=== PATIENT | male | born 1965 | race Caucasian/White ===

== ENCOUNTER 2017-07-09 15:16 | Inpatient (IN) | payer MEDICARE ==
[2017-07-09 16:14] LABS: Hematocrit 47 % (42-52); Hemoglobin 15.1 g/dl (14.0-18.0); Mean Corpuscular HGB Conc 33 g/dl (31-36); Mean Corpuscular Hemoglobin 26 pg (27-31); Mean Corpuscular Volume 81 fL (80-94); Mean Platelet Volume 8 um3 (7.4-10.4); Red Blood Count 5.77 10^6/ul (4.0-5.4); Red Cell Distribution Width 20 % (10.5-15); White Blood Count 10.9 10^3/ul (3.5-10.8)
[2017-07-09 16:23] LABS: ALT 59 U/L (7-52); AST 37 U/L (13-39); Albumin 4.3 g/dL (3.2-5.2); Alkaline Phosphatase 61 U/L (34-104); Anion Gap 12 mmol/L (2-11); BUN/Creatinine Ratio 14.4 (8-20); Blood Urea Nitrogen 20 mg/dL (6-24); CO2 Carbon Dioxide 23 mmol/L (22-32); Calcium 9.8 mg/dL (8.6-10.3); Chloride 101 mmol/L (101-111); EGFR African American 69.6 (>60); EGFR Non-African American 54.1 (>60); Globulin 2.8 g/dL (2-4); Glucose 94 mg/dL (70-100); Potassium 4.1 mmol/L (3.5-5.0); Sodium 136 mmol/L (133-145); Total Protein 7.1 g/dL (6.4-8.9)
[2017-07-09 16:53] LABS: TSH (Thyroid Stimulating Horm) 0.52 mcIU/mL (0.34-5.60)
[2017-07-09 17:15] LABS: Acetaminophen < 15 mcg/mL; Alcohol < 10 mg/dL (<10); Lithium < 0.10 mmol/L (0.6-1.2); Salicylate < 2.50 mg/dL (<30)
--- NOTE | 2017-07-09 17:37 | ED ---
Psychiatric Complaint - HPI Summary HPI Summary: Patient presents to the ED after missing an appt with his therapist. He states he has been having suicidal ideations with 3 prior attempts. One attempt was 25 years ago with cutting his throat, one attempt was 10 years ago by an OD and last episode one week ago. He attempted to OD on trazadone (17 tabs of 150mg) and remeron (approx 5 tabs) last week. Therapist was made aware and gave only a 7 day supply of the trazadone to which he took all 7 last evening and 5 tabs remeron. He is currently having SI but denies HI. He has a therapist and a psychiatrist. His PMHx includes some medical problems in addition to bipolar with overlying depression. Patient is a smoker, ETOH use, but denies any drugs. He was on lithium for 25 years, but recently was taken off d/t kidney function. He points this out as a reason for his increased depression. - History Of Current Complaint Chief Complaint: EDMentalHealth Time Seen by Provider: 07/09/17 15:24 Hx Obtained From: Patient Onset/Duration: Gradual Onset Timing: Constant Severity Initially: Moderate Severity Currently: Moderate Character: Depressed Aggravating Factor(s): Medication Non-compliance, Therapy Non-compliance Alleviating Factor(s): Nothing Related History: Positive For: Prior Psychiatric Issues Has Suicidal: Reports: Thoughts, With A Plan Ingestion History: Type/Name Of Drug - trazadone and remeron, Amount Ingested - 17 tabs of 150mg trazadone/ 5 tabs remeron - Risk Factor(s) Completed Suicide Risk Factors: Male, White Australian - Allergies/Home Medications Allergies/Adverse Reactions: Allergies Allergy/AdvReac Type Severity Reaction Status Date / Time No Known Allergies Allergy Verified 03/13/14 07:05 Home Medications: Home Medications Levothyroxine TAB* [Synthroid TAB*] 50 mcg PO DAILY 07/09/17 [History Confirmed 07/09/17] Lurasidone (NF) [Latuda (NF)] 80 mg PO DAILY WITH MEAL 07/09/17 [History Confirmed 07/09/17] amLODIPine TAB* [Norvasc 5 mg TAB*] 10 mg PO DAILY 07/09/17 [History Confirmed 07/09/17] PMH/Surg Hx/FS Hx/Imm Hx Previously Healthy: Yes Endocrine/Hematology History: Reports: Hx Thyroid Disease - HYPOTHYROIDISM Cardiovascular History: Reports: Hx Hypertension - ON MEDICATION FOR Respiratory History: Reports: Hx Sleep Apnea - PROPS SLEEPS ON SIDE AND HEAD OF BED ELEVATED GI History: Reports: Hx Gastroesophageal Reflux Disease - ON MEDICATION FOR, Hx Ulcer - HX OF Musculoskeletal History: Reports: Hx Arthritis - SHOULDER-RIGHT Sensory History: Denies: Hx Contacts or Glasses, Hx Hearing Aid Opthamlomology History: Denies: Hx Contacts or Glasses Neurological History: Reports: Other Neuro Impairments/Disorders - BIPOLAR DISEASE/ TREMOR Psychiatric History: Reports: Hx Anxiety - UNDER CONTROL WITH MEDICATION PER PATIENT, Hx Depression - UNDER CONTROL WITH MEDICATION PER PATIENT - Surgical History Surgery Procedure, Year, and Place: REPAIR OF A THROAT LACERATION- WHILE IN HIS [id number] 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 ANKLE RECONSTRUCTION- [place]. LYMPH NODE BIOPSY- [facility] [place]- 2012 Hx Anesthesia Reactions: No - Immunization History Hx Pertussis Vaccination: No Immunizations Up to Date: Unable to Obtain/Confirm Infectious Disease History: Yes Infectious Disease History: Denies: Traveled Outside the [place] in Last 30 Days - Social History Occupation: Unemployed Lives: Alone Alcohol Use: None Hx Substance Use: No Substance Use Type: Reports: None Hx Tobacco Use: Yes Smoking Status (MU): Former Smoker Amount Used/How Often: 1/2 PPD X 20 YEARS Review of Systems Constitutional: Negative Eyes: Negative Cardiovascular: Negative Respiratory: Negative Positive: no symptoms reported, see HPI Musculoskeletal: Negative Skin: Negative Positive: Anxious, Depressed All Other Systems Reviewed And Are Negative: Yes Physical Exam Triage Information Reviewed: Yes Vital Signs On Initial Exam: Initial Vitals BP 120/86 / 15:20 Vital Signs Reviewed: Yes Appearance: Positive: Well-Appearing, Well-Nourished Skin: Positive: Warm, Skin Color Reflects Adequate Perfusion Head/Face: Positive: Normal Head/Face Inspection Eyes: Positive: EOMI, ANTOINE, Conjunctiva Clear Neck: Positive: Supple, No Lymphadenopathy Respiratory/Lung Sounds: Positive: Clear to Auscultation, Breath Sounds Present Cardiovascular: Positive: Normal, RRR, Pulses are Symmetrical in both Upper and Lower Extremities Musculoskeletal: Positive: Normal, Strength/ROM Intact Neurological: Positive: Sensory/Motor Intact, Alert, Oriented to Person Place, Time, Speech Normal Psychiatric: Positive: Affect/Mood Appropriate, Depressed AVPU Assessment: Alert - Donna Coma Scale Coma Scale Total: 15 Diagnostics - Vital Signs Vital Signs Temp Pulse Resp BP Pulse Ox 07/09/17 16:00 95 17 91 07/09/17 15:22 99.0 F 97 16 120/86 97 07/09/17 15:21 103 91 07/09/17 15:20 120/86 - Laboratory Lab Results: Lab Results 07/09/17 07/09/17 Range/Units 15:53 15:53 WBC 10.9 H (3.5-10.8) 10^3/ul RBC 5.77 H (4.0-5.4) 10^6/ul Hgb 15.1 (14.0-18.0) g/dl Hct 47 (42-52) % MCV 81 (80-94) fL MCH 26 L (27-31) pg MCHC 33 (31-36) g/dl RDW 20 H (10.5-15) % Plt Count 213 (150-450) 10^3/ul MPV 8 (7.4-10.4) um3 Neut % (Auto) 88.3 H (38-83) % Lymph % (Auto) 6.2 L (25-47) % [place] % (Auto) 4.8 (1-9) % Eos % (Auto) 0.4 (0-6) % Baso % (Auto) 0.3 (0-2) % Absolute Neuts (auto) 9.6 H (1.5-7.7) 10^3/ul Absolute Lymphs (auto) 0.7 L (1.0-4.8) 10^3/ul Absolute Monos (auto) 0.5 (0-0.8) 10^3/ul Absolute Eos (auto) 0 (0-0.6) 10^3/ul Absolute Basos (auto) 0 (0-0.2) 10^3/ul Absolute Nucleated RBC 0 10^3/ul Nucleated RBC % 0 Sodium 136 (133-145) mmol/L Potassium 4.1 (3.5-5.0) mmol/L Chloride 101 (101-111) mmol/L Carbon Dioxide 23 (22-32) mmol/L Anion Gap 12 H (2-11) mmol/L BUN 20 (6-24) mg/dL Creatinine 1.39 H (0.67-1.17) mg/dL Est GFR ( Amer) 69.6 (>60) Est GFR (Non-Af Amer) 54.1 (>60) BUN/Creatinine Ratio 14.4 (8-20) Glucose 94 (70-100) mg/dL Calcium 9.8 (8.6-10.3) mg/dL Total Bilirubin 0.90 (0.2-1.0) mg/dL AST 37 (13-39) U/L ALT 59 H (7-52) U/L Alkaline Phosphatase 61 (34-104) U/L Total Protein 7.1 (6.4-8.9) g/dL Albumin 4.3 (3.2-5.2) g/dL Globulin 2.8 (2-4) g/dL Albumin/Globulin Ratio 1.5 (1-3) TSH 0.52 (0.34-5.60) mcIU/mL Salicylates < 2.50 (<30) mg/dL Acetaminophen < 15 mcg/mL [place] < 0.10 L (0.6-1.2) mmol/L Serum Alcohol < 10 (<10) mg/dL Result Diagrams: 07/09/17 15:53 07/09/17 15:53 Lab Statement: Any lab studies that have been ordered have been reviewed, and results considered in the medical decision making process. Course/Dx - Course Course Of Treatment: Patient is evaluated for depression. He has 2 recent episodes of attempted overdose. Both on trazadone and remeron. He notes he just wants to sleep, but upon questioning, he states he cannot fully answer if he has SI. Previous attempts of suicide =3. Patient has close outpatient follow up. He takes medications for HCL, HTN and hypothyroidism. He is feeling "fatigued" at this time, but denies other symptoms. D/t recent (12 hours since ingestion) episode, poison control called and requested patient be on 6 hour tele-monitoring. He is feeling otherwise well. He is given no medications during his ED course of treatment. - Differential Dx/Clinical Impression Differential Diagnosis/HQI/PQRI: Positive: Bipolar Disorder, Drug Overdose/ Intentional, Suicide Attempt Provider Diagnosis: Drug overdose, intentional, Bipolar disorder Discharge - Discharge Plan Condition: Stable Disposition: OTHER Discharge Disposition Comment: Cleared for MHU
[2017-07-09 18:35] LABS: Urine Bilirubin Negative (Negative); Urine Glucose Negative (Negative); Urine Nitrite Negative (Negative)
[2017-07-09 19:27] LABS: Benzodiazepine Urine Screen Presumptive Positive (None Detect)
[2017-07-09] MEDS ORDERED: Omeprazole CAP* 20 MG ONE (23:56)
[2017-07-09] MEDS ORDERED: Mirtazapine TAB* 15 MG ONE (23:56)
[2017-07-09] MEDS ORDERED: traZODone TAB* 50 MG TAB ONE (23:56)
[2017-07-10] MEDS ORDERED: Al Hydrox/Mg Hydrox/Simet LIQ* 30 ML UDC PO PRN (00:28)
[2017-07-10] MEDS ORDERED: Acetaminophen TAB* 325 MG PO PRN (00:28)
[2017-07-10] MEDS ORDERED: LURASIDONE 80 MG PO SCH (08:30)
[2017-07-10] MEDS: amLODIPine TAB* 5 MG PO SCH (09:19)
[2017-07-10] MEDS: Omeprazole CAP* 20 MG PO SCH ×2 (09:19→21:39)
[2017-07-10] MEDS: Levothyroxine TAB* 50 MCG TAB PO SCH (09:19)
--- NOTE | 2017-07-10 11:49 | PN ---
MHU: Group Therapy Note - Service Type Service Type: 11295 Group Psychotherapy - Cognitive Behavioral Group Therapy ( CBT):Patient was attentive and participatory in CBT programming this morning, and remained in good behavioral control. Patient expressed positive insights regarding relevant treatment interventions and goals.
--- NOTE | 2017-07-10 13:03 | HP ---
H&P (Free Text) History and Physical: HPI: ---- Patient is a 51yo male with PPHx significant for Bipolar 1 d/o with PFs who presents to the [facility] ED for psychiatric eval on issued by his [facility] therapist. Patient reports he has experienced sudden significant drop in his mood and attempted suicide 1 week ago when he OD on 15 150mg Trazodone tabs and 4 25mg Vistaril tabs. Patient reports only adverse effect was that he slept for 2days. Patient reports multiple recent biopsychosocial stressors. 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 Patient reports he worked out daily. He reports purchasing high dollar proteins and supplements, and spent extra for healthy food as this was his identity. Patient reports the knee injury in fact was infectious in etiology. He reports recently completing a long course of ABX. He has missed his f/u Ortho appts. Patient also in 11/2016 he was informed by his psychiatrist, Dr. Guadarrama, that his renal function as been worsening. Patient reports he has been on Campanilla since his first suicide attempt at 28yo. In mid-April 2017 patient was informed he had to come off Campanilla for mx of Bipolar d/o as his renal function had become critical. He reports being on a dose of 600mg po BID. He reports Dr. Guadarrama tapered him 500mg every 2 weeks until he was off, while cross-titrating Latuda which she started at 20mg po daily. Patient reports he has been off Campanilla for 1 month and is currently on Latuda 80mg po daily. Patient reports over the last month his anxiety and depression has significantly worsened. 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 Patient reports he wakes in the morning and is overwhelmed with anxiety. Patient stated, I will pace aimlessly for 12 hours. Patient stated, Its hard to sit still. He reports significant depression and feelings that his life is worthless. Patient reports this prompted him to attempt suicide 1 week ago. Patient stated, the only relief I got was when I took those Trazodone and slept. He stated, I wanted to sleep foreverI didnt want to deal anymore. Patient states in addition he has experienced significant apathy, low energy, low motivation, no ambition, poor sleep, and decreased appetite. Patient reports ~ 3wks of experiencing symptoms of agoraphobia, as he would become panicked when outside his home. He reports he has gone days without eating because he was too anxious to leave his home even for food. 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 He reports when not on his meds he hears the voice of 2 females who normally whisper his name or make odd comments. He reports being arrested for entering a strangers home at 1am while intoxicated on cannabis because the female voices told him there was a woman waiting for him inside that house. He reports going inside, being confronted by the father of the family there and reports police were pulling up before he could get off the lawn. Patient reports no current hallucinations. He denies use of alcohol, cannabis or any illicit substance in over 12 years. He reports 2 prior suicide attempts in [place]. Patient moved to [place] in 2003. Patient reports med compliance with Latuda and reports compliance with his psychiatry appts with Dr. Guadarrama and therapy appts. with his therapist Gisele Palafox. Patient has insight that he has lost his identity. He requests med modification as he feels Latuda does not work, and he requests SW aid with financial issues as he reports he has social security benefits, but is afraid because his rent is late he may lose his apartment. Patient reports he feels safe on the unit. He denies current SI/HI or AH/VH. He continues to display moderate symptoms of akathisia. Past Psych Hx: Inpt - 1st at a psychiatric hospital in [place] at age 28yo after a suicide attempt by cutting his neck requiring ICU and tracheotomy. - His last hospitalization was at the [facility] in 10/2006. Outpt - Patient seen at [facility] by Dr. Guadarrama(psychiatry) and Gisele Palafox( therapist) Psychotropic med hx - Campanilla, Depakote, Wellbutrin, Ambien, Restoril, Klonopin , Latuda, Trazodone Suicide attempt Hx / SIB Hx: -Patient reports a total of 3 suicide attempt. -He reports his 1st when he was 28yo in [place]. He reports stressor being recently released from snf, with no job, and financial pressures. Patient cut across his neck with a knife. He required ICU hospitalization and a tracheotomy. -He reports his second, by OD on pills after the breakup of a 12yr relationship and moving back to [place] from [place]. -His 3rd occurred last week by OD due to akathisia, agoraphobia, neurovegetative symptoms of depression. Trauma Hx: Patient adopted at 2yo. Substance Hx: Patient denies use of alcohol, cannabis or any illicit substance in over 12 years. 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 Legal Hx: Patient reports hx of 3 incarcerations. He reports no current legal issues. Home Medications: Home Medications Medication Instructions Recorded Confirmed Type Mirtazapine TAB* [Remeron TAB*] 30 mg PO BEDTIME 03/08/14 07/09/17 History Omeprazole CAP* [Prilosec CAP*] 20 mg PO BID 03/08/14 07/09/17 History Temazepam CAP* [Restoril CAP*] 30 mg PO BEDTIME 03/08/14 07/09/17 History Trazodone HCl 150 mg PO BEDTIME 03/08/14 07/09/17 History Levothyroxine TAB* [Synthroid TAB*] 50 mcg PO DAILY 07/09/17 07/09/17 History Lurasidone (NF) [Latuda (NF)] 80 mg PO DAILY WITH MEAL 07/09/17 07/09/17 History amLODIPine TAB* [Norvasc 5 mg TAB*] 10 mg PO DAILY 07/09/17 07/09/17 History VITALS: --------- Vital Signs (72 hours) 07/09/17 07/09/17 07/09/17 15:20 15:21 15:22 Temperature 99.0 F Pulse Rate 103 97 Respiratory 16 Rate Blood Pressure 120/86 120/86 (mmHg) O2 Sat by Pulse 91 97 Oximetry 07/09/17 07/09/17 07/09/17 16:00 17:00 18:00 Temperature Pulse Rate 95 99 80 Respiratory 17 14 15 Rate Blood Pressure (mmHg) O2 Sat by Pulse 91 92 92 Oximetry 07/09/17 07/09/17 07/09/17 18:37 19:00 19:30 Temperature Pulse Rate 84 82 83 Respiratory 14 15 16 Rate Blood Pressure 127/83 123/85 118/86 (mmHg) O2 Sat by Pulse 91 91 91 Oximetry 07/09/17 07/09/17 07/09/17 20:00 20:30 21:00 Temperature Pulse Rate 76 77 95 Respiratory 15 15 17 Rate Blood Pressure 120/84 134/89 140/95 (mmHg) O2 Sat by Pulse 91 91 92 Oximetry 07/09/17 07/09/17 07/09/17 21:30 22:00 22:30 Temperature Pulse Rate 90 89 81 Respiratory 15 15 16 Rate Blood Pressure 145/87 136/84 132/80 (mmHg) O2 Sat by Pulse 92 92 91 Oximetry 07/09/17 07/09/17 07/09/17 23:00 23:39 23:40 Temperature 98.0 F 98 F Pulse Rate 81 117 117 Respiratory 16 16 16 Rate Blood Pressure 127/81 126/80 126/80 (mmHg) O2 Sat by Pulse 90 93 93 Oximetry 07/10/17 07/10/17 07/10/17 00:02 00:03 08:03 Temperature 98.5 F Pulse Rate 100 73 Respiratory 16 16 Rate Blood Pressure 141/85 (mmHg) O2 Sat by Pulse 93 Oximetry 07/10/17 07/10/17 07/10/17 11:55 13:05 13:35 Temperature 98.6 F Pulse Rate 102 Respiratory 16 16 16 Rate Blood Pressure 148/96 (mmHg) O2 Sat by Pulse 95 Oximetry 07/10/17 07/10/17 15:35 20:00 Temperature Pulse Rate 89 Respiratory 16 Rate Blood Pressure 138/87 (mmHg) O2 Sat by Pulse 97 Oximetry LABS: ------ Laboratory Tests 07/09/17 07/09/17 07/09/17 15:53 15:53 17:45 WBC 10.9 H RBC 5.77 H Hgb 15.1 Hct 47 MCV 81 MCH 26 L MCHC 33 RDW 20 H Plt Count 213 MPV 8 Neut % (Auto) 88.3 H Lymph % (Auto) 6.2 L [place] % (Auto) 4.8 Eos % (Auto) 0.4 Baso % (Auto) 0.3 Absolute Neuts (auto) 9.6 H Absolute Lymphs (auto) 0.7 L Absolute Monos (auto) 0.5 Absolute Eos (auto) 0 Absolute Basos (auto) 0 Absolute Nucleated RBC 0 Nucleated RBC % 0 Sodium 136 Potassium 4.1 Chloride 101 Carbon Dioxide 23 Anion Gap 12 H BUN 20 Creatinine 1.39 H Est GFR ( Amer) 69.6 Est GFR (Non-Af Amer) 54.1 BUN/Creatinine Ratio 14.4 Glucose 94 Calcium 9.8 Total Bilirubin 0.90 AST 37 ALT 59 H Alkaline Phosphatase 61 Total Protein 7.1 Albumin 4.3 Globulin 2.8 Albumin/Globulin Ratio 1.5 TSH 0.52 Urine Color Yellow Urine Appearance Clear Urine pH 6.0 Ur Specific [place] 1.009 L Urine Protein Negative Urine Ketones Negative Urine Blood Negative Urine Nitrate Negative Urine Bilirubin Negative Urine Urobilinogen Negative Ur Leukocyte Esterase Negative Urine Glucose Negative Salicylates < 2.50 Urine Opiates Screen Acetaminophen < 15 Ur Barbiturates Screen Ur Phencyclidine Scrn Ur Amphetamines Screen U Benzodiazepines Scrn Campanilla < 0.10 L Urine Cocaine Screen U Cannabinoids Screen Serum Alcohol < 10 07/09/17 17:45 WBC RBC Hgb Hct MCV MCH MCHC RDW Plt Count MPV Neut % (Auto) Lymph % (Auto) [place] % (Auto) Eos % (Auto) Baso % (Auto) Absolute Neuts (auto) Absolute Lymphs (auto) Absolute Monos (auto) Absolute Eos (auto) Absolute Basos (auto) Absolute Nucleated RBC Nucleated RBC % Sodium Potassium Chloride Carbon Dioxide Anion Gap BUN Creatinine Est GFR ( Amer) Est GFR (Non-Af Amer) BUN/Creatinine Ratio Glucose Calcium Total Bilirubin AST ALT Alkaline Phosphatase Total Protein Albumin Globulin Albumin/Globulin Ratio TSH Urine Color Urine Appearance Urine pH Ur Specific [place] Urine Protein Urine Ketones Urine Blood Urine Nitrate Urine Bilirubin Urine Urobilinogen Ur Leukocyte Esterase Urine Glucose Salicylates Urine Opiates Screen None detected Acetaminophen Ur Barbiturates Screen None detected Ur Phencyclidine Scrn None detected Ur Amphetamines Screen None detected U Benzodiazepines Scrn Presumptive positive H Campanilla Urine Cocaine Screen None detected U Cannabinoids Screen None detected Serum Alcohol PHYSICAL EXAM: GEN - in NAD, looks stated age HEENT - NC/AT, EOEMI, no lesions or discharge noted, conjunctivae clear NECK - supple, no JVD, no LAD, CARDIAC - S1/S2, no discernable murmurs ABD - (+) BS x 4 quad, non-tender EXT - no edema, no lesions MUSCULOSKEL - 5/5 muscle strength in all extremities SKIN - intact, no lesions NEURO - CN 2-12, steady gait MSE: ----- Appearance - robust build male, fair hygeine, in NAD Behavior - (+)mild PMA, cooperative Speech - RVR, prosody wnl Eye Contact - fair Mood - "depressed" Affect - depressed TP - linear and GD TC - consumed with SI and feelings of worthlessness, wants med modifications Perception - no signs of psychosis noted or reported Orientation - A&Ox3 Cognition - intact Insight - poor Judgement - poor SI / HI - s/p suicide attempt 1 week prior to admission, ongoing SI, no HI ASSESSMENT: 1. Bipolar 1 d/o, MRE depressed w/o PFs 2. Akathisia PLAN: ------ 1. Continue admission to [facility] for safety and symptom mx. 2. Continue home medical med regimen 3. Discontinue Latuda as patient has been uptitrated and now on 80mg x 2 weeks w /o benefit to mood. 4. Patient gives informed consent to start Olanzapine 10mg po qhs for mood stabilization. 5. Continue Mirtazepine 30mg po qhs for mx of akathisia and insomnia. 6. Continue Temazepam 30mg po qhs as patient has been on this benzo for years. Patient encouraged to start slow taper off this med due to risks of diminished cognition and risk of falls as he approaches his late 50's. 7. Continue Trazodone 150mg po qhs for insomnia as patient reports Temazepam alone does not get him to sleep. 8. Patient gives informed consent to start Wellbutrin 75mg po for neurovegetative symptoms of depression. 9. Continue gathering collateral information from family and [facility] providers. 10. Patient to participate in milieu activities and groups.
[2017-07-10] MEDS ORDERED: LORazepam TAB(*) 1 MG PO ONE (13:22)
[2017-07-10] MEDS ORDERED: buPROPion TAB* 75 MG PO ONE (19:21)
[2017-07-10] MEDS ORDERED: OLANzapine TAB* 10 MG PO SCH (21:00)
[2017-07-10] MEDS ORDERED: traZODone TAB* 50 MG TAB PO SCH (21:00)
[2017-07-10] MEDS: Mirtazapine TAB* 15 MG PO SCH (21:35)
[2017-07-10] MEDS: traZODone TAB* 50 MG TAB PO PRN (21:38)
[2017-07-10] MEDS: Temazepam CAP* 15 MG PO SCH (21:39)
[2017-07-11] MEDS: buPROPion TAB* 75 MG PO SCH ×2 (08:13→13:31)
[2017-07-11] MEDS: amLODIPine TAB* 5 MG PO SCH (08:13)
[2017-07-11] MEDS: Omeprazole CAP* 20 MG PO SCH ×2 (08:14→20:16)
[2017-07-11] MEDS: Levothyroxine TAB* 50 MCG TAB PO SCH (08:14)
--- NOTE | 2017-07-11 16:25 | PN ---
Subjective - Subjective Service Type: 17982 Hosp care 15 min low complexity Subjective: Chay is seen for follow up. He is appears anxious, pacing and in some distress. "My mood feels like it's not even there, like I can't feel anything. " He reports that he is tolerating his medications well and got some decent sleep last night. He is still having SI but states that he wouldn't try to harm himself in the hospital. Objective - Appearance Appearance: Well Developed/Nourished Dysmorphic Features: No Hygiene: Normal Grooming: Fairly Well Kept - Behavior Psychomotor Activities: Abnormal-Increased Exhibits Abnormal Movement: No - Attitude and Relatedness Attitude and Relatedness: Needy Eye Contact: Fair - Speech Quality: Unpressured Latencies: Normal Quantity: Terse - Mood Patient's Decription of Mood: "Terrible" - Affect Observed Affect: Constricted Affect Consistent with: Dysphoria - Thought Process Patient's Thought Process: Coherent Thought Content: Yes Passive Wish, No Suicidal Planning, No Homicidal Ideation, No Paranoid Ideation - Sensorium Experiencing Hallucinations: Yes Type of Hallucinations: Visual: No, Auditory: Yes, Command: No - Level of Consciousness Level of Consciousness: Alert Orientation: Yes Intact, Yes Orientated to Time, Yes Orientated to Place, Yes Orientated to Person - Impulse Control Impulse Control: Tenuous - Insight and Judgement Insight and Judgement: Fair - Group Participation Particating in Group Activities: Yes - Medication Management Medication Management Adherence: Yes Assessment - Assessment Merits Inpatient Hospitalization: For Immediate Safety, For Stabilization Inpatient DSM-IV Dx: Bipolar Depression Clinical Impression: 51 y.o. single, white male with a hx of type I bipolar do admitted on voluntary status d/t suicidal ideations with recent intentional overdose. Plan - Plan Treatment Plan: Name: MONICA TARIQ Birthdate: 1965 [id number] The patient is on mirtazapine, temazepam, bupropion and olanzapine therapies. Will increase olanzapine from 10 to 15mg nightly. Continue inpatient level treatment. Continued Medication Management: Different Medication Medications: Current Medications Acetaminophen (Tylenol Tab*) 650 mg PO Q4H PRN PRN Reason: PAIN or TEMP > 101 F Al Hydrox/Mg Hydrox/Simethicone (Maalox Plus*) 30 ml PO Q4H PRN PRN Reason: INDIGESTION Amlodipine Besylate (Norvasc Tab*) 10 mg PO DAILY [facility] Last Admin: 07/11/17 08:13 Dose: 10 mg Bupropion HCl (Wellbutrin Tab*) 75 mg PO BID@0800,1400 CANDICE Last Admin: 07/11/17 13:31 Dose: 75 mg Levothyroxine Sodium (Synthroid Tab*) 50 mcg PO 0600 CANDICE Last Admin: 07/11/17 08:14 Dose: 50 mcg Lorazepam (Ativan Tab(*)) 2 mg PO BID PRN PRN Reason: ANXIETY Mirtazapine (Remeron Tab*) 30 mg PO BEDTIME [facility] Last Admin: 07/10/17 21:35 Dose: 30 mg Omeprazole (Prilosec Cap*) 20 mg PO BID CANDICE Last Admin: 07/11/17 08:14 Dose: 20 mg Temazepam (Restoril Cap*) 30 mg PO BEDTIME CANDICE Last Admin: 07/10/17 21:39 Dose: 30 mg Trazodone HCl (Desyrel Tab*) 150 mg PO BEDTIME PRN PRN Reason: INSOMNIA Last Admin: 07/10/17 21:38 Dose: 150 mg - Discharge Plan Discharge Plan: Inpatient Hospitalization
[2017-07-11] MEDS: Temazepam CAP* 15 MG PO SCH (20:15)
[2017-07-11] MEDS: OLANzapine TAB* 5 MG PO SCH (20:15)
[2017-07-11] MEDS: Mirtazapine TAB* 15 MG PO SCH (20:15)
[2017-07-11] MEDS: OLANzapine TAB* 10 MG PO SCH (20:16)
[2017-07-11] MEDS: traZODone TAB* 50 MG TAB PO PRN (20:17)
[2017-07-12] MEDS: Levothyroxine TAB* 50 MCG TAB PO SCH (08:06)
[2017-07-12] MEDS: buPROPion TAB* 75 MG PO SCH ×2 (08:07→13:44)
[2017-07-12] MEDS: amLODIPine TAB* 5 MG PO SCH (08:07)
[2017-07-12] MEDS: Omeprazole CAP* 20 MG PO SCH ×2 (08:07→20:19)
[2017-07-12 08:17] LABS: HDL Cholesterol 26.9 mg/dL
[2017-07-12] MEDS: Temazepam CAP* 15 MG PO SCH (20:19)
[2017-07-12] MEDS: OLANzapine TAB* 10 MG PO SCH (20:19)
[2017-07-12] MEDS: Mirtazapine TAB* 15 MG PO SCH (20:19)
[2017-07-12] MEDS: OLANzapine TAB* 5 MG PO SCH (20:19)
[2017-07-13] MEDS: Levothyroxine TAB* 50 MCG TAB PO SCH (08:28)
[2017-07-13] MEDS: Omeprazole CAP* 20 MG PO SCH ×2 (08:29→20:25)
[2017-07-13] MEDS: amLODIPine TAB* 5 MG PO SCH (08:29)
[2017-07-13] MEDS: buPROPion TAB* 75 MG PO SCH ×2 (08:31→14:00)
--- NOTE | 2017-07-13 11:20 | PN ---
Subjective - Subjective Service Type: 77315 Hosp care 15 min low complexity Subjective: Patient visible in the milieu, pacing most of the day. Patient reports ongoing intense anxiety and depression. Patient reports med compliance and denies med s/e's. Patient's BP continues to be elevated, as well as his HR. Patient reports constipation with no BMs since admission. Patient reports improved sleep, but ongoing issues with sleep maintenance. Patient denies SI/HI and AH/VH. He is amenable to start of Propranolol, Colace, and to an increase in Wellbutrin. Objective - Appearance Appearance: Well Developed/Nourished Dysmorphic Features: No Hygiene: Normal Grooming: Fairly Well Kept - Behavior Psychomotor Activities: Normal Exhibits Abnormal Movement: No - Attitude and Relatedness Attitude and Relatedness: Cooperative Eye Contact: Fair - Speech Quality: Unpressured Latencies: Normal Quantity: Appropriate - Mood Patient's Decription of Mood: "Anxious" - Affect Observed Affect: Tense Affect Consistent with: Dysphoria - Thought Process Patient's Thought Process: Coherent Thought Content: No Passive Wish, No Suicidal Planning, No Homicidal Ideation, No Paranoid Ideation - Sensorium Experiencing Hallucinations: No, Sensorium is Clear Type of Hallucinations: Visual: No, Auditory: No, Command: No - Level of Consciousness Level of Consciousness: Alert Orientation: Yes Intact, Yes Orientated to Time, Yes Orientated to Place, Yes Orientated to Person - Impulse Control Impulse Control: Intact - Insight and Judgement Insight and Judgement: Fair - Group Participation Particating in Group Activities: Yes - Medication Management Medication Management Adherence: Yes Assessment - Assessment Merits Inpatient Hospitalization: For Immediate Safety, For Stabilization Inpatient DSM-IV Dx: Bipolar 2 disorder, MRE depressed w/o PFs Plan - Plan Treatment Plan: Name: MONICA TARIQ Birthdate: 1965 [id number] 1. [place] [facility] [place] and symptom mx. 2. Continue home medical med regimen. 3. Will start Propranolol 10mg po BID for anxiety/elevated HR and BP. 4. Latuda D/C'd as patient has been uptitrated and now on 80mg x 2 weeks w/o benefit to mood. 5. Continue Olanzapine at 15mg po qhs for mood stabilization. 6. Continue Mirtazepine 30mg po qhs for mx of akathisia and insomnia. 7. Continue Temazepam 30mg po qhs as patient has been on this benzo for years. Patient encouraged to start slow taper off this med due to risks of diminished cognition and risk of falls as he approaches his late 50's. 8. Increase Trazodone from 150mg to 200mg po qhs for insomnia as patient reports Temazepam alone does not get him to sleep. 9. Increase Wellbutrin from 75mg BID to 150mg po BID po for neurovegetative symptoms of depression. 10. Will start Colace 200mg po daily for constipation. 11. Continue gathering collateral information from family and [facility] providers. 12. Patient to participate in milieu activities and groups. Medications: Current Medications Acetaminophen (Tylenol Tab*) 650 mg PO Q4H PRN PRN Reason: PAIN or TEMP > 101 F Al Hydrox/Mg Hydrox/Simethicone (Maalox Plus*) 30 ml PO Q4H PRN PRN Reason: INDIGESTION Amlodipine Besylate (Norvasc Tab*) 10 mg PO DAILY [facility] Last Admin: 07/13/17 08:29 Dose: 10 mg Bupropion HCl (Wellbutrin Tab*) 75 mg PO BID@0800,1400 [facility] Last Admin: 07/13/17 08:31 Dose: 75 mg Levothyroxine Sodium (Synthroid Tab*) 50 mcg PO 0600 [facility] Last Admin: 07/13/17 08:28 Dose: 50 mcg Lorazepam (Ativan Tab(*)) 2 mg PO BID PRN PRN Reason: ANXIETY Mirtazapine (Remeron Tab*) 30 mg PO BEDTIME [facility] Last Admin: 07/12/17 20:19 Dose: 30 mg Olanzapine (Zyprexa Tab*) 10 mg PO BEDTIME [facility] Last Admin: 07/12/17 20:19 Dose: 10 mg Olanzapine (Zyprexa Tab*) 5 mg PO BEDTIME [facility] Last Admin: 07/12/17 20:19 Dose: 5 mg Omeprazole (Prilosec Cap*) 20 mg PO BID [facility] Last Admin: 07/13/17 08:29 Dose: 20 mg Temazepam (Restoril Cap*) 30 mg PO BEDTIME [facility] Last Admin: 07/12/17 20:19 Dose: 30 mg Trazodone HCl (Desyrel Tab*) 150 mg PO BEDTIME PRN PRN Reason: INSOMNIA Last Admin: 07/11/17 20:17 Dose: 150 mg - Discharge Plan Discharge Plan: Outpatient Follow Up Outpatient Program: [facility]
--- NOTE | 2017-07-13 11:54 | PN ---
MHU: Group Therapy Note - Service Type Service Type: [id number] Group Psychotherapy - Cognitive Behavioral Group Therapy ( CBT):Patient was attentive and participatory in CBT programming this morning, and remained in good behavioral control. Patient expressed positive insights regarding relevant treatment interventions and goals.
[2017-07-13] MEDS: Mirtazapine TAB* 15 MG PO SCH (20:24)
[2017-07-13] MEDS: OLANzapine TAB* 5 MG PO SCH (20:25)
[2017-07-13] MEDS: Temazepam CAP* 15 MG PO SCH (20:25)
[2017-07-13] MEDS: Propranolol TAB* 10 MG PO SCH (20:25)
[2017-07-13] MEDS: OLANzapine TAB* 10 MG PO SCH (20:25)
[2017-07-13] MEDS ORDERED: traZODone TAB* 50 MG TAB PO SCH (21:00)
[2017-07-14] MEDS: Propranolol TAB* 10 MG PO SCH ×2 (08:07→21:45)
[2017-07-14] MEDS: Omeprazole CAP* 20 MG PO SCH ×2 (08:07→21:43)
[2017-07-14] MEDS: Levothyroxine TAB* 50 MCG TAB PO SCH (08:07)
[2017-07-14] MEDS: amLODIPine TAB* 5 MG PO SCH (08:07)
[2017-07-14] MEDS: Docusate CAP* 100 MG PO SCH (08:07)
[2017-07-14] MEDS: buPROPion TAB* 75 MG PO SCH ×2 (08:53→13:49)
--- NOTE | 2017-07-14 13:07 | PN ---
MHU: Group Therapy Note - Service Type Service Type: [id number] Group Psychotherapy - Cognitive Behavioral Group Therapy ( CBT):Patient was attentive and participatory in CBT programming this morning, and remained in good behavioral control. Patient expressed positive insights regarding relevant treatment interventions and goals.
[2017-07-14] MEDS: LORazepam TAB(*) 1 MG PO PRN (15:15)
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
[2017-07-14] MEDS: Temazepam CAP* 15 MG PO SCH (21:43)
[2017-07-14] MEDS: OLANzapine TAB* 5 MG PO SCH (21:43)
[2017-07-14] MEDS: Mirtazapine TAB* 15 MG PO SCH (21:44)
[2017-07-14] MEDS: traZODone TAB* 100 MG PO SCH (21:45)
[2017-07-14] MEDS: OLANzapine TAB* 10 MG PO SCH (21:45)
[2017-07-15] MEDS: Levothyroxine TAB* 50 MCG TAB PO SCH (08:30)
[2017-07-15] MEDS: amLODIPine TAB* 5 MG PO SCH (08:31)
[2017-07-15] MEDS: Omeprazole CAP* 20 MG PO SCH ×2 (08:31→20:21)
[2017-07-15] MEDS: Propranolol TAB* 10 MG PO SCH ×2 (08:32→20:16)
[2017-07-15] MEDS: buPROPion TAB* 75 MG PO SCH ×2 (08:32→13:28)
[2017-07-15] MEDS: Docusate CAP* 100 MG PO SCH (10:01)
--- NOTE | 2017-07-15 10:24 | PN ---
Subjective - Subjective Service Type: 01031 Hosp care 15 min low complexity Subjective: Patient noted to be visible and social in the milieu. Patient attending more groups and reported to be more engaged and participating more in groups. Patient reports improving depression and anxiety. He has not ruled out ECT. Patient asked about TMS(transcranial Magnetic Stimulation). Patient informed this provider would have to research local providers and see if one would take his insurance. Patient reported desire to pursue TMS over ECT. Patient reports med compliance and denies med s/e's. He was happy to report getting 8 hours of sleep last night. He denies SI/HI and AH/VH. Patient denies MORGAN, CP, Abd pain. He denies problems urinating and reports bowel movements are wnl. Appetite also reported to be wnl. Objective - Appearance Appearance: Well Developed/Nourished Dysmorphic Features: No Hygiene: Normal Grooming: Fairly Well Kept - Behavior Psychomotor Activities: Normal Exhibits Abnormal Movement: No - Attitude and Relatedness Attitude and Relatedness: Cooperative Eye Contact: Fair - Speech Quality: Unpressured Latencies: Normal Quantity: Appropriate - Mood Patient's Decription of Mood: "depressed" - Affect Observed Affect: Tense Affect Consistent with: Dysphoria - Thought Process Patient's Thought Process: Coherent Thought Content: No Passive Wish, No Suicidal Planning, No Homicidal Ideation, No Paranoid Ideation - Sensorium Experiencing Hallucinations: No, Sensorium is Clear Type of Hallucinations: Visual: No, Auditory: No, Command: No - Level of Consciousness Level of Consciousness: Alert Orientation: Yes Intact, Yes Orientated to Time, Yes Orientated to Place, Yes Orientated to Person - Impulse Control Impulse Control: Intact - Insight and Judgement Insight and Judgement: Fair - Group Participation Particating in Group Activities: Yes - Medication Management Medication Management Adherence: Yes Assessment - Assessment Merits Inpatient Hospitalization: For Immediate Safety, For Stabilization Inpatient DSM-IV Dx: Bipolar 2 disorder, MRE depressed w/o PFs Plan - Plan Treatment Plan: Name: MONICA TARIQ Birthdate: 1965 [id number] 1. Continue admission to [facility] for safety and symptom mx. 2. Continue home medical med regimen. 3. Continue Propranolol 20mg po BID for anxiety/elevated HR and BP. Patient noted immediate reduction in anxiety and sense of feeling tensed. 4. Latuda D/C'd as patient has been uptitrated and now on 80mg x 2 weeks w/o benefit to mood. 5. Continue Olanzapine at 15mg po qhs for mood stabilization. 6. Continue Mirtazepine 30mg po qhs for mx of akathisia and insomnia. 7. Continue Temazepam 30mg po qhs as patient has been on this benzo for years. Patient encouraged to start slow taper off this med due to risks of diminished cognition and risk of falls as he approaches his late 50's. 8. Continue Trazodone 250mg po qhs for insomnia as patient reports Temazepam alone does not get him to sleep. 9. Continue [id number] po BID po for neurovegetative symptoms of depression. 10. Continue Colace 200mg po daily for constipation. 11. Continue gathering collateral information from family and [facility] providers. 12. Patient to participate in milieu activities and groups. Medications: Current Medications Acetaminophen (Tylenol Tab*) 650 mg PO Q4H PRN PRN Reason: PAIN or TEMP > 101 F Al Hydrox/Mg Hydrox/Simethicone (Maalox Plus*) 30 ml PO Q4H PRN PRN Reason: INDIGESTION Amlodipine Besylate (Norvasc Tab*) 10 mg PO DAILY [facility] Last Admin: 07/15/17 08:31 Dose: 10 mg Bupropion HCl (Wellbutrin Tab*) 150 mg PO BID@0800,1400 [facility] Last Admin: 07/15/17 08:32 Dose: 150 mg Docusate Sodium (Colace Cap*) 200 mg PO DAILY [facility] Last Admin: 07/15/17 10:01 Dose: Not Given Levothyroxine Sodium (Synthroid Tab*) 50 mcg PO 0600 [facility] Last Admin: 07/15/17 08:30 Dose: 50 mcg Lorazepam (Ativan Tab(*)) 2 mg PO BID PRN PRN Reason: ANXIETY Last Admin: 07/14/17 15:15 Dose: 2 mg Mirtazapine (Remeron Tab*) 30 mg PO BEDTIME [facility] Last Admin: 07/14/17 21:44 Dose: 30 mg Olanzapine (Zyprexa Tab*) 10 mg PO BEDTIME [facility] Last Admin: 07/14/17 21:45 Dose: 10 mg Olanzapine (Zyprexa Tab*) 5 mg PO BEDTIME [facility] Last Admin: 07/14/17 21:43 Dose: 5 mg Omeprazole (Prilosec Cap*) 20 mg PO BID [facility] Last Admin: 07/15/17 08:31 Dose: 20 mg Propranolol HCl (Inderal Tab*) 20 mg PO BID [facility] Last Admin: 07/15/17 08:32 Dose: 20 mg Temazepam (Restoril Cap*) 30 mg PO BEDTIME [facility] Last Admin: 07/14/17 21:43 Dose: 30 mg Trazodone HCl (Desyrel Tab*) 250 mg PO BEDTIME [facility] Last Admin: 07/14/17 21:45 Dose: 250 mg - Discharge Plan Discharge Plan: Outpatient Follow Up
[2017-07-15] MEDS: LORazepam TAB(*) 1 MG PO PRN (17:02)
[2017-07-15] MEDS: traZODone TAB* 100 MG PO SCH (20:19)
[2017-07-15] MEDS: Temazepam CAP* 15 MG PO SCH (20:19)
[2017-07-15] MEDS: OLANzapine TAB* 5 MG PO SCH (20:20)
[2017-07-15] MEDS: Mirtazapine TAB* 15 MG PO SCH (20:20)
[2017-07-15] MEDS: OLANzapine TAB* 10 MG PO SCH (20:20)
[2017-07-16] MEDS: Levothyroxine TAB* 50 MCG TAB PO SCH (07:25)
[2017-07-16] MEDS: Docusate CAP* 100 MG PO SCH (08:59)
[2017-07-16] MEDS: amLODIPine TAB* 5 MG PO SCH (09:00)
[2017-07-16] MEDS: Omeprazole CAP* 20 MG PO SCH ×2 (09:01→20:19)
[2017-07-16] MEDS: Propranolol TAB* 10 MG PO SCH ×2 (09:01→20:20)
[2017-07-16] MEDS: buPROPion TAB* 75 MG PO SCH ×2 (09:03→13:42)
--- NOTE | 2017-07-16 10:00 | PN ---
Subjective - Subjective Service Type: [id number] Hosp care 15 min low complexity Subjective: Patient noted to be more social in the milieu. Patient noted to pace less, spending more time sitting. Patient reports his mood as improving. He stated, "I'm feeling better". Patient reports med compliance and denies med s/e's. Patient reports another night of good sleep. In conversation, patient noticeably more engaged and full in affect. Patient reports improved memory, concentration and interest in socializing. Objective - Appearance Appearance: Well Developed/Nourished Dysmorphic Features: No Hygiene: Normal Grooming: Well Kept - Behavior Psychomotor Activities: Normal Exhibits Abnormal Movement: No - Attitude and Relatedness Attitude and Relatedness: Cooperative Eye Contact: Fair - Speech Quality: Unpressured Latencies: Normal Quantity: Appropriate - Mood Patient's Decription of Mood: "feeling better" - Affect Observed Affect: Fair Affect Consistent with: Dysphoria - Thought Process Patient's Thought Process: Coherent Thought Content: No Passive Wish, No Suicidal Planning, No Homicidal Ideation, No Paranoid Ideation - Sensorium Experiencing Hallucinations: No, Sensorium is Clear Type of Hallucinations: Visual: No, Auditory: No, Command: No - Level of Consciousness Level of Consciousness: Alert Orientation: Yes Intact, Yes Orientated to Time, Yes Orientated to Place, Yes Orientated to Person - Impulse Control Impulse Control: Intact - Insight and Judgement Insight and Judgement: Fair - Group Participation Particating in Group Activities: Yes - Medication Management Medication Management Adherence: Yes Assessment - Assessment Merits Inpatient Hospitalization: For Immediate Safety, For Stabilization Inpatient DSM-IV Dx: Bipolar 2 disorder, MRE depressed w/o PFs Plan - Plan Treatment Plan: Name: MONICA TARIQ Birthdate: 1965 [id number] 1. Continue admission to [facility] for safety and symptom mx. 2. Continue home medical med regimen. 3. Continue Propranolol 20mg po BID for anxiety/elevated HR and BP. Patient noted immediate reduction in anxiety and sense of feeling tensed. 4. Latuda D/C'd as patient has been uptitrated and now on 80mg x 2 weeks w/o benefit to mood. 5. Continue Olanzapine at 15mg po qhs for mood stabilization. 6. Continue Mirtazepine 30mg po qhs for mx of akathisia and insomnia. 7. Continue Temazepam 30mg po qhs as patient has been on this benzo for years. Patient encouraged to start slow taper off this med due to risks of diminished cognition and risk of falls as he approaches his late 50's. 8. Continue Trazodone 250mg po qhs for insomnia as patient reports Temazepam alone does not get him to sleep. 9. Continue Wellbutrin 150mg po BID po for neurovegetative symptoms of depression. 10. Continue Colace 200mg po daily for constipation. 11. Continue gathering collateral information from family and [facility] providers. 12. Patient to participate in milieu activities and groups. Medications: Current Medications Acetaminophen (Tylenol Tab*) 650 mg PO Q4H PRN PRN Reason: PAIN or TEMP > 101 F Al Hydrox/Mg Hydrox/Simethicone (Maalox Plus*) 30 ml PO Q4H PRN PRN Reason: INDIGESTION Amlodipine Besylate (Norvasc Tab*) 10 mg PO DAILY [facility] Last Admin: 07/16/17 09:00 Dose: 10 mg Bupropion HCl (Wellbutrin Tab*) 150 mg PO BID@0800,1400 [facility] Last Admin: 07/16/17 09:03 Dose: 150 mg Docusate Sodium (Colace Cap*) 200 mg PO DAILY [facility] Last Admin: 07/16/17 08:59 Dose: 200 mg Levothyroxine Sodium (Synthroid Tab*) 50 mcg PO 0600 [facility] Last Admin: 07/16/17 07:25 Dose: 50 mcg Lorazepam (Ativan Tab(*)) 2 mg PO BID PRN PRN Reason: ANXIETY Last Admin: 07/15/17 17:02 Dose: 2 mg Mirtazapine (Remeron Tab*) 30 mg PO BEDTIME [facility] Last Admin: 07/15/17 20:20 Dose: 30 mg Olanzapine (Zyprexa Tab*) 10 mg PO BEDTIME [facility] Last Admin: 07/15/17 20:20 Dose: 10 mg Olanzapine (Zyprexa Tab*) 5 mg PO BEDTIME [facility] Last Admin: 07/15/17 20:20 Dose: 5 mg Omeprazole (Prilosec Cap*) 20 mg PO BID [facility] Last Admin: 07/16/17 09:01 Dose: 20 mg Propranolol HCl (Inderal Tab*) 20 mg PO BID [facility] Last Admin: 07/16/17 09:01 Dose: 20 mg Temazepam (Restoril Cap*) 30 mg PO BEDTIME [facility] Last Admin: 07/15/17 20:19 Dose: 30 mg Trazodone HCl (Desyrel Tab*) 250 mg PO BEDTIME [facility] Last Admin: 07/15/17 20:19 Dose: 250 mg - Discharge Plan Discharge Plan: Outpatient Follow Up
[2017-07-16] MEDS: traZODone TAB* 100 MG PO SCH (20:18)
[2017-07-16] MEDS: Temazepam CAP* 15 MG PO SCH (20:18)
[2017-07-16] MEDS: OLANzapine TAB* 5 MG PO SCH (20:20)
[2017-07-16] MEDS: OLANzapine TAB* 10 MG PO SCH (20:20)
[2017-07-16] MEDS: Mirtazapine TAB* 15 MG PO SCH (20:21)
[2017-07-17] MEDS: Levothyroxine TAB* 50 MCG TAB PO SCH (08:24)
[2017-07-17] MEDS: Propranolol TAB* 10 MG PO SCH ×2 (08:24→20:30)
[2017-07-17] MEDS: amLODIPine TAB* 5 MG PO SCH (08:25)
[2017-07-17] MEDS: Docusate CAP* 100 MG PO SCH (08:25)
[2017-07-17] MEDS: Omeprazole CAP* 20 MG PO SCH ×2 (08:25→20:30)
[2017-07-17] MEDS: buPROPion TAB* 75 MG PO SCH ×2 (08:27→13:29)
--- NOTE | 2017-07-17 10:06 | PN ---
Subjective - Subjective Service Type: 22558 Hosp care 15 min low complexity Subjective: Patient continues to report improving anxiety and is noted to be more engaged in groups and more social in the milieu. Patient reports concern with ongoing low mood, poor memory and slowed thinking. Patient educated on pseudo-dementia and reassured his cognitionwould improve as his depressive symptoms improve. Patient amenable to continuing current psychotropic med regimen and monitoring symptoms over the weekend on current doses. Patient reports poor sleep last night of 4 hours. He reports today issues with constipation while on Colace. Patient amenable to MagCitrate x1. Patient denies SI/HI and AH/VH. Objective - Appearance Appearance: Well Developed/Nourished Dysmorphic Features: No Hygiene: Normal Grooming: Fairly Well Kept - Behavior Psychomotor Activities: Normal Exhibits Abnormal Movement: No - Attitude and Relatedness Attitude and Relatedness: Cooperative Eye Contact: Fair - Speech Quality: Unpressured Latencies: Normal Quantity: Appropriate - Mood Patient's Decription of Mood: "Anxious" - Affect Observed Affect: Fair Affect Consistent with: Dysphoria - Thought Process Patient's Thought Process: Coherent Thought Content: No Passive Wish, No Suicidal Planning, No Homicidal Ideation, No Paranoid Ideation - Sensorium Experiencing Hallucinations: No, Sensorium is Clear Type of Hallucinations: Visual: No, Auditory: No, Command: No - Level of Consciousness Level of Consciousness: Alert Orientation: Yes Intact, Yes Orientated to Time, Yes Orientated to Place, Yes Orientated to Person - Impulse Control Impulse Control: Intact - Insight and Judgement Insight and Judgement: Fair - Group Participation Particating in Group Activities: Yes - Medication Management Medication Management Adherence: Yes Assessment - Assessment Merits Inpatient Hospitalization: For Immediate Safety, For Stabilization Inpatient DSM-IV Dx: Bipolar 2 disorder, MRE depressed w/o PFs Plan - Plan Treatment Plan: Name: MONICA TARIQ Birthdate: 1965 [id number] 1. Continue [place] [facility] for safety and symptom mx. 2. Continue home medical med regimen. 3. Continue Propranolol 20mg po BID for anxiety/elevated HR and BP. Patient noted immediate reduction in anxiety and sense of feeling tensed. 4. Latuda D/C'd as patient has been uptitrated and now on 80mg x 2 weeks w/o benefit to mood. 5. Continue Olanzapine at 15mg po qhs for mood stabilization. 6. Continue Mirtazepine 30mg po qhs for mx of akathisia and insomnia. 7. Continue Temazepam 30mg po qhs as patient has been on this benzo for years. Patient encouraged to start slow taper off this med due to risks of diminished cognition and risk of falls as he approaches his late 50's. 8. Continue Trazodone 250mg po qhs for insomnia as patient reports Temazepam alone does not get him to sleep. 9. Continue Wellbutrin 150mg po BID po for neurovegetative symptoms of depression. 10. Continue Colace 200mg po daily for constipation. 11. Patient reports recent constipation and gives informed consent to MagCitrate 300mg x1. 12. Collateral information obtaine from brother and [facility] providers. 13. Patient to participate in milieu activities and groups. Medications: Current Medications Acetaminophen (Tylenol Tab*) 650 mg PO Q4H PRN PRN Reason: PAIN or TEMP > 101 F Al Hydrox/Mg Hydrox/Simethicone (Maalox Plus*) 30 ml PO Q4H PRN PRN Reason: INDIGESTION Amlodipine Besylate (Norvasc Tab*) 10 mg PO DAILY [facility] Last Admin: 07/17/17 08:25 Dose: 10 mg Bupropion HCl (Wellbutrin Tab*) 150 mg PO BID@0800,1400 [facility] Last Admin: 07/17/17 08:27 Dose: 150 mg Docusate Sodium (Colace Cap*) 200 mg PO DAILY [facility] Last Admin: 07/17/17 08:25 Dose: 200 mg Levothyroxine Sodium (Synthroid Tab*) 50 mcg PO 0600 [facility] Last Admin: 07/17/17 08:24 Dose: 50 mcg Lorazepam (Ativan Tab(*)) 2 mg PO BID PRN PRN Reason: ANXIETY Last Admin: 07/15/17 17:02 Dose: 2 mg Mirtazapine (Remeron Tab*) 30 mg PO BEDTIME [facility] Last Admin: 07/16/17 20:21 Dose: 30 mg Olanzapine (Zyprexa Tab*) 10 mg PO BEDTIME [facility] Last Admin: 07/16/17 20:20 Dose: 10 mg Olanzapine (Zyprexa Tab*) 5 mg PO BEDTIME [facility] Last Admin: 07/16/17 20:20 Dose: 5 mg Omeprazole (Prilosec Cap*) 20 mg PO BID [facility] Last Admin: 07/17/17 08:25 Dose: 20 mg Propranolol HCl (Inderal Tab*) 20 mg PO BID [facility] Last Admin: 07/17/17 08:24 Dose: 20 mg Temazepam (Restoril Cap*) 30 mg PO BEDTIME [facility] Last Admin: 07/16/17 20:18 Dose: 30 mg Trazodone HCl (Desyrel Tab*) 250 mg PO BEDTIME [facility] Last Admin: 07/16/17 20:18 Dose: 250 mg - Discharge Plan Outpatient Program: [facility]
--- NOTE | 2017-07-17 11:39 | PN ---
[facility]HU: Group Therapy Note - Service Type Service Type: 52399 Group Psychotherapy - Cognitive Behavioral Group Therapy ( CBT):Patient was attentive and participatory in CBT programming this morning, and remained in good behavioral control. Patient expressed positive insights regarding relevant treatment interventions and goals.
[2017-07-17 13:10] LABS: Codeine, Ur Not Detected ng/mL (Cutoff: 25); Creatinine, Urine 129.4 mg/dL; Fentanyl, Ur Not Detected ng/mL (Cutoff: 2); Hydrocodone, Ur Not Detected ng/mL (Cutoff: 25); Hydromorphone, Ur Not Detected ng/mL (Cutoff: 25); Hydromorphone3betaglucuronide Not Detected; Morphine, Ur Not Detected ng/mL (Cutoff: 25); Norfentanyl, Ur Not Detected ng/mL (Cutoff: 2); Norhydrocodone, Ur Not Detected ng/mL (Cutoff: 25); Noroxycodone, Ur Not Detected ng/mL (Cutoff: 25); Oxycodone, Ur Not Detected ng/mL (Cutoff: 25); Oxymorphone, Ur Not Detected ng/mL (Cutoff: 25); Tramadol, Ur Not Detected ng/mL (Cutoff: 25); Urine Tetrahydrocannabinol Negative ng/mL (Cutoff: 50); pH 5.7
[2017-07-17] MEDS ORDERED: Magnesium CITRATE* 300 ML BTL PO ONE (16:30)
[2017-07-17] MEDS: Mirtazapine TAB* 15 MG PO SCH (20:30)
[2017-07-17] MEDS: OLANzapine TAB* 5 MG PO SCH (20:30)
[2017-07-17] MEDS: Temazepam CAP* 15 MG PO SCH (20:31)
[2017-07-17] MEDS: OLANzapine TAB* 10 MG PO SCH (20:31)
[2017-07-17] MEDS: traZODone TAB* 100 MG PO SCH (20:32)
[2017-07-18] MEDS: Omeprazole CAP* 20 MG PO SCH ×2 (08:18→20:46)
[2017-07-18] MEDS: Docusate CAP* 100 MG PO SCH (08:18)
[2017-07-18] MEDS: Propranolol TAB* 10 MG PO SCH ×2 (08:18→20:45)
[2017-07-18] MEDS: amLODIPine TAB* 5 MG PO SCH (08:18)
[2017-07-18] MEDS: Levothyroxine TAB* 50 MCG TAB PO SCH (08:23)
[2017-07-18] MEDS: buPROPion TAB* 75 MG PO SCH ×2 (08:23→14:08)
[2017-07-18] MEDS: Temazepam CAP* 15 MG PO SCH (20:43)
[2017-07-18] MEDS: traZODone TAB* 100 MG PO SCH (20:44)
[2017-07-18] MEDS: Mirtazapine TAB* 15 MG PO SCH (20:44)
[2017-07-18] MEDS: OLANzapine TAB* 5 MG PO SCH (20:46)
[2017-07-18] MEDS: OLANzapine TAB* 10 MG PO SCH (20:46)
[2017-07-19] MEDS: Levothyroxine TAB* 50 MCG TAB PO SCH (06:25)
[2017-07-19] MEDS: Propranolol TAB* 10 MG PO SCH ×2 (08:26→20:40)
[2017-07-19] MEDS: Omeprazole CAP* 20 MG PO SCH ×2 (08:27→20:43)
[2017-07-19] MEDS: amLODIPine TAB* 5 MG PO SCH (08:27)
[2017-07-19] MEDS: buPROPion TAB* 75 MG PO SCH ×2 (08:27→13:39)
[2017-07-19] MEDS: Docusate CAP* 100 MG PO SCH (08:27)
[2017-07-19 16:39] LABS: UR 7 NH Clonazepam GC/MS Negative; UR 7 NH Flunitrazepam GC/MS Negative ng/mL (Cutoff: 50); UR Alpha OH Alprazolam GC/MS Negative; UR Alpha OH Triazolam GC/MS Negative; UR Benzodiazepine Interp Positive.; UR OH Ethyl Flurazepam GC/MS Negative; Urine Lorazepam GC/MS 295 ng/mL; Urine Nordiazepam GC/MS Negative; Urine Oxazepam GC/MS 3293 ng/mL; Urine Temazepam GC/MS >25000 ng/mL
[2017-07-19] MEDS: OLANzapine TAB* 10 MG PO SCH (20:41)
[2017-07-19] MEDS: traZODone TAB* 100 MG PO SCH (20:41)
[2017-07-19] MEDS: Temazepam CAP* 15 MG PO SCH (20:42)
[2017-07-19] MEDS: OLANzapine TAB* 5 MG PO SCH (20:43)
[2017-07-19] MEDS: Mirtazapine TAB* 15 MG PO SCH (20:43)
[2017-07-20] MEDS: Levothyroxine TAB* 50 MCG TAB PO SCH (06:30)
[2017-07-20] MEDS: LORazepam TAB(*) 1 MG PO PRN (06:55)
[2017-07-20] MEDS: amLODIPine TAB* 5 MG PO SCH (07:32)
[2017-07-20] MEDS: buPROPion TAB* 75 MG PO SCH (07:32)
[2017-07-20] MEDS: Omeprazole CAP* 20 MG PO SCH (07:32)
--- NOTE | 2017-07-20 08:48 | RAD ---
INDICATION: Chest pain, dyspnea. Cardiovascular disease. COMPARISON: No relevant prior exams available [place] [facility] [place]. TECHNIQUE: Dual energy PA and routine lateral views of the chest were obtained. REPORT: Elevated lung volumes and both diffuse mild prominence of the interstitial markings and patchy rarefaction of the mid to upper lung zone interstitial markings. No focal pulmonary lesion, compelling alveolar consolidation, pleural effusion, pneumothorax. Mild eventration of the RIGHT hemidiaphragm. Negative for cardiomegaly. Unremarkable central pulmonary vasculature. Small hiatal hernia. IMPRESSION: 1. Suggestion of potential chronic obstructive pulmonary disease. 2. Small hiatal hernia. 3. No acute cardiopulmonary process evident.
[2017-07-20 08:59] LABS: BUN/Creatinine Ratio 15.3 (8-20); Calcium 9.4 mg/dL (8.6-10.3); EGFR Non-African American 65.3 (>60)
[2017-07-20] MEDS: Docusate CAP* 100 MG PO SCH (10:50)
[2017-07-20] MEDS: Propranolol TAB* 10 MG PO SCH (10:50)
[2017-07-20 13:08] VITALS: BP 125/70
--- NOTE | 2017-07-20 22:09 | DS ---
PSYCHIATRIC DISCHARGE SUMMARY: DATE OF ADMISSION: 07/09/17 DATE OF DISCHARGE: 07/20/17 DISCHARGE DIAGNOSES: Are as follows: Comfort I: Bipolar disorder, most recent episode depressed, severe with psychotic features. Comfort II: Deferred. Comfort III: Hypertension, hypothyroidism, chronic constipation, history of recent knee infection, status post antibiotics. Comfort IV: Moderate primary support stressors. Comfort V: At the time of admission was 30 and at the time of discharge is 50. CONDITION AT THE TIME OF DISCHARGE: Guarded. The patient continues to be symptomatic with severe bipolar depression; however, he is also having severe chest pain and anxiety, which is new in onset. For this reason, he is being transferred to the medical service, to be transferred upstairs to the telemetry unit, so that he can receive further medical evaluation. The patient is no longer suicidal and will not require one-to-one observation while on the medical unit. MENTAL STATUS EXAM: The patient is a middle-aged white male with bleached blonde hair that is receding. He is somewhat short of stature, stocky of build. He is anxious, but cooperative. Speech has a normal rate, tone, and volume. Mood is anxious with a constricted affect. Thought process is linear and goal directed. Thought content is significant for his somatic chest pains. He denies suicidal or homicidal ideations. He denies auditory or visual hallucinations. Insight and judgment appears to be fair given his willingness to be transferred to the medical unit for further workup. Cognitively, he is awake and alert with what would appear to be an average intellect. DISCHARGE INSTRUCTIONS: To the patient are as follows: A. Medications: The patient is takin. Acetaminophen 650 mg every 4 hours for pain. 2. Maalox as needed for indigestion. 3. Docusate 200 mg p.o. daily. 4. Lorazepam 2 mg p.o. b.i.d. as a p.r.n. for anxiety. 5. Synthroid 50 mcg p.o. daily. 6. Remeron 30 mg p.o. q.h.s. 7. Zyprexa 15 mg p.o. at bedtime. 8. Omeprazole 20 mg p.o. b.i.d. 9. Propranolol 20 mg p.o. b.i.d. 10. Temazepam 30 mg p.o. q.h.s. 11. Amlodipine 10 mg p.o. daily. 12. Wellbutrin XL 150 mg p.o. b.i.d. 13. Trazodone 250 mg p.o. q.h.s. B. Diet is regular. C. Activity: As per medical unit protocol. The patient is a nonsmoker. There are no laboratory or diagnostic studies pending at the time of discharge. D. Followup care: The patient will be directly admitted to the 4th floor medical service where he will receive medical stabilization for chest pain. We are recommending that the hospitalist team consult Psychiatry, so that we can stay abreast of the patient's progress and make appropriate recommendations for further psychiatric care. There is no need for a one-to-one at this time as the patient is neither suicidal nor homicidal. 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 Apparently, he has had a significant drop in his mood and did attempt suicide one week prior to admission with an overdose on 15 tablets of 150 mg trazodone, 4 tablets of 25 mg Vistaril. He reports his only adverse effect of this was that he slept for 2 days straight. 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 Prior to this, he had been working out daily. He did report purchasing high dollar protein and vitamin supplements and spent extra for healthy food as this was his identity. The knee injury apparently was infectious in etiology and he had to undergo antibiotic treatment for this. Because his renal functioning has been worsening , he was taken off of lithium in mid April of 2017 and placed on a trial of Latuda. Since this, he has not been functioning well, complaining of anxiety, feelings of depression, worthlessness, suicidal ideations. He has also been experiencing auditory hallucinations of the voices of 2 different females whispering his name or making odd comments. He denies any recent abuse of substances. 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 B: Psychiatric treatment rendered: The patient was admitted to the adult behavioral health unit where he was placed on q.30-minute checks for his own safety. He continued to experience auditory hallucinations and suicidal ideations and therefore was taken off lurasidone and placed on a trial of olanzapine, ultimately titrated to the effective dose of 15 mg p.o. q.h.s. He had terrible experiences trying to sleep and felt that the outpatient Restoril and trazodone were ineffective. These were continued, but Remeron 30 mg once daily was added. The patient continued to show signs of depression, and therefore, Wellbutrin 150 mg p.o. b.i.d. was added to his regimen with good effect. The patient's mood started improving and he started denying suicidal ideations; however, on the date of discharge, he began experiencing acute chest pain and elevations in his blood pressure as well as tremulousness and anxiety. To be on the safe side, we called a hospitalist consult and they determined that he would need a coronary workup, which necessitates transfer up to the 4th floor. At this time, he is not psychiatrically cleared, so he will need psychiatric consultation while he is on the medical unit. It is uncertain at this time whether he will benefit from further inpatient psychiatric treatment. [id number]/CPS #: [id number] MTDD
== END 2017-07-20 12:51 | disposition short-term general hospital (02) | DRG 885 ==
LOC: ED 15:16 → BSU 23:39
PROVIDERS: ADMIT Psychiatry & Neurology Psychiatry; ATTEND Psychiatry & Neurology Psychiatry
DX: F31.5 Bipolar disorder, current episode depressed, severe, with psychotic features (principal); G25.71 Drug induced akathisia; R45.851 Suicidal ideations; I10 Essential (primary) hypertension; E03.9 Hypothyroidism, unspecified; K59.09 Other constipation; R07.9 Chest pain, unspecified; F41.9 Anxiety disorder, unspecified; Z79.899 Other long term (current) drug therapy
CPT/HCPCS: 36415; 71020; 80048; 80053; 80061; 80178; 80307; 80320; 80329; 80346; 80364; 81003; 83036; 84443; 84484; 85025; 90853; 93005; 99222; 99231; 99232; A9270-GY; G0480

== ENCOUNTER 2017-07-20 11:48 | Observation (INO) | payer MEDICARE ==
[2017-07-20] MEDS ORDERED: Aspirin TAB* 325 MG PO ONE (11:53)
[2017-07-20] MEDS ORDERED: Acetaminophen TAB* 325 MG PO PRN (12:03)
[2017-07-20] MEDS ORDERED: LORazepam TAB(*) 1 MG PO PRN (12:03)
[2017-07-20] MEDS ORDERED: Al Hydrox/Mg Hydrox/Simet LIQ* 30 ML UDC PO PRN (12:03)
[2017-07-20] MEDS ORDERED: Docusate CAP* 100 MG PO PRN (12:03)
[2017-07-20] MEDS: buPROPion TAB* 75 MG PO SCH (14:25)
[2017-07-20] MEDS: Lisinopril TAB* 5 MG PO SCH (14:25)
[2017-07-20] MEDS ORDERED: Polyethylene Glycol 3350* 17 GM PACKET PO PRN (15:18)
--- NOTE | 2017-07-20 15:54 | HP ---
AMMENDED REPORT NOW INCLUDES COSIGNER DESIGNATION - ESIGNED BEFORE ADJUSTMENTS ATTENDING PHYSICIAN ADDENDUM NOW INCLUDED ON THIS REPORT ADMISSION HISTORY AND PHYSICAL: DATE OF ADMISSION: 07/20/17 MY ATTENDING WHILE IN THE HOSPITAL: Chet Sylvester MD * (DICTATED BY MARISELA OSORIO) CHIEF COMPLAINT: Chest pain, shortness of breath for a couple of hours. HISTORY OF PRESENT ILLNESS: Mr. Archuleta is a 51-year-old male with a past medical history significant for hypertension, chronic kidney disease stage 2, and bipolar disorder type 1 who is currently [place] [facility] [place] experienced chest pain this morning. The patient described the chest pain as squeezing and states that it occurred on the left side of his chest without radiation about every 5 minutes. Patient is chest pain free at the time of the exam. The patient says it was worse with activity and was accompanied by some shortness of breath. The patient states that he has anxiety attacks that are not usually accompanied by chest pain and usually result in hyperventilation, but no shortness of breath and that this does not feel like any of the anxiety attacks he has had before. The patient denies dizziness or tingling in his fingers or toes. The patient denies a history of cardiac disease and denies any increasing fatigue with activity, swelling in his legs, or palpitations. The patient has been hypertensive and is currently on medication, he cannot remember for how long. The patient does not check his blood pressures at home. The patient denies any illicit drug use since his 20s. 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 The patient denies any other illicit drug use. The patient denies any recent illnesses or cough. The patient denies any abdominal pain. The patient states that he had taken a month off exercising and exercised for the first time in a month for the last couple of days and states he exercised very vigorously, but this does not feel like twinge of sore muscle pain and is not reproducible with palpation. PAST MEDICAL HISTORY: Significant for recent septic arthritis of the knee and constipation. PAST SURGICAL HISTORY: The patient had an umbilical hernia repair. MEDICATIONS: The patient's home medications include: 1. Omeprazole 20 mg daily. 2. Trazodone 150 mg nightly. 3. Remeron 30 mg nightly. 4. Tylenol 650 mg q.6 hours as needed for pain. 5. Maalox 30 mg as needed for indigestion. 6. Synthroid 50 mg daily. 7. Latuda 80 mg daily. 8. Norvasc 10 mg daily. 9. Wellbutrin 75 mg b.i.d. ALLERGIES: The patient has no known drug allergies. FAMILY HISTORY: The patient was adopted when he was 2-year-old, so he knows none of his family history. SOCIAL HISTORY: The patient smoked packed a day for 20 years, but quit 8 or 9 years ago. The patient drank alcohol off and on in his 20s, but denies any recent use. The patient smoked marijuana occasionally up to 12 years ago, but has not recently. The patient used injectable analog steroids once, but denies any recent use. The patient denies any other illicit drug use. 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 PHYSICAL EXAMINATION GENERAL: The patient is a 51-year-old male who looks his stated age, lying comfortably on the bed in his room, in no acute distress. The patient appears markedly anxious. VITAL SIGNS: At 10:56 on 07/20/17, the patient's pulse rate was 87, respiratory rate 18, oxygen saturation 97% on room air, blood pressure 157/105. The patient's temperature at 6:50 on 07/20/17 was 98.1. HEENT: Pupils are equal, round, and reactive to light. Sclerae anicteric. Head: Normocephalic, atraumatic. Pharynx nonerythematous. Mucous membranes moist. NECK: Supple. No lymphadenopathy. RESPIRATORY: Lungs are clear to auscultation bilaterally. Good air exchange. No wheezes, rales, or rhonchi. CARDIAC: Regular rate and rhythm. No clicks, murmurs, gallops, or rubs. Radial pulses 2+ bilaterally, posterior tibialis, and dorsalis pedis pulses 2+ bilaterally. No edema noted. ABDOMEN: Soft, nontender, nondistended. Bowel sounds present and hyperactive in all 4 quadrants. Nontender to palpation. No hepatosplenomegaly. No abdominal bruits auscultated. : No suprapubic tenderness. No CVA tenderness. NEUROLOGIC: Alert and oriented x3. Cranial nerves II through XII intact. SKIN: [place], dry, warm, and intact. LABORATORY DATA/DIAGNOSTIC STUDIES: The patient's labs on the morning of 07/20: Sodium 137, potassium 4.0, chloride 102, carbon dioxide 30, anion gap 5, BUN 18, creatinine 1.18, glucose 107. Troponin 0.00. Chest x-ray on 07/20/17 at 08:13: Suggestion of COPD, small hiatal hernia, and no cardiopulmonary process evident. Electrocardiogram shows early repolarization in lead V2, which is consistent with a previous exam. No other ST changes. The patient's EKG showed signs of left ventricular hypertrophy and left atrial enlargement. IMPRESSION: The patient is a 51-year-old male with significant psychiatric history and history of hypertension and kidney disease who has several hours of chest pain consistent with cardiac origin. We will admit to telemetry and rule out myocardial infarction. Chest pain, rule out myocardial infarction: The patient has significant risk factors for cardiac cause of chest pain. This may be just a side effect of the patient's significant anxiety and psychiatric comorbidity. We will trend troponins and order an exercise stress test tomorrow morning. We will keep on telemetry monitoring overnight and repeat an EKG in the morning. Aspirin 325 mg given. We will order a creatine kinase to rule out muscular damage from excessive exercise. We will repeat BMP and CBC in the morning. Hypertension. The patient remains hypertensive on current medication of amlodipine plus Inderal given this morning. I will discontinue Inderal due to a stress test tomorrow morning. We will start on lisinopril 5 mg daily for blood pressure and kidney disease prophylaxis. We will continue to monitor and adjust upwards as needed. BMP already ordered for the morning to assess affect on kidney function. Chronic kidney disease. We will monitor the BMP and assess effects of change in medication on GFR. Bipolar disorder. The patient was started on Zyprexa and had an increase in his Wellbutrin while he was on behavioral sciences unit. We will continue these medications at the current doses. Per psychiatrist, the patient is not currently suicidal and does not need one-to-one monitoring while on the floor. Insomnia. The patient takes Remeron, trazodone, and Restoril as needed for insomnia. We will continue these medications on the floor. Anxiety. Ativan 2 mg p.o. b.i.d. ordered as needed for anxiety. This helped significantly with chest pain on the behavioral floor. FEN: Heart-healthy diet. No caffeine ordered. No fluids ordered at this time. The patient n.p.o. after midnight for test. DVT prophylaxis: The patient is low risk. Able to ambulate, ad-armani. No pharmacologic prophylaxis needed at this time. Code status: Full code. TIME SPENT: Approximately 60 minutes was spent on this admission, 20 minutes of which was spent [id number] with the patient obtaining history and physical. This case has been discussed with my attending doctor, Dr. Chet Sylvester, and she is in agreement with this plan. MARISELA OSORIO ADDENDUM: Mr. Archuleta is a 51-year-old male with a past medical history of hypertension treated with amlodipine that was admitted to the mental health unit on 07/09/17 with exacerbation of his bipolar disorder. Apparently, the patient was doing well until today when he was found to have an elevated blood pressure and complained of retrosternal chest pain and shortness of breath. He was evaluated and considering his history, he was transferred to telemetry floor for further evaluation. His chest x-ray showed no acute pulmonary disease. His EKG does have ST elevation suggestive of early repolarization and signs of LVH. First troponin was negative. Plan at this point is for better blood pressure control, probably adding an MAX inhibitor to his amlodipine, rule out acute coronary syndrome and probably pursue a stress test if acute coronary syndrome is ruled out. I am in agreement with current management. CHET Sylvester MD [id number]/CPS #: [id number]/CPS #: [id number] AMY
[2017-07-20] MEDS: Omeprazole CAP* 20 MG PO SCH (17:09)
--- NOTE | 2017-07-20 18:07 | HP ---
CC: Gage Robertson MD HISTORY AND PHYSICAL: ADDENDUM: Mr. Archuleta is a 51-year-old male with a past medical history of hypertension treated with amlodipine that was admitted to the mental health unit on 07/09/17 with exacerbation of his bipolar disorder. Apparently, the patient was doing well until today when he was found to have an elevated blood pressure and complained of retrosternal chest pain and shortness of breath. He was evaluated and considering his history, he was transferred to telemetry floor for further evaluation. His chest x-ray showed no acute pulmonary disease. His EKG does have ST elevation suggestive of early repolarization and signs of LVH. First troponin was negative. Plan at this point is for better blood pressure control, probably adding an MAX inhibitor to his amlodipine, rule out acute coronary syndrome and probably pursue a stress test if acute coronary syndrome is ruled out. I am in agreement with current management. [id number]/CPS #: [id number] MTDD
[2017-07-20] MEDS ORDERED: Mirtazapine TAB* 15 MG PO SCH (21:00)
[2017-07-20] MEDS ORDERED: OLANzapine TAB* 5 MG PO SCH (21:00)
[2017-07-20] MEDS ORDERED: traZODone TAB* 100 MG PO SCH (21:00)
[2017-07-20] MEDS ORDERED: traZODone TAB* 50 MG TAB PO SCH ×2 (21:00)
[2017-07-20] MEDS ORDERED: OLANzapine TAB* 10 MG PO SCH (21:00)
[2017-07-20] MEDS ORDERED: Temazepam CAP* 15 MG PO SCH (21:00)
[2017-07-21 05:05] LABS: Hematocrit 41 % (42-52); Hemoglobin 13.5 g/dl (14.0-18.0); Mean Corpuscular HGB Conc 33 g/dl (31-36); Mean Corpuscular Hemoglobin 26 pg (27-31); Mean Corpuscular Volume 81 fL (80-94); Mean Platelet Volume 8 um3 (7.4-10.4); Red Cell Distribution Width 20 % (10.5-15); White Blood Count 4.2 10^3/ul (3.5-10.8)
[2017-07-21 05:51] LABS: BUN/Creatinine Ratio 15.6 (8-20); Calcium 9.2 mg/dL (8.6-10.3); EGFR African American 80.9 (>60); EGFR Non-African American 62.9 (>60); Potassium 3.9 mmol/L (3.5-5.0)
[2017-07-21] MEDS ORDERED: Levothyroxine TAB* 50 MCG TAB PO SCH (06:00)
[2017-07-21] MEDS ORDERED: amLODIPine TAB* 5 MG PO SCH (09:00)
[2017-07-21] MEDS: Lisinopril TAB* 5 MG PO SCH (09:38)
[2017-07-21] MEDS: Omeprazole CAP* 20 MG PO SCH (09:39)
[2017-07-21] MEDS: buPROPion TAB* 75 MG PO SCH ×2 (09:43→15:08)
[2017-07-21 12:11] VITALS: BP 132/83
--- NOTE | 2017-07-21 13:42 | CONSULT ---
Identification - Patient Identification Reason for Psychiatric Consultation: Suicidal Ideation, Incapacitating Symptoms -: Patient is a 51 year old, M admitted on 07/20/17. - MHU Identification Employment Status: Disabled Hx Psychiatric Hospitalization: Yes Prior Psychiatric Diagnosis: 1. Bipolar 1 d/o, MRE depressed w/ PFs Arrived to Hospital Via: Law Enforcement History - Objective HPI: HPI: ---- Patient is a 51yo male with PPHx significant for Bipolar 1 d/o with PFs who presents to the [facility] ED for psychiatric eval on issued by his [facility] therapist. Patient reports he has experienced sudden significant drop in his mood and attempted suicide 1 week ago when he OD on 15 150mg Trazodone tabs and 4 25mg Vistaril tabs. Patient reports only adverse effect was that he slept for 2days. Patient reports multiple recent biopsychosocial stressors. 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 Patient reports he worked out daily. He reports purchasing high dollar proteins and supplements, and spent extra for healthy food as this was his identity. Patient reports the knee injury in fact was infectious in etiology. He reports recently completing a long course of ABX. He has missed his f/u Ortho appts. Patient also in 11/2016 he was informed by his psychiatrist, Dr. Guadarrama, that his renal function as been worsening. Patient reports he has been on Gilchrist since his first suicide attempt at 28yo. In mid-April 2017 patient was informed he had to come off Gilchrist for mx of Bipolar d/o as his renal function had become critical. He reports being on a dose of 600mg po BID. He reports Dr. Guadarrama tapered him 500mg every 2 weeks until he was off, while cross-titrating Latuda which she started at 20mg po daily. Patient reports he has been off Gilchrist for 1 month and is currently on Latuda 80mg po daily. Patient reports over the last month his anxiety and depression has significantly worsened. 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 Patient reports he wakes in the morning and is overwhelmed with anxiety. Patient stated, I will pace aimlessly for 12 hours. Patient stated, Its hard to sit still. He reports significant depression and feelings that his life is worthless. Patient reports this prompted him to attempt suicide 1 week ago. Patient stated, the only relief I got was when I took those Trazodone and slept. He stated, I wanted to sleep foreverI didnt want to deal anymore. Patient states in addition he has experienced significant apathy, low energy, low motivation, no ambition, poor sleep, and decreased appetite. Patient reports ~ 3wks of experiencing symptoms of agoraphobia, as he would become panicked when outside his home. He reports he has gone days without eating because he was too anxious to leave his home even for food. 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 He reports when not on his meds he hears the voice of 2 females who normally whisper his name or make odd comments. He reports being arrested for entering a strangers home at 1am while intoxicated on cannabis because the female voices told him there was a woman waiting for him inside that house. He reports going inside, being confronted by the father of the family there and reports police were pulling up before he could get off the lawn. Patient reports no current hallucinations. He denies use of alcohol, cannabis or any illicit substance in over 12 years. He reports 2 prior suicide attempts in [place]. Patient moved to [place] in 2003. Patient reports med compliance with Latuda and reports compliance with his psychiatry appts with Dr. Guadarrama and therapy appts. with his therapist Gisele Palafox. In the [facility], admitted 07/09/17, addie started on Wellbutrin for mx of depressive symptoms. Patient found benefit to mood and motivation on initial dose. Dose was uptitrated from 75mg po BID to 100mg po BID with further benefit as well as to mood. Patient continued on outpt BP med Amlodipine at 10mg po daily. Propranolol was started at 10mg po BID for anxiety and BP, then uptitrated to 20mg po BID with reported benefit to anxiety. BP noted to be stable. Patient's Wellbutrin was uptritrated from 100mg po BID to 150mg po BID. BP noted to be elevated but stable. HR was improved and stable. Patient reported ongoing poor sleep on Restoril 30mg qhs and Trazodone 250mg po qhs. Patient admitted to the medical unit from the [facility] on 07/20/17. Patient that day report sudden left CP associated with spike in BP. Patient underwent full workup for CP and stress test showed NEG results. Lisinopril was added to patient's regimen for HTN mx. Today, patient seen on consult on the medical floor. He continues to express significant depression, apathy, diminished cognition, and sleep. Patient reports no improvement in mood on current psychotropic med regimen. Patient amenable to return to [facility] for ongoing psychiatric care as with his hx of 3 very lethal suicide attempts, he understands he should be improving symptomatically prior to discharging home. MSE: ----- Appearance - robust build male, fair hygeine, in NAD Behavior - (+)mild PMR, cooperative Speech - RVR, prosody wnl Eye Contact - fair Mood - "depressed" Affect - depressed TP - linear and GD TC - desires discharge but knows he should not discharge until his symptoms improve further Perception - no signs of psychosis noted or reported Orientation - A&Ox3 Cognition - intact Insight - poor Judgement - poor SI / HI - denies both ASSESSMENT: 1. Bipolar 1 d/o, MRE depressed w/o PFs RECOMMENDATION: 1. Recommend patient be re-admitted to the BSU for ongoing psychiatric care. 2. Patient to be admitted on an involuntary status. Past Psych Hx: Inpt - 1st at a psychiatric hospital in [place] at age 28yo after a suicide attempt by cutting his neck requiring ICU and tracheotomy. - His last hospitalization was at the [facility] in 10/2006. Outpt - Patient seen at [facility] by Dr. Guadarrama(psychiatry) and Gisele Palafox( therapist) Psychotropic med hx - Gilchrist, Depakote, Wellbutrin, Ambien, Restoril, Klonopin , Latuda, Trazodone Suicide attempt Hx / SIB Hx: -Patient reports a total of 3 suicide attempt. -He reports his 1st when he was 28yo in [place]. He reports stressor being recently released from skilled nursing, with no job, and financial pressures. Patient cut across his neck with a knife. He required ICU hospitalization and a tracheotomy. -He reports his second in 2003, by OD on pills after the breakup of a 12yr relationship and moving back to [place] from [place]. -His 3rd occurred last week by OD due to akathisia, agoraphobia, neurovegetative symptoms of depression. Trauma Hx: Patient adopted at 2yo. Substance Hx: Patient denies use of alcohol, cannabis or any illicit substance in over 12 years. 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 Legal Hx: Patient reports hx of 3 incarcerations. He reports no current legal issues. Home Medications: Home Medications Medication Instructions Recorded Confirmed Type Mirtazapine TAB* [Remeron TAB*] 30 mg PO BEDTIME 03/08/14 07/09/17 History Omeprazole CAP* [Prilosec CAP*] 20 mg PO BID 03/08/14 07/09/17 History Temazepam CAP* [Restoril CAP*] 30 mg PO BEDTIME 03/08/14 07/09/17 History Trazodone HCl 150 mg PO BEDTIME 03/08/14 07/09/17 History Levothyroxine TAB* [Synthroid TAB*] 50 mcg PO DAILY 07/09/17 07/09/17 History Lurasidone (NF) [Latuda (NF)] 80 mg PO DAILY WITH MEAL 07/09/17 07/09/17 History amLODIPine TAB* [Norvasc 5 mg TAB*] 10 mg PO DAILY 07/09/17 07/09/17 History VITALS: --------- Vital Signs (72 hours) 07/20/17 07/20/17 07/20/17 13:40 15:35 19:27 Temperature 98.4 F 97.9 F 97.4 F Pulse Rate 87 87 83 Respiratory 14 16 20 Rate Blood Pressure 125/80 124/79 102/69 (mmHg) O2 Sat by Pulse 98 95 95 Oximetry 07/20/17 07/20/17 07/21/17 20:00 23:50 04:09 Temperature 97.9 F 98.1 F Pulse Rate 63 75 Respiratory 20 12 16 Rate Blood Pressure 131/84 129/86 (mmHg) O2 Sat by Pulse 95 93 Oximetry 07/21/17 07/21/17 07:40 12:06 Temperature 97.5 F 99.1 F Pulse Rate 75 101 Respiratory 16 16 Rate Blood Pressure 123/86 132/83 (mmHg) O2 Sat by Pulse 95 93 Oximetry LABS: ------ Laboratory Tests 07/20/17 07/20/17 07/21/17 13:50 13:50 04:38 WBC 4.2 RBC 5.10 Hgb 13.5 L Hct 41 L MCV 81 MCH 26 L MCHC 33 RDW 20 H Plt Count 203 MPV 8 Neut % (Auto) 62.0 Lymph % (Auto) 25.7 [place] % (Auto) 9.7 H Eos % (Auto) 2.4 Baso % (Auto) 0.2 Absolute Neuts (auto) 2.6 Absolute Lymphs (auto) 1.1 Absolute Monos (auto) 0.4 Absolute Eos (auto) 0.1 Absolute Basos (auto) 0 Absolute Nucleated RBC 0 Nucleated RBC % 0 Sodium Potassium Chloride Carbon Dioxide Anion Gap BUN Creatinine Est GFR ( Amer) Est GFR (Non-Af Amer) BUN/Creatinine Ratio Glucose Calcium Total Creatine Kinase 106 Troponin I 0.00 0.00 07/21/17 04:38 WBC RBC Hgb Hct MCV MCH MCHC RDW Plt Count MPV Neut % (Auto) Lymph % (Auto) [place] % (Auto) Eos % (Auto) Baso % (Auto) Absolute Neuts (auto) Absolute Lymphs (auto) Absolute Monos (auto) Absolute Eos (auto) Absolute Basos (auto) Absolute Nucleated RBC Nucleated RBC % Sodium 140 Potassium 3.9 Chloride 104 Carbon Dioxide 31 Anion Gap 5 BUN 19 Creatinine 1.22 H Est GFR ( Amer) 80.9 Est GFR (Non-Af Amer) 62.9 BUN/Creatinine Ratio 15.6 Glucose 98 Calcium 9.2 Total Creatine Kinase Troponin I Laboratory Tests 07/09/17 07/09/17 07/09/17 15:53 15:53 17:45 WBC 10.9 H RBC 5.77 H Hgb 15.1 Hct 47 MCV 81 MCH 26 L MCHC 33 RDW 20 H Plt Count 213 MPV 8 Neut % (Auto) 88.3 H Lymph % (Auto) 6.2 L [place] % (Auto) 4.8 Eos % (Auto) 0.4 Baso % (Auto) 0.3 Absolute Neuts (auto) 9.6 H Absolute Lymphs (auto) 0.7 L Absolute Monos (auto) 0.5 Absolute Eos (auto) 0 Absolute Basos (auto) 0 Absolute Nucleated RBC 0 Nucleated RBC % 0 Sodium 136 Potassium 4.1 Chloride 101 Carbon Dioxide 23 Anion Gap 12 H BUN 20 Creatinine 1.39 H Est GFR ( Amer) 69.6 Est GFR (Non-Af Amer) 54.1 BUN/Creatinine Ratio 14.4 Glucose 94 Calcium 9.8 Total Bilirubin 0.90 AST 37 ALT 59 H Alkaline Phosphatase 61 Total Protein 7.1 Albumin 4.3 Globulin 2.8 Albumin/Globulin Ratio 1.5 TSH 0.52 Urine Color Yellow Urine Appearance Clear Urine pH 6.0 Ur Specific [place] 1.009 L Urine Protein Negative Urine Ketones Negative Urine Blood Negative Urine Nitrate Negative Urine Bilirubin Negative Urine Urobilinogen Negative Ur Leukocyte Esterase Negative Urine Glucose Negative Salicylates < 2.50 Urine Opiates Screen Acetaminophen < 15 Ur Barbiturates Screen Ur Phencyclidine Scrn Ur Amphetamines Screen U Benzodiazepines Scrn Gilchrist < 0.10 L Urine Cocaine Screen U Cannabinoids Screen Serum Alcohol < 10 07/09/17 17:45 WBC RBC Hgb Hct MCV MCH MCHC RDW Plt Count MPV Neut % (Auto) Lymph % (Auto) [place] % (Auto) Eos % (Auto) Baso % (Auto) Absolute Neuts (auto) Absolute Lymphs (auto) Absolute Monos (auto) Absolute Eos (auto) Absolute Basos (auto) Absolute Nucleated RBC Nucleated RBC % Sodium Potassium Chloride Carbon Dioxide Anion Gap BUN Creatinine Est GFR ( Amer) Est GFR (Non-Af Amer) BUN/Creatinine Ratio Glucose Calcium Total Bilirubin AST ALT Alkaline Phosphatase Total Protein Albumin Globulin Albumin/Globulin Ratio TSH Urine Color Urine Appearance Urine pH Ur Specific [place] Urine Protein Urine Ketones Urine Blood Urine Nitrate Urine Bilirubin Urine Urobilinogen Ur Leukocyte Esterase Urine Glucose Salicylates Urine Opiates Screen None detected Acetaminophen Ur Barbiturates Screen None detected Ur Phencyclidine Scrn None detected Ur Amphetamines Screen None detected U Benzodiazepines Scrn Presumptive positive H Gilchrist Urine Cocaine Screen None detected U Cannabinoids Screen None detected Serum Alcohol Lab Results: Laboratory Tests 07/20/17 07/20/17 07/21/17 13:50 13:50 04:38 WBC 4.2 RBC 5.10 Hgb 13.5 L Hct 41 L MCV 81 MCH 26 L MCHC 33 RDW 20 H Plt Count 203 MPV 8 Neut % (Auto) 62.0 Lymph % (Auto) 25.7 [place] % (Auto) 9.7 H Eos % (Auto) 2.4 Baso % (Auto) 0.2 Absolute Neuts (auto) 2.6 Absolute Lymphs (auto) 1.1 Absolute Monos (auto) 0.4 Absolute Eos (auto) 0.1 Absolute Basos (auto) 0 Absolute Nucleated RBC 0 Nucleated RBC % 0 Sodium Potassium Chloride Carbon Dioxide Anion Gap BUN Creatinine Est GFR ( Amer) Est GFR (Non-Af Amer) BUN/Creatinine Ratio Glucose Calcium Total Creatine Kinase 106 Troponin I 0.00 0.00 07/21/17 04:38 WBC RBC Hgb Hct MCV MCH MCHC RDW Plt Count MPV Neut % (Auto) Lymph % (Auto) [place] % (Auto) Eos % (Auto) Baso % (Auto) Absolute Neuts (auto) Absolute Lymphs (auto) Absolute Monos (auto) Absolute Eos (auto) Absolute Basos (auto) Absolute Nucleated RBC Nucleated RBC % Sodium 140 Potassium 3.9 Chloride 104 Carbon Dioxide 31 Anion Gap 5 BUN 19 Creatinine 1.22 H Est GFR ( Amer) 80.9 Est GFR (Non-Af Amer) 62.9 BUN/Creatinine Ratio 15.6 Glucose 98 Calcium 9.2 Total Creatine Kinase Troponin I Exam Appearance: Well Developed/Nourished Hygiene: Normal Grooming: Well Kept Psychomotor Activities: Normal Exhibits Abnormal Movement: Yes Attitude and Relatedness: Cooperative Eye Contact: Fair - Speech Quality: Unpressured Latencies: Normal Quantity: Appropriate Patient's Decription of Mood: "still depressed" Observed Affect: Depressed Affect Consistent with: Dysphoria Patient's Thought Process: Coherent Thought Content: No Passive Wish, No Suicidal Planning, No Homicidal Ideation, No Paranoid Ideation Experiencing Hallucinations: No, Sensorium is Clear Type of Hallucinations: Visual: No, Auditory: No, Command: No Level of Consciousness: Alert Orientation: Yes Intact, Yes Orientated to Time, Yes Orientated to Place, Yes Orientated to Person Impulse Control: Intact Insight and Judgement: Fair Impression - Impression Inpatient DSM-IV Dx: ASSESSMENT: . 1. Bipolar 1 d/o, MRE depressed w/o PFs Merits Inpatient Hospitalization: Yes Problem List - MHU Problems Type of Problem: Medication Management Status of Problem: Active Problem: bipolar depression Plan - Treatment Plan Treatment Plan: RECOMMENDATION: 1. Recommend patient be re-admitted to the [facility] for ongoing psychiatric care. 2. Patient to be admitted on an involuntary status. Continued Medication Management: Different Medication Medications: Current Medications Acetaminophen (Tylenol Tab*) 650 mg PO Q6H PRN PRN Reason: PAIN Al Hydrox/Mg Hydrox/Simethicone (Maalox Plus*) 30 ml PO Q4H PRN PRN Reason: INDIGESTION Amlodipine Besylate (Norvasc Tab*) 10 mg PO DAILY CANDICE Last Admin: 07/21/17 09:38 Dose: 10 mg Bupropion HCl (Wellbutrin Tab*) 150 mg PO 0900,1400 CANDICE Last Admin: 07/21/17 09:43 Dose: 150 mg Docusate Sodium (Colace Cap*) 200 mg PO DAILY PRN PRN Reason: CONSTIPATION Last Admin: 07/21/17 09:43 Dose: 200 mg Levothyroxine Sodium (Synthroid Tab*) 50 mcg PO 0600 CANDICE Last Admin: 07/21/17 05:42 Dose: 50 mcg Lisinopril (Prinivil Tab*) 5 mg PO DAILY CANDICE Last Admin: 07/21/17 09:38 Dose: 5 mg Lorazepam (Ativan Tab(*)) 2 mg PO BID PRN PRN Reason: ANXIETY Mirtazapine (Remeron Tab*) 30 mg PO BEDTIME CANDICE Last Admin: 07/20/17 21:33 Dose: 30 mg Olanzapine (Zyprexa Tab*) 10 mg PO BEDTIME CANDICE Last Admin: 07/20/17 21:33 Dose: 10 mg Olanzapine (Zyprexa Tab*) 5 mg PO BEDTIME CANDICE Last Admin: 07/20/17 21:32 Dose: 5 mg Omeprazole (Prilosec Cap*) 20 mg PO 0730,1630 CANDICE Last Admin: 07/21/17 09:39 Dose: 20 mg Polyethylene Glycol/Electrolytes (Miralax*) 17 gm PO DAILY PRN PRN Reason: CONSTIPATION Temazepam (Restoril Cap*) 30 mg PO BEDTIME CANDICE Last Admin: 07/20/17 21:33 Dose: 30 mg Trazodone HCl (Desyrel Tab*) 50 mg PO BEDTIME CANDICE Last Admin: 07/20/17 21:32 Dose: 50 mg Trazodone HCl (Desyrel Tab*) 200 mg PO BEDTIME CANDICE Last Admin: 07/20/17 21:31 Dose: 200 mg
--- NOTE | 2017-07-21 16:45 | DS ---
DATE OF ADMISSION: 07/20/2017. DATE OF DISCHARGE: 07/21/2017. PRIMARY CARE PROVIDER: None. PRINCIPAL DIAGNOSES: 1. Noncardiac chest pain. 2. Bipolar disorder with depression. MEDICATIONS: 1. Trazodone 250 mg p.o. at bedtime. 2. Wellbutrin 150 mg p.o. b.i.d. 3. Amlodipine 10 mg p.o. daily. 4. Temazepam 30 mg p.o. at bedtime. 5. Omeprazole 20 mg p.o. b.i.d. 6. Zyprexa 15 mg p.o. at bedtime. 7. Remeron 30 mg p.o. at bedtime. 8. Latuda 80 mg p.o. daily. 9. Levothyroxine 50 mcg p.o. daily. 10. Ativan 2 mg p.o. b.i.d. prn anxiety. 11. Colace 200 mg p.o. daily. 12. Maalox 30 ml p.o. q.4 hours prn indigestion. 13. Tylenol 650 mg p.o. q.4 hours prn pain. 14. Lisinopril 5 mg p.o. daily (new). HOSPITAL COURSE: Mr. Archuleta is a 51-year-old male who had been admitted to the Behavioral Services Unit on 07/09/2017 for bipolar disorder and depression. On 07/20/2017, the Hospitalist Service was consulted for complaints of chest pain. The patient was discharged from the BSU and admitted to the telemetry floor to be ruled out for an acute coronary syndrome. The patient's troponins were negative. He underwent a stress echocardiogram on the day of discharge which was felt to be a negative maximal stress echocardiogram. It is suspected that the patient's chest pain may be related to anxiety as the patient states that he was having a severe anxiety attack at the time of the chest pain. At this point, the patient is stable for discharge back to the Behavioral Services Unit. On the day of discharge, the patient is awake, alert and oriented, sitting in a chair in no acute distress. Blood pressure is under fair control with a value being 132/83. His heart rate was very mildly elevated at 101. His respiratory rate is 16. His O2 saturation was 93 percent on room air. Cardiac exam revealed a normal S1 and S2 with a regular rate and rhythm. Lungs were clear to auscultation bilaterally. Abdomen was soft and bowel sounds were present. The abdomen was nontender. Again, the patient is stable and ready for discharge back to the BSU. FOLLOW-UP CONCERNS: The patient is going back to BSU today, 07/21/2017. ACTIVITY LEVEL: As tolerated. DIET: Regular. CONDITION ON DISCHARGE: Stable. Twenty minutes were spent discharging this patient. [id number] #: [id number]
== END 2017-07-21 16:18 ==
LOC: PREINTOOBSV 12:05 → MEDTELE 13:24
PROVIDERS: ADMIT Internal Medicine; ATTEND Hospitalist
DX: R07.89 Other chest pain (principal); R06.02 Shortness of breath; F33.2 Major depressive disorder, recurrent severe without psychotic features; Z79.899 Other long term (current) drug therapy; Z87.891 Personal history of nicotine dependence; N18.9 Chronic kidney disease, unspecified
CPT/HCPCS: 36415; 80048; 82550; 84484; 85025; 93005; 93350; A9270-GY; G0378

== ENCOUNTER 2017-07-21 16:30 | Inpatient (IN) | payer MEDICARE ==
[2017-07-21] MEDS ORDERED: Nicotine Inhaler* 10 MG AMP INH PRN (16:54)
[2017-07-21] MEDS ORDERED: Acetaminophen TAB* 325 MG PO PRN (16:54)
--- NOTE | 2017-07-21 16:57 | HP ---
H&P (Free Text) History and Physical: HPI: ---- Patient is a 51yo male with PPHx significant for Bipolar 1 d/o with PFs who presents to the [facility] for psychiatric eval on issued by his [facility] therapist. Patient reports he has experienced sudden significant drop in his mood and attempted suicide 1 week ago when he OD on 15 150mg Trazodone tabs and 4 25mg Vistaril tabs. Patient reports only adverse effect was that he slept for 2days. Patient reports multiple recent biopsychosocial stressors. 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 Patient reports he worked out daily. He reports purchasing high dollar proteins and supplements, and spent extra for healthy food as this was his identity. Patient reports the knee injury in fact was infectious in etiology. He reports recently completing a long course of ABX. He has missed his f/u Ortho appts. Patient also in 11/2016 he was informed by his psychiatrist, Dr. Guadarrama, that his renal function as been worsening. Patient reports he has been on [place] since his first suicide attempt at 28yo. In mid-April 2017 patient was informed he had to come off [place]k for mx of Bipolar d/o as his renal function had become critical. He reports being on a dose of 600mg po BID. He reports Dr. Guadarrama tapered him 500mg every 2 weeks until he was off, while cross-titrating Latuda which she started at 20mg po daily. Patient reports he has been off [place] for 1 month and is currently on Latuda 80mg po daily. Patient reports over the last month his anxiety and depression has significantly worsened. 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 Patient reports he wakes in the morning and is overwhelmed with anxiety. Patient stated, I will pace aimlessly for 12 hours. Patient stated, Its hard to sit still. He reports significant depression and feelings that his life is worthless. Patient reports this prompted him to attempt suicide 1 week ago. Patient stated, the only relief I got was when I took those Trazodone and slept. He stated, I wanted to sleep foreverI didnt want to deal anymore. Patient states in addition he has experienced significant apathy, low energy, low motivation, no ambition, poor sleep, and decreased appetite. Patient reports ~ 3wks of experiencing symptoms of agoraphobia, as he would become panicked when outside his home. He reports he has gone days without eating because he was too anxious to leave his home even for food. 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 He reports when not on his meds he hears the voice of 2 females who normally whisper his name or make odd comments. He reports being arrested for entering a strangers home at 1am while intoxicated on cannabis because the female voices told him there was a woman waiting for him inside that house. He reports going inside, being confronted by the father of the family there and reports police were pulling up before he could get off the lawn. Patient reports no current hallucinations. He denies use of alcohol, cannabis or any illicit substance in over 12 years. He reports 2 prior suicide attempts in [place]. Patient moved to [place] in 2003. Patient reports med compliance with Latuda and reports compliance with his psychiatry appts with Dr. Guadarrama and therapy appts. with his therapist Gisele Palafox. In the [facility], admitted 07/09/17, addie started on Wellbutrin for mx of depressive symptoms. Patient found benefit to mood and motivation on initial dose. Dose was uptitrated from 75mg po BID to 100mg po BID with further benefit as well as to mood. Patient continued on outpt BP med Amlodipine at 10mg po daily. Propranolol was started at 10mg po BID for anxiety and BP, then uptitrated to 20mg po BID with reported benefit to anxiety. BP noted to be stable. Patient's Wellbutrin was uptritrated from 100mg po BID to 150mg po BID. BP noted to be elevated but stable. HR was improved and stable. Patient reported ongoing poor sleep on Restoril 30mg qhs and Trazodone 250mg po qhs. Patient admitted to the medical unit from the [facility] on 07/20/17. Patient that day report sudden left CP associated with spike in BP. Patient underwent full workup for CP and stress test showed NEG results. Lisinopril was added to patient's regimen for HTN mx. Today, patient seen on consult on the medical floor. He continues to express significant depression, apathy, diminished cognition, and sleep. Patient reports no improvement in mood on current psychotropic med regimen. Patient amenable to return to [facility] for ongoing psychiatric care as with his hx of 3 very lethal suicide attempts, he understands he should be improving symptomatically prior to discharging home. Now back in the [facility], patient expresses interested in ECT and TMS information. He denies SI/HI and AH/VH. Past Psych Hx: Inpt - 1st at a psychiatric hospital in [place] at age 28yo after a suicide attempt by cutting his neck requiring ICU and tracheotomy. - His last hospitalization was at the [facility] in 10/2006. Outpt - Patient seen at [facility] by Dr. Guadarrama(psychiatry) and Gisele Palafox( therapist) Psychotropic med hx - Armonk, Depakote, Wellbutrin, Ambien, Restoril, Klonopin , Latuda, Trazodone Suicide attempt Hx / SIB Hx: -Patient reports a total of 3 suicide attempt. -He reports his 1st when he was 28yo in [place]. He reports stressor being recently released from longterm, with no job, and financial pressures. Patient cut across his neck with a knife. He required ICU hospitalization and a tracheotomy. -He reports his second in 2003, by OD on pills after the breakup of a 12yr relationship and moving back to [place] from [place]. -His 3rd occurred last week by OD due to akathisia, agoraphobia, neurovegetative symptoms of depression. Trauma Hx: Patient adopted at 2yo. Substance Hx: Patient denies use of alcohol, cannabis or any illicit substance in over 12 years. 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 Legal Hx: Patient reports hx of 3 incarcerations. He reports no current legal issues. Home Medications: Home Medications Medication Instructions Recorded Confirmed Type Mirtazapine TAB* [Remeron TAB*] 30 mg PO BEDTIME 03/08/14 07/09/17 History Omeprazole CAP* [Prilosec CAP*] 20 mg PO BID 03/08/14 07/09/17 History Temazepam CAP* [Restoril CAP*] 30 mg PO BEDTIME 03/08/14 07/09/17 History Trazodone HCl 150 mg PO BEDTIME 03/08/14 07/09/17 History Levothyroxine TAB* [Synthroid TAB*] 50 mcg PO DAILY 07/09/17 07/09/17 History Lurasidone (NF) [Latuda (NF)] 80 mg PO DAILY WITH MEAL 07/09/17 07/09/17 History amLODIPine TAB* [Norvasc 5 mg TAB*] 10 mg PO DAILY 07/09/17 07/09/17 History VITALS: --------- Vital Signs (72 hours) 07/20/17 07/20/17 07/20/17 13:40 15:35 19:27 Temperature 98.4 F 97.9 F 97.4 F Pulse Rate 87 87 83 Respiratory 14 16 20 Rate Blood Pressure 125/80 124/79 102/69 (mmHg) O2 Sat by Pulse 98 95 95 Oximetry 07/20/17 07/20/17 07/21/17 20:00 23:50 04:09 Temperature 97.9 F 98.1 F Pulse Rate 63 75 Respiratory 20 12 16 Rate Blood Pressure 131/84 129/86 (mmHg) O2 Sat by Pulse 95 93 Oximetry 07/21/17 07/21/17 07:40 12:06 Temperature 97.5 F 99.1 F Pulse Rate 75 101 Respiratory 16 16 Rate Blood Pressure 123/86 132/83 (mmHg) O2 Sat by Pulse 95 93 Oximetry LABS: ------ Laboratory Tests 07/20/17 07/20/17 07/21/17 13:50 13:50 04:38 WBC 4.2 RBC 5.10 Hgb 13.5 L Hct 41 L MCV 81 MCH 26 L MCHC 33 RDW 20 H Plt Count 203 MPV 8 Neut % (Auto) 62.0 Lymph % (Auto) 25.7 Mckenzie % (Auto) 9.7 H Eos % (Auto) 2.4 Baso % (Auto) 0.2 Absolute Neuts (auto) 2.6 Absolute Lymphs (auto) 1.1 Absolute Monos (auto) 0.4 Absolute Eos (auto) 0.1 Absolute Basos (auto) 0 Absolute Nucleated RBC 0 Nucleated RBC % 0 Sodium Potassium Chloride Carbon Dioxide Anion Gap BUN Creatinine Est GFR ( Amer) Est GFR (Non-Af Amer) BUN/Creatinine Ratio Glucose Calcium Total Creatine Kinase 106 Troponin I 0.00 0.00 07/21/17 04:38 WBC RBC Hgb Hct MCV MCH MCHC RDW Plt Count MPV Neut % (Auto) Lymph % (Auto) Mckenzie % (Auto) Eos % (Auto) Baso % (Auto) Absolute Neuts (auto) Absolute Lymphs (auto) Absolute Monos (auto) Absolute Eos (auto) Absolute Basos (auto) Absolute Nucleated RBC Nucleated RBC % Sodium 140 Potassium 3.9 Chloride 104 Carbon Dioxide 31 Anion Gap 5 BUN 19 Creatinine 1.22 H Est GFR ( Amer) 80.9 Est GFR (Non-Af Amer) 62.9 BUN/Creatinine Ratio 15.6 Glucose 98 Calcium 9.2 Total Creatine Kinase Troponin I Laboratory Tests 07/09/17 07/09/17 07/09/17 15:53 15:53 17:45 WBC 10.9 H RBC 5.77 H Hgb 15.1 Hct 47 MCV 81 MCH 26 L MCHC 33 RDW 20 H Plt Count 213 MPV 8 Neut % (Auto) 88.3 H Lymph % (Auto) 6.2 L Mckenzie % (Auto) 4.8 Eos % (Auto) 0.4 Baso % (Auto) 0.3 Absolute Neuts (auto) 9.6 H Absolute Lymphs (auto) 0.7 L Absolute Monos (auto) 0.5 Absolute Eos (auto) 0 Absolute Basos (auto) 0 Absolute Nucleated RBC 0 Nucleated RBC % 0 Sodium 136 Potassium 4.1 Chloride 101 Carbon Dioxide 23 Anion Gap 12 H BUN 20 Creatinine 1.39 H Est GFR ( Amer) 69.6 Est GFR (Non-Af Amer) 54.1 BUN/Creatinine Ratio 14.4 Glucose 94 Calcium 9.8 Total Bilirubin 0.90 AST 37 ALT 59 H Alkaline Phosphatase 61 Total Protein 7.1 Albumin 4.3 Globulin 2.8 Albumin/Globulin Ratio 1.5 TSH 0.52 Urine Color Yellow Urine Appearance Clear Urine pH 6.0 Ur Specific [place] 1.009 L Urine Protein Negative Urine Ketones Negative Urine Blood Negative Urine Nitrate Negative Urine Bilirubin Negative Urine Urobilinogen Negative Ur Leukocyte Esterase Negative Urine Glucose Negative Salicylates < 2.50 Urine Opiates Screen Acetaminophen < 15 Ur Barbiturates Screen Ur Phencyclidine Scrn Ur Amphetamines Screen U Benzodiazepines Scrn Arm[place] < 0.10 L Urine Cocaine Screen U Cannabinoids Screen Serum Alcohol < 10 07/09/17 17:45 WBC RBC Hgb Hct MCV MCH MCHC RDW Plt Count MPV Neut % (Auto) Lymph % (Auto) Mckenzie % (Auto) Eos % (Auto) Baso % (Auto) Absolute Neuts (auto) Absolute Lymphs (auto) Absolute Monos (auto) Absolute Eos (auto) Absolute Basos (auto) Absolute Nucleated RBC Nucleated RBC % Sodium Potassium Chloride Carbon Dioxide Anion Gap BUN Creatinine Est GFR ( Amer) Est GFR (Non-Af Amer) BUN/Creatinine Ratio Glucose Calcium Total Bilirubin AST ALT Alkaline Phosphatase Total Protein Albumin Globulin Albumin/Globulin Ratio TSH Urine Color Urine Appearance Urine pH Ur Specific [place] Urine Protein Urine Ketones Urine Blood Urine Nitrate Urine Bilirubin Urine Urobilinogen Ur Leukocyte Esterase Urine Glucose Salicylates Urine Opiates Screen None detected Acetaminophen Ur Barbiturates Screen None detected Ur Phencyclidine Scrn None detected Ur Amphetamines Screen None detected U Benzodiazepines Scrn Presumptive positive H [place] Urine Cocaine Screen None detected U Cannabinoids Screen None detected Serum Alcohol Lab Results: Laboratory Tests 07/20/17 07/20/17 07/21/17 13:50 13:50 04:38 WBC 4.2 RBC 5.10 Hgb 13.5 L Hct 41 L MCV 81 MCH 26 L MCHC 33 RDW 20 H Plt Count 203 MPV 8 Neut % (Auto) 62.0 Lymph % (Auto) 25.7 Mckenzie % (Auto) 9.7 H Eos % (Auto) 2.4 Baso % (Auto) 0.2 Absolute Neuts (auto) 2.6 Absolute Lymphs (auto) 1.1 Absolute Monos (auto) 0.4 Absolute Eos (auto) 0.1 Absolute Basos (auto) 0 Absolute Nucleated RBC 0 Nucleated RBC % 0 Sodium Potassium Chloride Carbon Dioxide Anion Gap BUN Creatinine Est GFR ( Amer) Est GFR (Non-Af Amer) BUN/Creatinine Ratio Glucose Calcium Total Creatine Kinase 106 Troponin I 0.00 0.00 07/21/17 04:38 WBC RBC Hgb Hct MCV MCH MCHC RDW Plt Count MPV Neut % (Auto) Lymph % (Auto) Mckenzie % (Auto) Eos % (Auto) Baso % (Auto) Absolute Neuts (auto) Absolute Lymphs (auto) Absolute Monos (auto) Absolute Eos (auto) Absolute Basos (auto) Absolute Nucleated RBC Nucleated RBC % Sodium 140 Potassium 3.9 Chloride 104 Carbon Dioxide 31 Anion Gap 5 BUN 19 Creatinine 1.22 H Est GFR ( Amer) 80.9 Est GFR (Non-Af Amer) 62.9 BUN/Creatinine Ratio 15.6 Glucose 98 Calcium 9.2 Total Creatine Kinase Troponin I PE: ---- GEN - robust built male, in NAD, looks stated age HEENT - NC/AT, EOEMI, no lesions or discharge noted, conjunctivae clear NECK - supple, no JVD, no LAD, CARDIAC - S1/S2, no discernable murmurs ABD - (+) BS x 4 quad, non-tender EXT - no edema, no lesions MUSCULOSKEL - 5/5 muscle strength in all extremities SKIN - intact, no lesions NEURO - CN 2-12, steady gait MSE: ----- Appearance - robust build male, fair hygeine, in NAD Behavior - (+)mild PMR, cooperative Speech - RVR, prosody wnl Eye Contact - fair Mood - "depressed" Affect - depressed TP - linear and GD TC - interested in ECT and TMS information Perception - no signs of psychosis noted or reported Orientation - A&Ox3 Cognition - intact Insight - poor to fair Judgement - poor to fair SI / HI - denies both ASSESSMENT: 1. Bipolar 1 d/o, MRE depressed w/o PFs PLAN: -------- 1. Continue admission to [facility] for safety and symptom mx. 2. Continue home medical med regimen with addition of Lisinopril 5mg daily initiated on medical floor prior to this readmission to the [facility]. 3. Continue Propranolol 20mg po BID for anxiety/elevated HR and BP. 4. Latuda D/C'd due to ineffectiveness. 5. Increase Olanzapine [id number] to 20mg po qhs for mood stabilization. 6. Continue Mirtazepine 30mg po qhs for mx of akathisia and insomnia. 7. Continue Temazepam 30mg po qhs as patient has been on this benzo for years. Patient encouraged to start slow taper off this med due to risks of diminished cognition and risk of falls as he approaches his late 50's. 8. Continue Trazodone 250mg po qhs for insomnia as patient reports Temazepam alone does not get him to sleep. 9. Decrease Wellbutrin from 150mg po BID to 100mg po BID for neurovegetative symptoms of depression. 10. Monitor BP and HR closely due to recent spike in BP and associated CP. 11. ECT vs TMS, discuss with team regarding insurance reimbursement. 12. Continue Colace 200mg po daily for constipation. 13. Collateral information obtained from brother and [facility] providers. 14. Patient to participate in milieu activities and groups.
[2017-07-21] MEDS: traZODone TAB* 100 MG PO SCH (20:04)
[2017-07-21] MEDS: LORazepam TAB(*) 1 MG PO PRN (20:04)
[2017-07-21] MEDS: Temazepam CAP* 15 MG PO SCH (20:05)
[2017-07-21] MEDS: OLANzapine TAB* 10 MG PO SCH (20:05)
[2017-07-21] MEDS: Mirtazapine TAB* 15 MG PO SCH (20:05)
[2017-07-21] MEDS: Nicotine Patch Removal NOTE PATCH OFF SCH (20:06)
[2017-07-22] MEDS: Levothyroxine TAB* 50 MCG TAB PO SCH (07:31)
[2017-07-22] MEDS: Docusate CAP* 100 MG PO SCH (08:26)
[2017-07-22] MEDS: Lisinopril TAB* 5 MG PO SCH (08:27)
[2017-07-22] MEDS: amLODIPine TAB* 5 MG PO SCH (08:27)
[2017-07-22] MEDS: buPROPion SR TAB.SR* 100 MG PO SCH ×2 (08:27→16:56)
[2017-07-22] MEDS: Vitamin THERAPEUTIC TAB PO SCH (08:27)
[2017-07-22] MEDS: Nicotine PATCH 21 MG/24 HR* PATCH TRANSDERM SCH (09:51)
--- NOTE | 2017-07-22 13:31 | PN ---
Subjective - Subjective Service Type: 20419 Hosp care 15 min low complexity Subjective: Patient back on the unit and noted to be visible in the milieu, social and is participating in groups. Patient reports ongoing depressive symptoms, primarily ongoing low mood, poor memory, diminished cognition, and diminished sleep. Patient is open to discussing ECT and TMS. Patient informed that due to his currently having Medicare, his application for Medicaid will be on paper and may take over 90days to complete. Patient asked if Medicare would cover either ECT or TMS. Patient informed SW will discuss treatment coverage with patient. Patient continues to deny SI/ HI and AH/VH. Objective - Appearance Appearance: Well Developed/Nourished Dysmorphic Features: No Hygiene: Normal Grooming: Well Kept - Behavior Psychomotor Activities: Normal Exhibits Abnormal Movement: No - Attitude and Relatedness Attitude and Relatedness: Cooperative Eye Contact: Fair - Speech Quality: Unpressured Latencies: Normal Quantity: Appropriate - Mood Patient's Decription of Mood: depressed - Affect Observed Affect: Depressed Affect Consistent with: Dysphoria - Thought Process Patient's Thought Process: Coherent Thought Content: No Passive Wish, No Suicidal Planning, No Homicidal Ideation, No Paranoid Ideation - Sensorium Experiencing Hallucinations: No, Sensorium is Clear Type of Hallucinations: Visual: No, Auditory: No, Command: No - Level of Consciousness Level of Consciousness: Alert Orientation: Yes Intact, Yes Orientated to Time, Yes Orientated to Place, Yes Orientated to Person - Impulse Control Impulse Control: Intact - Insight and Judgement Insight and Judgement: Fair - Group Participation Particating in Group Activities: Yes - Medication Management Medication Management Adherence: Yes Assessment - Assessment Merits Inpatient Hospitalization: For Immediate Safety, For Stabilization Inpatient DSM-IV Dx: ASSESSMENT: . 1. Bipolar 1 d/o, MRE depressed w/o PFs. Plan - Plan Treatment Plan: Name: MONICA TARIQ Birthdate: 1965 [id number] PLAN: -------- 1. Continue admission to [facility] for safety and symptom mx. 2. Continue home medical med regimen with addition of Lisinopril 5mg daily initiated on medical floor prior to this readmission to the [facility]. 3. Continue Propranolol 20mg po BID for anxiety/elevated HR and BP. 4. Latuda D/C'd due to ineffectiveness. 5. Continue Olanzapine 20mg po qhs for mood stabilization. 6. Continue Mirtazepine 30mg po qhs for mx of akathisia and insomnia. 7. Continue Temazepam 30mg po qhs as patient has been on this benzo for years. Patient encouraged to start slow taper off this med due to risks of diminished cognition and risk of falls as he approaches his late 50's. 8. Continue Trazodone 250mg po qhs for insomnia as patient reports Temazepam alone does not get him to sleep. 9. Continue Wellbutrin at 100mg po BID for neurovegetative symptoms of depression. 10. BP and HR wnl today. 11. ECT vs TMS handouts given to patient. Patient and SW to discuss insurance reimbursement. 12. Continue Colace 200mg po daily for constipation. 13. Collateral information obtained from brother and [facility] providers. 14. Patient to participate in milieu activities and groups. Medications: Current Medications Acetaminophen (Tylenol Tab*) 650 mg PO Q4H PRN PRN Reason: for pain; or Temp >101 F Al Hydrox/Mg Hydrox/Simethicone (Maalox Plus*) 30 ml PO Q4H PRN PRN Reason: INDIGESTION Amlodipine Besylate (Norvasc Tab*) 10 mg PO DAILY [facility] Last Admin: 07/22/17 08:27 Dose: 10 mg Bupropion HCl (Wellbutrin Sr Tab*) 100 mg PO 0800,1700 [facility] Last Admin: 07/22/17 08:27 Dose: 100 mg Docusate Sodium (Colace Cap*) 200 mg PO DAILY [facility] Last Admin: 07/22/17 08:26 Dose: 200 mg Levothyroxine Sodium (Synthroid Tab*) 50 mcg PO 0600 [facility] Last Admin: 07/22/17 07:31 Dose: 50 mcg Lisinopril (Prinivil Tab*) 5 mg PO DAILY [facility] Last Admin: 07/22/17 08:27 Dose: 5 mg Lorazepam (Ativan Tab(*)) 2 mg PO BID PRN PRN Reason: ANXIETY Last Admin: 07/21/17 20:04 Dose: 2 mg Mirtazapine (Remeron Tab*) 30 mg PO BEDTIME [facility] Last Admin: 07/21/17 20:05 Dose: 30 mg Multivitamins (Theragran Tab*) 1 tab PO DAILY [facility] Last Admin: 07/22/17 08:27 Dose: 1 tab Nicotine (Nicotine Inhaler*) 10 mg INH Q2H PRN PRN Reason: CRAVING Nicotine (Nicotine Patch 21 Mg/24 Hr*) 1 patch TRANSDERM DAILY@0800 [facility] Last Admin: 07/22/17 09:51 Dose: Not Given Olanzapine (Zyprexa Tab*) 20 mg PO BEDTIME [facility] Last Admin: 07/21/17 20:05 Dose: 20 mg Pharmacy Profile Note (Nicotine Patch Removal Note*) 1 note PATCH OFF 1999 [facility] Last Admin: 07/21/17 20:06 Dose: Not Given Temazepam (Restoril Cap*) 30 mg PO BEDTIME [facility] Last Admin: 07/21/17 20:05 Dose: 30 mg Trazodone HCl (Desyrel Tab*) 250 mg PO BEDTIME [facility] Last Admin: 07/21/17 20:04 Dose: 250 mg - Discharge Plan Discharge Plan: [facility]
--- NOTE | 2017-07-22 13:59 | PN ---
MHU: Group Therapy Note - Service Type Service Type: [id number] Group Psychotherapy - Cognitive Behavioral Group Therapy ( CBT):Patient was attentive and participatory in CBT programming this morning, and remained in good behavioral control. Patient expressed positive insights regarding relevant treatment interventions and goals.
[2017-07-22] MEDS: traZODone TAB* 100 MG PO SCH (20:14)
[2017-07-22] MEDS: Temazepam CAP* 15 MG PO SCH (20:14)
[2017-07-22] MEDS: Mirtazapine TAB* 15 MG PO SCH (20:15)
[2017-07-22] MEDS: OLANzapine TAB* 10 MG PO SCH (20:15)
[2017-07-22] MEDS: Nicotine Patch Removal NOTE PATCH OFF SCH (22:08)
[2017-07-23] MEDS: Levothyroxine TAB* 50 MCG TAB PO SCH (06:21)
[2017-07-23] MEDS: Vitamin THERAPEUTIC TAB PO SCH (08:23)
[2017-07-23] MEDS: Docusate CAP* 100 MG PO SCH (08:23)
[2017-07-23] MEDS: buPROPion SR TAB.SR* 100 MG PO SCH ×2 (08:23→17:05)
[2017-07-23] MEDS: Lisinopril TAB* 5 MG PO SCH (08:23)
[2017-07-23] MEDS: amLODIPine TAB* 5 MG PO SCH (08:24)
[2017-07-23] MEDS: Nicotine PATCH 21 MG/24 HR* PATCH TRANSDERM SCH (09:00)
--- NOTE | 2017-07-23 10:55 | PN ---
Subjective - Subjective Service Type: 08519 Hosp care 15 min low complexity Subjective: Patient continues to be visible in the milieu, social and pleasant with staff. Patient has continued to participate in groups since his admission. Patient reports sleep is fair at 6hrs. He reports it is broken but he is able to get back to sleep within minutes. He reports being a light sleeper and awakened by staff doing patient checks. Patient reports ongoing depression and poor sleep. He has made the decision to go forward with the process to transfer to [facility] for ECT. Patient has completed his medicaid application. He reports med compliance and denies med s/e's. Patient reports no SI/HI and no AH/VH. Objective - Appearance Appearance: Well Developed/Nourished, Healthy Appearing Dysmorphic Features: No Hygiene: Normal Grooming: Fairly Well Kept - Behavior Psychomotor Activities: Normal Exhibits Abnormal Movement: No - Attitude and Relatedness Attitude and Relatedness: Cooperative Eye Contact: Fair - Speech Quality: Unpressured Latencies: Normal Quantity: Appropriate - Mood Patient's Decription of Mood: "depressed" - Affect Observed Affect: Depressed Affect Consistent with: Dysphoria - Thought Process Patient's Thought Process: Coherent Thought Content: No Passive Wish, No Suicidal Planning, No Homicidal Ideation, No Paranoid Ideation - Sensorium Experiencing Hallucinations: No, Sensorium is Clear Type of Hallucinations: Visual: No, Auditory: No, Command: No - Level of Consciousness Level of Consciousness: Alert Orientation: Yes Intact, Yes Orientated to Time, Yes Orientated to Place, Yes Orientated to Person - Impulse Control Impulse Control: Intact - Insight and Judgement Insight and Judgement: Fair - Group Participation Particating in Group Activities: Yes - Medication Management Medication Management Adherence: Yes Assessment - Assessment Merits Inpatient Hospitalization: For Immediate Safety, For Stabilization Inpatient DSM-IV Dx: ASSESSMENT: . 1. Bipolar 1 d/o, MRE depressed w/o PFs. Plan - Plan Treatment Plan: Name: MONICA TARIQ Birthdate: 1965 [id number] PLAN: -------- 1. Continue admission to [facility] for safety and symptom mx. 2. Continue home medical med regimen with addition of Lisinopril 5mg daily initiated on medical floor prior to this readmission to the [facility]. 3. Continue Propranolol 20mg po BID for anxiety/elevated HR and BP. 4. Latuda D/C'd due to ineffectiveness. 5. Continue Olanzapine 20mg po qhs for mood stabilization. 6. Continue Mirtazepine 30mg po qhs for mx of akathisia and insomnia. 7. Continue Temazepam 30mg po qhs as patient has been on this benzo for years. Patient encouraged to start slow taper off this med due to risks of diminished cognition and risk of falls as he approaches his late 50 's. 8. Continue Trazodone 250mg po qhs for insomnia as patient reports Temazepam alone does not get him to sleep. 9. Continue Wellbutrin at 100mg po BID for neurovegetative symptoms of depression. 10. BP and HR wnl today. 11. Medicaid application complete. Patient and SW to discussed insurance reimbursement. 12. Continue Colace 200mg po daily for constipation. 13. Collateral information obtained from brother and [facility] providers. 14. Patient to participate in milieu activities and groups. Medications: Current Medications Acetaminophen (Tylenol Tab*) 650 mg PO Q4H PRN PRN Reason: for pain; or Temp >101 F Al Hydrox/Mg Hydrox/Simethicone (Maalox Plus*) 30 ml PO Q4H PRN PRN Reason: INDIGESTION Amlodipine Besylate (Norvasc Tab*) 10 mg PO DAILY [facility] Last Admin: 07/23/17 08:24 Dose: 10 mg Bupropion HCl (Wellbutrin Sr Tab*) 100 mg PO 0800,1700 [facility] Last Admin: 07/23/17 08:23 Dose: 100 mg Docusate Sodium (Colace Cap*) 200 mg PO DAILY [facility] Last Admin: 07/23/17 08:23 Dose: 200 mg Levothyroxine Sodium (Synthroid Tab*) 50 mcg PO 0600 [facility] Last Admin: 07/23/17 06:21 Dose: 50 mcg Lisinopril (Prinivil Tab*) 5 mg PO DAILY [facility] Last Admin: 07/23/17 08:23 Dose: 5 mg Lorazepam (Ativan Tab(*)) 2 mg PO BID PRN PRN Reason: ANXIETY Last Admin: 07/21/17 20:04 Dose: 2 mg Mirtazapine (Remeron Tab*) 30 mg PO BEDTIME [facility] Last Admin: 07/22/17 20:15 Dose: 30 mg Multivitamins (Theragran Tab*) 1 tab PO DAILY [facility] Last Admin: 07/23/17 08:23 Dose: 1 tab Nicotine (Nicotine Inhaler*) 10 mg INH Q2H PRN PRN Reason: CRAVING Nicotine (Nicotine Patch 21 Mg/24 Hr*) 1 patch TRANSDERM DAILY@0800 [facility] Last Admin: 07/23/17 09:00 Dose: Not Given Olanzapine (Zyprexa Tab*) 20 mg PO BEDTIME [facility] Last Admin: 07/22/17 20:15 Dose: 20 mg Pharmacy Profile Note (Nicotine Patch Removal Note*) 1 note PATCH OFF 1999 [facility] Last Admin: 07/22/17 22:08 Dose: Not Given Temazepam (Restoril Cap*) 30 mg PO BEDTIME [facility] Last Admin: 07/22/17 20:14 Dose: 30 mg Trazodone HCl (Desyrel Tab*) 250 mg PO BEDTIME [facility] Last Admin: 07/22/17 20:14 Dose: 250 mg - Discharge Plan Outpatient Program: [facility]
[2017-07-23] MEDS: LORazepam TAB(*) 1 MG PO PRN (15:32)
[2017-07-23] MEDS: Al Hydrox/Mg Hydrox/Simet LIQ* 30 ML UDC PO PRN (20:57)
[2017-07-23] MEDS: Temazepam CAP* 15 MG PO SCH (20:58)
[2017-07-23] MEDS: Nicotine Patch Removal NOTE PATCH OFF SCH (20:58)
[2017-07-23] MEDS: Mirtazapine TAB* 15 MG PO SCH (20:59)
[2017-07-23] MEDS: OLANzapine TAB* 10 MG PO SCH (20:59)
[2017-07-23] MEDS: traZODone TAB* 100 MG PO SCH (21:00)
[2017-07-24] MEDS: Al Hydrox/Mg Hydrox/Simet LIQ* 30 ML UDC PO PRN ×3 (01:35→19:53)
[2017-07-24] MEDS: Levothyroxine TAB* 50 MCG TAB PO SCH (05:38)
[2017-07-24] MEDS: Vitamin THERAPEUTIC TAB PO SCH (08:30)
[2017-07-24] MEDS: Docusate CAP* 100 MG PO SCH (08:30)
[2017-07-24] MEDS: amLODIPine TAB* 5 MG PO SCH (08:31)
[2017-07-24] MEDS: Lisinopril TAB* 5 MG PO SCH (08:31)
[2017-07-24] MEDS: buPROPion SR TAB.SR* 100 MG PO SCH ×2 (08:31→17:28)
[2017-07-24] MEDS: Nicotine PATCH 21 MG/24 HR* PATCH TRANSDERM SCH (10:23)
--- NOTE | 2017-07-24 11:36 | PN ---
MHU: Group Therapy Note - Service Type Service Type: [id number] Group Psychotherapy - Cognitive Behavioral Group Therapy ( CBT):Patient was attentive and participatory in CBT programming this morning, and remained in good behavioral control. Patient expressed positive insights regarding relevant treatment interventions and goals.
[2017-07-24] MEDS ORDERED: Omeprazole CAP* 20 MG ONE (12:22)
--- NOTE | 2017-07-24 12:36 | PN ---
Subjective - Subjective Service Type: [id number] Hosp care 15 min low complexity Subjective: Patient continues to be visible in the milieu, pleasant, social and participating in groups. Patient is linear and GD in TP. Affect more anxious today. Patient reports he has made the decision to go forward with ECT. He requests this provider call his brother to educate him on ECT and answer his questions. Brother Daniel has been engaged in patient's cars since admission. Patient brother Daniel called and above discussed. Brother had questions of possible programs to help in regard to transportation for patient back and forth from [place] to [place] for MWF ECT. He was informed team call him next week with options. Patient reports increased anxiety, ongoing depression, and poor motivation. He denies SI/HI and AH/VH. Objective - Appearance Appearance: Well Developed/Nourished Dysmorphic Features: No Hygiene: Normal Grooming: Fairly Well Kept - Behavior Psychomotor Activities: Normal Exhibits Abnormal Movement: No - Attitude and Relatedness Attitude and Relatedness: Cooperative Eye Contact: Fair - Speech Quality: Unpressured Latencies: Normal Quantity: Appropriate - Mood Patient's Decription of Mood: "Anxious" - Affect Observed Affect: Fair Affect Consistent with: Euthymia - Thought Process Patient's Thought Process: Coherent Thought Content: No Passive Wish, No Suicidal Planning, No Homicidal Ideation, No Paranoid Ideation - Sensorium Experiencing Hallucinations: No, Sensorium is Clear Type of Hallucinations: Visual: No, Auditory: No, Command: No - Level of Consciousness Level of Consciousness: Alert Orientation: Yes Intact, Yes Orientated to Time, Yes Orientated to Place, Yes Orientated to Person - Impulse Control Impulse Control: Intact - Insight and Judgement Insight and Judgement: Fair - Group Participation Particating in Group Activities: Yes - Medication Management Medication Management Adherence: Yes Assessment - Assessment Merits Inpatient Hospitalization: For Immediate Safety, For Stabilization Inpatient DSM-IV Dx: ASSESSMENT: . 1. Bipolar 1 d/o, MRE depressed w/o PFs. Plan - Plan Treatment Plan: Name: MONICA TARIQ Birthdate: 1965 [id number] PLAN: -------- 1. Continue admission to [facility] for safety and symptom mx. 2. Continue home medical med regimen with addition of Lisinopril 5mg daily initiated on medical floor prior to this readmission to the [facility]. 3. Continue Propranolol 20mg po BID for anxiety/elevated HR and BP. 4. Latuda D/C'd due to ineffectiveness. 5. Continue Olanzapine 20mg po qhs for mood stabilization. 6. Continue Mirtazepine 30mg po qhs for mx of akathisia and insomnia. 7. Continue Temazepam 30mg po qhs as patient has been on this benzo for years. Patient encouraged to start slow taper off this med due to risks of diminished cognition and risk of falls as he approaches his late 50 's. 8. Continue Trazodone 250mg po qhs for insomnia as patient reports Temazepam alone does not get him to sleep. 9. Continue Wellbutrin at 100mg po BID for neurovegetative symptoms of depression. 10. BP and HR wnl today. 11. Initiating process for transfer to [facility] for ECT per patient request. 12. Medicaid application complete. Patient and SW to discussed insurance reimbursement. 13. Continue Colace 200mg po daily for constipation. 14. Collateral information obtained from brother and [facility] providers. 15. Patient to participate in milieu activities and groups. Medications: Current Medications Acetaminophen (Tylenol Tab*) 650 mg PO Q4H PRN PRN Reason: for pain; or Temp >101 F Al Hydrox/Mg Hydrox/Simethicone (Maalox Plus*) 30 ml PO Q4H PRN PRN Reason: INDIGESTION Last Admin: 07/24/17 11:09 Dose: 30 ml Amlodipine Besylate (Norvasc Tab*) 10 mg PO DAILY [facility] Last Admin: 07/24/17 08:31 Dose: 10 mg Bupropion HCl (Wellbutrin Sr Tab*) 100 mg PO 0800,1700 [facility] Last Admin: 07/24/17 08:31 Dose: 100 mg Docusate Sodium (Colace Cap*) 200 mg PO DAILY [facility] Last Admin: 07/24/17 08:30 Dose: 200 mg Levothyroxine Sodium (Synthroid Tab*) 50 mcg PO 0600 [facility] Last Admin: 07/24/17 05:38 Dose: 50 mcg Lisinopril (Prinivil Tab*) 5 mg PO DAILY [facility] Last Admin: 07/24/17 08:31 Dose: 5 mg Lorazepam (Ativan Tab(*)) 2 mg PO BID PRN PRN Reason: ANXIETY Last Admin: 07/23/17 15:32 Dose: 2 mg Mirtazapine (Remeron Tab*) 30 mg PO BEDTIME [facility] Last Admin: 07/23/17 20:59 Dose: 30 mg Multivitamins (Theragran Tab*) 1 tab PO DAILY [facility] Last Admin: 07/24/17 08:30 Dose: 1 tab Nicotine (Nicotine Inhaler*) 10 mg INH Q2H PRN PRN Reason: CRAVING Nicotine (Nicotine Patch 21 Mg/24 Hr*) 1 patch TRANSDERM DAILY@0800 [facility] Last Admin: 07/24/17 10:23 Dose: Not Given Olanzapine (Zyprexa Tab*) 20 mg PO BEDTIME [facility] Last Admin: 07/23/17 20:59 Dose: 20 mg Pharmacy Profile Note (Nicotine Patch Removal Note*) 1 note PATCH OFF 1999 [facility] Last Admin: 07/23/17 20:58 Dose: Not Given Temazepam (Restoril Cap*) 30 mg PO BEDTIME [facility] Last Admin: 07/23/17 20:58 Dose: 30 mg Trazodone HCl (Desyrel Tab*) 250 mg PO BEDTIME [facility] Last Admin: 07/23/17 21:00 Dose: 250 mg - Discharge Plan Discharge Plan: Outpatient Follow Up
[2017-07-24] MEDS: traZODone TAB* 100 MG PO SCH (19:54)
[2017-07-24] MEDS: OLANzapine TAB* 10 MG PO SCH (19:55)
[2017-07-24] MEDS: Mirtazapine TAB* 15 MG PO SCH (19:55)
[2017-07-24] MEDS: Omeprazole CAP* 20 MG PO SCH (19:55)
[2017-07-24] MEDS: Temazepam CAP* 15 MG PO SCH (19:55)
[2017-07-24] MEDS: Nicotine Patch Removal NOTE PATCH OFF SCH (22:10)
[2017-07-25] MEDS: Levothyroxine TAB* 50 MCG TAB PO SCH (06:33)
[2017-07-25] MEDS: Lisinopril TAB* 5 MG PO SCH (08:10)
[2017-07-25] MEDS: buPROPion SR TAB.SR* 100 MG PO SCH ×2 (08:10→17:21)
[2017-07-25] MEDS: Vitamin THERAPEUTIC TAB PO SCH (08:10)
[2017-07-25] MEDS: Docusate CAP* 100 MG PO SCH (08:10)
[2017-07-25] MEDS: Nicotine PATCH 21 MG/24 HR* PATCH TRANSDERM SCH (08:10)
[2017-07-25] MEDS: Omeprazole CAP* 20 MG PO SCH ×2 (08:10→20:28)
[2017-07-25] MEDS: amLODIPine TAB* 5 MG PO SCH (08:10)
[2017-07-25] MEDS: OLANzapine TAB* 10 MG PO SCH (20:28)
[2017-07-25] MEDS: traZODone TAB* 100 MG PO SCH (20:28)
[2017-07-25] MEDS: Temazepam CAP* 15 MG PO SCH (20:29)
[2017-07-25] MEDS: Mirtazapine TAB* 15 MG PO SCH (20:30)
[2017-07-25] MEDS: Nicotine Patch Removal NOTE PATCH OFF SCH (20:30)
[2017-07-26] MEDS: Levothyroxine TAB* 50 MCG TAB PO SCH (06:41)
[2017-07-26] MEDS: Docusate CAP* 100 MG PO SCH (08:24)
[2017-07-26] MEDS: amLODIPine TAB* 5 MG PO SCH (08:24)
[2017-07-26] MEDS: Vitamin THERAPEUTIC TAB PO SCH (08:24)
[2017-07-26] MEDS: Omeprazole CAP* 20 MG PO SCH ×2 (08:24→20:25)
[2017-07-26] MEDS: Lisinopril TAB* 5 MG PO SCH (08:25)
[2017-07-26] MEDS: buPROPion SR TAB.SR* 100 MG PO SCH ×2 (08:25→17:19)
[2017-07-26] MEDS: Nicotine PATCH 21 MG/24 HR* PATCH TRANSDERM SCH (13:24)
--- NOTE | 2017-07-26 20:10 | PN ---
Subjective - Subjective Service Type: 17917 Hosp care 15 min low complexity Subjective: Monica reports that he still feels depressed but hasn't thought abot suicide recently. Seriously considering ECT. No hallucinations in years. Denies paranoia. Objective - Appearance Appearance: Well Developed/Nourished Dysmorphic Features: No Hygiene: Normal Grooming: Well Kept - Behavior Psychomotor Activities: Normal Exhibits Abnormal Movement: No - Attitude and Relatedness Attitude and Relatedness: Appropriate Eye Contact: Good - Speech Quality: Unpressured Latencies: Normal Quantity: Appropriate - Mood Patient's Decription of Mood: "Sad" - Affect Observed Affect: Constricted Affect Consistent with: Dysphoria - Thought Process Patient's Thought Process: Coherent, Goal Directed Thought Content: No Passive Wish, No Suicidal Planning, No Homicidal Ideation, No Paranoid Ideation - Sensorium Experiencing Hallucinations: No, Sensorium is Clear Type of Hallucinations: Visual: No, Auditory: No, Command: No - Level of Consciousness Level of Consciousness: Alert Orientation: Yes Intact, Yes Orientated to Time, Yes Orientated to Place, Yes Orientated to Person - Impulse Control Impulse Control: Intact - Insight and Judgement Insight and Judgement: Fair - Group Participation Particating in Group Activities: Yes - Medication Management Medication Management Adherence: Yes Assessment - Assessment Merits Inpatient Hospitalization: For Immediate Safety, Consolidate Improvements , Pending Safe DC Plan Inpatient DSM-IV Dx: ASSESSMENT: . 1. Bipolar 1 d/o, MRE depressed w/o PFs. Plan - Plan Treatment Plan: Name: MONICA TARIQ Birthdate: 1965 [id number] Continued Medication Management: Continue Outpt Medication - Consider ECT Medications: Current Medications Acetaminophen (Tylenol Tab*) 650 mg PO Q4H PRN PRN Reason: for pain; or Temp >101 F Al Hydrox/Mg Hydrox/Simethicone (Maalox Plus*) 30 ml PO Q4H PRN PRN Reason: INDIGESTION Last Admin: 07/24/17 19:53 Dose: 30 ml Amlodipine Besylate (Norvasc Tab*) 10 mg PO DAILY [facility] Last Admin: 07/26/17 08:24 Dose: 10 mg Bupropion HCl (Wellbutrin Sr Tab*) 100 mg PO 0800,1700 [facility] Last Admin: 07/26/17 17:19 Dose: 100 mg Docusate Sodium (Colace Cap*) 200 mg PO DAILY [facility] Last Admin: 07/26/17 08:24 Dose: 200 mg Levothyroxine Sodium (Synthroid Tab*) 50 mcg PO 0600 [facility] Last Admin: 07/26/17 06:41 Dose: 50 mcg Lisinopril (Prinivil Tab*) 5 mg PO DAILY [facility] Last Admin: 07/26/17 08:25 Dose: 5 mg Lorazepam (Ativan Tab(*)) 2 mg PO BID PRN PRN Reason: ANXIETY Last Admin: 07/23/17 15:32 Dose: 2 mg Mirtazapine (Remeron Tab*) 30 mg PO BEDTIME [facility] Last Admin: 07/25/17 20:30 Dose: 30 mg Multivitamins (Theragran Tab*) 1 tab PO DAILY [facility] Last Admin: 07/26/17 08:24 Dose: 1 tab Nicotine (Nicotine Inhaler*) 10 mg INH Q2H PRN PRN Reason: CRAVING Nicotine (Nicotine Patch 21 Mg/24 Hr*) 1 patch TRANSDERM DAILY@0800 [facility] Last Admin: 07/26/17 13:24 Dose: Not Given Olanzapine (Zyprexa Tab*) 20 mg PO BEDTIME [facility] Last Admin: 07/25/17 20:28 Dose: 20 mg Omeprazole (Prilosec Cap*) 20 mg PO BID [facility] Last Admin: 07/26/17 08:24 Dose: 20 mg Pharmacy Profile Note (Nicotine Patch Removal Note*) 1 note PATCH OFF 1999 [facility] Last Admin: 07/25/17 20:30 Dose: Not Given Temazepam (Restoril Cap*) 30 mg PO BEDTIME [facility] Last Admin: 07/25/17 20:29 Dose: 30 mg Trazodone HCl (Desyrel Tab*) 250 mg PO BEDTIME [facility] Last Admin: 07/25/17 20:28 Dose: 250 mg - Discharge Plan Discharge Plan: Outpatient Follow Up Outpatient Program: [facility]
[2017-07-26] MEDS: traZODone TAB* 100 MG PO SCH (20:24)
[2017-07-26] MEDS: OLANzapine TAB* 10 MG PO SCH (20:24)
[2017-07-26] MEDS: Mirtazapine TAB* 15 MG PO SCH (20:25)
[2017-07-26] MEDS: Temazepam CAP* 15 MG PO SCH (20:26)
[2017-07-26] MEDS: Nicotine Patch Removal NOTE PATCH OFF SCH (21:09)
[2017-07-27] MEDS: Levothyroxine TAB* 50 MCG TAB PO SCH (06:02)
[2017-07-27] MEDS: amLODIPine TAB* 5 MG PO SCH (08:02)
[2017-07-27] MEDS: Docusate CAP* 100 MG PO SCH (08:03)
[2017-07-27] MEDS: Vitamin THERAPEUTIC TAB PO SCH (08:03)
[2017-07-27] MEDS: Omeprazole CAP* 20 MG PO SCH ×2 (08:03→20:18)
[2017-07-27] MEDS: Lisinopril TAB* 5 MG PO SCH (08:03)
[2017-07-27] MEDS: buPROPion SR TAB.SR* 100 MG PO SCH ×2 (08:03→17:24)
[2017-07-27] MEDS: Nicotine PATCH 21 MG/24 HR* PATCH TRANSDERM SCH (08:04)
--- NOTE | 2017-07-27 10:40 | PN ---
Subjective - Subjective Service Type: 23015 Hosp care 15 min low complexity Subjective: Patient continues to be visible in the milieu. He has been noted to be pacing more over the weekend. Patient endorses increased anxiety regarding upcoming ECT. He was reassured on interview about the safety of ECT and asked again to be aware of the validity of his fears. He reports his fears are based on a stigma in the media that ECT is in someway painful or harmful. Side- effects of ECT were again discussed and patient asked to focus on the benefit to his mood and to his life. Patient continues to report desire for ECT. He reports ongoing depressed mood, concentration, motivation, and memory. He denies SI/HI and AH/VH. Objective - Appearance Appearance: Well Developed/Nourished Dysmorphic Features: No Hygiene: Normal Grooming: Well Kept - Behavior Psychomotor Activities: Normal Exhibits Abnormal Movement: No - Attitude and Relatedness Attitude and Relatedness: Cooperative Eye Contact: Fair - Speech Quality: Unpressured Latencies: Normal Quantity: Appropriate - Mood Patient's Decription of Mood: "Anxious" - Affect Observed Affect: Fair Affect Consistent with: Dysphoria - Thought Process Patient's Thought Process: Coherent Thought Content: No Passive Wish, No Suicidal Planning, No Homicidal Ideation, No Paranoid Ideation - Sensorium Experiencing Hallucinations: No, Sensorium is Clear Type of Hallucinations: Visual: No, Auditory: No, Command: No - Level of Consciousness Level of Consciousness: Alert Orientation: Yes Intact, Yes Orientated to Time, Yes Orientated to Place, Yes Orientated to Person - Impulse Control Impulse Control: Intact - Insight and Judgement Insight and Judgement: Fair - Group Participation Particating in Group Activities: Yes - Medication Management Medication Management Adherence: Yes Assessment - Assessment Merits Inpatient Hospitalization: For Immediate Safety, For Stabilization Inpatient DSM-IV Dx: ASSESSMENT: . 1. Bipolar 1 d/o, MRE depressed w/o PFs. Plan - Plan Treatment Plan: Name: MONICA TARIQ Birthdate: 1965 [id number] PLAN: -------- 1. Continue admission to [facility] for safety and symptom mx. 2. Continue home medical med regimen with addition of Lisinopril 5mg daily initiated on medical floor prior to this readmission to the [facility]. 3. Continue Propranolol 20mg po BID for anxiety/elevated HR and BP. 4. Latuda D/C'd due to ineffectiveness. 5. Continue Olanzapine 20mg po qhs for mood stabilization. 6. Continue Mirtazepine 30mg po qhs for mx of akathisia and insomnia. 7. Continue Temazepam 30mg po qhs as patient has been on this benzo for years. Patient encouraged to start slow taper off this med due to risks of diminished cognition and risk of falls as he approaches his late 50 's. 8. Continue Trazodone 250mg po qhs for insomnia as patient reports Temazepam alone does not get him to sleep. 9. Continue Wellbutrin at 100mg po BID for neurovegetative symptoms of depression. 10. BP and HR elevated but wnl today. 11. Patient accepted for transfer to [facility] for ECT. 12. Medicaid application complete. 13. Continue Colace 200mg po daily for constipation. 14. Collateral information obtained from brother and [facility] providers. 15. Patient to participate in milieu activities and groups. Medications: Current Medications Acetaminophen (Tylenol Tab*) 650 mg PO Q4H PRN PRN Reason: for pain; or Temp >101 F Al Hydrox/Mg Hydrox/Simethicone (Maalox Plus*) 30 ml PO Q4H PRN PRN Reason: INDIGESTION Last Admin: 07/24/17 19:53 Dose: 30 ml Amlodipine Besylate (Norvasc Tab*) 10 mg PO DAILY [facility] Last Admin: 07/27/17 08:02 Dose: 10 mg Bupropion HCl (Wellbutrin Sr Tab*) 100 mg PO 0800,1700 [facility] Last Admin: 07/27/17 08:03 Dose: 100 mg Docusate Sodium (Colace Cap*) 200 mg PO DAILY [facility] Last Admin: 07/27/17 08:03 Dose: 200 mg Levothyroxine Sodium (Synthroid Tab*) 50 mcg PO 0600 [facility] Last Admin: 07/27/17 06:02 Dose: 50 mcg Lisinopril (Prinivil Tab*) 5 mg PO DAILY [facility] Last Admin: 07/27/17 08:03 Dose: 5 mg Lorazepam (Ativan Tab(*)) 2 mg PO BID PRN PRN Reason: ANXIETY Last Admin: 07/23/17 15:32 Dose: 2 mg Mirtazapine (Remeron Tab*) 30 mg PO BEDTIME [facility] Last Admin: 07/26/17 20:25 Dose: 30 mg Multivitamins (Theragran Tab*) 1 tab PO DAILY [facility] Last Admin: 07/27/17 08:03 Dose: 1 tab Nicotine (Nicotine Inhaler*) 10 mg INH Q2H PRN PRN Reason: CRAVING Nicotine (Nicotine Patch 21 Mg/24 Hr*) 1 patch TRANSDERM DAILY@0800 [facility] Last Admin: 07/27/17 08:04 Dose: Not Given Olanzapine (Zyprexa Tab*) 20 mg PO BEDTIME [facility] Last Admin: 07/26/17 20:24 Dose: 20 mg Omeprazole (Prilosec Cap*) 20 mg PO BID [facility] Last Admin: 07/27/17 08:03 Dose: 20 mg Pharmacy Profile Note (Nicotine Patch Removal Note*) 1 note PATCH OFF 1999 [facility] Last Admin: 07/26/17 21:09 Dose: 1 note Temazepam (Restoril Cap*) 30 mg PO BEDTIME [facility] Last Admin: 07/26/17 20:26 Dose: 30 mg Trazodone HCl (Desyrel Tab*) 250 mg PO BEDTIME [facility] Last Admin: 07/26/17 20:24 Dose: 250 mg - Discharge Plan Discharge Plan: Outpatient Follow Up
--- NOTE | 2017-07-27 13:08 | PN ---
MHU: Group Therapy Note - Service Type Service Type: [id number] Group Psychotherapy - Cognitive Behavioral Group Therapy ( CBT):Patient attended CBT programming this morning and presented with flat affect that did not vary with discussion. Although responsive to direct prompts to respond to questions, patient did not engage in spontaneous conversation.
[2017-07-27] MEDS: Nicotine Patch Removal NOTE PATCH OFF SCH (19:11)
[2017-07-27] MEDS: traZODone TAB* 100 MG PO SCH (20:18)
[2017-07-27] MEDS: Temazepam CAP* 15 MG PO SCH (20:18)
[2017-07-27] MEDS: Mirtazapine TAB* 15 MG PO SCH (20:18)
[2017-07-27] MEDS: OLANzapine TAB* 10 MG PO SCH (20:18)
[2017-07-28 08:14] VITALS: BP 128/97
[2017-07-28] MEDS: Lisinopril TAB* 5 MG PO SCH (08:43)
[2017-07-28] MEDS: amLODIPine TAB* 5 MG PO SCH (08:43)
[2017-07-28] MEDS: Omeprazole CAP* 20 MG PO SCH ×2 (08:43→19:22)
[2017-07-28] MEDS: buPROPion SR TAB.SR* 100 MG PO SCH (08:43)
[2017-07-28] MEDS: Vitamin THERAPEUTIC TAB PO SCH (08:43)
[2017-07-28] MEDS: Docusate CAP* 100 MG PO SCH (08:43)
[2017-07-28] MEDS: LORazepam TAB(*) 1 MG PO PRN ×2 (08:47→19:50)
[2017-07-28] MEDS: Levothyroxine TAB* 50 MCG TAB PO SCH (09:00)
[2017-07-28] MEDS: Nicotine PATCH 21 MG/24 HR* PATCH TRANSDERM SCH (09:00)
--- NOTE | 2017-07-28 14:06 | DS ---
Subjective - Subjective Service Types: 52654 Hosp DC Day Mgmt simple under 30 min Subjective: Patient noted to be visible most of the day in the milieu, anxious, pacing, but social with peers and attending groups. Patient reports ongoing depressed mood and anxiety but resolve to go forward with ECT. Patient is med compliant and denies med s/e's. Patient is A&Ox4, linear and GD in TP, and future oriented in TC. Patient again denies SI/HI and AH/VH. Patient is psychiatrically stable. Patient aware his Bupropion dose will be lowered to 100mg po daily from 100mg po BID due to potential to cause post ECT seizures. Patient aware he will be transported by ambulance to [facility] for ECT. Patient again instructed to call crisis hotline, 911 , or self present to his local ED if SI recurs. Patient was amenable and acknowledged understanding of family and community supports. Patient will be discharged for transfer to [facility]. Objective - Appearance Appearance: Well Developed/Nourished Dysmorphic Features: No Hygiene: Normal Grooming: Fairly Well Kept - Behavior Psychomotor Activities: Normal Exhibits Abnormal Movement: No - Attitude and Relatedness Attitude and Relatedness: Cooperative Eye Contact: Fair - Speech Quality: Unpressured Latencies: Normal Quantity: Appropriate - Mood Patient's Decription of Mood: "Anxious" - Affect Observed Affect: Fair Affect Consistent with: Dysphoria - Thought Process Patient's Thought Process: Coherent Thought Content: No Passive Wish, No Suicidal Planning, No Homicidal Ideation, No Paranoid Ideation - Sensorium Experiencing Hallucinations: No, Sensorium is Clear Type of Hallucinations: Visual: No, Auditory: No, Command: No - Level of Consciousness Level of Consciousness: Alert Orientation: Yes Intact, Yes Orientated to Time, Yes Orientated to Place, Yes Orientated to Person - Impulse Control Impulse Control: Intact - Insight and Judgement Insight and Judgement: Fair - Group Participation Particating in Group Activities: Yes - Medication Management Medication Management Adherence: Yes Treatment Course & Assessment Clinical Course & Impression: HOSPITAL COURSE: Patient is a 51yo male with PPHx significant for Bipolar 1 d/o with PFs who presents to the [facility] ED for psychiatric eval on issued by his [facility] therapist. Patient reports he has experienced sudden significant drop in his mood and attempted suicide 1 week ago when he OD on 15 150mg Trazodone tabs and 4 25mg Vistaril tabs. Patient reports only adverse effect was that he slept for 2days. Patient reports multiple recent biopsychosocial stressors. 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 Patient reports he worked out daily. He reports purchasing high dollar proteins and supplements, and spent extra for healthy food as this was his identity. Patient reports the knee injury in fact was infectious in etiology. He reports recently completing a long course of ABX. He has missed his f/u Ortho appts. Patient also in 11/2016 he was informed by his psychiatrist, Dr. Guadarrama, that his renal function as been worsening. Patient reports he has been on [place] since his first suicide attempt at 28yo. In mid-April 2017 patient was informed he had to come off [place] for mx of Bipolar d/o as his renal function had become critical. He reports being on a dose of 600mg po BID. He reports Dr. Guadarrama tapered him 500mg every 2 weeks until he was off, while cross-titrating Latuda which she started at 20mg po daily. Patient reports he has been off [place] for 1 month and is currently on Latuda 80mg po daily. Patient reports over the last month his anxiety and depression has significantly worsened. 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 Patient reports he wakes in the morning and is overwhelmed with anxiety. Patient stated, I will pace aimlessly for 12 hours. Patient stated, Its hard to sit still. He reports significant depression and feelings that his life is worthless. Patient reports this prompted him to attempt suicide 1 week ago. Patient stated, the only relief I got was when I took those Trazodone and slept. He stated, I wanted to sleep foreverI didnt want to deal anymore. Patient states in addition he has experienced significant apathy, low energy, low motivation, no ambition, poor sleep, and decreased appetite. Patient reports ~ 3wks of experiencing symptoms of agoraphobia, as he would become panicked when outside his home. He reports he has gone days without eating because he was too anxious to leave his home even for food. 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 He reports when not on his meds he hears the voice of 2 females who normally whisper his name or make odd comments. He reports being arrested for entering a strangers home at 1am while intoxicated on cannabis because the female voices told him there was a woman waiting for him inside that house. He reports going inside, being confronted by the father of the family there and reports police were pulling up before he could get off the lawn. Patient reports no current hallucinations. He denies use of alcohol, cannabis or any illicit substance in over 12 years. He reports 2 prior suicide attempts in [place]. Patient moved to [place] in 2003. Patient reports med compliance with Latuda and reports compliance with his psychiatry appts with Dr. Guadarrama and therapy appts. with his therapist Gisele Palafox. Patient admitted to [facility] on 07/09/17, addie started on Wellbutrin for mx of depressive symptoms. Patient found benefit to mood and motivation on initial dose. Dose was uptitrated from 75mg po BID to 100mg po BID with further benefit as well as to mood. Patient continued on outpt BP med Amlodipine at 10mg po daily. Propranolol was started at 10mg po BID for anxiety and BP, then uptitrated to 20mg po BID with reported benefit to anxiety. BP noted to be stable. Patient's Wellbutrin was uptritrated from 100mg po BID to 150mg po BID. BP noted to be elevated but stable. HR was improved and stable. Patient reported ongoing poor sleep on Restoril 30mg qhs and Trazodone 250mg po qhs. On 07/20/17, patient reported sudden left CP associated with spike in BP. Patient was discharged from [facility] and admitted to the medical unit. Patient underwent full workup for CP and stress test showed NEG results. Lisinopril was added to patient's regimen for HTN mx. Patient seen on consult on the medical floor. He continued to express significant depression, apathy, diminished cognition, and sleep. Patient reported no improvement in mood on current psychotropic med regimen. Patient amenable to return to [facility] for ongoing psychiatric care as with his hx of 3 very lethal suicide attempts, he understood he should be improving symptomatically prior to discharging home. 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 Patient educated on ECT and ECT was discussed with patient by this provider and he had discussions regarding outcomes and logistics with his inpt SW and outpt therapist. Patient made the decision to proceed with ECT for his ongoing depressive symptoms. Patient was excepted for ECT by Dr. Reynolds at [facility]. Patient continued to report significant depressed and increased anxiety about ECT. On day of discharge, patient again is noted to be visible most of the day in the milieu, anxious, pacing, but social with peers and attending groups. Patient reports ongoing depressed mood and anxiety but resolve to go forward with ECT. Patient is med compliant and denies med s/e' s. Patient is A&Ox4, linear and GD in TP, and future oriented in TC. Patient again denies SI/HI and AH/VH. Patient is psychiatrically stable. Patient aware his Bupropion dose will be lowered to 100mg po daily from 100mg po BID due to potential to cause post ECT seizures. Patient aware he will be transported by ambulance to [facility] for ECT. Patient again instructed to call crisis hotline, 911 , or self present to his local ED if SI recurs. Patient was amenable and acknowledged understanding of family and community supports. Patient will be discharged for transfer to [facility]. PERTINENT LABS: HgbA1C (07/12/17) - 5.9 Lipid Panel (07/12/17) : Triglycerides - 141 Cholesterol - 132 LDL - 77 HDL - 26.9 Laboratory Tests 07/20/17 07/20/17 07/21/17 13:50 13:50 04:38 WBC 4.2 RBC 5.10 Hgb 13.5 L Hct 41 L MCV 81 MCH 26 L MCHC 33 RDW 20 H Plt Count 203 MPV 8 Neut % (Auto) 62.0 Lymph % (Auto) 25.7 Canyon % (Auto) 9.7 H Eos % (Auto) 2.4 Baso % (Auto) 0.2 Absolute Neuts (auto) 2.6 Absolute Lymphs (auto) 1.1 Absolute Monos (auto) 0.4 Absolute Eos (auto) 0.1 Absolute Basos (auto) 0 Absolute Nucleated RBC 0 Nucleated RBC % 0 Sodium Potassium Chloride Carbon Dioxide Anion Gap BUN Creatinine Est GFR ( Amer) Est GFR (Non-Af Amer) BUN/Creatinine Ratio Glucose Calcium Total Creatine Kinase 106 Troponin I 0.00 0.00 07/21/17 04:38 WBC RBC Hgb Hct MCV MCH MCHC RDW Plt Count MPV Neut % (Auto) Lymph % (Auto) [place] % (Auto) Eos % (Auto) Baso % (Auto) Absolute Neuts (auto) Absolute Lymphs (auto) Absolute Monos (auto) Absolute Eos (auto) Absolute Basos (auto) Absolute Nucleated RBC Nucleated RBC % Sodium 140 Potassium 3.9 Chloride 104 Carbon Dioxide 31 Anion Gap 5 BUN 19 Creatinine 1.22 H Est GFR ( Amer) 80.9 Est GFR (Non-Af Amer) 62.9 BUN/Creatinine Ratio 15.6 Glucose 98 Calcium 9.2 Total Creatine Kinase Troponin I 07/09/17 07/09/17 07/09/17 15:53 15:53 17:45 WBC 10.9 H RBC 5.77 H Hgb 15.1 Hct 47 MCV 81 MCH 26 L MCHC 33 RDW 20 H Plt Count 213 MPV 8 Neut % (Auto) 88.3 H Lymph % (Auto) 6.2 L [place] % (Auto) 4.8 Eos % (Auto) 0.4 Baso % (Auto) 0.3 Absolute Neuts (auto) 9.6 H Absolute Lymphs (auto) 0.7 L Absolute Monos (auto) 0.5 Absolute Eos (auto) 0 Absolute Basos (auto) 0 Absolute Nucleated RBC 0 Nucleated RBC % 0 Sodium 136 Potassium 4.1 Chloride 101 Carbon Dioxide 23 Anion Gap 12 H BUN 20 Creatinine 1.39 H Est GFR ( Amer) 69.6 Est GFR (Non-Af Amer) 54.1 BUN/Creatinine Ratio 14.4 Glucose 94 Calcium 9.8 Total Bilirubin 0.90 AST 37 ALT 59 H Alkaline Phosphatase 61 Total Protein 7.1 Albumin 4.3 Globulin 2.8 Albumin/Globulin Ratio 1.5 TSH 0.52 Urine Color Yellow Urine Appearance Clear Urine pH 6.0 Ur Specific [place] 1.009 L Urine Protein Negative Urine Ketones Negative Urine Blood Negative Urine Nitrate Negative Urine Bilirubin Negative Urine Urobilinogen Negative Ur Leukocyte Esterase Negative Urine Glucose Negative Salicylates < 2.50 Urine Opiates Screen Acetaminophen < 15 Ur Barbiturates Screen Ur Phencyclidine Scrn Ur Amphetamines Screen U Benzodiazepines Scrn [place] < 0.10 L Urine Cocaine Screen U Cannabinoids Screen Serum Alcohol < 10 07/09/17 17:45 WBC RBC Hgb Hct MCV MCH MCHC RDW Plt Count MPV Neut % (Auto) Lymph % (Auto) [place] % (Auto) Eos % (Auto) Baso % (Auto) Absolute Neuts (auto) Absolute Lymphs (auto) Absolute Monos (auto) Absolute Eos (auto) Absolute Basos (auto) Absolute Nucleated RBC Nucleated RBC % Sodium Potassium Chloride Carbon Dioxide Anion Gap BUN Creatinine Est GFR ( Amer) Est GFR (Non-Af Amer) BUN/Creatinine Ratio Glucose Calcium Total Bilirubin AST ALT Alkaline Phosphatase Total Protein Albumin Globulin Albumin/Globulin Ratio TSH Urine Color Urine Appearance Urine pH Ur Specific [place] Urine Protein Urine Ketones Urine Blood Urine Nitrate Urine Bilirubin Urine Urobilinogen Ur Leukocyte Esterase Urine Glucose Salicylates Urine Opiates Screen None detected Acetaminophen Ur Barbiturates Screen None detected Ur Phencyclidine Scrn None detected Ur Amphetamines Screen None detected U Benzodiazepines Scrn Presumptive positive H [place] Urine Cocaine Screen None detected U Cannabinoids Screen None detected Serum Alcohol 07/20/17 07/20/17 07/21/17 13:50 13:50 04:38 WBC 4.2 RBC 5.10 Hgb 13.5 L Hct 41 L MCV 81 MCH 26 L MCHC 33 RDW 20 H Plt Count 203 MPV 8 Neut % (Auto) 62.0 Lymph % (Auto) 25.7 [place] % (Auto) 9.7 H Eos % (Auto) 2.4 Baso % (Auto) 0.2 Absolute Neuts (auto) 2.6 Absolute Lymphs (auto) 1.1 Absolute Monos (auto) 0.4 Absolute Eos (auto) 0.1 Absolute Basos (auto) 0 Absolute Nucleated RBC 0 Nucleated RBC % 0 Sodium Potassium Chloride Carbon Dioxide Anion Gap BUN Creatinine Est GFR ( Amer) Est GFR (Non-Af Amer) BUN/Creatinine Ratio Glucose Calcium Total Creatine Kinase 106 Troponin I 0.00 0.00 07/21/17 04:38 WBC RBC Hgb Hct MCV MCH MCHC RDW Plt Count MPV Neut % (Auto) Lymph % (Auto) [place] % (Auto) Eos % (Auto) Baso % (Auto) Absolute Neuts (auto) Absolute Lymphs (auto) Absolute Monos (auto) Absolute Eos (auto) Absolute Basos (auto) Absolute Nucleated RBC Nucleated RBC % Sodium 140 Potassium 3.9 Chloride 104 Carbon Dioxide 31 Anion Gap 5 BUN 19 Creatinine 1.22 H Est GFR ( Amer) 80.9 Est GFR (Non-Af Amer) 62.9 BUN/Creatinine Ratio 15.6 Glucose 98 Calcium 9.2 Total Creatine Kinase Troponin I Consultants: None this admission Discharge Meds: Medication Instructions Recorded Confirmed Type Levothyroxine TAB* [Synthroid TAB*] 50 mcg PO 0600 tab 07/20/17 07/21/17 Rx Mirtazapine TAB* [Remeron TAB*] 30 mg PO BEDTIME tab 07/20/17 07/21/17 Rx Temazepam CAP* [Restoril CAP*] 30 mg PO BEDTIME cap MDD 30 07/20/17 07/21/17 Rx amLODIPine TAB* [Norvasc 5 mg TAB*] 10 mg PO DAILY tab 07/20/17 07/21/17 Rx traZODone TAB* [Desyrel TAB*] 250 mg PO BEDTIME tab 07/20/17 07/21/17 Rx Lisinopril TAB* [Prinivil TAB 5 5 mg PO DAILY tab 07/21/17 Rx MG*] Acetaminophen TAB* [Tylenol TAB*] 650 mg PO Q4H PRN #0 tab 07/28/17 Rx Al Hydrox/Mg Hydrox/Simet LIQ* 30 ml PO Q4H PRN #0 udc 07/28/17 Rx [Maalox Plus*] Docusate CAP* [Colace Cap*] 200 mg PO DAILY cap 07/28/17 Rx Nicotine PATCH 21 MG/24 HR* 1 patch TRANSDERM DAILY@0800 patch 07/28/17 Rx Nicotine Patch Removal NOTE* 1 note PATCH OFF 199907/28/17 Rx OLANzapine TAB* [Zyprexa 10 MG 20 mg PO BEDTIME tab 07/28/17 Rx TAB*] Omeprazole CAP* [Prilosec CAP* 20 20 mg PO BID cap 07/28/17 Rx MG] Vitamin THERAPEUTIC TAB* 1 tab PO DAILY tab 07/28/17 Rx [Theragran TAB*] buPROPion SR TAB* [Wellbutrin SR 100 mg PO 0800 tab.sr 07/28/17 Rx TAB*] Post Hospital Discharge Follow-Up: Follow-up with Dr. Guadarrama at [facility]. Appt to be made by [facility] category planner. Merits Inpatient Hospitalization: Yes Clear for Discharge: Other - Will transfer to [facility] for initiation of inpatient ECT. Inpatient DSM-IV Dx: ASSESSMENT: . 1. Bipolar 1 d/o, MRE depressed w/o PFs. Discharge Planning - Discharge Planning Discharge Plan: Inpatient Hospitalization - Patient to be transferred to [facility] for inpatient ECT. Medications: Current Medications Acetaminophen (Tylenol Tab*) 650 mg PO Q4H PRN PRN Reason: for pain; or Temp >101 F Al Hydrox/Mg Hydrox/Simethicone (Maalox Plus*) 30 ml PO Q4H PRN PRN Reason: INDIGESTION Last Admin: 07/24/17 19:53 Dose: 30 ml Amlodipine Besylate (Norvasc Tab*) 10 mg PO DAILY [facility] Last Admin: 07/28/17 08:43 Dose: 10 mg Bupropion HCl (Wellbutrin Sr Tab*) 100 mg PO 0800,1700 [facility] Last Admin: 07/28/17 08:43 Dose: 100 mg Docusate Sodium (Colace Cap*) 200 mg PO DAILY [facility] Last Admin: 07/28/17 08:43 Dose: 200 mg Levothyroxine Sodium (Synthroid Tab*) 50 mcg PO 0600 [facility] Last Admin: 07/28/17 09:00 Dose: Not Given Lisinopril (Prinivil Tab*) 5 mg PO DAILY [facility] Last Admin: 07/28/17 08:43 Dose: 5 mg Lorazepam (Ativan Tab(*)) 2 mg PO BID PRN PRN Reason: ANXIETY Last Admin: 07/28/17 08:47 Dose: 2 mg Mirtazapine (Remeron Tab*) 30 mg PO BEDTIME [facility] Last Admin: 07/27/17 20:18 Dose: 30 mg Multivitamins (Theragran Tab*) 1 tab PO DAILY [facility] Last Admin: 07/28/17 08:43 Dose: 1 tab Nicotine (Nicotine Inhaler*) 10 mg INH Q2H PRN PRN Reason: CRAVING Nicotine (Nicotine Patch 21 Mg/24 Hr*) 1 patch TRANSDERM DAILY@0800 [facility] Last Admin: 07/28/17 09:00 Dose: Not Given Olanzapine (Zyprexa Tab*) 20 mg PO BEDTIME [facility] Last Admin: 07/27/17 20:18 Dose: 20 mg Omeprazole (Prilosec Cap*) 20 mg PO BID [facility] Last Admin: 07/28/17 08:43 Dose: 20 mg Pharmacy Profile Note (Nicotine Patch Removal Note*) 1 note PATCH OFF 1999 [facility] Last Admin: 07/27/17 19:11 Dose: Not Given Temazepam (Restoril Cap*) 30 mg PO BEDTIME [facility] Last Admin: 07/27/17 20:18 Dose: 30 mg Trazodone HCl (Desyrel Tab*) 250 mg PO BEDTIME [facility] Last Admin: 07/27/17 20:18 Dose: 250 mg Discharge Planning: Prescriptions provided for discharge [x] Yes [] No Follow up care details as per social work arrangements. Patient response to discharge plan: [] eager for discharge [x] agreeable with discharge plan [] ambivalent about discharge [] disagrees with discharge today
[2017-07-28] MEDS: traZODone TAB* 100 MG PO SCH (19:21)
[2017-07-28] MEDS: OLANzapine TAB* 10 MG PO SCH (19:22)
[2017-07-28] MEDS: Temazepam CAP* 15 MG PO SCH (19:22)
[2017-07-28] MEDS: Mirtazapine TAB* 15 MG PO SCH (19:22)
[2017-07-29] MEDS ORDERED: buPROPion SR TAB.SR* 100 MG PO SCH (08:00)
== END 2017-07-28 19:55 | disposition short-term general hospital (02) | DRG 885 ==
LOC: BSU 16:30
PROVIDERS: ADMIT Psychiatry & Neurology Psychiatry; ATTEND Psychiatry & Neurology Psychiatry
DX: F31.9 Bipolar disorder, unspecified (principal); I10 Essential (primary) hypertension; E03.9 Hypothyroidism, unspecified; Z91.5 Personal history of self-harm
CPT/HCPCS: 36415; 80048; 82550; 84484; 85025; 93005; 93350; A9270-GY; G0378

== ENCOUNTER 2019-10-25 17:48 | Inpatient (IN) | payer MEDICARE ==
[2019-10-25 18:25] LABS: ABS Eosinophils 0.1 10^3/ul (0-0.6); ABS Monocytes 0.7 10^3/ul (0-0.8); ABS Neutrophils 6.3 10^3/ul (1.5-7.7); Eosinophil % 0.7 %; Hematocrit 44 % (42-52); Hemoglobin 14.9 g/dL (14.0-18.0); Lymphocyte % 21.6 %; Mean Corpuscular HGB Conc 34 g/dL (31-36); Mean Corpuscular Hemoglobin 31 pg (27-31); Mean Corpuscular Volume 91 fL (80-94); Mean Platelet Volume 7.7 fL (7.4-10.4); Nucleated Red Blood Cells % 0.1; Platelet Count 248 10^3/uL (150-450); Red Blood Count 4.81 10^6 /uL (4.18-5.48); Red Cell Distribution Width 15 % (10-15); White Blood Count 9.1 10^3/uL (3.5-10.8)
--- NOTE | 2019-10-25 18:40 | ED ---
Psychiatric Complaint - HPI Summary HPI Summary: Patient is a 53 y/o M w/ Hx of bipolar disorder who presents to [facility] under 945 status due to reported erratic behavior. Patient's family had called EMS today as the patient had been "all over the place" and using large amounts of marijuana. It is reported that the patient has been non-compliant with his lithium but the patient denies this. Patient states that he is unsure why he was brought to ED for evaluation. He reports Hx of suicide attempt x3, with most recent occurring 1.5 years ago. Patient also claims that he has been admitted to hospitals for psychiatric reasons 12-13 times in his life. Patient also makes note of a self-inflicted scar to his throat, patient self-inflicted this injury at age 29. He denies SI/HI, and hallucinations. Patient is on levothyroxine and BP medication. On triage, pain is denied, nothing is noted to aggravate/alleviate Sx. Home medications and allergies are reviewed. - History Of Current Complaint Chief Complaint: EDMentalHealth Time Seen by Provider: 10/25/19 18:00 Hx Obtained From: Patient, EMS Severity Currently: None - pain denied Aggravating Factor(s): Nothing Alleviating Factor(s): Nothing Associated Signs And Symptoms: Positive: Negative Has Suicidal: Reports: Has Prior Attempt(s). Denies: Thoughts Has Homicidal: Denies: Thoughts - Allergies/Home Medications Allergies/Adverse Reactions: Allergies Allergy/AdvReac Type Severity Reaction Status Date / Time No Known Allergies Allergy Verified 10/25/19 17:57 Home Medications: Home Medications Rhodes Carbonate TAB* 300 mg PO BID 10/25/19 [History Confirmed 10/25/19] Mirtazapine TAB* [Remeron TAB*] 15 mg PO BEDTIME 10/25/19 [History Confirmed 09/03] Tamsulosin CAP* [Flomax CAP*] 0.4 mg PO DAILY 10/25/19 [History Confirmed ] traZODone TAB* [Desyrel TAB*] 50 - 100 mg PO BEDTIME 10/25/19 [History Confirmed 10/25/19] PMH/Surg Hx/FS Hx/Imm Hx Previously Healthy: No Endocrine/Hematology History: Reports: Hx Thyroid Disease - HYPOTHYROIDISM Denies: Hx Diabetes Cardiovascular History: Reports: Hx Angina, Hx Hypertension Denies: Hx Coronary Artery Disease, Hx Hypercholesterolemia, Hx Myocardial Infarction Respiratory History: Reports: Hx Sleep Apnea - undiagnosed Denies: Hx Asthma GI History: Reports: Hx Gastroesophageal Reflux Disease, Hx Ulcer Musculoskeletal History: Reports: Hx Arthritis - Right shoulder Denies: Hx Back Problems Sensory History: Denies: Hx Contacts or Glasses, Hx Hearing Aid Opthamlomology History: Denies: Hx Contacts or Glasses Neurological History: Reports: Other Neuro Impairments/Disorders - BIPOLAR DISEASE/ TREMOR Psychiatric History: Reports: Hx Anxiety, Hx Depression - UNDER CONTROL WITH MEDICATION PER PATIENT, Hx Inpatient Treatment, Hx Community Mental Health Tx, Hx Bipolar Disorder, Hx Suicide Attempt - 3 previous attempts Denies: Hx Eating Disorder - Surgical History Surgery Procedure, Year, and Place: REPAIR OF A THROAT LACERATION- WHILE IN HIS 21H-PM[facility]FA-[facility]HR[facility] 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 [place]KLE [place]ONSTRUCTION- [place]. LYMPH NODE BIOPSY- [facility] [id number] Hx Anesthesia Reactions: No Infectious Disease History: No Infectious Disease History: Denies: Hx Clostridium Difficile, Hx Hepatitis, Hx Human Immunodeficiency Virus (HIV), Traveled Outside the US in Last 30 Days - Family History Known Family History: Negative: Seizure Disorder - Social History Alcohol Use: None Alcohol Amount: none Hx Substance Use: No Substance Use Type: Reports: Marijuana Substance Use Comment - Amount & Last Used: none Hx Tobacco Use: Yes Smoking Status (MU): Former Smoker Amount Used/How Often: 1/2 PPD X 20 YEARS Length of Time of Smoking/Using Tobacco: 20 years Have You Smoked in the Last Year: No Review of Systems Constitutional: Other - positive - report marijuana usage Negative: Fever Psychological: Other - positive - reported erratic behavior; negative - SI/HI, hallucinations All Other Systems Reviewed And Are Negative: Yes Physical Exam - Summary Physical Exam Summary: Constitutional: Well-developed, Well-nourished, Alert. (-) Distressed Skin: Warm, Dry HENT: Normocephalic; Atraumatic Eyes: Conjunctiva normal Neck: Musculoskeletal ROM normal neck. (-) JVD, (-) Stridor, (-) Tracheal deviation Cardio: Rhythm regular, rate normal, Heart sounds normal; Intact distal pulses; Radial pulses are 2+ and symmetric. (-) Murmur Pulmonary/Chest wall: Effort normal. (-) Respiratory distress, (-) Wheezes, (-) Rales Abd: Soft, (-) tenderness, (-) Distension, (-) Guarding, (-) Rebound Musculoskeletal: (-) Edema Lymph: (-) Cervical adenopathy Neuro: Alert, Oriented x3 Psych: Mood and affect Normal Triage Information Reviewed: Yes Vital Signs On Initial Exam: Initial Vitals Temp Pulse Resp BP Pulse Ox 99.2 F 88 18 161/117 98 10/25/19 17:51 10/25/19 17:51 10/25/19 17:51 10/25/19 17:51 10/25/19 17:51 Vital Signs Reviewed: Yes Procedures - Sedation Patient Received Moderate/Deep Sedation with Procedure: No Diagnostics - Vital Signs Vital Signs Temp Pulse Resp BP Pulse Ox 10/25/19 18:08 158/104 10/25/19 17:51 99.2 F 88 18 161/117 98 - Laboratory Lab Results: Lab Results 10/25/19 Range/Units 18:14 WBC 9.1 (3.5-10.8) 10^3/uL RBC 4.81 (4.18-5.48) 10^6 /uL Hgb 14.9 (14.0-18.0) g/dL Hct 44 (42-52) % MCV 91 (80-94) fL MCH 31 (27-31) pg MCHC 34 (31-36) g/dL RDW 15 (10-15) % Plt Count 248 (150-450) 10^3/uL MPV 7.7 (7.4-10.4) fL Neut % (Auto) 70.0 % Lymph % (Auto) 21.6 % [place] % (Auto) 7.4 % Eos % (Auto) 0.7 % Baso % (Auto) 0.3 % Absolute Neuts (auto) 6.3 (1.5-7.7) 10^3/ul Absolute Lymphs (auto) 2.0 (1.0-4.8) 10^3/ul Absolute Monos (auto) 0.7 (0-0.8) 10^3/ul Absolute Eos (auto) 0.1 (0-0.6) 10^3/ul Absolute Basos (auto) 0.0 (0-0.2) 10^3/ul Absolute Nucleated RBC 0.0 10^3/ul Nucleated RBC % 0.1 Result Diagrams: 10/25/19 18:14 10/25/19 18:14 Lab Statement: Any lab studies that have been ordered have been reviewed, and results considered in the medical decision making process. Re-Evaluation - Re-Evaluation First Eval Re-Evaluation Time: 18:07 Comment: Medically cleared for MHE. Course/Dx - Course Course Of Treatment: Patient is here with erratic behavior secondary to bipolar disorder and medication noncompliance. On arrival, patient was cooperative with no complaints. Patient cannot provide any details on the events that happened today that got into the emergency department. Patient had no physical complaints and was medically cleared by myself. Patient is not to Dr. Gold pending mental health evaluation - Differential Dx/Clinical Impression Provider Diagnosis: Bipolar disorder, Depression Discharge ED - Sign-Out/Discharge Documenting (check all that apply): Sign-Out Patient Signing out patient TO: Arthur Haddad - Discharge Plan Condition: Stable Disposition: PSYCHIATRIC FACILITY-[facility] [place] Referrals: Care [facility] [Outside] - Billing Disposition and Condition Condition: STABLE Disposition: Psychiatric Facility [facility] [place] - Attestation Statements Document Initiated by Scribe: Yes Documenting Scribe: EDGARD ARREOLA Provider For Whom Scribe is Documenting (Include Credential): ANDRE HAMM MD Scribe Attestation: IEDGARD, scribed for ANDRE HAMM MD on 10/26/19 at 1059. Scribe Documentation Reviewed: Yes Provider Attestation: The documentation as recorded by the EDGARD dominguez accurately reflects the service I personally performed and the decisions made by me, ANDRE HAMM MD Status of Scribe Document: Viewed
[2019-10-25 18:41] LABS: ALT 73 U/L (7-52); AST 77 U/L (13-39); Albumin 4.3 g/dL (3.2-5.2); Albumin/Globulin Ratio 1.9 (1-3); Alkaline Phosphatase 52 U/L (34-104); Anion Gap 7 mmol/L (2-11); BUN/Creatinine Ratio 23.6 (8-20); Blood Urea Nitrogen 25 mg/dL (6-24); CO2 Carbon Dioxide 26 mmol/L (22-32); Chloride 106 mmol/L (101-111); EGFR African American 88.8 (>60); EGFR Non-African American 73.4 (>60); Globulin 2.3 g/dL (2-4); Glucose 93 mg/dL (70-100); Potassium 3.8 mmol/L (3.5-5.0); Sodium 139 mmol/L (135-145); Total Protein 6.6 g/dL (6.4-8.9)
[2019-10-25 19:04] LABS: Acetaminophen < 15 mcg/mL; Alcohol < 10 mg/dL (<10); Lithium 0.15 mmol/L (0.6-1.2); Salicylate < 2.50 mg/dL (<30)
[2019-10-25 19:19] LABS: TSH (Thyroid Stimulating Horm) 1.12 mcIU/mL (0.34-5.60)
[2019-10-25 19:21] LABS: Free T4 1.31 ng/dL (0.61-1.12)
--- NOTE | 2019-10-25 19:32 | ED ---
Progress - Progress Note Progress Note: Patient is a sign-out at 19:00 on 10/25/[address] Juni Pereira MD to Dr. Arthur Haddad MD at shift change, pending MHE and disposition. Patient will be a sign-out at 07:00 on 10/26/[address] Arthur Haddad MD to Dr. Wilver Corbett MD at shift change, pending MH disposition. Re-Evaluation - Re-Evaluation First Eval Re-Evaluation Time: 18:07 Comment: Medically cleared for MHE. Course/Dx - Course Course Of Treatment: Patient is a sign-out at 19:00 on 10/25/[address] Juni Pereira MD to Dr. Arthur Haddad MD at shift change, pending MHE and disposition. Patient will be a sign-out at 07:00 on 10/26/[address] Arthur Haddad MD to Dr. Wilver Corbett MD at shift change, pending MH disposition. - Diagnoses Provider Diagnoses: Bipolar disorder, Depression Discharge ED - Sign-Out/Discharge Documenting (check all that apply): Sign-Out Patient, Receiving Sign-Out Signing out patient TO: Wilver Corbett - Patient will be a sign-out at 07:[address] Arthur Haddad MD to Dr. Wilver Corbett MD at shift change, pending MH disposition. Receiving patient FROM: Juni Pereira - Patient is a sign-out at 19:00 on 09/[address] Juni Pereira MD to Dr. Arthur Haddad MD at shift change, pending MHE and disposition. - Discharge Plan Condition: Stable Disposition: [place]ATRIC [place] [place] - Billing Disposition and Condition Condition: STABLE Disposition: Psychiatric Facility [facility] - Attestation Statements Document Initiated by Scribe: Yes Documenting Scribe: Gisele Dominguez Provider For Whom Johanibnae is Documenting (Include Credential): Arthur Haddad MD Scribe Attestation: Gisele Kohler scribed for Arthur Haddad MD on 10/28/19 at 1544. Scribe Documentation Reviewed: Yes Provider Attestation: The documentation as recorded by the Gisele dominguez accurately reflects the service I personally performed and the decisions made by me, Arthur Haddad MD Status of Scribe Document: Viewed
[2019-10-25 21:43] LABS: Urine Benzodiazepine Screen None Detected (None Detect); Urine Opiates Screen None Detected (None Detect)
[2019-10-26 10:24] LABS: Urine Appearance Clear; Urine Bilirubin Negative (Negative); Urine Blood Negative (Negative); Urine Color Yellow; Urine Glucose Negative (Negative); Urine Ketones Negative (Negative); Urine Nitrite Negative (Negative); Urine Protein Negative (Negative); Urine Urobilinogen Negative (Negative)
[2019-10-26 10:27] LABS: Urine Bacteria Absent (Absent); Urine Red Blood Cell Trace(0-2/hpf) (Absent); Urine Squamous Epithelial Cell Present (Absent); Urine White Blood Cell Trace(0-5/hpf) (Absent)
--- NOTE | 2019-10-26 10:45 | ED ---
Progress - Progress Note Progress Note: Patient is received as a sign-out from Dr. Haddad to Dr. Corbett at 0700 10/26/19 shift change pending disposition of this mental health patient. 1033 - Patient's case was reviewed by Dr. Robertson. Dr. Robertson states that the patient will be a psychiatric admit with Dx of bipolar disorder and depression. Re-Evaluation - Re-Evaluation First Eval Re-Evaluation Time: 18:07 Comment: Medically cleared for MHE. Course/Dx - Course Course Of Treatment: Patient is a sign-out at 19:00 on 10/25/[address] Juni Pereira MD to Dr. Arthur Haddad MD at shift change, pending MHE and disposition. Patient will be a sign-out at 07:00 on 10/26/[address] Arthur Haddad MD to Dr. Wilver Corbett MD at shift change, pending MH disposition. - Diagnoses Provider Diagnoses: Bipolar disorder, Depression - Provider Notifications Discussed Care Of Patient With: Gage Robertson Time Discussed With Above Provider: 10:33 Instructed by Provider To: Other - 1033 - Patient's case was reviewed by Dr. Robertson. Dr. Robertson states that the patient will be a psychiatric admit with Dx of bipolar disorder and depression. Discharge ED - Sign-Out/Discharge Documenting (check all that apply): Patient Departure - admit - Discharge Plan Condition: Stable Disposition: PSYCHIATRIC FACILITY[place] [place] - Billing Disposition and Condition Condition: STABLE Disposition: Psychiatric Facility [facility] [place] - Attestation Statements Document Initiated by Scribe: Yes Documenting Scribe: EDGARD ARREOLA Provider For Whom Russ is Documenting (Include Credential): WILVER CORBETT MD Scribe Attestation: EDGARD Kohler scribed for WILVER CORBETT MD on 10/29/19 at 1839. Scribe Documentation Reviewed: Yes Provider Attestation: The documentation as recorded by the EDGARD dominguez accurately reflects the service I personally performed and the decisions made by me, WILVER CORBETT MD Status of Scribe Document: Viewed
[2019-10-26] MEDS ORDERED: Acetaminophen TAB* 325 MG PO PRN (10:53)
[2019-10-26] MEDS ORDERED: Al Hydrox/Mg Hydrox/Simet LIQ* 30 ML UDC PO PRN (10:53)
[2019-10-26] MEDS ORDERED: LORazepam TAB(*) 1 MG PO PRN (10:55)
[2019-10-26] MEDS ORDERED: Lithium Carbonate TAB* 300 MG PO SCH (11:00)
[2019-10-26] MEDS: amLODIPine TAB* 5 MG PO SCH (11:55)
[2019-10-26] MEDS: Tamsulosin CAP* 0.4 MG PO SCH (13:47)
[2019-10-26] MEDS ORDERED: Mirtazapine TAB* 15 MG PO SCH (21:00)
[2019-10-26] MEDS ORDERED: traZODone TAB* 50 MG TAB PO SCH (21:00)
[2019-10-26] MEDS: Lithium Carbonate TAB* 300 MG PO SCH (21:03)
[2019-10-26] MEDS: Mirtazapine TAB* 15 MG PO SCH (21:06)
[2019-10-26] MEDS: traZODone TAB* 100 MG PO SCH (21:06)
[2019-10-27] MEDS ORDERED: Levothyroxine TAB* 50 MCG TAB PO SCH (06:00)
[2019-10-27] MEDS: Lithium Carbonate TAB* 300 MG PO SCH ×2 (08:59→21:43)
[2019-10-27] MEDS: Levothyroxine TAB* 50 MCG TAB PO SCH (08:59)
[2019-10-27] MEDS: Tamsulosin CAP* 0.4 MG PO SCH (09:00)
[2019-10-27] MEDS: amLODIPine TAB* 5 MG PO SCH (09:00)
[2019-10-27] MEDS ORDERED: OMEPRAZOLE 20 MG PO ONE (09:30)
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
--- NOTE | 2019-10-27 11:31 | PN ---
BSU: Group Therapy Note - Service Type Service Type: [id number] Group Psychotherapy - Cognitive Behavioral Group Therapy ( CBT):Patient was attentive and participatory in CBT programming this morning, and remained in good behavioral control. Patient expressed positive insights regarding relevant treatment interventions and goals.
[2019-10-27] MEDS: traZODone TAB* 100 MG PO SCH (21:44)
[2019-10-27] MEDS: Mirtazapine TAB* 15 MG PO SCH (21:44)
[2019-10-27] MEDS: Omeprazole CAP (NF) 20 MG CAP.DR PO SCH (23:13)
[2019-10-28] MEDS: Levothyroxine TAB* 50 MCG TAB PO SCH (09:16)
[2019-10-28] MEDS: Tamsulosin CAP* 0.4 MG PO SCH (09:16)
[2019-10-28] MEDS: amLODIPine TAB* 5 MG PO SCH (09:17)
[2019-10-28] MEDS: Omeprazole CAP (NF) 20 MG CAP.DR PO SCH ×2 (09:19→20:49)
[2019-10-28] MEDS: Lithium Carbonate TAB* 300 MG PO SCH ×2 (09:19→20:49)
--- NOTE | 2019-10-28 11:47 | PN ---
BSU: Group Therapy Note - Service Type Service Type: [id number] Group Psychotherapy - Cognitive Behavioral Group Therapy ( CBT):Patient was attentive and participatory in CBT programming this morning, and remained in good behavioral control. Patient expressed positive insights regarding relevant treatment interventions and goals.
--- NOTE | 2019-10-28 14:14 | PN ---
Subjective - Subjective Date of Service: 10/28/19 Service Type: [id number] Hosp care 35 min high complexity Subjective: CC " I have really enjoyed it here" Nursing Report: Patient was visible on unit, no behavioral incidents. Slept overnight. He is attending group activities. Patient was seen and evaluated in the common room. The patient reported he is doing better. He reported that trazodone usually helps him sleep. He reported having adequate appetite and sleep. The patient reports attending and participating in day groups. Per nursing no behavioral issues or overnight events reported. Patient reported that he is tolerating medications without side effects. Objective - General Observations Appearance: Neat Appears Stated Age: Yes Stature: WNL Posture: WNL Eye Contact: Average Behavior/Activity: WNL - Interaction Observations Attitude Towards Examiner: Cooperative Stated Mood: Elevated Affect: Restricted Speech Pattern/Tone: Appropriate Thought Process: Coherent Perception: WNL Thought Content: Self-Deprecatory Hallucination Type: None Delusion Type: None - Cognitive Function Orientation: A&O x 4 Cognition: WNL - Medication Compliance Cooperative with Inpatient Medication Regimen: Yes - Group Participation Participates in Group Activities: Yes Assessment - Assessment Merits Inpatient Hospitalization: For Immediate Safety Plan - Plan Treatment Plan: Name: MONICA TARIQ Birthdate: 1965 [id number] # Q30 minute observation with staff pass # The patient requires psychiatric inpatient admission at this time to assure safety, receive treatment and work toward stabilization. # Collaboration with Social Work # Resume [place] 300mg BID for mood stabilization and Trazodone 50mg qhs # D/C Remeron 15mg qhs. #Goals before discharge include: To eliminate/ reduce suicidal ideation Tentative Discharge: Pending psychiatric stabilization Continued Medication Management: Continue Outpt Medication Medications: Current Medications Acetaminophen (Tylenol Tab*) 650 mg PO Q4H PRN PRN Reason: for pain; or Temp >101 F Al Hydrox/Mg Hydrox/Simethicone (Maalox Plus*) 30 ml PO Q4H PRN PRN Reason: INDIGESTION Amlodipine Besylate (Norvasc Tab*) 10 mg PO DAILY [facility] Last Admin: 10/28/19 09:17 Dose: 10 mg Levothyroxine Sodium (Synthroid Tab*) 50 mcg PO 0600 [facility] Last Admin: 10/28/19 09:16 Dose: 50 mcg [place] Carbonate ([place] Carbonate Tab*) 300 mg PO BID [facility] Last Admin: 10/28/19 09:19 Dose: 300 mg Lorazepam (Ativan Tab(*)) 1 mg PO Q6H PRN PRN Reason: ANXIETY Omeprazole (Prilosec Cap* (Nf)) 20 mg PO BID [facility] Last Admin: 10/28/19 09:19 Dose: 20 mg Tamsulosin HCl (Flomax Cap*) 0.4 mg PO DAILY [facility] Last Admin: 10/28/19 09:16 Dose: Not Given Trazodone HCl (Desyrel Tab*) 50 mg PO BEDTIME [facility] - Discharge Plan Discharge Plan: Inpatient Hospitalization
[2019-10-28] MEDS: traZODone TAB* 50 MG TAB PO SCH (21:41)
[2019-10-29] MEDS: traZODone TAB* 50 MG TAB PO SCH ×2 (00:18→22:16)
[2019-10-29] MEDS: Levothyroxine TAB* 50 MCG TAB PO SCH (07:35)
[2019-10-29] MEDS: amLODIPine TAB* 5 MG PO SCH (09:52)
[2019-10-29] MEDS: Tamsulosin CAP* 0.4 MG PO SCH (09:52)
[2019-10-29] MEDS: Omeprazole CAP (NF) 20 MG CAP.DR PO SCH ×2 (09:54→22:16)
[2019-10-29] MEDS: Lithium Carbonate TAB* 300 MG PO SCH ×2 (09:55→22:16)
--- NOTE | 2019-10-29 15:09 | PN ---
Subjective - Subjective Date of Service: 10/29/19 Service Type: [id number] Hosp care 15 min low complexity Subjective: Monica is seen in weekend coverage for Dr. Gerber. The patient is found exercising in the activities room. He is in good spirits and states that he feels much better than when he arrived at the hospital. "Look, I know I need to be here." He denies SI or HI and is tolerating his medications well. Objective - General Observations Appearance: Well Groomed Appears Stated Age: Yes Stature: Short Posture: WNL Eye Contact: Average Behavior/Activity: WNL - Interaction Observations Attitude Towards Examiner: Cooperative Stated Mood: Elevated, Expansive Speech Pattern/Tone: Clear Thought Process: Tangential Perception: WNL Thought Content: WNL Hallucination Type: None Delusion Type: None - Cognitive Function Orientation: A&O x 4 Level of Consciousness: Awake Cognition: WNL Estimated Intelligence: Normal Insight: WNL Judgment Within Normal Limits: Yes - Medication Compliance Cooperative with Inpatient Medication Regimen: Yes - Group Participation Participates in Group Activities: Yes Assessment - Assessment Merits Inpatient Hospitalization: For Immediate Safety, For Stabilization Inpatient DSM-V Dx: F31.13 Clinical Impression: 53 y.o. white male with a history of bipolar disorder sent from the [facility] clinic via 9.45 due to manic behavior and suicidal threats. BSU: Problem List - Patient Problems (1) Bipolar affective, manic, severe Current Visit: Yes Status: Acute Priority: High Code(s): F31.13 - BIPOLAR DISORD, CRNT EPSD MANIC W/O PSYCH FEATURES, SEVERE SNOMED Code(s): 208632340 Plan - Plan Treatment Plan: Name: MONICA TARIQ Birthdate: 1965 [id number] # Q30 minute observation with staff pass # The patient requires psychiatric inpatient admission at this time to assure safety, receive treatment and work toward stabilization. # Collaboration with Social Work # Resume [place] 300mg BID for mood stabilization and Trazodone 50mg qhs # D/C Remeron 15mg qhs. #Goals before discharge include: To eliminate/ reduce suicidal ideation Tentative Discharge: Pending psychiatric stabilization Continued Medication Management: Continue Outpt Medication Medications: Current Medications Acetaminophen (Tylenol Tab*) 650 mg PO Q4H PRN PRN Reason: for pain; or Temp >101 F Al Hydrox/Mg Hydrox/Simethicone (Maalox Plus*) 30 ml PO Q4H PRN PRN Reason: INDIGESTION Amlodipine Besylate (Norvasc Tab*) 10 mg PO DAILY [facility] Last Admin: 10/29/19 09:52 Dose: 10 mg Levothyroxine Sodium (Synthroid Tab*) 50 mcg PO 0600 [facility] Last Admin: 10/29/19 07:35 Dose: 50 mcg [place] Carbonate (Trevose Carbonate Tab*) 300 mg PO BID [facility] Last Admin: 10/29/19 09:55 Dose: 300 mg Lorazepam (Ativan Tab(*)) 1 mg PO Q6H PRN PRN Reason: ANXIETY Omeprazole (Prilosec Cap* (Nf)) 20 mg PO BID [facility] Last Admin: 10/29/19 09:54 Dose: 20 mg Tamsulosin HCl (Flomax Cap*) 0.4 mg PO DAILY [facility] Last Admin: 10/29/19 09:52 Dose: Not Given Trazodone HCl (Desyrel Tab*) 50 mg PO BEDTIME [facility] Last Admin: 10/29/19 00:18 Dose: 50 mg - Discharge Plan Discharge Plan: Inpatient Hospitalization
[2019-10-30] MEDS: Levothyroxine TAB* 50 MCG TAB PO SCH (06:43)
[2019-10-30] MEDS: amLODIPine TAB* 5 MG PO SCH (09:22)
[2019-10-30] MEDS: Lithium Carbonate TAB* 300 MG PO SCH ×2 (09:23→20:15)
[2019-10-30] MEDS: Tamsulosin CAP* 0.4 MG PO SCH (09:23)
[2019-10-30] MEDS: Omeprazole CAP (NF) 20 MG CAP.DR PO SCH ×2 (09:23→20:15)
[2019-10-30] MEDS: traZODone TAB* 50 MG TAB PO SCH (20:15)
[2019-10-31] MEDS: Levothyroxine TAB* 50 MCG TAB PO SCH (06:00)
[2019-10-31] MEDS: amLODIPine TAB* 5 MG PO SCH (08:55)
[2019-10-31] MEDS: Lithium Carbonate TAB* 300 MG PO SCH ×2 (08:55→20:38)
[2019-10-31] MEDS: Omeprazole CAP (NF) 20 MG CAP.DR PO SCH ×2 (08:55→20:53)
[2019-10-31] MEDS: Tamsulosin CAP* 0.4 MG PO SCH (08:56)
--- NOTE | 2019-10-31 12:08 | PN ---
Subjective - Subjective Date of Service: 10/31/19 Service Type: [id number] Hosp care 35 min high complexity Subjective: Nursing Report: Patient was visible on unit, no behavioral incidents. Slept overnight. He is attending group activities. CC: "I am doing better" Patient was seen and evaluated in the common room. The patient reported he spoke to his brother and things are good between them. He reported having adequate appetite and sleep. The patient reports attending and participating in day groups. Per nursing no behavioral issues or overnight events reported. Patient reported that he is tolerating medications without side effects. Objective - General Observations Appearance: Neat Appears Stated Age: Yes Stature: WNL Posture: WNL Eye Contact: Average Behavior/Activity: WNL - Interaction Observations Attitude Towards Examiner: Cooperative Stated Mood: Dysphoric Affect: Restricted Speech Pattern/Tone: Clear Thought Process: Goal Directed Perception: Reexperiencing Thought Content: Preoccupation/Ruminations, Self-Deprecatory Hallucination Type: None Delusion Type: Thought Insertion - Cognitive Function Orientation: A&O x 4 Level of Consciousness: Awake - Medication Compliance Cooperative with Inpatient Medication Regimen: Yes - Group Participation Participates in Group Activities: Yes Assessment - Assessment Merits Inpatient Hospitalization: For Immediate Safety Inpatient DSM-V Dx: F31.13 Clinical Impression: 53 y.o. white male with a history of bipolar disorder sent from the [facility] clinic via 9.45 due to manic behavior and suicidal threats. Plan - Plan Treatment Plan: Name: MONICA TARIQ Birthdate: 1965 [id number] # Q30 minute observation with staff pass # The patient requires psychiatric inpatient admission at this time to assure safety, receive treatment and work toward stabilization. # Collaboration with Social Work # Obtain collateral from outpatient therapist. # Resume [place] 300mg BID for mood stabilization and Trazodone 50mg qhs # [place] level and CMP ordered # Brother # Daniel [phone] #Goals before discharge include: To eliminate/ reduce suicidal ideation Tentative Discharge: Pending psychiatric stabilization Continued Medication Management: Continue Outpt Medication Medications: Current Medications Acetaminophen (Tylenol Tab*) 650 mg PO Q4H PRN PRN Reason: for pain; or Temp >101 F Al Hydrox/Mg Hydrox/Simethicone (Maalox Plus*) 30 ml PO Q4H PRN PRN Reason: INDIGESTION Amlodipine Besylate (Norvasc Tab*) 10 mg PO DAILY [facility] Last Admin: 10/31/19 08:55 Dose: 10 mg Levothyroxine Sodium (Synthroid Tab*) 50 mcg PO 0600 [facility] Last Admin: 10/31/19 06:00 Dose: 50 mcg [place] Carbonate ([place] Carbonate Tab*) 300 mg PO BID [facility] Last Admin: 10/31/19 08:55 Dose: 300 mg Lorazepam (Ativan Tab(*)) 1 mg PO Q6H PRN PRN Reason: ANXIETY Omeprazole (Prilosec Cap* (Nf)) 20 mg PO BID [facility] Last Admin: 10/31/19 08:55 Dose: 20 mg Tamsulosin HCl (Flomax Cap*) 0.4 mg PO DAILY [facility] Last Admin: 10/31/19 08:56 Dose: Not Given Trazodone HCl (Desyrel Tab*) 50 mg PO BEDTIME [facility] Last Admin: 10/30/19 20:15 Dose: 50 mg - Discharge Plan Discharge Plan: Inpatient Hospitalization
[2019-10-31] MEDS: traZODone TAB* 50 MG TAB PO SCH (20:37)
[2019-11-01] MEDS: Levothyroxine TAB* 50 MCG TAB PO SCH (07:21)
[2019-11-01 08:13] LABS: Albumin 4.4 g/dL (3.2-5.2); Albumin/Globulin Ratio 2.1 (1-3); BUN/Creatinine Ratio 23.2 (8-20); Calcium 9.6 mg/dL (8.6-10.3); EGFR African American 96.1 (>60); EGFR Non-African American 79.4 (>60); Globulin 2.1 g/dL (2-4); Potassium 4.1 mmol/L (3.5-5.0); Total Bilirubin 0.3 mg/dL (0.2-1.0); Total Protein 6.5 g/dL (6.4-8.9)
[2019-11-01 08:37] LABS: Lithium 0.19 mmol/L (0.6-1.2)
--- NOTE | 2019-11-01 09:56 | PN ---
Subjective - Subjective Date of Service: 11/01/19 Service Type: [id number] Hosp care 35 min high complexity Subjective: Patient plans to visit with family over the holidays. He reported getting good sleep and improvement since admission. Objective - General Observations Appearance: Neat Appears Stated Age: Yes Stature: WNL Posture: WNL Eye Contact: Average Behavior/Activity: WNL - Interaction Observations Attitude Towards Examiner: Anxious Stated Mood: Irritable Affect: Restricted Speech Pattern/Tone: Appropriate Thought Process: Coherent Perception: WNL Thought Content: WNL Hallucination Type: None Delusion Type: None - Cognitive Function Orientation: A&O x 4 Level of Consciousness: Awake - Medication Compliance Cooperative with Inpatient Medication Regimen: Yes - Group Participation Participates in Group Activities: Yes Assessment - Assessment Merits Inpatient Hospitalization: For Immediate Safety Inpatient DSM-V Dx: F31.13 Clinical Impression: 53 y.o. white male with a history of bipolar disorder sent from the [facility] clinic via .45 due to manic behavior and suicidal threats. Plan - Plan Treatment Plan: Name: MONICA TARIQ Birthdate: 1965 [id number] # Q30 minute observation with staff pass # The patient requires psychiatric inpatient admission at this time to assure safety, receive treatment and work toward stabilization. # Collaboration with Social Work # Obtain collateral from outpatient therapist. # Resume [place] 300mg BID for mood stabilization showing good clinical response. # Continue Trazodone 50mg qhs # [place] level 0.19 and CMP results available # Brother # Daniel [phone] #Goals before discharge include: To eliminate/ reduce suicidal ideation Tentative Discharge: Pending psychiatric stabilization 11/01/19 07:43 Sodium 138 Potassium 4.1 Chloride 105 Carbon Dioxide 27 Anion Gap 6 BUN 23 Creatinine 0.99 Est GFR ( Amer) 96.1 Est GFR (Non-Af Amer) 79.4 BUN/Creatinine Ratio 23.2 H Glucose 106 H Calcium 9.6 Total Bilirubin 0.30 AST 32 ALT 52 Alkaline Phosphatase 60 Total Protein 6.5 Albumin 4.4 Globulin 2.1 Albumin/Globulin Ratio 2.1 [place] 0.19 L Continued Medication Management: Continue Outpt Medication Medications: Current Medications Acetaminophen (Tylenol Tab*) 650 mg PO Q4H PRN PRN Reason: for pain; or Temp >101 F Al Hydrox/Mg Hydrox/Simethicone (Maalox Plus*) 30 ml PO Q4H PRN PRN Reason: INDIGESTION Amlodipine Besylate (Norvasc Tab*) 10 mg PO DAILY [facility] Last Admin: 10/31/19 08:55 Dose: 10 mg Levothyroxine Sodium (Synthroid Tab*) 50 mcg PO 0600 [facility] Last Admin: 11/01/19 07:21 Dose: 50 mcg [place] Carbonate ([place] Carbonate Tab*) 300 mg PO BID [facility] Last Admin: 10/31/19 20:38 Dose: 300 mg Lorazepam (Ativan Tab(*)) 1 mg PO Q6H PRN PRN Reason: ANXIETY Omeprazole (Prilosec Cap* (Nf)) 20 mg PO BID [facility] Last Admin: 10/31/19 20:53 Dose: 20 mg Tamsulosin HCl (Flomax Cap*) 0.4 mg PO DAILY [facility] Last Admin: 10/31/19 08:56 Dose: Not Given Trazodone HCl (Desyrel Tab*) 50 mg PO BEDTIME [facility] Last Admin: 10/31/19 20:37 Dose: 50 mg - Discharge Plan Discharge Plan: Inpatient Hospitalization
[2019-11-01] MEDS: amLODIPine TAB* 5 MG PO SCH (12:45)
[2019-11-01] MEDS: Tamsulosin CAP* 0.4 MG PO SCH (12:46)
[2019-11-01] MEDS: Lithium Carbonate TAB* 300 MG PO SCH ×2 (12:46→21:26)
[2019-11-01] MEDS: Omeprazole CAP (NF) 20 MG CAP.DR PO SCH ×2 (12:47→23:15)
[2019-11-01] MEDS: traZODone TAB* 50 MG TAB PO SCH (21:26)
[2019-11-01] MEDS: Pantoprazole TAB * 40 MG TAB PO SCH (21:34)
[2019-11-02] MEDS: Levothyroxine TAB* 50 MCG TAB PO SCH (06:25)
[2019-11-02] MEDS: Pantoprazole TAB * 40 MG TAB PO SCH ×2 (09:41→21:22)
[2019-11-02] MEDS: Tamsulosin CAP* 0.4 MG PO SCH (09:41)
[2019-11-02] MEDS: amLODIPine TAB* 5 MG PO SCH (09:41)
[2019-11-02] MEDS: Lithium Carbonate TAB* 300 MG PO SCH ×2 (09:42→21:22)
[2019-11-02] MEDS: traZODone TAB* 50 MG TAB PO SCH (21:22)
[2019-11-03] MEDS: Levothyroxine TAB* 50 MCG TAB PO SCH (07:37)
[2019-11-03 08:21] VITALS: BP 162/74
[2019-11-03] MEDS: amLODIPine TAB* 5 MG PO SCH (09:01)
[2019-11-03] MEDS: Lithium Carbonate TAB* 300 MG PO SCH (09:02)
[2019-11-03] MEDS: Tamsulosin CAP* 0.4 MG PO SCH ×2 (09:02→09:05)
[2019-11-03] MEDS: Pantoprazole TAB * 40 MG TAB PO SCH (09:02)
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
== END 2019-11-03 15:35 | disposition home or self-care (01) | DRG 885 ==
LOC: ED 17:48 → BSU 10-26 10:53 → ED 10-26 11:58 → UNDOADMIN 10-26 13:14 → BSU 10-26 13:14
PROVIDERS: ADMIT Psychiatry & Neurology Psychiatry; ATTEND Psychiatry & Neurology Psychiatry
PROC: GZHZZZZ Group Psychotherapy (ICD-10-PCS; principal; 2019-10-28)
DX: F31.13 Bipolar disorder, current episode manic without psychotic features, severe (principal); R45.851 Suicidal ideations; Z62.810 Personal history of physical and sexual abuse in childhood; I10 Essential (primary) hypertension; E03.9 Hypothyroidism, unspecified; G47.30 Sleep apnea, unspecified; K21.9 Gastro-esophageal reflux disease without esophagitis; M19.011 Primary osteoarthritis, right shoulder; F12.90 Cannabis use, unspecified, uncomplicated; F41.9 Anxiety disorder, unspecified; R45.850 Homicidal ideations; Z91.14 Patient's other noncompliance with medication regimen; Z91.5 Personal history of self-harm; Z79.899 Other long term (current) drug therapy; Z79.890 Hormone replacement therapy; Z87.891 Personal history of nicotine dependence; Z28.21 Immunization not carried out because of patient refusal
CPT/HCPCS: 36415; 80053; 80178; 80307; 80320; 80329; 81003; 81015; 84439; 84443; 85025; 87086; 90853; 99222; 99231; 99233; 99238; 99284; A9270-GY; G0480

== ENCOUNTER 2019-11-15 17:00 | Inpatient (IN) | payer MEDICARE ==
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
[2019-11-15 17:51] LABS: ABS Lymphocytes 1.5 10^3/ul (1.0-4.8); ABS Monocytes 0.5 10^3/ul (0-0.8); ABS Neutrophils 5.3 10^3/ul (1.5-7.7); Eosinophil % 0.6 %; Hematocrit 44 % (42-52); Hemoglobin 14.7 g/dL (14.0-18.0); Lymphocyte % 20.3 %; Mean Corpuscular HGB Conc 34 g/dL (31-36); Mean Corpuscular Hemoglobin 31 pg (27-31); Mean Corpuscular Volume 91 fL (80-94); Mean Platelet Volume 7.7 fL (7.4-10.4); Platelet Count 264 10^3/uL (150-450); Red Blood Count 4.78 10^6 /uL (4.18-5.48); Red Cell Distribution Width 15 % (10-15); White Blood Count 7.3 10^3/uL (3.5-10.8)
[2019-11-15 18:07] LABS: ALT 49 U/L (7-52); AST 47 U/L (13-39); Albumin 4.2 g/dL (3.2-5.2); Albumin/Globulin Ratio 1.9 (1-3); Alkaline Phosphatase 64 U/L (34-104); Anion Gap 7 mmol/L (2-11); BUN/Creatinine Ratio 23.1 (8-20); Blood Urea Nitrogen 25 mg/dL (6-24); CO2 Carbon Dioxide 28 mmol/L (22-32); Calcium 9.3 mg/dL (8.6-10.3); Chloride 103 mmol/L (101-111); EGFR African American 86.9 (>60); EGFR Non-African American 71.8 (>60); Globulin 2.2 g/dL (2-4); Glucose 159 mg/dL (70-100); Potassium 3.9 mmol/L (3.5-5.0); Sodium 138 mmol/L (135-145); Total Protein 6.4 g/dL (6.4-8.9)
[2019-11-15 18:32] LABS: Acetaminophen < 15 mcg/mL; Alcohol < 10 mg/dL (<10); Salicylate < 2.50 mg/dL (<30)
[2019-11-15 18:48] LABS: TSH (Thyroid Stimulating Horm) 2.12 mcIU/mL (0.34-5.60)
[2019-11-15 19:37] LABS: Urine Appearance Clear; Urine Bilirubin Negative (Negative); Urine Blood Negative (Negative); Urine Color Yellow; Urine Glucose Negative (Negative); Urine Ketones Negative (Negative); Urine Nitrite Negative (Negative); Urine Protein Negative (Negative); Urine Specific Gravity 1.009 (1.010-1.030); Urine Urobilinogen Negative (Negative)
[2019-11-15 19:43] LABS: Urine Bacteria Absent (Absent); Urine Red Blood Cell Trace(0-2/hpf) (Absent); Urine Squamous Epithelial Cell Present (Absent); Urine White Blood Cell Trace(0-5/hpf) (Absent)
[2019-11-15 19:55] LABS: Urine Benzodiazepine Screen None Detected (None Detect); Urine Opiates Screen None Detected (None Detect)
[2019-11-15 20:44] LABS: Lithium < 0.10 mmol/L (0.6-1.2)
--- NOTE | 2019-11-15 22:10 | ED ---
Progress - Progress Note Progress Note: Pt is a signout from Dr. Haddad at 2200 on 11/15/19 pending mental health transfer. Re-Evaluation - Re-Evaluation 1st re-eval Re-Evaluation Time: 22:44 Change: Unchanged Comment: Ordered 50mg Hydroxyzine HCl to assist pt in sleeping. Course/Dx - Course Course Of Treatment: In the ED course, pt received 50mg Hydroxyzine HCl to help him sleep. - Diagnoses Provider Diagnoses: Bipolar disorder Discharge ED - Sign-Out/Discharge Documenting (check all that apply): Sign-Out Patient - mental health transfer, Receiving Sign-Out Signing out patient TO: Gary Brandt Receiving patient FROM: Arthur Haddad - Discharge Plan Condition: Stable Referrals: No Primary Care Phys,NOPCP [Medical Doctor] - - Attestation Statements Document Initiated by Scribe: Yes Documenting Scribe: Deloris Pearl Provider For Whom Scribe is Documenting (Include Credential): Mary Joy MD. Scribe Attestation: I, Deloris Pearl, scribed for Mary Joy MD. on 11/16/19 at 0551. Status of Scribe Document: Ready
[2019-11-15] MEDS ORDERED: hydrOXYzine HCL TAB* 50 MG PO ONE (22:44)
--- NOTE | 2019-11-16 07:13 | ED ---
Progress - Progress Note Progress Note: Pt is a signout from Dr. Joy at 0700 on 11/16/2019 pending mental health transfer. Per Dr. Roman, psychiatrist, the pt will be re-evaluated upon his arrival. Disposition will be decided after evaluation. Re-Evaluation - Re-Evaluation 1st re-eval Re-Evaluation Time: 22:44 Change: Unchanged Comment: Ordered 50mg Hydroxyzine HCl to assist pt in sleeping. Course/Dx - Course Course Of Treatment: Pt is a sign out to Dr. Locke from Dr. Joy at shift change 0700 11/16/[address] Roman, psychiatrist, the pt will be re-evaluated upon his arrival. Disposition will be decided after evaluation. Per Dr. Robertson, psychiatrist, the pt will be admitted voluntarily to [facility] for further care with a Dx of bipolar disorder and manic. - Diagnoses Provider Diagnoses: Bipolar disorder, Manic behavior - Provider Notifications Discussed Care Of Patient With: Gage Robertson Time Discussed With Above Provider: 14:59 Instructed by Provider To: Admit As Inpatient - voluntarily Admit/Transition Orders Completed By ED Provider: Yes Discharge ED - Sign-Out/Discharge Documenting (check all that apply): Patient Departure - admitted, Receiving Sign -Out Receiving patient FROM: Mary Joy All imaging exams completed and their final reports reviewed: Yes - Discharge Plan Condition: Stable Disposition: [facility]IATR[facility] - Attestation Statements Document Initiated by Scribe: Yes Documenting Scribe: Perez Venegas Provider For Whom Scribe is Documenting (Include Credential): Gary Brandt DO Scribe Attestation: Perez Kohler, scribed for Gary Brandt DO on 11/16/19 at 1458. Status of Scribe Document: Ready
[2019-11-16] MEDS ORDERED: Acetaminophen TAB* 325 MG PO PRN (15:09)
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
[2019-11-16] MEDS: hydrOXYzine HCL TAB* 50 MG PO SCH (21:34)
[2019-11-16] MEDS: Pantoprazole TAB * 40 MG TAB PO SCH (21:34)
[2019-11-16] MEDS: Lithium Carbonate TAB* 300 MG PO SCH (21:34)
[2019-11-17 06:16] LABS: HDL Cholesterol 50.8 mg/dL
[2019-11-17] MEDS: Levothyroxine TAB* 50 MCG TAB PO SCH (07:59)
[2019-11-17] MEDS ORDERED: Omeprazole CAP (NF) 20 MG CAP.DR PO SCH (09:00)
[2019-11-17] MEDS: Pantoprazole TAB * 40 MG TAB PO SCH ×2 (09:06→21:12)
[2019-11-17] MEDS: Lithium Carbonate TAB* 300 MG PO SCH ×2 (09:06→21:12)
[2019-11-17] MEDS: amLODIPine TAB* 5 MG PO SCH (09:07)
[2019-11-17] MEDS: Tamsulosin CAP* 0.4 MG PO SCH (09:09)
[2019-11-17] MEDS: Al Hydrox/Mg Hydrox/Simet LIQ* 30 ML UDC PO PRN (09:15)
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
[2019-11-17] MEDS ORDERED: Lithium Carbonate TAB* 300 MG PO ONE (10:57)
[2019-11-17] MEDS: hydrOXYzine HCL TAB* 50 MG PO SCH (21:12)
[2019-11-18] MEDS: Levothyroxine TAB* 50 MCG TAB PO SCH (06:40)
[2019-11-18] MEDS: Tamsulosin CAP* 0.4 MG PO SCH (09:18)
[2019-11-18] MEDS: Pantoprazole TAB * 40 MG TAB PO SCH ×2 (09:18→21:26)
[2019-11-18] MEDS: Lithium Carbonate TAB* 300 MG PO SCH ×2 (09:19→21:26)
[2019-11-18] MEDS: amLODIPine TAB* 5 MG PO SCH (09:20)
[2019-11-18] MEDS: Al Hydrox/Mg Hydrox/Simet LIQ* 30 ML UDC PO PRN ×2 (09:21→16:09)
[2019-11-18] MEDS ORDERED: LORazepam TAB(*) 1 MG PO ONE (10:10)
[2019-11-18] MEDS ORDERED: LORazepam TAB(*) 1 MG ONE (10:17)
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
[2019-11-18 12:14] LABS: ABS Lymphocytes 1.3 10^3/ul (1.0-4.8); ABS Monocytes 0.5 10^3/ul (0-0.8); ABS Neutrophils 6.9 10^3/ul (1.5-7.7); Eosinophil % 0.3 %; Hematocrit 48 % (42-52); Hemoglobin 16.2 g/dL (14.0-18.0); Lymphocyte % 14.3 %; Mean Corpuscular HGB Conc 34 g/dL (31-36); Mean Corpuscular Hemoglobin 31 pg (27-31); Mean Corpuscular Volume 91 fL (80-94); Mean Platelet Volume 7.8 fL (7.4-10.4); Platelet Count 267 10^3/uL (150-450); Red Blood Count 5.24 10^6 /uL (4.18-5.48); Red Cell Distribution Width 15 % (10-15); White Blood Count 8.7 10^3/uL (3.5-10.8)
[2019-11-18 12:30] LABS: Albumin 4.7 g/dL (3.2-5.2); Albumin/Globulin Ratio 2.1 (1-3); BUN/Creatinine Ratio 29.3 (8-20); Calcium 9.9 mg/dL (8.6-10.3); EGFR African American 104.5 (>60); EGFR Non-African American 86.4 (>60); Globulin 2.2 g/dL (2-4); Potassium 4.4 mmol/L (3.5-5.0); Total Bilirubin 0.3 mg/dL (0.2-1.0); Total Protein 6.9 g/dL (6.4-8.9)
[2019-11-18 12:32] LABS: Troponin I 0.01 ng/mL (<0.03)
[2019-11-18] MEDS ORDERED: Sucralfate TAB* 1 GM PO SCH (13:00)
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
[2019-11-18] MEDS ORDERED: LORazepam TAB(*) 1 MG PO PRN (14:17)
[2019-11-18] MEDS: hydrOXYzine HCL TAB* 50 MG PO SCH (21:26)
[2019-11-18] MEDS ORDERED: cloNIDine TAB* 0.1 MG PO ONE (21:50)
[2019-11-18] MEDS ORDERED: cloNIDine TAB* 0.1 MG ONE (21:51)
[2019-11-19] MEDS: Levothyroxine TAB* 50 MCG TAB PO SCH (06:34)
[2019-11-19] MEDS: Lithium Carbonate TAB* 300 MG PO SCH ×2 (09:11→22:10)
[2019-11-19] MEDS: Pantoprazole TAB * 40 MG TAB PO SCH ×2 (09:12→22:10)
[2019-11-19] MEDS: amLODIPine TAB* 5 MG PO SCH (09:12)
[2019-11-19] MEDS: Sucralfate TAB* 1 GM PO SCH ×3 (09:13→16:10)
[2019-11-19] MEDS: Tamsulosin CAP* 0.4 MG PO SCH (09:14)
--- NOTE | 2019-11-19 13:34 | PN ---
Subjective - Subjective Date of Service: 11/19/19 Service Type: [id number] Hosp care 15 min low complexity Subjective: Moinca is seen in weekend coverage for Dr. Gerber. He reports significant reduction in epigastric pain, down to 2/10 this morning after taking the carafate from the Hospitalist service. He denies SI or HI and is requesting staff pass. Objective - General Observations Appearance: Well Groomed Appears Stated Age: Yes Stature: WNL Posture: Tense Eye Contact: Average Behavior/Activity: Accelerated - Interaction Observations Attitude Towards Examiner: Cooperative Stated Mood: Irritable Affect: Labile Speech Pattern/Tone: Pressured Thought Process: Tangential Thought Content: Paranoid Thought Process: Lethality: Paranoid Ideation Hallucination Type: None Delusion Type: Persecution - Cognitive Function Orientation: A&O x 4 Level of Consciousness: Awake Cognition: WNL Estimated Intelligence: Normal Insight: WNL Judgment Within Normal Limits: Yes - Medication Compliance Cooperative with Inpatient Medication Regimen: Yes - Group Participation Participates in Group Activities: Yes Assessment - Assessment Merits Inpatient Hospitalization: For Immediate Safety, For Stabilization Clinical Impression: Assessment: 53 year old male with history of Bipolar disorder came to the hospital with after dispute with brother and was admitted to the [facility] at [facility]. Plan - Plan Treatment Plan: Name: MONICA TARIQ Birthdate: 1965 [id number] Plan #Q15 minute observation. # The patient requires psychiatric inpatient admission at this time to assure safety, receive treatment and work toward stabilization. # Obtain collateral information # Collaboration with Social Work # Continue [place] 450mg po daily and 300mg qhs for mood stabilization. # Tobacco use disorder: nicotine supplement offered and declined # Hospitalist consult placed and EKG and stat labs ordered trop 0.01 #Goals before discharge include: To eliminate/ reduce agitation # Assumption level sub- therapeutic on admission. <0.10 Tentative Discharge: Pending psychiatric stabilization 11/15/19 11/15/19 11/15/19 17:43 17:43 19:25 WBC 7.3 RBC 4.78 Hgb 14.7 Hct 44 MCV 91 MCH 31 MCHC 34 RDW 15 Plt Count 264 MPV 7.7 Neut % (Auto) 72.3 Lymph % (Auto) 20.3 [place] % (Auto) 6.4 Eos % (Auto) 0.6 Baso % (Auto) 0.4 Absolute Neuts (auto) 5.3 Absolute Lymphs (auto) 1.5 Absolute Monos (auto) 0.5 Absolute Eos (auto) 0.0 Absolute Basos (auto) 0.0 Absolute Nucleated RBC 0.0 Nucleated RBC % 0.0 Sodium 138 Potassium 3.9 Chloride 103 Carbon Dioxide 28 Anion Gap 7 BUN 25 H Creatinine 1.08 Est GFR ( Amer) 86.9 Est GFR (Non-Af Amer) 71.8 BUN/Creatinine Ratio 23.1 H Glucose 159 H Hemoglobin A1c Calcium 9.3 Total Bilirubin 0.30 AST 47 H ALT 49 Alkaline Phosphatase 64 Troponin I Total Protein 6.4 Albumin 4.2 Globulin 2.2 Albumin/Globulin Ratio 1.9 Triglycerides Cholesterol LDL Cholesterol HDL Cholesterol Lipase TSH 2.12 Urine Color Yellow Urine Appearance Clear Urine pH 6.0 [address] [place] 1.009 L Urine Protein Negative Urine Ketones Negative Urine Blood Negative Urine Nitrate Negative Urine Bilirubin Negative Urine Urobilinogen Negative Ur Leukocyte Esterase Trace A Urine WBC (Auto) Trace(0-5/hpf) Urine RBC (Auto) Trace(0-2/hpf) Ur Squamous Epith Cells Present A Urine Bacteria Absent Urine Glucose Negative Salicylates < 2.50 Urine Opiates Screen Acetaminophen < 15 Ur Barbiturates Screen Ur Phencyclidine Scrn Ur Amphetamines Screen U Benzodiazepines Scrn [place] < 0.10 L Urine Cocaine Screen U Cannabinoids Screen Serum Alcohol < 10 11/15/19 11/17/19 11/17/19 19:25 05:49 05:49 WBC RBC Hgb Hct MCV MCH MCHC RDW Plt Count MPV Neut % (Auto) Lymph % (Auto) [place] % (Auto) Eos % (Auto) Baso % (Auto) Absolute Neuts (auto) Absolute Lymphs (auto) Absolute Monos (auto) Absolute Eos (auto) Absolute Basos (auto) Absolute Nucleated RBC Nucleated RBC % Sodium Potassium Chloride Carbon Dioxide Anion Gap BUN Creatinine Est GFR ( Amer) Est GFR (Non-Af Amer) BUN/Creatinine Ratio Glucose Hemoglobin A1c 5.7 H Calcium Total Bilirubin AST ALT Alkaline Phosphatase Troponin I Total Protein Albumin Globulin Albumin/Globulin Ratio Triglycerides 86 Cholesterol 139 LDL Cholesterol 71 HDL Cholesterol 50.8 Lipase TSH Urine Color Urine Appearance Urine pH Ur Specific [place] Urine Protein Urine Ketones Urine Blood Urine Nitrate Urine Bilirubin Urine Urobilinogen Ur Leukocyte Esterase Urine WBC (Auto) Urine RBC (Auto) Ur Squamous Epith Cells Urine Bacteria Urine Glucose Salicylates Urine Opiates Screen None detected Acetaminophen Ur Barbiturates Screen None detected Ur Phencyclidine Scrn None detected Ur Amphetamines Screen None detected U Benzodiazepines Scrn None detected [place] Urine Cocaine Screen None detected U Cannabinoids Screen Presumptive positive A Serum Alcohol 11/18/19 11/18/19 11/18/19 12:06 12:07 12:07 WBC 8.7 RBC 5.24 Hgb 16.2 Hct 48 MCV 91 MCH 31 MCHC 34 RDW 15 Plt Count 267 MPV 7.8 Neut % (Auto) 79.2 Lymph % (Auto) 14.3 [place] % (Auto) 6.0 Eos % (Auto) 0.3 Baso % (Auto) 0.2 Absolute Neuts (auto) 6.9 Absolute Lymphs (auto) 1.3 Absolute Monos (auto) 0.5 Absolute Eos (auto) 0.0 Absolute Basos (auto) 0.0 Absolute Nucleated RBC 0.0 Nucleated RBC % 0.0 Sodium 138 Potassium 4.4 Chloride 103 Carbon Dioxide 28 Anion Gap 7 BUN 27 H Creatinine 0.92 Est GFR ( Amer) 104.5 Est GFR (Non-Af Amer) 86.4 BUN/Creatinine Ratio 29.3 H Glucose 119 H Hemoglobin A1c Calcium 9.9 Total Bilirubin 0.30 AST 32 ALT 46 Alkaline Phosphatase 62 Troponin I 0.01 Total Protein 6.9 Albumin 4.7 Globulin 2.2 Albumin/Globulin Ratio 2.1 Triglycerides Cholesterol LDL Cholesterol HDL Cholesterol Lipase 58 TSH Urine Color Urine Appearance Urine pH Ur Specific [place] Urine Protein Urine Ketones Urine Blood Urine Nitrate Urine Bilirubin Urine Urobilinogen Ur Leukocyte Esterase Urine WBC (Auto) Urine RBC (Auto) Ur Squamous Epith Cells Urine Bacteria Urine Glucose Salicylates Urine Opiates Screen Acetaminophen Ur Barbiturates Screen Ur Phencyclidine Scrn Ur Amphetamines Screen U Benzodiazepines Scrn [place] Urine Cocaine Screen U Cannabinoids Screen Serum Alcohol Continued Medication Management: Continue Outpt Medication Medications: Current Medications Acetaminophen (Tylenol Tab*) 650 mg PO Q4H PRN PRN Reason: for pain; or Temp >101 F Al Hydrox/Mg Hydrox/Simethicone (Maalox Plus*) 30 ml PO Q4H PRN PRN Reason: INDIGESTION Last Admin: 11/18/19 16:09 Dose: 30 ml Amlodipine Besylate (Norvasc Tab*) 10 mg PO DAILY [facility] Last Admin: 11/19/19 09:12 Dose: 10 mg Hydroxyzine HCl (Atarax Tab*) 50 mg PO BEDTIME [facility] Last Admin: 11/18/19 21:26 Dose: 50 mg Levothyroxine Sodium (Synthroid Tab*) 50 mcg PO 0600 [facility] Last Admin: 11/19/19 06:34 Dose: 50 mcg [place] Carbonate ([place] Carbonate Tab*) 300 mg PO BEDTIME [facility] Last Admin: 11/18/19 21:26 Dose: 300 mg [place] Carbonate ([place] Carbonate Tab*) 450 mg PO DAILY [facility] Last Admin: 11/19/19 09:11 Dose: 450 mg Lorazepam (Ativan Tab(*)) 1 mg PO Q6H PRN PRN Reason: ANXIETY Pantoprazole Sodium (Protonix Tab*) 40 mg PO BID [facility] Last Admin: 11/19/19 09:12 Dose: 40 mg Sucralfate (Carafate*) 1 gm PO 0700,1100,1600 [facility] Last Admin: 11/19/19 11:11 Dose: 1 gm Tamsulosin HCl (Flomax Cap*) 0.4 mg PO DAILY [facility] Last Admin: 11/19/19 09:14 Dose: Not Given - Discharge Plan Discharge Plan: Inpatient Hospitalization Lab Results - Lab Results Lab Results: 11/17/19 11/17/19 11/18/19 05:49 05:49 12:06 WBC RBC Hgb Hct MCV MCH MCHC RDW Plt Count MPV Neut % (Auto) Lymph % (Auto) [place] % (Auto) Eos % (Auto) Baso % (Auto) Absolute Neuts (auto) Absolute Lymphs (auto) Absolute Monos (auto) Absolute Eos (auto) Absolute Basos (auto) Absolute Nucleated RBC Nucleated RBC % Sodium 138 Potassium 4.4 Chloride 103 Carbon Dioxide 28 Anion Gap 7 BUN 27 H Creatinine 0.92 Est GFR ( Amer) 104.5 Est GFR (Non-Af Amer) 86.4 BUN/Creatinine Ratio 29.3 H Glucose 119 H Hemoglobin A1c 5.7 H Calcium 9.9 Total Bilirubin 0.30 AST 32 ALT 46 Alkaline Phosphatase 62 Troponin I 0.01 Total Protein 6.9 Albumin 4.7 Globulin 2.2 Albumin/Globulin Ratio 2.1 Triglycerides 86 Cholesterol 139 LDL Cholesterol 71 HDL Cholesterol 50.8 Lipase 11/18/19 11/18/19 12:07 12:07 WBC 8.7 RBC 5.24 Hgb 16.2 Hct 48 MCV 91 MCH 31 MCHC 34 RDW 15 Plt Count 267 MPV 7.8 Neut % (Auto) 79.2 Lymph % (Auto) 14.3 [place] % (Auto) 6.0 Eos % (Auto) 0.3 Baso % (Auto) 0.2 Absolute Neuts (auto) 6.9 Absolute Lymphs (auto) 1.3 Absolute Monos (auto) 0.5 Absolute Eos (auto) 0.0 Absolute Basos (auto) 0.0 Absolute Nucleated RBC 0.0 Nucleated RBC % 0.0 Sodium Potassium Chloride Carbon Dioxide Anion Gap BUN Creatinine Est GFR ( Amer) Est GFR (Non-Af Amer) BUN/Creatinine Ratio Glucose Hemoglobin A1c Calcium Total Bilirubin AST ALT Alkaline Phosphatase Troponin I Total Protein Albumin Globulin Albumin/Globulin Ratio Triglycerides Cholesterol LDL Cholesterol HDL Cholesterol Lipase 58
--- NOTE | 2019-11-19 15:44 | PN ---
Subjective Date of Service: 11/19/19 Interval History: Pt is briefly seen in his room. His abd pain is "much better" at 2/10. 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 Has R inguinal hernia that he is able to reduce multiple times a day-not painful and h/o umbilical repair hernia with a mesh Objective Active Medications: Acetaminophen (Tylenol Tab*) 650 mg PO Q4H PRN PRN Reason: for pain; or Temp >101 F Al Hydrox/Mg Hydrox/Simethicone (Maalox Plus*) 30 ml PO Q4H PRN PRN Reason: INDIGESTION Last Admin: 11/18/19 16:09 Dose: 30 ml Amlodipine Besylate (Norvasc Tab*) 10 mg PO DAILY [facility] Last Admin: 11/19/19 09:12 Dose: 10 mg Hydroxyzine HCl (Atarax Tab*) 50 mg PO BEDTIME [facility] Last Admin: 11/18/19 21:26 Dose: 50 mg Levothyroxine Sodium (Synthroid Tab*) 50 mcg PO 0600 [facility] Last Admin: 11/19/19 06:34 Dose: 50 mcg [place] Carbonate ([place] Carbonate Tab*) 300 mg PO BEDTIME [facility] Last Admin: 11/18/19 21:26 Dose: 300 mg [place] Carbonate ([place] Carbonate Tab*) 450 mg PO DAILY [facility] Last Admin: 11/19/19 09:11 Dose: 450 mg Lorazepam (Ativan Tab(*)) 1 mg PO Q6H PRN PRN Reason: ANXIETY Pantoprazole Sodium (Protonix Tab*) 40 mg PO BID [facility] Last Admin: 11/19/19 09:12 Dose: 40 mg Sucralfate (Carafate*) 1 gm PO 0700,1100,1600 [facility] Last Admin: 11/19/19 11:11 Dose: 1 gm Tamsulosin HCl (Flomax Cap*) 0.4 mg PO DAILY [facility] Last Admin: 11/19/19 09:14 Dose: Not Given Vital Signs - 8 hr 11/19/19 11/19/19 11/19/19 09:03 09:20 13:17 Pulse Rate 92 Respiratory 16 Rate Blood Pressure 138/82 (mmHg) Appearance: 53 yo M in NAD, AAOx3 Eyes: No Scleral Icterus, PERRLA Ears/Nose/Mouth/Throat: NL Teeth, Lips, Gums, Mucous Membranes Moist Neck: NL Appearance and Movements; NL JVP, Trachea Midline Abdominal: - - mild supraumbilical tenderness, no rebound, no guarding, BS+ Result Diagrams: 11/18/19 12:07 11/18/19 12:06 Microbiology and Other Data: Microbiology 11/15/19 19:25 Urine Culture - Final Urine Assess/Plan/Problems-Billing Assessment: 53 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 GI related or musculoskeletal for poss GI issues-related to GERD Carafate started with good results. Cont PPI BID (2) HTN (hypertension) Comment: uncontrolled last night due to behavioral issues, now better controlled cont Norvasc (3) Bipolar affective, manic, severe Comment: appears to be improving management as per psychiatry Status and Disposition: medicine consult, will sign off . Please call our service as needed
[2019-11-19] MEDS ORDERED: cloNIDine TAB* 0.1 MG PO ONE (22:00)
[2019-11-19] MEDS: hydrOXYzine HCL TAB* 50 MG PO SCH (22:09)
[2019-11-20] MEDS: Levothyroxine TAB* 50 MCG TAB PO SCH (06:05)
[2019-11-20] MEDS: Lithium Carbonate TAB* 300 MG PO SCH ×2 (09:20→21:45)
[2019-11-20] MEDS: amLODIPine TAB* 5 MG PO SCH (09:20)
[2019-11-20] MEDS: Pantoprazole TAB * 40 MG TAB PO SCH ×2 (09:20→21:45)
[2019-11-20] MEDS: Sucralfate TAB* 1 GM PO SCH ×3 (09:23→16:15)
[2019-11-20] MEDS: Tamsulosin CAP* 0.4 MG PO SCH (09:24)
[2019-11-20] MEDS: hydrOXYzine HCL TAB* 50 MG PO SCH (21:45)
[2019-11-21] MEDS: Levothyroxine TAB* 50 MCG TAB PO SCH (07:46)
[2019-11-21] MEDS: Sucralfate TAB* 1 GM PO SCH ×3 (10:07→16:06)
[2019-11-21] MEDS: Pantoprazole TAB * 40 MG TAB PO SCH ×2 (10:08→21:47)
[2019-11-21] MEDS: amLODIPine TAB* 5 MG PO SCH (10:08)
[2019-11-21] MEDS: Lithium Carbonate TAB* 300 MG PO SCH ×2 (10:09→21:48)
[2019-11-21] MEDS: Tamsulosin CAP* 0.4 MG PO SCH (10:37)
--- NOTE | 2019-11-21 10:54 | PN ---
Subjective - Subjective Date of Service: 11/21/19 Service Type: 69216 Hosp care 35 min high complexity Subjective: Nursing Report: Patient was visible on unit, Slept overnight. CC: "I have to pay my rent" Patient reported being anxious about paying his rent and plans to call his landlord today to figure it out. He stretched this morning. Per nursing patient was drawing on the wall about the [place] of [place] Patient reported that he is tolerating medications without side effects. Patient reported adequate appetite. Patient expressed that his brother stresses him out and he feels that he is trying to control him and restricts him from making choices on his own. Patient wants to return to live at home and plans to stop using supplements and cannabis. 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 Objective - General Observations Appearance: Well Groomed Appears Stated Age: Yes Stature: WNL Posture: Tense Eye Contact: Intense Behavior/Activity: Accelerated - Interaction Observations Attitude Towards Examiner: Mistrustful Stated Mood: Anxious Affect: Restricted Speech Pattern/Tone: Excessive Thought Process: Flight of Ideas Perception: WNL Thought Content: Preoccupation/Ruminations Hallucination Type: None Delusion Type: None - Cognitive Function Orientation: A&O x 4 Level of Consciousness: Awake - Medication Compliance Cooperative with Inpatient Medication Regimen: Yes - Group Participation Participates in Group Activities: Yes Assessment - Assessment Merits Inpatient Hospitalization: For Immediate Safety Clinical Impression: Assessment: 53 year old male with history of Bipolar disorder came to the hospital with after dispute with brother and was admitted to the BSU at [facility]. Plan - Plan Treatment Plan: Name: MONICA TARIQ Birthdate: 1965 [id number] Plan #Q30 minute observation with staff pass # The patient requires psychiatric inpatient admission at this time to assure safety, receive treatment and work toward stabilization. # Obtain collateral information # Collaboration with Social Work # Continue [place] 450mg po daily and 300mg qhs for mood stabilization. # Tobacco use disorder: nicotine supplement offered and declined # Hospitalist consult placed for abdominal pain and recommendations appreciated #Goals before discharge include: To eliminate/ reduce agitation # Start propranolol 10mg BID with holding parameters # [place] level ordered Tentative Discharge: Pending psychiatric stabilization 11/15/19 11/15/19 11/15/19 17:43 17:43 19:25 WBC 7.3 RBC 4.78 Hgb 14.7 Hct 44 MCV 91 MCH 31 MCHC 34 RDW 15 Plt Count 264 MPV 7.7 Neut % (Auto) 72.3 Lymph % (Auto) 20.3 [place] % (Auto) 6.4 Eos % (Auto) 0.6 Baso % (Auto) 0.4 Absolute Neuts (auto) 5.3 Absolute Lymphs (auto) 1.5 Absolute Monos (auto) 0.5 Absolute Eos (auto) 0.0 Absolute Basos (auto) 0.0 Absolute Nucleated RBC 0.0 Nucleated RBC % 0.0 Sodium 138 Potassium 3.9 Chloride 103 Carbon Dioxide 28 Anion Gap 7 BUN 25 H Creatinine 1.08 Est GFR ( Amer) 86.9 Est GFR (Non-Af Amer) 71.8 BUN/Creatinine Ratio 23.1 H Glucose 159 H Hemoglobin A1c Calcium 9.3 Total Bilirubin 0.30 AST 47 H ALT 49 Alkaline Phosphatase 64 Troponin I Total Protein 6.4 Albumin 4.2 Globulin 2.2 Albumin/Globulin Ratio 1.9 Triglycerides Cholesterol LDL Cholesterol HDL Cholesterol Lipase TSH 2.12 Urine Color Yellow Urine Appearance Clear Urine pH 6.0 Ur Specific [place] 1.009 L Urine Protein Negative Urine Ketones Negative Urine Blood Negative Urine Nitrate Negative Urine Bilirubin Negative Urine Urobilinogen Negative Ur Leukocyte Esterase Trace A Urine WBC (Auto) Trace(0-5/hpf) Urine RBC (Auto) Trace(0-2/hpf) Ur Squamous Epith Cells Present A Urine Bacteria Absent Urine Glucose Negative Salicylates < 2.50 Urine Opiates Screen Acetaminophen < 15 Ur Barbiturates Screen Ur Phencyclidine Scrn Ur Amphetamines Screen U Benzodiazepines Scrn [place] < 0.10 L Urine Cocaine Screen U Cannabinoids Screen Serum Alcohol < 10 11/15/19 11/17/19 11/17/19 19:25 05:49 05:49 WBC RBC Hgb Hct MCV MCH MCHC RDW Plt Count MPV Neut % (Auto) Lymph % (Auto) [place] % (Auto) Eos % (Auto) Baso % (Auto) Absolute Neuts (auto) Absolute Lymphs (auto) Absolute Monos (auto) Absolute Eos (auto) Absolute Basos (auto) Absolute Nucleated RBC Nucleated RBC % Sodium Potassium Chloride Carbon Dioxide Anion Gap BUN Creatinine Est GFR ( Amer) Est GFR (Non-Af Amer) BUN/Creatinine Ratio Glucose Hemoglobin A1c 5.7 H Calcium Total Bilirubin AST ALT Alkaline Phosphatase Troponin I Total Protein Albumin Globulin Albumin/Globulin Ratio Triglycerides 86 Cholesterol 139 LDL Cholesterol 71 HDL Cholesterol 50.8 Lipase TSH Urine Color Urine Appearance Urine pH Ur Specific [place] Urine Protein Urine Ketones Urine Blood Urine Nitrate Urine Bilirubin Urine Urobilinogen Ur Leukocyte Esterase Urine WBC (Auto) Urine RBC (Auto) Ur Squamous Epith Cells Urine Bacteria Urine Glucose Salicylates Urine Opiates Screen None detected Acetaminophen Ur Barbiturates Screen None detected Ur Phencyclidine Scrn None detected Ur Amphetamines Screen None detected U Benzodiazepines Scrn None detected [place] Urine Cocaine Screen None detected U Cannabinoids Screen Presumptive positive A Serum Alcohol 11/18/19 11/18/19 11/18/19 12:06 12:07 12:07 WBC 8.7 RBC 5.24 Hgb 16.2 Hct 48 MCV 91 MCH 31 MCHC 34 RDW 15 Plt Count 267 MPV 7.8 Neut % (Auto) 79.2 Lymph % (Auto) 14.3 [place] % (Auto) 6.0 Eos % (Auto) 0.3 Baso % (Auto) 0.2 Absolute Neuts (auto) 6.9 Absolute Lymphs (auto) 1.3 Absolute Monos (auto) 0.5 Absolute Eos (auto) 0.0 Absolute Basos (auto) 0.0 Absolute Nucleated RBC 0.0 Nucleated RBC % 0.0 Sodium 138 Potassium 4.4 Chloride 103 Carbon Dioxide 28 Anion Gap 7 BUN 27 H Creatinine 0.92 Est GFR ( Amer) 104.5 Est GFR (Non-Af Amer) 86.4 BUN/Creatinine Ratio 29.3 H Glucose 119 H Hemoglobin A1c Calcium 9.9 Total Bilirubin 0.30 AST 32 ALT 46 Alkaline Phosphatase 62 Troponin I 0.01 Total Protein 6.9 Albumin 4.7 Globulin 2.2 Albumin/Globulin Ratio 2.1 Triglycerides Cholesterol LDL Cholesterol HDL Cholesterol Lipase 58 TSH Urine Color Urine Appearance Urine pH Ur Specific [place] Urine Protein Urine Ketones Urine Blood Urine Nitrate Urine Bilirubin Urine Urobilinogen Ur Leukocyte Esterase Urine WBC (Auto) Urine RBC (Auto) Ur Squamous Epith Cells Urine Bacteria Urine Glucose Salicylates Urine Opiates Screen Acetaminophen Ur Barbiturates Screen Ur Phencyclidine Scrn Ur Amphetamines Screen U Benzodiazepines Scrn [place] Urine Cocaine Screen U Cannabinoids Screen Serum Alcohol Continued Medication Management: Continue Outpt Medication Medications: Current Medications Acetaminophen (Tylenol Tab*) 650 mg PO Q4H PRN PRN Reason: for pain; or Temp >101 F Al Hydrox/Mg Hydrox/Simethicone (Maalox Plus*) 30 ml PO Q4H PRN PRN Reason: INDIGESTION Last Admin: 11/18/19 16:09 Dose: 30 ml Amlodipine Besylate (Norvasc Tab*) 10 mg PO DAILY [facility] Last Admin: 11/21/19 10:08 Dose: 10 mg Hydroxyzine HCl (Atarax Tab*) 50 mg PO BEDTIME [facility] Last Admin: 11/20/19 21:45 Dose: 50 mg Levothyroxine Sodium (Synthroid Tab*) 50 mcg PO 0600 [facility] Last Admin: 11/21/19 07:46 Dose: 50 mcg [place] Carbonate (Chauvin Carbonate Tab*) 300 mg PO BEDTIME [facility] Last Admin: 11/20/19 21:45 Dose: 300 mg [place] Carbonate (Chauvin Carbonate Tab*) 450 mg PO DAILY [facility] Last Admin: 11/21/19 10:09 Dose: 450 mg Lorazepam (Ativan Tab(*)) 1 mg PO Q6H PRN PRN Reason: ANXIETY Last Admin: 11/20/19 13:21 Dose: 1 mg Pantoprazole Sodium (Protonix Tab*) 40 mg PO BID [facility] Last Admin: 11/21/19 10:08 Dose: 40 mg Sucralfate (Carafate*) 1 gm PO 0700,1100,1600 [facility] Last Admin: 11/21/19 10:07 Dose: 1 gm Tamsulosin HCl (Flomax Cap*) 0.4 mg PO DAILY [facility] Last Admin: 11/21/19 10:37 Dose: Not Given - Discharge Plan Discharge Plan: Inpatient Hospitalization
--- NOTE | 2019-11-21 11:42 | PN ---
BSU: Group Therapy Note - Service Type Service Type: 73244 Group Psychotherapy - Cognitive Behavioral Group Therapy ( CBT):Patient was attentive and participatory in CBT programming this morning, and remained in good behavioral control. Patient expressed positive insights regarding relevant treatment interventions and goals.
[2019-11-21] MEDS: hydrOXYzine HCL TAB* 50 MG PO SCH (21:47)
[2019-11-22] MEDS: Sucralfate TAB* 1 GM PO SCH ×3 (07:33→16:54)
[2019-11-22] MEDS: Levothyroxine TAB* 50 MCG TAB PO SCH (07:33)
[2019-11-22] MEDS: amLODIPine TAB* 5 MG PO SCH (10:00)
[2019-11-22] MEDS: Lithium Carbonate TAB* 300 MG PO SCH ×2 (10:01→21:59)
[2019-11-22] MEDS: Pantoprazole TAB * 40 MG TAB PO SCH ×2 (10:01→21:59)
[2019-11-22] MEDS: Tamsulosin CAP* 0.4 MG PO SCH (10:02)
--- NOTE | 2019-11-22 11:02 | PN ---
Subjective - Subjective Date of Service: 11/22/19 Service Type: 66418 Hosp care 35 min high complexity Subjective: Nursing Report: Patient was visible on unit, no behavioral incidents. He is attending group activities. CC: "I will stop using pot" Patient noted how cannabis makes him different. He reported that his landlord visited him and described how he was on edge and not like himself before coming to the hospital. Patient remarked that he thinks his mind was playing tricks on him because he really doesnt want to get a protection order against his brother. He wants to speak with Gisele his therapist and then decide if he wants to continue to work with her. He acknowledges how cannabis changes him and plans to stop using. Patient was seen and evaluated in the common room. He reported having adequate appetite. He reported having improvement of sleep. The patient reports attending and participating in day groups. Patient reported that he is tolerating medications without side effects. Patient denied abdominal pain. Objective - General Observations Appearance: Well Groomed Appears Stated Age: Yes Stature: WNL Posture: WNL Eye Contact: Average Behavior/Activity: Accelerated - Interaction Observations Attitude Towards Examiner: Cooperative Stated Mood: Anxious Affect: Restricted Speech Pattern/Tone: Rambling Perception: WNL Thought Content: Preoccupation/Ruminations Hallucination Type: None Delusion Type: None - Cognitive Function Orientation: A&O x 4 Level of Consciousness: Awake Cognition: WNL - Medication Compliance Cooperative with Inpatient Medication Regimen: Yes - Group Participation Participates in Group Activities: Yes Assessment - Assessment Merits Inpatient Hospitalization: For Immediate Safety Clinical Impression: Assessment: 53 year old male with history of Bipolar disorder came to the hospital with after dispute with brother and was admitted to the B[facility] at [facility]. Plan - Plan Treatment Plan: Name: MONICA TARIQ Birthdate: 1965 [id number] Plan #Q30 minute observation with staff pass # The patient requires psychiatric inpatient admission at this time to assure safety, receive treatment and work toward stabilization. # Obtain collateral information attempted to contact brother and therapist with out success. # Collaboration with Social Work # Continue [place] 450mg po daily and 300mg qhs for mood stabilization. # Tobacco use disorder: nicotine supplement offered and declined # Hospitalist consult placed for abdominal pain and recommendations appreciated no longer has abdominal pain #Goals before discharge include: To eliminate/ reduce agitation # Substance abuse for cannabis use offered and declined # Cannabis precipitates paranoia and isolation # Continue propranolol 10mg BID with holding parameters # [place] level ordered for AM Tentative Discharge: Thursday/ 11/15/19 11/15/19 11/15/19 17:43 17:43 19:25 WBC 7.3 RBC 4.78 Hgb 14.7 Hct 44 MCV 91 MCH 31 MCHC 34 RDW 15 Plt Count 264 MPV 7.7 Neut % (Auto) 72.3 Lymph % (Auto) 20.3 [place] % (Auto) 6.4 Eos % (Auto) 0.6 Baso % (Auto) 0.4 Absolute Neuts (auto) 5.3 Absolute Lymphs (auto) 1.5 Absolute Monos (auto) 0.5 Absolute Eos (auto) 0.0 Absolute Basos (auto) 0.0 Absolute Nucleated RBC 0.0 Nucleated RBC % 0.0 Sodium 138 Potassium 3.9 Chloride 103 Carbon Dioxide 28 Anion Gap 7 BUN 25 H Creatinine 1.08 Est GFR ( Amer) 86.9 Est GFR (Non-Af Amer) 71.8 BUN/Creatinine Ratio 23.1 H Glucose 159 H Hemoglobin A1c Calcium 9.3 Total Bilirubin 0.30 AST 47 H ALT 49 Alkaline Phosphatase 64 Troponin I Total Protein 6.4 Albumin 4.2 Globulin 2.2 Albumin/Globulin Ratio 1.9 Triglycerides Cholesterol LDL Cholesterol HDL Cholesterol Lipase TSH 2.12 Urine Color Yellow Urine Appearance Clear Urine pH 6.0 Ur Specific [place] 1.009 L Urine Protein Negative Urine Ketones Negative Urine Blood Negative Urine Nitrate Negative Urine Bilirubin Negative Urine Urobilinogen Negative Ur Leukocyte Esterase Trace A Urine WBC (Auto) Trace(0-5/hpf) Urine RBC (Auto) Trace(0-2/hpf) Ur Squamous Epith Cells Present A Urine Bacteria Absent Urine Glucose Negative Salicylates < 2.50 Urine Opiates Screen Acetaminophen < 15 Ur Barbiturates Screen Ur Phencyclidine Scrn Ur Amphetamines Screen U Benzodiazepines Scrn [place] < 0.10 L Urine Cocaine Screen U Cannabinoids Screen Serum Alcohol < 10 11/15/19 11/17/19 11/17/19 19:25 05:49 05:49 WBC RBC Hgb Hct MCV MCH MCHC RDW Plt Count MPV Neut % (Auto) Lymph % (Auto) [place] % (Auto) Eos % (Auto) Baso % (Auto) Absolute Neuts (auto) Absolute Lymphs (auto) Absolute Monos (auto) Absolute Eos (auto) Absolute Basos (auto) Absolute Nucleated RBC Nucleated RBC % Sodium Potassium Chloride Carbon Dioxide Anion Gap BUN Creatinine Est GFR ( Amer) Est GFR (Non-Af Amer) BUN/Creatinine Ratio Glucose Hemoglobin A1c 5.7 H Calcium Total Bilirubin AST ALT Alkaline Phosphatase Troponin I Total Protein Albumin Globulin Albumin/Globulin Ratio Triglycerides 86 Cholesterol 139 LDL Cholesterol 71 HDL Cholesterol 50.8 Lipase TSH Urine Color Urine Appearance Urine pH Ur Specific [place] Urine Protein Urine Ketones Urine Blood Urine Nitrate Urine Bilirubin Urine Urobilinogen Ur Leukocyte Esterase Urine WBC (Auto) Urine RBC (Auto) Ur Squamous Epith Cells Urine Bacteria Urine Glucose Salicylates Urine Opiates Screen None detected Acetaminophen Ur Barbiturates Screen None detected Ur Phencyclidine Scrn None detected Ur Amphetamines Screen None detected U Benzodiazepines Scrn None detected [place] Urine Cocaine Screen None detected U Cannabinoids Screen Presumptive positive A Serum Alcohol 11/18/19 11/18/19 11/18/19 12:06 12:07 12:07 WBC 8.7 RBC 5.24 Hgb 16.2 Hct 48 MCV 91 MCH 31 MCHC 34 RDW 15 Plt Count 267 MPV 7.8 Neut % (Auto) 79.2 Lymph % (Auto) 14.3 [place] % (Auto) 6.0 Eos % (Auto) 0.3 Baso % (Auto) 0.2 Absolute Neuts (auto) 6.9 Absolute Lymphs (auto) 1.3 Absolute Monos (auto) 0.5 Absolute Eos (auto) 0.0 Absolute Basos (auto) 0.0 Absolute Nucleated RBC 0.0 Nucleated RBC % 0.0 Sodium 138 Potassium 4.4 Chloride 103 Carbon Dioxide 28 Anion Gap 7 BUN 27 H Creatinine 0.92 Est GFR ( Amer) 104.5 Est GFR (Non-Af Amer) 86.4 BUN/Creatinine Ratio 29.3 H Glucose 119 H Hemoglobin A1c Calcium 9.9 Total Bilirubin 0.30 AST 32 ALT 46 Alkaline Phosphatase 62 Troponin I 0.01 Total Protein 6.9 Albumin 4.7 Globulin 2.2 Albumin/Globulin Ratio 2.1 Triglycerides Cholesterol LDL Cholesterol HDL Cholesterol Lipase 58 TSH Urine Color Urine Appearance Urine pH Ur Specific [place] Urine Protein Urine Ketones Urine Blood Urine Nitrate Urine Bilirubin Urine Urobilinogen Ur Leukocyte Esterase Urine WBC (Auto) Urine RBC (Auto) Ur Squamous Epith Cells Urine Bacteria Urine Glucose Salicylates Urine Opiates Screen Acetaminophen Ur Barbiturates Screen Ur Phencyclidine Scrn Ur Amphetamines Screen U Benzodiazepines Scrn [place] Urine Cocaine Screen U Cannabinoids Screen Serum Alcohol Continued Medication Management: Continue Outpt Medication Medications: Current Medications Acetaminophen (Tylenol Tab*) 650 mg PO Q4H PRN PRN Reason: for pain; or Temp >101 F Al Hydrox/Mg Hydrox/Simethicone (Maalox Plus*) 30 ml PO Q4H PRN PRN Reason: INDIGESTION Last Admin: 11/18/19 16:09 Dose: 30 ml Amlodipine Besylate (Norvasc Tab*) 10 mg PO DAILY [facility] Last Admin: 11/22/19 10:00 Dose: 10 mg Hydroxyzine HCl (Atarax Tab*) 50 mg PO BEDTIME [facility] Last Admin: 11/21/19 21:47 Dose: 50 mg Levothyroxine Sodium (Synthroid Tab*) 50 mcg PO 0600 [facility] Last Admin: 11/22/19 07:33 Dose: 50 mcg [place] Carbonate ([place] Carbonate Tab*) 300 mg PO BEDTIME [facility] Last Admin: 11/21/19 21:48 Dose: 300 mg [place] Carbonate ([place] Carbonate Tab*) 450 mg PO DAILY [facility] Last Admin: 11/22/19 10:01 Dose: 450 mg Pantoprazole Sodium (Protonix Tab*) 40 mg PO BID [facility] Last Admin: 11/22/19 10:01 Dose: 40 mg Propranolol HCl (Inderal 10 Mg Tab) 10 mg PO BID [facility] Last Admin: 11/22/19 10:00 Dose: 10 mg Sucralfate (Carafate*) 1 gm PO 0700,1100,1600 [facility] Last Admin: 11/22/19 07:33 Dose: 1 gm Tamsulosin HCl (Flomax Cap*) 0.4 mg PO DAILY [facility] Last Admin: 11/22/19 10:02 Dose: Not Given - Discharge Plan Discharge Plan: Inpatient Hospitalization Outpatient Program: [facility]
--- NOTE | 2019-11-22 11:20 | PN ---
BSU: Group Therapy Note - Service Type Service Type: 22829 Group Psychotherapy - Cognitive Behavioral Group Therapy ( CBT):Patient was attentive and participatory in CBT programming this morning, and remained in good behavioral control. Patient expressed positive insights regarding relevant treatment interventions and goals.
[2019-11-22] MEDS ORDERED: chlorproMAZINE TAB* 50 MG ONE (21:21)
[2019-11-22] MEDS ORDERED: chlorproMAZINE TAB* 50 MG PO ONE (22:00)
[2019-11-22] MEDS: hydrOXYzine HCL TAB* 50 MG PO SCH (22:00)
[2019-11-23] MEDS: Levothyroxine TAB* 50 MCG TAB PO SCH (07:18)
[2019-11-23] MEDS: Sucralfate TAB* 1 GM PO SCH ×3 (07:18→16:15)
[2019-11-23] MEDS: Lithium Carbonate TAB* 300 MG PO SCH ×2 (09:14→21:43)
[2019-11-23] MEDS: amLODIPine TAB* 5 MG PO SCH (09:14)
[2019-11-23] MEDS: Pantoprazole TAB * 40 MG TAB PO SCH ×2 (09:14→21:43)
[2019-11-23] MEDS: Tamsulosin CAP* 0.4 MG PO SCH (09:17)
--- NOTE | 2019-11-23 10:19 | PN ---
Assessment - Assessment Clinical Impression: Assessment: 53 year old male with history of Bipolar disorder came to the hospital with after dispute with brother and was admitted to the BSU at [facility]. Plan - Plan Treatment Plan: Name: MONICA TARIQ Birthdate: 1965 [id number] Plan #Q30 minute observation with staff pass # The patient requires psychiatric inpatient admission at this time to assure safety, receive treatment and work toward stabilization. # Obtain collateral information attempted to contact brother and therapist with out success. # Collaboration with Social Work # Continue [place] 450mg po daily and 300mg qhs for mood stabilization. # Tobacco use disorder: nicotine supplement offered and declined # Hospitalist consult placed for abdominal pain and recommendations appreciated no longer has abdominal pain #Goals before discharge include: To eliminate/ reduce agitation # Substance abuse for cannabis use offered and declined # Cannabis precipitates paranoia and isolation # Continue propranolol 10mg BID with holding parameters # [place] level ordered for AM Tentative Discharge: Thursday/ 11/15/19 11/15/19 11/15/19 17:43 17:43 19:25 WBC 7.3 RBC 4.78 Hgb 14.7 Hct 44 MCV 91 MCH 31 MCHC 34 RDW 15 Plt Count 264 MPV 7.7 Neut % (Auto) 72.3 Lymph % (Auto) 20.3 [place] % (Auto) 6.4 Eos % (Auto) 0.6 Baso % (Auto) 0.4 Absolute Neuts (auto) 5.3 Absolute Lymphs (auto) 1.5 Absolute Monos (auto) 0.5 Absolute Eos (auto) 0.0 Absolute Basos (auto) 0.0 Absolute Nucleated RBC 0.0 Nucleated RBC % 0.0 Sodium 138 Potassium 3.9 Chloride 103 Carbon Dioxide 28 Anion Gap 7 BUN 25 H Creatinine 1.08 Est GFR ( Amer) 86.9 Est GFR (Non-Af Amer) 71.8 BUN/Creatinine Ratio 23.1 H Glucose 159 H Hemoglobin A1c Calcium 9.3 Total Bilirubin 0.30 AST 47 H ALT 49 Alkaline Phosphatase 64 Troponin I Total Protein 6.4 Albumin 4.2 Globulin 2.2 Albumin/Globulin Ratio 1.9 Triglycerides Cholesterol LDL Cholesterol HDL Cholesterol Lipase TSH 2.12 Urine Color Yellow Urine Appearance Clear Urine pH 6.0 Ur Specific [place] 1.009 L Urine Protein Negative Urine Ketones Negative Urine Blood Negative Urine Nitrate Negative Urine Bilirubin Negative Urine Urobilinogen Negative Ur Leukocyte Esterase Trace A Urine WBC (Auto) Trace(0-5/hpf) Urine RBC (Auto) Trace(0-2/hpf) Ur Squamous Epith Cells Present A Urine Bacteria Absent Urine Glucose Negative Salicylates < 2.50 Urine Opiates Screen Acetaminophen < 15 Ur Barbiturates Screen Ur Phencyclidine Scrn Ur Amphetamines Screen U Benzodiazepines Scrn [place] < 0.10 L Urine Cocaine Screen U Cannabinoids Screen Serum Alcohol < 10 11/15/19 11/17/19 11/17/19 19:25 05:49 05:49 WBC RBC Hgb Hct MCV MCH MCHC RDW Plt Count MPV Neut % (Auto) Lymph % (Auto) [place] % (Auto) Eos % (Auto) Baso % (Auto) Absolute Neuts (auto) Absolute Lymphs (auto) Absolute Monos (auto) Absolute Eos (auto) Absolute Basos (auto) Absolute Nucleated RBC Nucleated RBC % Sodium Potassium Chloride Carbon Dioxide Anion Gap BUN Creatinine Est GFR ( Amer) Est GFR (Non-Af Amer) BUN/Creatinine Ratio Glucose Hemoglobin A1c 5.7 H Calcium Total Bilirubin AST ALT Alkaline Phosphatase Troponin I Total Protein Albumin Globulin Albumin/Globulin Ratio Triglycerides 86 Cholesterol 139 LDL Cholesterol 71 HDL Cholesterol 50.8 Lipase TSH Urine Color Urine Appearance Urine pH Ur Specific [place] Urine Protein Urine Ketones Urine Blood Urine Nitrate Urine Bilirubin Urine Urobilinogen Ur Leukocyte Esterase Urine WBC (Auto) Urine RBC (Auto) Ur Squamous Epith Cells Urine Bacteria Urine Glucose Salicylates Urine Opiates Screen None detected Acetaminophen Ur Barbiturates Screen None detected Ur Phencyclidine Scrn None detected Ur Amphetamines Screen None detected U Benzodiazepines Scrn None detected [place] Urine Cocaine Screen None detected U Cannabinoids Screen Presumptive positive A Serum Alcohol 11/18/19 11/18/19 11/18/19 12:06 12:07 12:07 WBC 8.7 RBC 5.24 Hgb 16.2 Hct 48 MCV 91 MCH 31 MCHC 34 RDW 15 Plt Count 267 MPV 7.8 Neut % (Auto) 79.2 Lymph % (Auto) 14.3 [place] % (Auto) 6.0 Eos % (Auto) 0.3 Baso % (Auto) 0.2 Absolute Neuts (auto) 6.9 Absolute Lymphs (auto) 1.3 Absolute Monos (auto) 0.5 Absolute Eos (auto) 0.0 Absolute Basos (auto) 0.0 Absolute Nucleated RBC 0.0 Nucleated RBC % 0.0 Sodium 138 Potassium 4.4 Chloride 103 Carbon Dioxide 28 Anion Gap 7 BUN 27 H Creatinine 0.92 Est GFR ( Amer) 104.5 Est GFR (Non-Af Amer) 86.4 BUN/Creatinine Ratio 29.3 H Glucose 119 H Hemoglobin A1c Calcium 9.9 Total Bilirubin 0.30 AST 32 ALT 46 Alkaline Phosphatase 62 Troponin I 0.01 Total Protein 6.9 Albumin 4.7 Globulin 2.2 Albumin/Globulin Ratio 2.1 Triglycerides Cholesterol LDL Cholesterol HDL Cholesterol Lipase 58 TSH Urine Color Urine Appearance Urine pH Ur Specific [place] Urine Protein Urine Ketones Urine Blood Urine Nitrate Urine Bilirubin Urine Urobilinogen Ur Leukocyte Esterase Urine WBC (Auto) Urine RBC (Auto) Ur Squamous Epith Cells Urine Bacteria Urine Glucose Salicylates Urine Opiates Screen Acetaminophen Ur Barbiturates Screen Ur Phencyclidine Scrn Ur Amphetamines Screen U Benzodiazepines Scrn [place] Urine Cocaine Screen U Cannabinoids Screen Serum Alcohol Medications: Current Medications Acetaminophen (Tylenol Tab*) 650 mg PO Q4H PRN PRN Reason: for pain; or Temp >101 F Al Hydrox/Mg Hydrox/Simethicone (Maalox Plus*) 30 ml PO Q4H PRN PRN Reason: INDIGESTION Last Admin: 11/18/19 16:09 Dose: 30 ml Amlodipine Besylate (Norvasc Tab*) 10 mg PO DAILY [facility] Last Admin: 11/23/19 09:14 Dose: 10 mg Hydroxyzine HCl (Atarax Tab*) 50 mg PO BEDTIME [facility] Last Admin: 11/22/19 22:00 Dose: 50 mg Levothyroxine Sodium (Synthroid Tab*) 50 mcg PO 0600 [facility] Last Admin: 11/23/19 07:18 Dose: 50 mcg [place] Carbonate ([place] Carbonate Tab*) 300 mg PO BEDTIME [facility] Last Admin: 11/22/19 21:59 Dose: 300 mg [place] Carbonate ([place] Carbonate Tab*) 450 mg PO DAILY [facility] Last Admin: 11/23/19 09:14 Dose: 450 mg Pantoprazole Sodium (Protonix Tab*) 40 mg PO BID [facility] Last Admin: 11/23/19 09:14 Dose: 40 mg Propranolol HCl (Inderal 10 Mg Tab) 10 mg PO BID [facility] Last Admin: 11/23/19 09:14 Dose: 10 mg Sucralfate (Carafate*) 1 gm PO 0700,1100,1600 [facility] Last Admin: 11/23/19 07:18 Dose: 1 gm Tamsulosin HCl (Flomax Cap*) 0.4 mg PO DAILY [facility] Last Admin: 11/23/19 09:17 Dose: Not Given
--- NOTE | 2019-11-23 12:02 | PN ---
BSU: Group Therapy Note - Service Type Service Type: 88654 Group Psychotherapy - Cognitive Behavioral Group Note: Damon was somewhat agitated by a peer sitting next to him in group, but was responsive to redirection and engagement in conversation. He presented with fair affect that did not vary with conversaiton.
--- NOTE | 2019-11-23 12:45 | PN ---
Subjective - Subjective Date of Service: 11/23/19 Service Type: 18602 Hosp care 35 min high complexity Subjective: Nursing Report: Patient was visible on unit, Slept overnight. Attending group CC: "Nothing " Patient was seen and evaluated in the common room. The patient reported reported getting 5 hours of sleep. He said I do not think it was a good idea to get a protection order against my brother I dont know why I ever thought that it was. He reported having adequate appetite and sleep. Patient reported that he is tolerating medications without side effects. Per staff report patient blocked entrance to groups and didn't let peers in and shortly was able to be redirected. Patient was pacing hallway with glossed over stare. Objective - General Observations Appearance: Well Groomed Appears Stated Age: Yes Stature: WNL Posture: WNL Eye Contact: Average Behavior/Activity: Accelerated - Interaction Observations Attitude Towards Examiner: Defensive Stated Mood: Irritable Affect: Restricted Speech Pattern/Tone: Clear Thought Process: Coherent Perception: WNL Thought Content: Preoccupation/Ruminations Hallucination Type: None Delusion Type: None - Cognitive Function Orientation: A&O x 4 Level of Consciousness: Awake - Medication Compliance Cooperative with Inpatient Medication Regimen: Yes - Group Participation Participates in Group Activities: Yes Assessment - Assessment Merits Inpatient Hospitalization: For Immediate Safety Clinical Impression: Assessment: 53 year old male with history of Bipolar disorder came to the hospital with after dispute with brother and was admitted to the [facility] at [facility]. Plan - Plan Treatment Plan: Name: MONICA TARIQ Birthdate: 1965 [id number] Plan #Q30 minute observation with staff pass # The patient requires psychiatric inpatient admission at this time to assure safety, receive treatment and work toward stabilization. # Obtain collateral information attempted to contact brother and therapist with out success. # Collaboration with Social Work # Continue [place] 450mg po daily and 300mg qhs for mood stabilization. # Tobacco use disorder: nicotine supplement offered and declined #Goals before discharge include: To eliminate/ reduce agitation # Substance abuse for cannabis use offered and declined # Cannabis precipitates paranoia and isolation # Continue propranolol 10mg BID with holding parameters # [place] level 0.39 Tentative Discharge: Thursday Sodium 138 mmol/L (135-145) 11/18/19 12:06 Potassium 4.4 mmol/L (3.5-5.0) 11/18/19 12:06 BUN 27 mg/dL (6-24) H 11/18/19 12:06 Creatinine 0.92 mg/dL (0.67-1.17) 11/18/19 12:06 Hemoglobin A1c 5.7 % (4.0-5.6) H 11/17/19 05:49 Calcium 9.9 mg/dL (8.6-10.3) 11/18/19 12:06 AST 32 U/L (13-39) 11/18/19 12:06 ALT 46 U/L (7-52) 11/18/19 12:06 Triglycerides 86 mg/dL 11/17/19 05:49 Cholesterol 139 mg/dL 11/17/19 05:49 LDL Cholesterol 71 mg/dL 11/17/19 05:49 Laboratory Results - last 24 hr 11/22/19 12:49 [place] 0.39 L Continued Medication Management: Continue Outpt Medication Medications: Current Medications Acetaminophen (Tylenol Tab*) 650 mg PO Q4H PRN PRN Reason: for pain; or Temp >101 F Al Hydrox/Mg Hydrox/Simethicone (Maalox Plus*) 30 ml PO Q4H PRN PRN Reason: INDIGESTION Last Admin: 11/18/19 16:09 Dose: 30 ml Amlodipine Besylate (Norvasc Tab*) 10 mg PO DAILY [facility] Last Admin: 11/23/19 09:14 Dose: 10 mg Hydroxyzine HCl (Atarax Tab*) 50 mg PO BEDTIME [facility] Last Admin: 11/22/19 22:00 Dose: 50 mg Levothyroxine Sodium (Synthroid Tab*) 50 mcg PO 0600 [facility] Last Admin: 11/23/19 07:18 Dose: [address] [place] Carbonate ([place] Carbonate Tab*) 300 mg PO BEDTIME [facility] Last Admin: 11/22/19 21:59 Dose: [address] [place] [place] Carbonate ([place] Carbonate Tab*) 450 mg PO DAILY [facility] Last Admin: 11/23/19 09:14 Dose: 450 mg Pantoprazole Sodium (Protonix Tab*) 40 mg PO BID [facility] Last Admin: 11/23/19 09:14 Dose: 40 mg Propranolol HCl (Inderal 10 Mg Tab) 10 mg PO BID [facility] Last Admin: 11/23/19 09:14 Dose: 10 mg Sucralfate (Carafate*) 1 gm PO 0700,1100,1600 [facility] Last Admin: 11/23/19 11:09 Dose: 1 gm Tamsulosin HCl (Flomax Cap*) 0.4 mg PO DAILY [facility] Last Admin: 11/23/19 09:17 Dose: Not Given - Discharge Plan Discharge Plan: Inpatient Hospitalization
[2019-11-23] MEDS: hydrOXYzine HCL TAB* 50 MG PO SCH (21:43)
[2019-11-24] MEDS: Levothyroxine TAB* 50 MCG TAB PO SCH (06:12)
[2019-11-24] MEDS: Sucralfate TAB* 1 GM PO SCH ×3 (07:10→16:10)
[2019-11-24] MEDS: Pantoprazole TAB * 40 MG TAB PO SCH ×2 (10:12→21:11)
[2019-11-24] MEDS: amLODIPine TAB* 5 MG PO SCH (10:13)
[2019-11-24] MEDS: Lithium Carbonate TAB* 300 MG PO SCH ×2 (10:15→21:11)
[2019-11-24] MEDS: Tamsulosin CAP* 0.4 MG PO SCH (10:19)
--- NOTE | 2019-11-24 10:32 | PN ---
Subjective - Subjective Date of Service: 11/24/19 Service Type: 05266 Hosp care 35 min high complexity Subjective: Nursing Report: Patient was visible on unit, no behavioral incidents. Slept overnight. He is attending group activities. CC: "I am ready to be discharged" Patient was seen and evaluated in the common room. Patient said "I am not going home this time and taking a bong rip but get annoyed when people try and control me." Patient is relived to know that his therapist plans to continue to work with him. Gisele his therapist called and plans to call him today. He reported being upset at his brother for intruding on decisions that he believes he should make on his own. He reported having adequate appetite and sleep. The patient reports attending and participating in day groups. Per nursing no behavioral issues or overnight events reported. Patient reported that he is tolerating medications without side effects. Objective - General Observations Appearance: Neat Appears Stated Age: Yes Stature: WNL Posture: WNL Eye Contact: Average - Interaction Observations Attitude Towards Examiner: Cooperative Stated Mood: Euthymic Affect: Restricted Speech Pattern/Tone: Clear Thought Process: Coherent Perception: WNL Thought Content: WNL Hallucination Type: None Delusion Type: None - Cognitive Function Orientation: A&O x 4 Level of Consciousness: Awake - Medication Compliance Cooperative with Inpatient Medication Regimen: Yes - Group Participation Participates in Group Activities: Yes Assessment - Assessment Merits Inpatient Hospitalization: For Immediate Safety Clinical Impression: Assessment: 53 year old male with history of Bipolar disorder came to the hospital with after dispute with brother and was admitted to the B[facility] at [facility]. Plan - Plan Treatment Plan: Name: MONICA TARIQ Birthdate: 1965 [id number] Plan #Q30 minute observation with staff pass # The patient requires psychiatric inpatient admission at this time to assure safety, receive treatment and work toward stabilization. # Obtain collateral information attempted to contact brother and therapist with out success. # Collaboration with Social Work #Collateral from brother obtained # Patient refusing to change housing situation and wishes to return home # Continue [place] 450mg po daily and 300mg qhs for mood stabilization. # Tobacco use disorder: nicotine supplement offered and declined #Goals before discharge include: To eliminate/ reduce agitation # Substance abuse for cannabis use offered and declined # Cannabis precipitates paranoia and isolation # Continue propranolol 10mg BID with holding parameters # [place] level 0.39 Tentative Discharge: Thursday Sodium 138 mmol/L (135-145) 11/18/19 12:06 Potassium 4.4 mmol/L (3.5-5.0) 11/18/19 12:06 BUN 27 mg/dL (6-24) H 11/18/19 12:06 Creatinine 0.92 mg/dL (0.67-1.17) 11/18/19 12:06 Hemoglobin A1c 5.7 % (4.0-5.6) H 11/17/19 05:49 Calcium 9.9 mg/dL (8.6-10.3) 11/18/19 12:06 AST 32 U/L (13-39) 11/18/19 12:06 ALT 46 U/L (7-52) 11/18/19 12:06 Triglycerides 86 mg/dL 11/17/19 05:49 Cholesterol 139 mg/dL 11/17/19 05:49 LDL Cholesterol 71 mg/dL 11/17/19 05:49 Laboratory Results - last 24 hr 11/22/19 12:49 [place] 0.39 L Continued Medication Management: Continue Outpt Medication Medications: Current Medications Acetaminophen (Tylenol Tab*) 650 mg PO Q4H PRN PRN Reason: for pain; or Temp >101 F Al Hydrox/Mg Hydrox/Simethicone (Maalox Plus*) 30 ml PO Q4H PRN PRN Reason: INDIGESTION Last Admin: 11/18/19 16:09 Dose: 30 ml Amlodipine Besylate (Norvasc Tab*) 10 mg PO DAILY [facility] Last Admin: 11/24/19 10:13 Dose: 10 mg Hydroxyzine HCl (Atarax Tab*) 50 mg PO BEDTIME [facility] Last Admin: 11/23/19 21:43 Dose: 50 mg Levothyroxine Sodium (Synthroid Tab*) 50 mcg PO 0600 [facility] Last Admin: 11/24/19 06:12 Dose: 50 mcg [place] Carbonate ([place] Carbonate Tab*) 300 mg PO BEDTIME [facility] Last Admin: 11/23/19 21:43 Dose: 300 mg [place] Carbonate ([place] Carbonate Tab*) 450 mg PO DAILY [facility] Last Admin: 11/24/19 10:15 Dose: 450 mg Pantoprazole Sodium (Protonix Tab*) 40 mg PO BID [facility] Last Admin: 11/24/19 10:12 Dose: 40 mg Propranolol HCl (Inderal 10 Mg Tab) 10 mg PO BID [facility] Last Admin: 11/24/19 10:15 Dose: 10 mg Sucralfate (Carafate*) 1 gm PO 0700,1100,1600 [facility] Last Admin: 11/24/19 07:10 Dose: 1 gm Tamsulosin HCl (Flomax Cap*) 0.4 mg PO DAILY [facility] Last Admin: 11/24/19 10:19 Dose: Not Given - Discharge Plan Discharge Plan: Inpatient Hospitalization
[2019-11-24] MEDS: hydrOXYzine HCL TAB* 50 MG PO SCH (21:11)
[2019-11-25] MEDS: Sucralfate TAB* 1 GM PO SCH (06:54)
[2019-11-25] MEDS: Levothyroxine TAB* 50 MCG TAB PO SCH (06:54)
[2019-11-25] MEDS: amLODIPine TAB* 5 MG PO SCH (08:48)
[2019-11-25] MEDS: Pantoprazole TAB * 40 MG TAB PO SCH (08:49)
[2019-11-25] MEDS: Lithium Carbonate TAB* 300 MG PO SCH (08:49)
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
[2019-11-25 11:14] VITALS: BP 187/121
[2019-11-25] MEDS: Tamsulosin CAP* 0.4 MG PO SCH (12:41)
[2019-11-25] MEDS ORDERED: Lithium Carbonate TAB* 300 MG PO SCH (21:00)
== END 2019-11-25 13:08 | disposition home or self-care (01) | DRG 885 ==
LOC: ED 17:00 → BSU 11-16 12:00
PROVIDERS: ADMIT Psychiatry & Neurology Psychiatry; ATTEND Psychiatry & Neurology Psychiatry
PROC: GZHZZZZ Group Psychotherapy (ICD-10-PCS; principal; 2019-11-21)
DX: F31.13 Bipolar disorder, current episode manic without psychotic features, severe (principal); I10 Essential (primary) hypertension; E03.9 Hypothyroidism, unspecified; F17.210 Nicotine dependence, cigarettes, uncomplicated; K21.9 Gastro-esophageal reflux disease without esophagitis; M19.011 Primary osteoarthritis, right shoulder; F41.9 Anxiety disorder, unspecified; K27.9 Peptic ulcer, site unspecified, unspecified as acute or chronic, without hemorrhage or perforation; K40.90 Unilateral inguinal hernia, without obstruction or gangrene, not specified as recurrent; F12.90 Cannabis use, unspecified, uncomplicated; F43.10 Post-traumatic stress disorder, unspecified; Z91.5 Personal history of self-harm; Z79.890 Hormone replacement therapy; Z79.899 Other long term (current) drug therapy
CPT/HCPCS: 36415; 80053; 80061; 80178; 80307; 80320; 80329; 81003; 81015; 83036; 83690; 84443; 84484; 85025; 87086; 90853; 93005; 99222; 99231; 99233; 99238; 99284; A9270-GY; G0480

== ENCOUNTER 2019-12-10 12:22 | Inpatient (IN) | payer MEDICARE ==
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
[2019-12-10] MEDS ORDERED: LORazepam TAB(*) 1 MG PO ONE (14:24)
[2019-12-10 14:48] LABS: ABS Eosinophils 0.1 10^3/ul (0-0.6); ABS Lymphocytes 1.1 10^3/ul (1.0-4.8); ABS Monocytes 0.5 10^3/ul (0-0.8); Eosinophil % 1.3 %; Hematocrit 44 % (42-52); Hemoglobin 14.9 g/dL (14.0-18.0); Lymphocyte % 15.9 %; Mean Corpuscular HGB Conc 34 g/dL (31-36); Mean Corpuscular Hemoglobin 31 pg (27-31); Mean Corpuscular Volume 92 fL (80-94); Mean Platelet Volume 7.5 fL (7.4-10.4); Nucleated Red Blood Cells % 0.1; Platelet Count 272 10^3/uL (150-450); Red Blood Count 4.78 10^6 /uL (4.18-5.48); Red Cell Distribution Width 14 % (10-15); White Blood Count 6.7 10^3/uL (3.5-10.8)
[2019-12-10 15:04] LABS: ALT 40 U/L (7-52); AST 39 U/L (13-39); Albumin 4.1 g/dL (3.2-5.2); Albumin/Globulin Ratio 2.1 (1-3); Alkaline Phosphatase 58 U/L (34-104); Anion Gap 6 mmol/L (2-11); BUN/Creatinine Ratio 19.1 (8-20); Blood Urea Nitrogen 25 mg/dL (6-24); CO2 Carbon Dioxide 28 mmol/L (22-32); Calcium 8.9 mg/dL (8.6-10.3); Chloride 106 mmol/L (101-111); EGFR African American 69.5 (>60); EGFR Non-African American 57.5 (>60); Glucose 133 mg/dL (70-100); Sodium 140 mmol/L (135-145); Total Protein 6.1 g/dL (6.4-8.9)
[2019-12-10 15:32] LABS: Acetaminophen < 15 mcg/mL; Alcohol < 10 mg/dL (<10); Salicylate < 2.50 mg/dL (<30)
--- NOTE | 2019-12-10 21:49 | ED ---
Progress - Progress Note Progress Note: This patient was signed out at shift change at 2200, pending disposition, awaiting mental health transfer. The patient will be signed out to Dr. Phan at shift change pending mental health transfer. Course/Dx - Course Course Of Treatment: This patient was signed out at shift change at 2200, pending disposition, awaiting mental health transfer. The patient will be signed out to Dr. Brandt at shift change pending mental health transfer. - Diagnoses Provider Diagnoses: Mood disorder Discharge ED - Sign-Out/Discharge Documenting (check all that apply): Sign-Out Patient Signing out patient TO: Gary Brandt - pending mental health transfer - Discharge Plan Condition: Stable Disposition: PSYCHIATRIC FACILITY-OTHER Referrals: Sofia Dailey NP [Primary Care Provider] - - Billing Disposition and Condition Condition: STABLE Disposition: Psychiatric Facility Other - Attestation Statements Document Initiated by Scribe: Yes Documenting Scribe: Sherie Aparicio Provider For Whom Scribe is Documenting (Include Credential): Dr. Mary Joy MD Scribe Attestation: Sherie Kohler scribed for Dr. Mary Joy MD on 12/11/19 at 0611. Scribe Documentation Reviewed: Yes Provider Attestation: The documentation as recorded by the Sherie dominguez accurately reflects the service I personally performed and the decisions made by , Dr. Mary Joy MD Status of Scribe Document: Ready
--- NOTE | 2019-12-11 07:13 | ED ---
Progress - Progress Note Progress Note: This patient is a sign-out from Dr. Mary Joy to Dr. Arthur Phan at 0700 on 12/11/2019 at shift change pending MH transfer. Course/Dx - Course Course Of Treatment: Mr. Molinaremained stable here in the emergency department awaiting transfer throughout the course of my shift. - Diagnoses Provider Diagnoses: Mood disorder Discharge ED - Sign-Out/Discharge Documenting (check all that apply): Sign-Out Patient Signing out patient TO: Mary Joy - Discharge Plan Condition: Stable Referrals: Sofia Dailey NP [Primary Care Provider] - - Billing Disposition and Condition Condition: STABLE - Attestation Statements Document Initiated by Scribe: Yes Documenting Scribe: Dane Elias Provider For Whom Russ is Documenting (Include Credential): Arthur Phan MD Scribe Attestation: Dane Kohler, scribed for Arthur Phan MD on 12/11/19 at 1829. Scribe Documentation Reviewed: Yes Provider Attestation: The documentation as recorded by the Dane dominguez accurately reflects the service I personally performed and the decisions made by me, Arthur Phan MD Status of Scribe Document: Viewed
[2019-12-11 11:19] LABS: Urine Appearance Clear; Urine Bilirubin Negative (Negative); Urine Blood Negative (Negative); Urine Color Yellow; Urine Glucose Negative (Negative); Urine Ketones Negative (Negative); Urine Nitrite Negative (Negative); Urine Protein Negative (Negative); Urine Specific Gravity 1.008 (1.010-1.030); Urine Urobilinogen Negative (Negative)
[2019-12-11 11:42] LABS: Urine Benzodiazepine Screen None Detected (None Detect); Urine Opiates Screen None Detected (None Detect)
--- NOTE | 2019-12-11 12:01 | PN ---
ED Psychiatric Progress Note Date of Service: 12/11/19 Subjective: This is a 54 year-old M who is pending admission to [facility] / transfer to another psychiatric facility / discharge to home / or being observed secondary to disorganized/threatening behavior in the community, repeated contact with law enforcement and the Mobile Crisis Team. Pt offers no complaints at this time. Objective: Alert, oriented x4, restless fidgety and talkative, grossly impaired insight and judgment, denies SI/HI or A/VH but does not contract for safety if discharged. Assessment: Bipolar disorder, manic with psychotic features. Patient is not safet for discharge at the current time. Plan: Pending psychiatric/ transfer / admit / discharge will follow up daily. Vital Signs Temp Pulse Resp BP Pulse Ox 98.2 F 74 16 146/106 100 12/11/19 02:05 12/11/19 02:05 12/11/19 02:05 12/11/19 02:05 12/11/19 02:05 Lab Results - Entire Visit 12/11/19 12/11/19 12/10/19 11:14 11:14 14:42 WBC RBC Hgb Hct MCV MCH MCHC RDW Plt Count MPV Neut % (Auto) Lymph % (Auto) [place] % (Auto) Eos % (Auto) Baso % (Auto) Absolute Neuts (auto) Absolute Lymphs (auto) Absolute Monos (auto) Absolute Eos (auto) Absolute Basos (auto) Absolute Nucleated RBC Nucleated RBC % Sodium 140 Potassium 4.0 Chloride 106 Carbon Dioxide 28 Anion Gap 6 BUN 25 H Creatinine 1.31 H Est GFR ( Amer) 69.5 Est GFR (Non-Af Amer) 57.5 BUN/Creatinine Ratio 19.1 Glucose 133 H Calcium 8.9 Total Bilirubin 0.30 AST 39 ALT 40 Alkaline Phosphatase 58 Total Protein 6.1 L Albumin 4.1 Globulin 2.0 Albumin/Globulin Ratio 2.1 Urine Color Yellow Urine Appearance Clear Urine pH 7.0 Ur Specific [place] 1.008 L Urine Protein Negative Urine Ketones Negative Urine Blood Negative Urine Nitrate Negative Urine Bilirubin Negative Urine Urobilinogen Negative Ur Leukocyte Esterase Negative Urine Glucose Negative Urine Ascorbic Acid * A Salicylates < 2.50 Urine Opiates Screen None detected Acetaminophen < 15 Ur Barbiturates Screen None detected Ur Phencyclidine Scrn None detected Ur Amphetamines Screen None detected U Benzodiazepines Scrn None detected Urine Cocaine Screen None detected U Cannabinoids Screen Presumptive positive A Serum Alcohol < 10 12/10/19 14:42 WBC 6.7 RBC 4.78 Hgb 14.9 Hct 44 MCV 92 MCH 31 MCHC 34 RDW 14 Plt Count 272 MPV 7.5 Neut % (Auto) 74.5 Lymph % (Auto) 15.9 [place] % (Auto) 7.6 Eos % (Auto) 1.3 Baso % (Auto) 0.7 Absolute Neuts (auto) 5.0 Absolute Lymphs (auto) 1.1 Absolute Monos (auto) 0.5 Absolute Eos (auto) 0.1 Absolute Basos (auto) 0.0 Absolute Nucleated RBC 0.0 Nucleated RBC % 0.1 Sodium Potassium Chloride Carbon Dioxide Anion Gap BUN Creatinine Est GFR ( Amer) Est GFR (Non-Af Amer) BUN/Creatinine Ratio Glucose Calcium Total Bilirubin AST ALT Alkaline Phosphatase Total Protein Albumin Globulin Albumin/Globulin Ratio Urine Color Urine Appearance Urine pH Ur Specific [place] Urine Protein Urine Ketones Urine Blood Urine Nitrate Urine Bilirubin Urine Urobilinogen Ur Leukocyte Esterase Urine Glucose Urine Ascorbic Acid Salicylates Urine Opiates Screen Acetaminophen Ur Barbiturates Screen Ur Phencyclidine Scrn Ur Amphetamines Screen U Benzodiazepines Scrn Urine Cocaine Screen U Cannabinoids Screen Serum Alcohol
--- NOTE | 2019-12-11 19:11 | ED ---
Progress - Progress Note Progress Note: The patient is a sign-out from Dr. Arthur Phan MD, to Dr. Mary Joy MD, at change of shift at 1900 on 12/11/19, pending transfer to facility for care of mental health treatment. Patient appears to be resting comfortably. Patient has been cooperative without any issues during the shift. The patient is a sign-out from Dr. Mary Joy MD, to Dr. Mily Pitts MD, at change of shift at 0700 on 12/12/19, pending transfer to facility for care of mental health treatment. Re-Evaluation - Re-Evaluation First Eval Re-Evaluation Time: 19:50 Comment: Patient appears to be resting. Course/Dx - Course Course Of Treatment: 54-year-old male signed out changes shift to sd awaiting acceptance and transfer to a BSU. Patient rested intermittently overnight. He had some wandering to find coughing but was no significant behavioral problem. Signed out changes shift. - Diagnoses Provider Diagnoses: Bipolar depression Discharge ED - Sign-Out/Discharge Documenting (check all that apply): Sign-Out Patient, Receiving Sign-Out Signing out patient TO: Mily Pitts - Patient is a sign-out to Dr. Mily Pitts MD, at change of shift at 0700 on 12/12/19, pending transfer. Receiving patient FROM: Arthur Phan - Patient is a sign-out from Dr. Arthur Phan MD, at change of shift at 1900 on 12/11/19, pending transfer. - Discharge Plan Condition: Stable Disposition[place]IATRIC [place] [place] Billing Disposition and Condition Condition: STABLE Disposition: Psychiatric Facility [facility] [place] - Attestation Statements Document Initiated by Johanibe: Yes Documenting Scribe: Grisel Mcintosh Provider For Whom Russ is Documenting (Include Credential): Dr. Mary Joy MD Scribe Attestation: Grisel Kohler scribed for Dr. Mary Joy MD on 12/15/19 at 2002. Scribe Documentation Reviewed: Yes Provider Attestation: The documentation as recorded by the Grisel dominguez accurately reflects the service I personally performed and the decisions made by sd, Dr. Mary Joy MD Status of Scribe Document: Viewed Procedures - Sedation Patient Received Moderate/Deep Sedation with Procedure: No
--- NOTE | 2019-12-12 07:12 | ED ---
Progress - Progress Note Progress Note: The patient is a sign-out from Dr. Joy to Dr. Pitts at change of shift at 0700 on 12/12/19, pending transfer to facility for care of mental health treatment. Patient has been cooperative and stable without any issues during the shift. A bed opened up in the psych unit here, so patient was admitted by Dr. Robertson involuntary status. - Results/Orders Results/Orders: An EKG at 1511 revealed NSR at 72 BPM, PACs, no change compared to previous EKG taken 12/10/2019. Dr. Pitts has reviewed and interpreted this EKG. Re-Evaluation - Re-Evaluation First Eval Re-Evaluation Time: 16:23 Comment: Patient admitted by Dr. Robertson as a bed opened up here. Course/Dx - Course Course Of Treatment: The patient is a sign-out from Dr. Joy to Dr. Pitts at change of shift at 0700 on 12/12/19, pending transfer to facility for care of mental health treatment. Patient has been cooperative and stable without any issues during the shift. Patient admitted [place] [facility] by Dr. Robertson as a bed opened up here. - Diagnoses Provider Diagnoses: Bipolar depression Discharge ED - Sign-Out/Discharge Documenting (check all that apply): Patient Departure - Admit - Discharge Plan Condition: Stable Disposition[place] [place] Billing Disposition and Condition Condition: STABLE Disposition: Psychiatric [place] [facility] [place] - Attestation Statements Document Initiated by Johanibe: Yes Documenting Scribe: Oleg Denton Provider For Whom Russ is Documenting (Include Credential): Mily Pitts MD Scribe Attestation: IOleg, scribed for Mily Pitts MD on 12/16/19 at 2109. Scribe Documentation Reviewed: Yes Provider Attestation: The documentation as recorded by the Oleg dominguez accurately reflects the service I personally performed and the decisions made by me, Mily Pitts MD Status of Scribe Document: Viewed
--- NOTE | 2019-12-12 10:40 | PN ---
ED Psychiatric Progress Note Date of Service: 12/12/19 Subjective: ED day #2 for this 54 y.o. single, white male with a history of bipolar disorder who was sent in on a 9.45 involuntary status initiated by the [facility] clinic due in part to disruptive, agitated behavior there. Patient self-discontinued all psych meds recently and has been going around inappropriately dressed for the weather. Heat turned off in home. Patient calm and cooperative but doesn't understand the nature of the clinic's concerns. Objective: middle aged white male, short of stature; found masturbating in his ED room; manic mood; pressured speech; poor insight with impaired judgment; somewhat irritable but answers questions; denies SI or HI Assessment: Bipolar Daniella Plan: Will resume lithium and olanzapine therapies; needs admission but bed not available on Adult [facility]. Will transfer to outside 9.39 receiving facility. Vital Signs Temp Pulse Resp BP Pulse Ox 97.2 F 68 18 182/102 97 12/12/19 04:53 12/12/19 04:53 12/12/19 04:53 12/12/19 04:53 12/12/19 04:53 Lab Results - Entire Visit 12/11/19 12/11/19 12/10/19 11:14 11:14 14:42 WBC RBC Hgb Hct MCV MCH MCHC RDW Plt Count MPV Neut % (Auto) Lymph % (Auto) [place] % (Auto) Eos % (Auto) Baso % (Auto) Absolute Neuts (auto) Absolute Lymphs (auto) Absolute Monos (auto) Absolute Eos (auto) Absolute Basos (auto) Absolute Nucleated RBC Nucleated RBC % Sodium 140 Potassium 4.0 Chloride 106 Carbon Dioxide 28 Anion Gap 6 BUN 25 H Creatinine 1.31 H Est GFR ( Amer) 69.5 Est GFR (Non-Af Amer) 57.5 BUN/Creatinine Ratio 19.1 Glucose 133 H Calcium 8.9 Total Bilirubin 0.30 AST 39 ALT 40 Alkaline Phosphatase 58 Total Protein 6.1 L Albumin 4.1 Globulin 2.0 Albumin/Globulin Ratio 2.1 Urine Color Yellow Urine Appearance Clear Urine pH 7.0 Ur Specific [place] 1.008 L Urine Protein Negative Urine Ketones Negative Urine Blood Negative Urine Nitrate Negative Urine Bilirubin Negative Urine Urobilinogen Negative Ur Leukocyte Esterase Negative Urine Glucose Negative Urine Ascorbic Acid * A Salicylates < 2.50 Urine Opiates Screen None detected Acetaminophen < 15 Ur Barbiturates Screen None detected Ur Phencyclidine Scrn None detected Ur Amphetamines Screen None detected U Benzodiazepines Scrn None detected Urine Cocaine Screen None detected U Cannabinoids Screen Presumptive positive A Serum Alcohol < 10 12/10/19 14:42 WBC 6.7 RBC 4.78 Hgb 14.9 Hct 44 MCV 92 MCH 31 MCHC 34 RDW 14 Plt Count 272 MPV 7.5 Neut % (Auto) 74.5 Lymph % (Auto) 15.9 [place] % (Auto) 7.6 Eos % (Auto) 1.3 Baso % (Auto) 0.7 Absolute Neuts (auto) 5.0 Absolute Lymphs (auto) 1.1 Absolute Monos (auto) 0.5 Absolute Eos (auto) 0.1 Absolute Basos (auto) 0.0 Absolute Nucleated RBC 0.0 Nucleated RBC % 0.1 Sodium Potassium Chloride Carbon Dioxide Anion Gap BUN Creatinine Est GFR ( Amer) Est GFR (Non-Af Amer) BUN/Creatinine Ratio Glucose Calcium Total Bilirubin AST ALT Alkaline Phosphatase Total Protein Albumin Globulin Albumin/Globulin Ratio Urine Color Urine Appearance Urine pH Ur Specific [place] Urine Protein Urine Ketones Urine Blood Urine Nitrate Urine Bilirubin Urine Urobilinogen Ur Leukocyte Esterase Urine Glucose Urine Ascorbic Acid Salicylates Urine Opiates Screen Acetaminophen Ur Barbiturates Screen Ur Phencyclidine Scrn Ur Amphetamines Screen U Benzodiazepines Scrn Urine Cocaine Screen U Cannabinoids Screen Serum Alcohol
[2019-12-12] MEDS: amLODIPine TAB* 5 MG PO SCH (12:08)
[2019-12-12] MEDS: Lithium Carbonate TAB* 300 MG PO SCH ×2 (12:09→21:47)
[2019-12-12] MEDS: Sucralfate TAB* 1 GM PO SCH ×2 (12:09→18:36)
[2019-12-12] MEDS: Pantoprazole TAB * 40 MG TAB PO SCH ×2 (12:09→21:45)
[2019-12-12] MEDS ORDERED: Al Hydrox/Mg Hydrox/Simet LIQ* 30 ML UDC PO PRN (15:52)
[2019-12-12] MEDS: OLANzapine TAB* 5 MG PO SCH (21:45)
[2019-12-13] MEDS: Levothyroxine TAB* 50 MCG TAB PO SCH (06:17)
[2019-12-13 07:54] LABS: HDL Cholesterol 44.8 mg/dL
[2019-12-13] MEDS: amLODIPine TAB* 5 MG PO SCH (08:27)
[2019-12-13] MEDS: Pantoprazole TAB * 40 MG TAB PO SCH ×2 (08:27→20:47)
[2019-12-13] MEDS: Lithium Carbonate TAB* 300 MG PO SCH ×2 (08:27→20:46)
[2019-12-13] MEDS: Sucralfate TAB* 1 GM PO SCH ×3 (08:28→16:35)
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
[2019-12-13] MEDS: Acetaminophen TAB* 325 MG PO PRN (19:09)
[2019-12-13] MEDS: OLANzapine TAB* 5 MG PO SCH (20:46)
[2019-12-13] MEDS ORDERED: Lorazepam PYXIS KEY PRN (21:36)
[2019-12-13] MEDS ORDERED: LORazepam INJ* 2 MG/ML 1 ML VIAL IV PUSH ONE (21:36)
[2019-12-13] MEDS ORDERED: Morphine INJ* 4 MG/ML 1 ML SYRINGE (NEW SYRINGE VERSION) IM ONE ×2 (21:37→21:45)
[2019-12-13] MEDS ORDERED: Morphine INJ* 4 MG/ML 1 ML SYRINGE (NEW SYRINGE VERSION) IV ONE (21:37)
[2019-12-13] MEDS ORDERED: LORazepam INJ* 2 MG/ML 1 ML VIAL ONE (21:43)
[2019-12-13] MEDS ORDERED: Ondansetron INJ* 2 MG/ML VIAL IV ONE (21:48)
--- NOTE | 2019-12-13 21:48 | CONSULT ---
Consult Consult: HOSPITALIST CONSUTLATION REQUESTING PROVIDER: Dr. Hernandez REASON FOR CONSULTATION: Abdominal pain HPI: Mr Chan is a 54 yo M who was admitted to the MHU for stabilization. He has a h/o bipolar disorder and has has failed being in the community. I was on the MHU to see another individual when I was told Damon was c/o severe abdominal pain. When I find him, he is squatting outside of his room. He states that position did not make his pain any better/worse. He states he has pain all over his abdomen but it is most severe in the RLQ/groin. He has a h/o an inguinal hernia on the R and typically is able to reduce it himself. He can not tell me how long it has been ongoing. He states the pain has been worse this evening but has maybe been going on all day. He does not know the last time he passed gas. He does state his last BM was earlier today. PMHx: bipolar disorder with past suicide attempts, HTN, hypothyroidism, tobacco abuse PSHx: umbilical hernia repair, marijuana abuse All: NKDA Meds: current inpatient medications reviewed FamHx: pt is adopted SocHx: pt resides in an apartment, he is single, he smokes marijuana and tobacco ROS: not obtained at this time other than what is in the HPI as pt is in severe pain PE: VS: BP 189/98 HR 74 RR 22 T 98.2 O2sat 97% on RA gen: middle aged male squatting outside his room, walks hunched over to his bed , appears to be in severe pain card: nl S1S2 mildly tachycardic, regular lungs: CTA B/L abd: BS+, pt guarding, large bulge going into R scrotal sack, no erythema, no increased warmth. There is severe pain with palpation and attempt to reduce a presumed R inguinal hernia ext: moves all 4 symmetrically labs: pending A/P: Mr Archuleta is a 54 yo M who has a h/o bipolar disorder, HTN and hypothyroidism who I was asked to see for concerns of severe abdominal pain and is found to have a probable R inguinal hernia, possibly incarcerated. 1. R inguinal hernia: Pt with likely R inguinal hernia that is possibly incarcerated. The patient was guarding and not relaxed making an attempt to reduce the hernia very difficult. I have spoke to Dr. Flores who will be coming in to see the patient. Will place IV, obtain CBC, BMP and INR. Give morphine 4mg IV and ativan 1mg IV now to try to relax the patient and control pain so Dr. Flores can try to reduce the hernia. If it is unable to be reduced, he will need to go to the OR. Pt last ate at 1700 today. 2. HTN: BP is elevated currently and is likely secondary to pain. Continue to follow. He is on amlodipine and propranolol at baseline. 3. Hypothyroidism: Continue synthroid at current dose. 4. Bipolar disorder: Continue lithium and zyprexa. 5. Hospitalist will continue to follow
[2019-12-13 22:11] LABS: ABS Eosinophils 0.1 10^3/ul (0-0.6); ABS Lymphocytes 1.3 10^3/ul (1.0-4.8); ABS Monocytes 0.6 10^3/ul (0-0.8); ABS Neutrophils 6.1 10^3/ul (1.5-7.7); Eosinophil % 1.8 %; Hematocrit 46 % (42-52); Hemoglobin 16.4 g/dL (14.0-18.0); Lymphocyte % 15.8 %; Mean Corpuscular HGB Conc 35 g/dL (31-36); Mean Corpuscular Hemoglobin 32 pg (27-31); Mean Corpuscular Volume 91 fL (80-94); Mean Platelet Volume 7.8 fL (7.4-10.4); Nucleated Red Blood Cells % 0.1; Platelet Count 254 10^3/uL (150-450); Red Cell Distribution Width 14 % (10-15); White Blood Count 8.1 10^3/uL (3.5-10.8)
[2019-12-13 22:16] LABS: INR 0.92 (0.82-1.09)
[2019-12-13 22:26] LABS: BUN/Creatinine Ratio 23.4 (8-20); Blood Urea Nitrogen 22 mg/dL (6-24); CO2 Carbon Dioxide 28 mmol/L (22-32); Calcium 9.4 mg/dL (8.6-10.3); Chloride 101 mmol/L (101-111); EGFR African American 101.6 (>60); EGFR Non-African American 83.9 (>60); Glucose 120 mg/dL (70-100); Sodium 135 mmol/L (135-145)
[2019-12-13 22:46] LABS: Anion Gap 6 mmol/L (2-11)
[2019-12-13] MEDS ORDERED: Zolpidem TAB* 5 MG PO ONE (22:53)
--- NOTE | 2019-12-13 22:56 | PN ---
Progress Note - Progress Note Date of Service: 12/13/19 Note: Pt seen by Dr. Flores and his hernia spontaneously reduced on its own. Dr. Flores has recommended keeping the patient relaxed tonight to try to prevent the hernia sack from coming back out and he would like to take him to the OR to repair the hernia defect. NPO after midnight. Prn oxycodone and trial of ambien to help pt sleep tonight.
[2019-12-14] MEDS: Levothyroxine TAB* 50 MCG TAB PO SCH (06:00)
[2019-12-14] MEDS: Pantoprazole TAB * 40 MG TAB PO SCH ×2 (08:57→21:53)
[2019-12-14] MEDS: Lithium Carbonate TAB* 300 MG PO SCH ×2 (08:58→21:53)
[2019-12-14] MEDS: amLODIPine TAB* 5 MG PO SCH (08:58)
[2019-12-14] MEDS: Sucralfate TAB* 1 GM PO SCH ×3 (08:59→16:00)
--- NOTE | 2019-12-14 10:05 | PN ---
Subjective - Subjective Date of Service: 12/14/19 Service Type: [id number] Hosp care 35 min high complexity Subjective: Nursing Report: Patient was visible on unit, medical attention was called for abdominal pain. CC: " I am getting surgery" Patient was seen and evaluated today. The patient reported he is ready to get hernia surgery. The patient stated that he is glad he was in the hospital when he had abdominal pain. Patient reported that he is tolerating medications without side effects. Objective - General Observations Appearance: Neat Appears Stated Age: Yes Stature: WNL Posture: Slumped Eye Contact: Average Behavior/Activity: Accelerated - Interaction Observations Attitude Towards Examiner: Cooperative Stated Mood: Elevated Affect: Restricted Speech Pattern/Tone: Rambling Thought Process: Tangential Perception: WNL Thought Content: Grandiose Hallucination Type: Denies Delusion Type: Grandeur - Cognitive Function Orientation: A&O x 4 Level of Consciousness: Awake Ability to Make Reasonable Decisions: Serverely Impaired - Medication Compliance Cooperative with Inpatient Medication Regimen: Yes - Group Participation Participates in Group Activities: Partial Assessment - Assessment Merits Inpatient Hospitalization: For Immediate Safety Clinical Impression: 53 year old male with history of Bipolar disorder and features of psychosis and inability to care for himself came to the hospital with agitation was admitted to the B[facility] at [facility]. Plan - Plan Treatment Plan: Name: MONICA TARIQ Birthdate: 1965 [id number] #Q15 minute observation. # The patient requires psychiatric inpatient admission at this time to assure safety, receive treatment and work toward stabilization. # Collaboration with Director Validation Sonia Ortiz # Patient has chronic and persistent mental illness and has been unable to function in the community with the resources provided and will require longer term stabilization at a [facility]. At this time the patient is not opposed to going to the [facility]. # Bonaparte 300mg PO BID for mood stabilization. #Goals include: psychiatric stabilization Tobacco use disorder: nicotine supplement offered and declined # Bon[place]arte level <0.10 #Hospitalist team evaluated patient for medical needs. # Patient NPO for hernia surgery Tentative Discharge: State hospital referral once eligibility period is met. Sodium 135 mmol/L (135-145) 12/13/19 22:00 Potassium TNP 12/13/19 22:00 BUN 22 mg/dL (6-24) 12/13/19 22:00 Creatinine 0.94 mg/dL (0.67-1.17) 12/13/19 22:00 Hemoglobin A1c 5.7 % (4.0-5.6) H 12/13/19 07:14 Calcium 9.4 mg/dL (8.6-10.3) 12/13/19 22:00 AST 39 U/L (13-39) 12/10/19 14:42 ALT 40 U/L (7-52) 12/10/19 14:42 Triglycerides 78 mg/dL 12/13/19 07:14 Cholesterol 128 mg/dL 12/13/19 07:14 LDL Cholesterol 68 mg/dL 12/13/19 07:14 Continued Medication Management: Continue Outpt Medication Medications: Current Medications Acetaminophen (Tylenol Tab*) 650 mg PO Q4H PRN PRN Reason: for pain; or Temp >101 F Last Admin: 12/13/19 19:09 Dose: 650 mg Al Hydrox/Mg Hydrox/Simethicone (Maalox Plus*) 30 ml PO Q4H PRN PRN Reason: INDIGESTION Amlodipine Besylate (Norvasc Tab*) 10 mg PO DAILY [facility] Last Admin: 12/14/19 08:58 Dose: 10 mg Chlorpromazine HCl (Thorazine Tab*) 100 mg PO Q6H PRN PRN Reason: AGITATION Levothyroxine Sodium (Synthroid Tab*) 50 mcg PO QAM@0600 [facility] Last Admin: 12/14/19 06:00 Dose: 50 mcg Bon[place]arte Carbonate (Bonaparte Carbonate Tab*) 300 mg PO BID [facility] Last Admin: 12/14/19 08:58 Dose: Not Given Miscellaneous (Ativan Pyxis Quiroz) 1 ea N/A .ATIVAN IV QUIROZ PRN PRN Reason: PYXIS QUIROZ Olanzapine (Zyprexa Tab*) 5 mg PO BEDTIME [facility] Last Admin: 12/13/19 20:46 Dose: 5 mg Oxycodone HCl (Roxycodone Tab*) 5 mg PO Q4H PRN PRN Reason: PAIN - MODERATE Pantoprazole Sodium (Protonix Tab*) 40 mg PO BID [facility] Last Admin: 12/14/19 08:57 Dose: 40 mg Propranolol HCl (Inderal 10 Mg Tab) 10 mg PO BID [facility] Last Admin: 12/14/19 08:58 Dose: 10 mg Sucralfate (Carafate*) 1 gm PO 0700,1100,1600 [facility] Last Admin: 12/14/19 08:59 Dose: Not Given - Discharge Plan Discharge Plan: Consider Longer Term Tx
--- NOTE | 2019-12-14 11:23 | PN ---
BSU: Group Therapy Note - Service Type Service Type: [id number] Group Psychotherapy - Cognitive Behavioral Group Therapy ( CBT):Patient was attentive and participatory in CBT programming this morning, and remained in good behavioral control. Patient expressed positive insights regarding relevant treatment interventions and goals.
--- NOTE | 2019-12-14 13:28 | CONSULT ---
Consult Consult: CC: Hernia HPI: 54 yo M currently in BSU. First noticed a right inguinal bulge 3 months ago , which was not accompanied by pain and was easily reducible. 1 month ago, he noticed it was progressively enlarging and becoming more difficult to reduce, as well as experiencing pain. In recent days, he states it has been difficult to reduce and more painful. Denies fever, chills, change in appetite, diarrhea, blood in stool. States some nausea yesterday, no vomiting. Occasional constipation. He lifts weights frequently, which he attributes to the development of his condition. Surgical history: Umbilical hernia repair with mesh, ankle surgery, lymph node biopsy. Denies issues with anesthesia, bleeding, or clotting.\ Social history: Past smoker of 1 PPD for 20 years, quit 10 years ago. No alcohol use. Occasional marijuana use. PMH: Hypothyroid, GERD, HTN Meds: Levothyroxine, prilosec, amlodipine Family history: Noncontributory Allergies: NKDA ROS: 12 point review of systems negative except as otherwise stated in HPI. Vital Signs - 8 hr 12/14/19 10:03 Temperature 98.6 F Pulse Rate 91 Respiratory 16 Rate Blood Pressure 157/78 (mmHg) O2 Sat by Pulse 99 Oximetry Laboratory Last Values WBC 8.1 10^3/uL (3.5-10.8) 12/13/19 22:00 RBC 5.10 10^6 /uL (4.18-5.48) 12/13/19 22:00 Hgb 16.4 g/dL (14.0-18.0) 12/13/19 22:00 Hct 46 % (42-52) 12/13/19 22:00 MCV 91 fL (80-94) 12/13/19 22:00 MCH 32 pg (27-31) H 12/13/19 22:00 MCHC 35 g/dL (31-36) 12/13/19 22:00 RDW 14 % (10-15) 12/13/19 22:00 Plt Count 254 10^3/uL (150-450) 12/13/19 22:00 MPV 7.8 fL (7.4-10.4) 12/13/19 22:00 Neut % (Auto) 74.9 % 12/13/19 22:00 Lymph % (Auto) 15.8 % 12/13/19 22:00 Butler % (Auto) 7.0 % 12/13/19 22:00 Eos % (Auto) 1.8 % 12/13/19 22:00 Baso % (Auto) 0.5 % 12/13/19 22:00 Absolute Neuts (auto) 6.1 10^3/ul (1.5-7.7) 12/13/19 22:00 Absolute Lymphs (auto) 1.3 10^3/ul (1.0-4.8) 12/13/19 22:00 Absolute Monos (auto) 0.6 10^3/ul (0-0.8) 12/13/19 22:00 Absolute Eos (auto) 0.1 10^3/ul (0-0.6) 12/13/19 22:00 Absolute Basos (auto) 0.0 10^3/ul (0-0.2) 12/13/19 22:00 Absolute Nucleated RBC 0.0 10^3/ul 12/13/19 22:00 Nucleated RBC % 0.1 12/13/19 22:00 INR (Anticoag Therapy) 0.92 (0.82-1.09) 12/13/19 22:00 Sodium 135 mmol/L (135-145) 12/13/19 22:00 Potassium TNP 12/13/19 22:00 Chloride 101 mmol/L (101-111) 12/13/19 22:00 Carbon Dioxide 28 mmol/L (22-32) 12/13/19 22:00 Anion Gap 6 mmol/L (2-11) 12/13/19 22:00 BUN 22 mg/dL (6-24) 12/13/19 22:00 Creatinine 0.94 mg/dL (0.67-1.17) 12/13/19 22:00 Est GFR ( Amer) 101.6 (>60) 12/13/19 22:00 Est GFR (Non-Af Amer) 83.9 (>60) 12/13/19 22:00 BUN/Creatinine Ratio 23.4 (8-20) H 12/13/19 22:00 Glucose 120 mg/dL (70-100) H 12/13/19 22:00 Hemoglobin A1c 5.7 % (4.0-5.6) H 12/13/19 07:14 Calcium 9.4 mg/dL (8.6-10.3) 12/13/19 22:00 Total Bilirubin 0.30 mg/dL (0.2-1.0) 12/10/19 14:42 AST 39 U/L (13-39) 12/10/19 14:42 ALT 40 U/L (7-52) 12/10/19 14:42 Alkaline Phosphatase 58 U/L (34-104) 12/10/19 14:42 Total Protein 6.1 g/dL (6.4-8.9) L 12/10/19 14:42 Albumin 4.1 g/dL (3.2-5.2) 12/10/19 14:42 Globulin 2.0 g/dL (2-4) 12/10/19 14:42 Albumin/Globulin Ratio 2.1 (1-3) 12/10/19 14:42 Triglycerides 78 mg/dL 12/13/19 07:14 Cholesterol 128 mg/dL 12/13/19 07:14 LDL Cholesterol 68 mg/dL 12/13/19 07:14 HDL Cholesterol 44.8 mg/dL 12/13/19 07:14 Urine Color Yellow 12/11/19 11:14 Urine Appearance Clear 12/11/19 11:14 Urine pH 7.0 (5-9) 12/11/19 11:14 Ur Specific [place] 1.008 (1.010-1.030) L 12/11/19 11:14 Urine Protein Negative (Negative) 12/11/19 11:14 Urine Ketones Negative (Negative) 12/11/19 11:14 Urine Blood Negative (Negative) 12/11/19 11:14 Urine Nitrate Negative (Negative) 12/11/19 11:14 Urine Bilirubin Negative (Negative) 12/11/19 11:14 Urine Urobilinogen Negative (Negative) 12/11/19 11:14 Ur Leukocyte Esterase Negative (Negative) 12/11/19 11:14 Urine Glucose Negative (Negative) 12/11/19 11:14 Urine Ascorbic Acid * (Negative) A 12/11/19 11:14 Salicylates < 2.50 mg/dL (<30) 12/10/19 14:42 Urine Opiates Screen None detected (None Detect) 12/11/19 11:14 Acetaminophen < 15 mcg/mL 12/10/19 14:42 Ur Barbiturates Screen None detected (None Detect) 12/11/19 11:14 Ur Phencyclidine Scrn None detected (None Detect) 12/11/19 11:14 Ur Amphetamines Screen None detected (None Detect) 12/11/19 11:14 U Benzodiazepines Scrn None detected (None Detect) 12/11/19 11:14 Agency < 0.10 mmol/L (0.6-1.2) L 12/13/19 11:39 Urine Cocaine Screen None detected (None Detect) 12/11/19 11:14 U Cannabinoids Screen Presumptive positive (None Detect) A 12/11/19 11:14 Serum Alcohol < 10 mg/dL (<10) 12/10/19 14:42 PEX: General: Alert, in NAD or discomfort Integumentary: No rashes, jaundice, lesions, or petechia HEENT: Oropharynx clear. Nares patent. Heart: RRR, no MRG Lungs: CTAB, no WRR ABD: Soft, nontender and nondistended. BS present. Right inguinal bulge, soft, nonreducing, moderately tender, approx 6 cm. Extremities: Calves nontender. No edema. Distal pulses intact bilaterally. Assessment and plan: 54 yo M with right inguinal hernia. Miralax qd for constipation. NPO at midnight; will likely go to OR for hernia repair tomorrow ( 12/14/2019). Advised not to strain or overdo movement. A&P discussed with Dr. Flores.
[2019-12-14] MEDS: oxyCODONE TAB* 5 MG TAB PO PRN ×2 (15:56→21:56)
--- NOTE | 2019-12-14 17:36 | PN ---
Subjective Date of Service: 12/14/19 Interval History: Pt is being seen while eating dinner. his R groin is "a little sore", but has no problems with eating Objective Active Medications: Acetaminophen (Tylenol Tab*) 650 mg PO Q4H PRN PRN Reason: for pain; or Temp >101 F Last Admin: 12/13/19 19:09 Dose: 650 mg Al Hydrox/Mg Hydrox/Simethicone (Maalox Plus*) 30 ml PO Q4H PRN PRN Reason: INDIGESTION Amlodipine Besylate (Norvasc Tab*) 10 mg PO DAILY [facility] Last Admin: 12/14/19 08:58 Dose: 10 mg Chlorpromazine HCl (Thorazine Tab*) 100 mg PO Q6H PRN PRN Reason: AGITATION Levothyroxine Sodium (Synthroid Tab*) 50 mcg PO QAM@0600 [facility] Last Admin: 12/14/19 06:00 Dose: 50 mcg Fidelis Carbonate (Fidelis Carbonate Tab*) 300 mg PO BID [facility] Last Admin: 12/14/19 08:58 Dose: Not Given Miscellaneous (Ativan Pyxis Quiroz) 1 ea N/A .ATIVAN IV QUIROZ PRN PRN Reason: PYXIS QUIROZ Olanzapine (Zyprexa Tab*) 5 mg PO BEDTIME [facility] Last Admin: 12/13/19 20:46 Dose: 5 mg Oxycodone HCl (Roxycodone Tab*) 5 mg PO Q4H PRN PRN Reason: PAIN - MODERATE Last Admin: 12/14/19 15:56 Dose: 5 mg Pantoprazole Sodium (Protonix Tab*) 40 mg PO BID [facility] Last Admin: 12/14/19 08:57 Dose: 40 mg Polyethylene Glycol/Electrolytes (Miralax*) 17 gm PO DAILY [facility] Propranolol HCl (Inderal 10 Mg Tab) 10 mg PO BID [facility] Last Admin: 12/14/19 08:58 Dose: 10 mg Sucralfate (Carafate*) 1 gm PO 0700,1100,1600 [facility] Last Admin: 12/14/19 16:00 Dose: Not Given Vital Signs - 8 hr 12/14/19 12/14/19 10:03 15:56 Temperature 98.6 F Pulse Rate 91 Respiratory 16 16 Rate Blood Pressure 157/78 (mmHg) O2 Sat by Pulse 99 Oximetry Appearance: 54 yo M in nAD, aAOx3, limited exam as below Eyes: PERRLA Ears/Nose/Mouth/Throat: Mucous Membranes Moist Neck: NL Appearance and Movements; NL JVP Respiratory: Symmetrical Chest Expansion and Respiratory Effort, Clear to Auscultation Cardiovascular: NL Sounds; No Murmurs; No JVD Abdominal: - - mild tenderness in R groin, no rebound, no guarding, BS+ Result Diagrams: 12/13/19 22:00 12/13/19 22:00 Assess/Plan/Problems-Billing Assessment: 54 yo M with bipolar disorder, GERD, abd hernia repairs in the past had an episode of transient hernia incarceration , then it reduced spontaneously. Planed for OR tomorrow. Pt currently feels mild discomfort in the R groin, but has no problems with tolerating diet. 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 His RCRI score is 0 and he is an acceptable candidate for the planned surgery tomorrow. Will follow post op.
[2019-12-14] MEDS: OLANzapine TAB* 5 MG PO SCH (21:53)
--- NOTE | 2019-12-15 08:46 | PN ---
Subjective - Subjective Date of Service: 12/15/19 Service Type: [id number] Hosp care 35 min high complexity Subjective: Nursing Report: Patient was visible on unit, NPO and is anticipating surgery this morning CC: " Fine" Patient was seen and evaluated today. The patient reported he is ready to get hernia surgery this morning . The patient stated that he only does well with structure and when he leaves the hospital he stops his medications and becomes paranoid. Patient reported that he is tolerating medications without side effects. Objective - General Observations Appearance: Well Groomed Appears Stated Age: Yes Stature: WNL Posture: Slumped Eye Contact: Average Behavior/Activity: Accelerated - Interaction Observations Attitude Towards Examiner: Cooperative Stated Mood: Elevated Affect: Restricted Speech Pattern/Tone: Rambling Thought Process: Circumstantial Perception: WNL Thought Content: Grandiose Hallucination Type: Denies Delusion Type: Grandeur - Cognitive Function Orientation: A&O x 4 Level of Consciousness: Awake Judgment Within Normal Limits: No Ability to Make Reasonable Decisions: Serverely Impaired - Medication Compliance Cooperative with Inpatient Medication Regimen: Yes - Group Participation Participates in Group Activities: Yes Assessment - Assessment Merits Inpatient Hospitalization: For Immediate Safety Clinical Impression: 53 year old male with history of Bipolar disorder and features of psychosis and inability to care for himself came to the hospital with agitation was admitted to the [facility] at [facility]. Plan - Plan Treatment Plan: Name: MONICA TARIQ Birthdate: 1965 [id number] # Q30 minute observation with staff pass. # The patient requires psychiatric inpatient admission at this time to assure safety, receive treatment and work toward stabilization. # Collaboration with Restaurant Lead Sonia Ortiz # Patient rapidly declines without out the structure of a institution # Patient has chronic and persistent mental illness and has been unable to function in the community with the resources provided and will require longer term stabilization at a [facility]. At this time the patient is not opposed to going to the [facility]. # [place] 300mg PO BID for mood stabilization. #Goals include: psychiatric stabilization Tobacco use disorder: nicotine supplement offered and declined # [place] level <0.10 on admission #Hospitalist team evaluated patient for medical needs. # Patient NPO for hernia surgery Tentative Discharge: State hospital referral once eligibility period is met. Sodium 135 mmol/L (135-145) 12/13/19 22:00 Potassium TNP 12/13/19 22:00 BUN 22 mg/dL (6-24) 12/13/19 22:00 Creatinine 0.94 mg/dL (0.67-1.17) 12/13/19 22:00 Hemoglobin A1c 5.7 % (4.0-5.6) H 12/13/19 07:14 Calcium 9.4 mg/dL (8.6-10.3) 12/13/19 22:00 AST 39 U/L (13-39) 12/10/19 14:42 ALT 40 U/L (7-52) 12/10/19 14:42 Triglycerides 78 mg/dL 12/13/19 07:14 Cholesterol 128 mg/dL 12/13/19 07:14 LDL Cholesterol 68 mg/dL 12/13/19 07:14 Continued Medication Management: Continue Outpt Medication Medications: Current Medications Acetaminophen (Tylenol Tab*) 650 mg PO Q4H PRN PRN Reason: for pain; or Temp >101 F Last Admin: 12/13/19 19:09 Dose: 650 mg Al Hydrox/Mg Hydrox/Simethicone (Maalox Plus*) 30 ml PO Q4H PRN PRN Reason: INDIGESTION Amlodipine Besylate (Norvasc Tab*) 10 mg PO DAILY [facility] Last Admin: 12/14/19 08:58 Dose: 10 mg Chlorpromazine HCl (Thorazine Tab*) 100 mg PO Q6H PRN PRN Reason: AGITATION Levothyroxine Sodium (Synthroid Tab*) 50 mcg PO QAM@0600 [facility] Last Admin: 12/14/19 06:00 Dose: 50 mcg [place] Carbonate ([place] Carbonate Tab*) 300 mg PO BID [facility] Last Admin: 12/14/19 21:53 Dose: Not Given Miscellaneous (Ativan Pyxis Quiroz) 1 ea N/A .ATIVAN IV QUIROZ PRN PRN Reason: PYXIS QUIROZ Olanzapine (Zyprexa Tab*) 5 mg PO BEDTIME [facility] Last Admin: 12/14/19 21:53 Dose: 5 mg Oxycodone HCl (Roxycodone Tab*) 5 mg PO Q4H PRN PRN Reason: PAIN - MODERATE Last Admin: 12/14/19 21:56 Dose: 5 mg Pantoprazole Sodium (Protonix Tab*) 40 mg PO BID [facility] Last Admin: 12/14/19 21:53 Dose: 40 mg Polyethylene Glycol/Electrolytes (Miralax*) 17 gm PO DAILY [facility] Propranolol HCl (Inderal 10 Mg Tab) 10 mg PO BID [facility] Last Admin: 12/14/19 21:54 Dose: 10 mg Sucralfate (Carafate*) 1 gm PO 0700,1100,1600 [facility] Last Admin: 12/14/19 16:00 Dose: Not Given - Discharge Plan Discharge Plan: Inpatient Hospitalization
[2019-12-15] MEDS: Levothyroxine TAB* 50 MCG TAB PO SCH (09:23)
[2019-12-15] MEDS: Lithium Carbonate TAB* 300 MG PO SCH ×2 (09:24→20:24)
[2019-12-15] MEDS: amLODIPine TAB* 5 MG PO SCH (09:24)
[2019-12-15] MEDS: Sucralfate TAB* 1 GM PO SCH ×3 (09:24→17:59)
[2019-12-15] MEDS: Pantoprazole TAB * 40 MG TAB PO SCH ×2 (09:25→20:24)
[2019-12-15] MEDS: Polyethylene Glycol 3350* 17 GM PACKET PO SCH (09:25)
[2019-12-15] MEDS ORDERED: Ondansetron ODT TAB* 4 MG ONE (11:35)
[2019-12-15] MEDS ORDERED: Famotidine IV* 10 MG/ML 2 ML (20 mg) ONE (11:36)
[2019-12-15] MEDS ORDERED: Dexamethasone TAB* 4 MG ONE (11:36)
[2019-12-15] MEDS ORDERED: DiMENhydriNATE IV* 50 MG/ML VIAL IV PUSH PRN (12:45)
[2019-12-15] MEDS ORDERED: HYDROmorphone INJ1* 1 MG/ML SYRINGE IV PRN (12:45)
[2019-12-15] MEDS ORDERED: Naloxone* 0.4 MG/ML 1 ML VIAL IV PRN (12:45)
[2019-12-15] MEDS ORDERED: ceFAZolin 2 GM PREMIX in ORs 2 GM/50 ML BAG ONE (12:53)
[2019-12-15] MEDS: fentaNYL* 50 MCG/ML 2 ML VIAL (100 MCG VIAL) IV PRN ×2 (15:16→15:19)
[2019-12-15] MEDS: oxyCODONE TAB* 5 MG TAB PO PRN ×2 (17:09→21:27)
--- NOTE | 2019-12-15 17:43 | PN ---
Subjective Date of Service: 12/15/19 Interval History: Pt is seen post op. Sitting down in MHU eating chicken. Pain is controlled with pain meds. No other complaints Objective Active Medications: Acetaminophen (Tylenol Tab*) 650 mg PO Q4H PRN PRN Reason: for pain; or Temp >101 F Last Admin: 12/13/19 19:09 Dose: 650 mg Al Hydrox/Mg Hydrox/Simethicone (Maalox Plus*) 30 ml PO Q4H PRN PRN Reason: INDIGESTION Amlodipine Besylate (Norvasc Tab*) 10 mg PO DAILY [facility] Last Admin: 12/15/19 09:24 Dose: 10 mg Chlorpromazine HCl (Thorazine Tab*) 100 mg PO Q6H PRN PRN Reason: AGITATION Levothyroxine Sodium (Synthroid Tab*) 50 mcg PO QAM@0600 [facility] Last Admin: 12/15/19 09:23 Dose: 50 mcg [place] Carbonate ([place] Carbonate Tab*) 300 mg PO BID [facility] Last Admin: 12/15/19 09:24 Dose: Not Given Miscellaneous (Ativan Pyxis Quiroz) 1 ea N/A .ATIVAN IV QUIROZ PRN PRN Reason: PYXIS QUIROZ Olanzapine (Zyprexa Tab*) 5 mg PO BEDTIME [facility] Last Admin: 12/14/19 21:53 Dose: 5 mg Oxycodone HCl (Roxycodone Tab*) 5 mg PO Q4H PRN PRN Reason: PAIN - MODERATE Last Admin: 12/15/19 17:09 Dose: 5 mg Pantoprazole Sodium (Protonix Tab*) 40 mg PO BID [facility] Last Admin: 12/15/19 09:25 Dose: 40 mg Polyethylene Glycol/Electrolytes (Miralax*) 17 gm PO DAILY [facility] Last Admin: 12/15/19 09:25 Dose: Not Given Propranolol HCl (Inderal 10 Mg Tab) 10 mg PO BID [facility] Last Admin: 12/15/19 09:25 Dose: 10 mg Sucralfate (Carafate*) 1 gm PO 0700,1100,1600 [facility] Last Admin: 12/15/19 09:24 Dose: Not Given Vital Signs - 8 hr 12/15/19 12/15/19 12/15/19 14:02 14:03 14:05 Temperature 99.1 F Pulse Rate 95 94 97 Respiratory 28 Rate Blood Pressure 145/94 155/96 (mmHg) O2 Sat by Pulse 94 97 95 Oximetry 12/15/19 12/15/19 12/15/19 14:10 14:15 14:20 Temperature Pulse Rate 86 83 84 Respiratory 23 16 9 Rate Blood Pressure 149/98 150/100 155/89 (mmHg) O2 Sat by Pulse 97 95 96 Oximetry 12/15/19 12/15/19 12/15/19 14:30 14:45 15:00 Temperature Pulse Rate 77 71 74 Respiratory 20 14 15 Rate Blood Pressure 145/90 142/85 131/89 (mmHg) O2 Sat by Pulse 92 95 95 Oximetry 12/15/19 12/15/19 12/15/19 15:16 15:19 17:09 Temperature Pulse Rate Respiratory 16 16 16 Rate Blood Pressure (mmHg) O2 Sat by Pulse Oximetry Oxygen Devices in Use Now: None Appearance: 54 yo m in NAD, aAOx3 Eyes: No Scleral Icterus, PERRLA Ears/Nose/Mouth/Throat: NL Teeth, Lips, Gums, Mucous Membranes Moist Neck: NL Appearance and Movements; NL JVP, Trachea Midline Respiratory: Symmetrical Chest Expansion and Respiratory Effort, Clear to Auscultation Cardiovascular: NL Sounds; No Murmurs; No JVD, RRR, - - tachy Abdominal: - - mild prei-incision tenderness,BS+, incision sites with no dehiscence or bleeding Lymphatic: No Cervical Adenopathy Extremities: No Clubbing, Cyanosis Skin: No Nodules or Sclerosis Neurological: Alert and Oriented x 3, NL Muscle Strength and Tone Result Diagrams: 12/13/19 22:00 12/13/19 22:00 Assess/Plan/Problems-Billing Assessment: 54 yo M with bipolar disorder, GERD, abd hernia repairs in the past had an episode of transient hernia incarceration , then it reduced spontaneously. s/p robotic assisted R inguinal hernia repair on 12/15/19 - Patient Problems (1) Bipolar affective, manic, severe Comment: appears to be improving management as per psychiatry (2) HTN (hypertension) Comment: controlled cont Norvasc, propranolol (3) Inguinal hernia, right Comment: s/p robotic assist repair in 12/15/19 Pt educated about no lifting for at least 2 weeks Status and Disposition: Medicine consult. Thank you very much for allowing our service to see your patient. Will sign off for now . Please call back if needed
[2019-12-15] MEDS: OLANzapine TAB* 5 MG PO SCH (20:24)
--- NOTE | 2019-12-16 00:04 | OP ---
DATE OF OPERATION: 12/15/19 - ROOM #203 DATE OF : 67 SURGEON: Forrest Flores MD BULLET LUBRICATING MACHINE OPERATOR: ARIELLE Parra PRE-OP DIAGNOSIS: Right inguinal hernia. POST-OP DIAGNOSIS: Right inguinal hernia. OPERATIVE PROCEDURE: Repair of right inguinal hernia with mesh, robotic. INDICATIONS FOR PROCEDURE: Recently incarcerated right inguinal hernia. Risks of surgery included, but not limited to bleeding, infection, injury to intraabdominal contents, recurrence of the hernia were explained to the patient , who seemed to understand and agreed to the procedure and all questions were answered. DESCRIPTION OF PROCEDURE: The patient was taken to the operating room and placed supine. Preoperative antibiotics were given. After the successful induction of general endotracheal anesthesia, the abdomen was prepped and draped in sterile fashion. A left upper quadrant trocar was placed under direct visualization of the camera using a bladeless Optiview trocar. Pneumoperitoneum was achieved to 15 mmHg. A camera was placed in the abdomen. The abdomen was scanned. There was no obvious injury from trocar placement. 8- mm trocars were placed in the upper midline and right upper quadrant and the Optiview trocar was exchanged for a robotic trocar. He was placed in the slight Trendelenburg position. The robot was brought in and docked after mesh and suture were placed in the abdomen. The abdomen had been scanned. No obvious injuries from trocar placement were noted. The peritoneum was taken down along with a large hernia sac and a right-sided ProGrip anatomic mesh was placed along the hemipelvis covering the direct, indirect, and femoral spaces. This was an indirect hernia. The peritoneum was closed with a running 3-0 V- Loc stitch. The abdomen was scanned. No obvious injuries were noted. Pneumoperitoneum was released from the abdomen. The trocars were removed. The skin was closed with Monocryl and glue. The patient tolerated the procedure well. He was extubated and taken to Recovery in stable condition. [id number]/[facility] #: [id number] AMY
[2019-12-16] MEDS: oxyCODONE TAB* 5 MG TAB PO PRN ×4 (02:13→19:10)
[2019-12-16] MEDS: Acetaminophen TAB* 325 MG PO PRN ×2 (06:50→21:56)
[2019-12-16] MEDS: Levothyroxine TAB* 50 MCG TAB PO SCH (07:09)
[2019-12-16] MEDS: Sucralfate TAB* 1 GM PO SCH ×3 (07:09→19:11)
[2019-12-16] MEDS: Pantoprazole TAB * 40 MG TAB PO SCH ×2 (11:11→21:58)
[2019-12-16] MEDS: amLODIPine TAB* 5 MG PO SCH (11:11)
[2019-12-16] MEDS: Lithium Carbonate TAB* 300 MG PO SCH ×2 (11:38→21:57)
[2019-12-16] MEDS: Polyethylene Glycol 3350* 17 GM PACKET PO SCH (11:38)
--- NOTE | 2019-12-16 11:42 | PN ---
Progress Note - Progress Note Date of Service: 12/16/19 Note: S: Reports he is feeling well but sore. No nausea, vomiting, fever, chills. Large BM today without issue. States incisions have been without discharge, redness, and remained closed. O: Vital Signs - 8 hr 12/16/19 12/16/19 12/16/19 05:11 06:14 08:00 Temperature 98.0 F Pulse Rate 91 Respiratory 20 20 16 Rate Blood Pressure 143/84 (mmHg) O2 Sat by Pulse 98 Oximetry 12/16/19 12/16/19 08:53 11:10 Temperature Pulse Rate Respiratory 16 18 Rate Blood Pressure (mmHg) O2 Sat by Pulse Oximetry Intake and Output Last 24 Hours 12/14/19 12/15/19 12/16/19 12/17/19 06:59 06:59 06:59 06:59 Intake Total 1400 Balance 1400 Intake: IV Fluids 1400 LR 1400 PEX: General: Alert, in NAD or discomfort Integumentary: No rashes, jaundice, petechia HEENT: PERRLA, oropharynx clear Heart: RRR, no MRG Lungs: CTAB, no WRR ABD: BS present. Soft, nondistended. Mild tenderness around incisions, which are C/D/I with no erythema or warmth. Right inguinal region nontender, no hernia appreciated. Extremities: Calves nontender. Distal pulses intact bilaterally. No edema. Assessment and plan: 54 yo M S/P robotic inguinal hernia repair. He is recovering appropriately and was given instruction regarding proper activity, meds and diet, and follow up.
--- NOTE | 2019-12-16 12:05 | PN ---
BSU: Group Therapy Note - Service Type Service Type: 22823 Group Psychotherapy - Cognitive Behavioral Group Therapy ( CBT):Patient was attentive and participatory in CBT programming this morning, and remained in good behavioral control. Patient expressed positive insights regarding relevant treatment interventions and goals.
--- NOTE | 2019-12-16 16:25 | PN ---
Subjective - Subjective Date of Service: 12/16/19 Service Type: [id number] Hosp care 35 min high complexity Subjective: Nursing Report: Patient was visible on unit, no behavioral incidents. Slept overnight. CC: "I am in some pain" Patient was seen and evaluated today. The patient reported that he was sent by the secrete service to monitor people in the hospital. The patient reported being in 6-7/10 pain after getting Hernia Surgery. He is bummed out not being able to work out. The patient reports attending day groups. Per nursing no behavioral issues or overnight events reported. Patient reported that he is tolerating medications without side effects. Objective - General Observations Appearance: Neat Appears Stated Age: Yes Stature: WNL Posture: Slumped Eye Contact: Average Behavior/Activity: Accelerated - Interaction Observations Attitude Towards Examiner: Anxious Stated Mood: Elevated, Euphoric Affect: Restricted Speech Pattern/Tone: Appropriate Thought Process: Flight of Ideas Perception: Depersonalization Thought Content: Grandiose Thought Process: Lethality: Paranoid Ideation Hallucination Type: Denies Delusion Type: Grandeur - Cognitive Function Orientation: A&O x 4 Level of Consciousness: Awake Ability to Make Reasonable Decisions: Serverely Impaired - Medication Compliance Cooperative with Inpatient Medication Regimen: Yes - Group Participation Participates in Group Activities: Partial Assessment - Assessment Merits Inpatient Hospitalization: For Immediate Safety Clinical Impression: 53 year old male with history of Bipolar disorder and features of psychosis and inability to care for himself came to the hospital with agitation was admitted to the BSU at [facility]. Plan - Plan Treatment Plan: Name: MONICA TARIQ Birthdate: 1965 [id number] # Q30 minute observation with staff pass. # The patient requires psychiatric inpatient admission at this time to assure safety, receive treatment and work toward stabilization. # Collaboration with Principal Engineer Sonia Ortiz # Patient rapidly declines without out the structure of a institution # Patient has chronic and persistent mental illness and has been unable to function in the community with the resources provided and will require longer term stabilization at a [facility] Psych[facility] facility. At this time the patient is not opposed to going to the [facility] hospital. # [place] 300mg PO BID for mood stabilization. #Goals include: psychiatric stabilization Tobacco use disorder: nicotine supplement offered and declined # [place] level <0.10 on admission # Patient status post hernia surgery Tentative Discharge: State hospital referral once eligibility period is met. Sodium 135 mmol/L (135-145) 12/13/19 22:00 Potassium TNP 12/13/19 22:00 BUN 22 mg/dL (6-24) 12/13/19 22:00 Creatinine 0.94 mg/dL (0.67-1.17) 12/13/19 22:00 Hemoglobin A1c 5.7 % (4.0-5.6) H 12/13/19 07:14 Calcium 9.4 mg/dL (8.6-10.3) 12/13/19 22:00 AST 39 U/L (13-39) 12/10/19 14:42 ALT 40 U/L (7-52) 12/10/19 14:42 Triglycerides 78 mg/dL 12/13/19 07:14 Cholesterol 128 mg/dL 12/13/19 07:14 LDL Cholesterol 68 mg/dL 12/13/19 07:14 Continued Medication Management: Continue Outpt Medication Medications: Current Medications Acetaminophen (Tylenol Tab*) 650 mg PO Q4H PRN PRN Reason: for pain; or Temp >101 F Last Admin: 12/16/19 06:50 Dose: 650 mg Al Hydrox/Mg Hydrox/Simethicone (Maalox Plus*) 30 ml PO Q4H PRN PRN Reason: INDIGESTION Amlodipine Besylate (Norvasc Tab*) 10 mg PO DAILY [facility] Last Admin: 12/16/19 11:11 Dose: 10 mg Chlorpromazine HCl (Thorazine Tab*) 100 mg PO Q6H PRN PRN Reason: AGITATION Levothyroxine Sodium (Synthroid Tab*) 50 mcg PO QAM@0600 [facility] Last Admin: 12/16/19 07:09 Dose: 50 mcg [place] Carbonate ([place] Carbonate Tab*) 300 mg PO BID [facility] Last Admin: 12/16/19 11:38 Dose: Not Given Miscellaneous (Ativan Pyxis Quiroz) 1 ea N/A .ATIVAN IV QUIROZ PRN PRN Reason: PYXIS QUIROZ Olanzapine (Zyprexa Tab*) 5 mg PO BEDTIME [facility] Last Admin: 12/15/19 20:24 Dose: 5 mg Oxycodone HCl (Roxycodone Tab*) 5 mg PO Q4H PRN PRN Reason: PAIN - MODERATE Last Admin: 12/16/19 11:10 Dose: 5 mg Pantoprazole Sodium (Protonix Tab*) 40 mg PO BID [facility] Last Admin: 12/16/19 11:11 Dose: 40 mg Polyethylene Glycol/Electrolytes (Miralax*) 17 gm PO DAILY [facility] Last Admin: 12/16/19 11:38 Dose: Not Given Propranolol HCl (Inderal 10 Mg Tab) 10 mg PO BID [facility] Last Admin: 12/16/19 11:38 Dose: Not Given Sucralfate (Carafate*) 1 gm PO 0700,1100,1600 [facility] Last Admin: 12/16/19 11:15 Dose: 1 gm - Discharge Plan Discharge Plan: Inpatient Hospitalization
[2019-12-16] MEDS: OLANzapine TAB* 5 MG PO SCH (21:57)
[2019-12-17] MEDS: Levothyroxine TAB* 50 MCG TAB PO SCH (06:56)
[2019-12-17] MEDS: Sucralfate TAB* 1 GM PO SCH ×3 (06:57→17:30)
[2019-12-17] MEDS: oxyCODONE TAB* 5 MG TAB PO PRN ×2 (06:58→21:44)
[2019-12-17] MEDS: Pantoprazole TAB * 40 MG TAB PO SCH ×2 (09:19→21:44)
[2019-12-17] MEDS: Lithium Carbonate TAB* 300 MG PO SCH ×2 (09:19→21:49)
[2019-12-17] MEDS: amLODIPine TAB* 5 MG PO SCH (09:24)
[2019-12-17] MEDS: Polyethylene Glycol 3350* 17 GM PACKET PO SCH (09:26)
[2019-12-17] MEDS: OLANzapine TAB* 5 MG PO SCH (21:44)
[2019-12-18] MEDS: oxyCODONE TAB* 5 MG TAB PO PRN ×2 (02:05→06:10)
[2019-12-18] MEDS: Levothyroxine TAB* 50 MCG TAB PO SCH (05:45)
[2019-12-18] MEDS: Sucralfate TAB* 1 GM PO SCH ×3 (07:46→17:21)
[2019-12-18] MEDS: Lithium Carbonate TAB* 300 MG PO SCH ×2 (09:28→20:45)
[2019-12-18] MEDS: Pantoprazole TAB * 40 MG TAB PO SCH ×2 (09:29→20:46)
[2019-12-18] MEDS: amLODIPine TAB* 5 MG PO SCH (09:29)
[2019-12-18] MEDS: Polyethylene Glycol 3350* 17 GM PACKET PO SCH (09:29)
--- NOTE | 2019-12-18 17:14 | PN ---
Subjective - Subjective Date of Service: 12/18/19 Service Type: 39958 Hosp care 25 min moderate complexity Subjective: Monica appears to be doing fine and didn't have any complaints including pain. 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 No evidence of delusions, SI or HI. Objective - General Observations Appearance: Neat Appears Stated Age: Yes Stature: Overweight, Short Posture: WNL Eye Contact: Average Behavior/Activity: WNL - Interaction Observations Attitude Towards Examiner: Cooperative Stated Mood: Euthymic Affect: Full Speech Pattern/Tone: Clear, Appropriate, Normal Volume Thought Process: Coherent, Goal Directed Perception: WNL Thought Content: WNL Hallucination Type: Denies Delusion Type: Denies - Cognitive Function Orientation: A&O x 4 Level of Consciousness: Awake, Alert, Appropriate Estimated Intelligence: Normal Insight: WNL Judgment Within Normal Limits: Yes - Medication Compliance Cooperative with Inpatient Medication Regimen: Yes - Group Participation Participates in Group Activities: Yes Assessment - Assessment Merits Inpatient Hospitalization: Consolidate Improvements Clinical Impression: 53 year old male with history of Bipolar disorder and features of psychosis and inability to care for himself came to the hospital with agitation was admitted to the BSU at [facility]. Plan - Plan Treatment Plan: Name: MONICA TARIQ Birthdate: 1965 [id number] # Q30 minute observation with staff pass. # The patient requires psychiatric inpatient admission at this time to assure safety, receive treatment and work toward stabilization. # Collaboration with Blood Bank Specialist Sonia Ortiz # Patient rapidly declines without out the structure of a institution # Patient has chronic and persistent mental illness and has been unable to function in the community with the resources provided and will require longer term stabilization at a State Psychiatric facility. At this time the patient is not opposed to going to the [facility] hospital. # [place] 300mg PO BID for mood stabilization. #Goals include: psychiatric stabilization Tobacco use disorder: nicotine supplement offered and declined # [place] level <0.10 on admission # Patient status post hernia surgery Tentative Discharge: State hospital referral once eligibility period is met. Sodium 135 mmol/L (135-145) 12/13/19 22:00 Potassium TNP 12/13/19 22:00 BUN 22 mg/dL (6-24) 12/13/19 22:00 Creatinine 0.94 mg/dL (0.67-1.17) 12/13/19 22:00 Hemoglobin A1c 5.7 % (4.0-5.6) H 12/13/19 07:14 Calcium 9.4 mg/dL (8.6-10.3) 12/13/19 22:00 AST 39 U/L (13-39) 12/10/19 14:42 ALT 40 U/L (7-52) 12/10/19 14:42 Triglycerides 78 mg/dL 12/13/19 07:14 Cholesterol 128 mg/dL 12/13/19 07:14 LDL Cholesterol 68 mg/dL 12/13/19 07:14 Continued Medication Management: Continue Outpt Medication Medications: Current Medications Acetaminophen (Tylenol Tab*) 650 mg PO Q4H PRN PRN Reason: for pain; or Temp >101 F Last Admin: 12/16/19 21:56 Dose: 650 mg Al Hydrox/Mg Hydrox/Simethicone (Maalox Plus*) 30 ml PO Q4H PRN PRN Reason: INDIGESTION Amlodipine Besylate (Norvasc Tab*) 10 mg PO DAILY [facility] Last Admin: 12/18/19 09:29 Dose: 10 mg Chlorpromazine HCl (Thorazine Tab*) 100 mg PO Q6H PRN PRN Reason: AGITATION Levothyroxine Sodium (Synthroid Tab*) 50 mcg PO QAM@0600 [facility] Last Admin: 12/18/19 05:45 Dose: 50 mcg [place] Carbonate ([place] Carbonate Tab*) 300 mg PO BID [facility] Last Admin: 12/18/19 09:28 Dose: Not Given Miscellaneous (Ativan Pyxis Quiroz) 1 ea N/A .ATIVAN IV QUIROZ PRN PRN Reason: PYXIS QUIROZ Olanzapine (Zyprexa Tab*) 5 mg PO BEDTIME [facility] Last Admin: 12/17/19 21:44 Dose: 5 mg Oxycodone HCl (Roxycodone Tab*) 5 mg PO Q4H PRN PRN Reason: PAIN - MODERATE Last Admin: 12/18/19 06:10 Dose: 5 mg Pantoprazole Sodium (Protonix Tab*) 40 mg PO BID [facility] Last Admin: 12/18/19 09:29 Dose: 40 mg Polyethylene Glycol/Electrolytes (Miralax*) 17 gm PO DAILY [facility] Last Admin: 12/18/19 09:29 Dose: 17 gm Propranolol HCl (Inderal 10 Mg Tab) 10 mg PO BID [facility] Last Admin: 12/18/19 09:29 Dose: 10 mg Sucralfate (Carafate*) 1 gm PO 0700,1100,1600 [facility] Last Admin: 12/18/19 11:19 Dose: 1 gm - Discharge Plan Discharge Plan: Outpatient Follow Up Outpatient Program: [facility]
[2019-12-18] MEDS: OLANzapine TAB* 5 MG PO SCH (20:45)
[2019-12-19] MEDS: amLODIPine TAB* 5 MG PO SCH (08:59)
[2019-12-19] MEDS: Sucralfate TAB* 1 GM PO SCH ×3 (08:59→18:22)
[2019-12-19] MEDS: Polyethylene Glycol 3350* 17 GM PACKET PO SCH (08:59)
[2019-12-19] MEDS: Pantoprazole TAB * 40 MG TAB PO SCH ×2 (09:00→20:40)
[2019-12-19] MEDS: Levothyroxine TAB* 50 MCG TAB PO SCH (09:00)
[2019-12-19] MEDS: Lithium Carbonate TAB* 300 MG PO SCH (09:00)
--- NOTE | 2019-12-19 11:39 | PN ---
BSU: Group Therapy Note - Service Type Service Type: [id number] Group Psychotherapy - Cognitive Behavioral Group Therapy ( CBT):Patient was attentive and participatory in CBT programming this morning, and remained in good behavioral control. Patient expressed positive insights regarding relevant treatment interventions and goals.
--- NOTE | 2019-12-19 13:38 | PN ---
Subjective - Subjective Date of Service: 12/19/19 Service Type: 49958 Hosp care 35 min high complexity Subjective: Nursing Report: Patient was visible on unit, no behavioral incidents. Slept overnight. He is attending group activities. CC: "I am taking my medications" Patient was seen and evaluated today. Patient reported taking his medications despite showing record that he was refusing lithium today. 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 He reported having adequate appetite and sleep. Objective - General Observations Appearance: Neat Appears Stated Age: Yes Stature: WNL Posture: Tense Eye Contact: Intense Behavior/Activity: Peculiar, Impulsive - Interaction Observations Attitude Towards Examiner: Evasive, Mistrustful Stated Mood: Expansive Affect: Restricted Speech Pattern/Tone: Rambling Thought Process: Flight of Ideas Perception: WNL Thought Content: Grandiose Thought Process: Lethality: Paranoid Ideation Delusion Type: Grandeur - Cognitive Function Orientation: A&O x 4 Level of Consciousness: Awake Ability to Make Reasonable Decisions: Serverely Impaired - Medication Compliance Cooperative with Inpatient Medication Regimen: No - Group Participation Participates in Group Activities: Partial Assessment - Assessment Merits Inpatient Hospitalization: For Immediate Safety Clinical Impression: 53 year old male with history of Bipolar disorder and features of psychosis and inability to care for himself came to the hospital with agitation was admitted to the BSU at [facility]. Plan - Plan Treatment Plan: Name: MONICA TARIQ Birthdate: 1965 [id number] # Q30 minute observation with staff pass. # The patient requires psychiatric inpatient admission at this time to assure safety, receive treatment and work toward stabilization. # Collaboration with Sand Molder Sonia Ortiz # Patient rapidly declines without out the structure of a institution # Patient has chronic and persistent mental illness and has been unable to function in the community with the resources provided and will require longer term stabilization at a [facility] Psychiatric facility. At this time the patient is not opposed to going to the [facility] hospital. # Increase [place] 450mg PO BID for mood stabilization. #Goals include: psychiatric stabilization Tobacco use disorder: nicotine supplement offered and declined # [place] level ordered # Patient status post hernia surgery # TOO Patient refusing [place] on 12/19/19 Tentative Discharge: State hospital referral once eligibility period is met. Sodium 135 mmol/L (135-145) 12/13/19 22:00 Potassium TNP 12/13/19 22:00 BUN 22 mg/dL (6-24) 12/13/19 22:00 Creatinine 0.94 mg/dL (0.67-1.17) 12/13/19 22:00 Hemoglobin A1c 5.7 % (4.0-5.6) H 12/13/19 07:14 Calcium 9.4 mg/dL (8.6-10.3) 12/13/19 22:00 AST 39 U/L (13-39) 12/10/19 14:42 ALT 40 U/L (7-52) 12/10/19 14:42 Triglycerides 78 mg/dL 12/13/19 07:14 Cholesterol 128 mg/dL 12/13/19 07:14 LDL Cholesterol 68 mg/dL 12/13/19 07:14 Continued Medication Management: Continue Outpt Medication Medications: Current Medications Acetaminophen (Tylenol Tab*) 650 mg PO Q4H PRN PRN Reason: for pain; or Temp >101 F Last Admin: 12/16/19 21:56 Dose: 650 mg Al Hydrox/Mg Hydrox/Simethicone (Maalox Plus*) 30 ml PO Q4H PRN PRN Reason: INDIGESTION Amlodipine Besylate (Norvasc Tab*) 10 mg PO DAILY [facility] Last Admin: 12/19/19 08:59 Dose: 10 mg Chlorpromazine HCl (Thorazine Tab*) 100 mg PO Q6H PRN PRN Reason: AGITATION Levothyroxine Sodium (Synthroid Tab*) 50 mcg PO QAM@0600 [facility] Last Admin: 12/19/19 09:00 Dose: 50 mcg [place] Carbonate ([place] Carbonate Tab*) 450 mg PO BID [facility] Miscellaneous (Ativan Pyxis Quiroz) 1 ea N/A .ATIVAN IV QUIROZ PRN PRN Reason: PYXIS QUIROZ Olanzapine (Zyprexa Tab*) 5 mg PO BEDTIME [facility] Last Admin: 12/18/19 20:45 Dose: 5 mg Oxycodone HCl (Roxycodone Tab*) 5 mg PO Q4H PRN PRN Reason: PAIN - MODERATE Last Admin: 12/18/19 06:10 Dose: 5 mg Pantoprazole Sodium (Protonix Tab*) 40 mg PO BID [facility] Last Admin: 12/19/19 09:00 Dose: 40 mg Polyethylene Glycol/Electrolytes (Miralax*) 17 gm PO DAILY [facility] Last Admin: 12/19/19 08:59 Dose: 17 gm Propranolol HCl (Inderal 10 Mg Tab) 10 mg PO BID [facility] Last Admin: 12/19/19 09:00 Dose: 10 mg Sucralfate (Carafate*) 1 gm PO 0700,1100,1600 [facility] Last Admin: 12/19/19 13:31 Dose: Not Given - Discharge Plan Discharge Plan: Consider Longer Term Tx
[2019-12-19] MEDS: oxyCODONE TAB* 5 MG TAB PO PRN (18:20)
[2019-12-19] MEDS: Acetaminophen TAB* 325 MG PO PRN (19:47)
[2019-12-19] MEDS: OLANzapine TAB* 5 MG PO SCH (20:40)
[2019-12-19] MEDS: Lithium Carbonate CAP 150 MG ** CAPSULE PO SCH (21:16)
[2019-12-20 08:26] LABS: Lithium < 0.10 mmol/L (0.6-1.2)
[2019-12-20 08:37] LABS: TSH (Thyroid Stimulating Horm) 1.46 mcIU/mL (0.34-5.60)
[2019-12-20] MEDS: Polyethylene Glycol 3350* 17 GM PACKET PO SCH (08:53)
[2019-12-20] MEDS: Lithium Carbonate CAP 150 MG ** CAPSULE PO SCH ×2 (08:54→21:05)
[2019-12-20] MEDS: Pantoprazole TAB * 40 MG TAB PO SCH ×2 (08:55→21:06)
[2019-12-20] MEDS: amLODIPine TAB* 5 MG PO SCH (08:55)
[2019-12-20] MEDS: Sucralfate TAB* 1 GM PO SCH ×3 (08:56→16:09)
[2019-12-20] MEDS: Levothyroxine TAB* 50 MCG TAB PO SCH (08:57)
--- NOTE | 2019-12-20 11:13 | PN ---
BSU: Group Therapy Note - Service Type Service Type: [id number] Group Psychotherapy - Cognitive Behavioral Group Therapy ( CBT):Patient was attentive and participatory in CBT programming this morning, and remained in good behavioral control. Patient expressed positive insights regarding relevant treatment interventions and goals.
--- NOTE | 2019-12-20 14:48 | PN ---
Subjective - Subjective Date of Service: 12/20/19 Service Type: [id number] Hosp care 35 min high complexity Subjective: Nursing Report: Patient was visible on unit, no behavioral incidents. refusing to take lithium CC: "I do not want to take lithium" Patient was seen and evaluated today. Patient reported that lithium is hurting his body and he is refusing to take other medications offered . 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 He reported having adequate appetite and sleep. Objective - General Observations Appearance: Disheveled Appears Stated Age: Yes Stature: WNL Posture: Tense Eye Contact: Intermittent Behavior/Activity: Peculiar, Impulsive - Interaction Observations Attitude Towards Examiner: Defensive, Mistrustful Stated Mood: Irritable Affect: Restricted Speech Pattern/Tone: Garbled Thought Process: Loose Associations Perception: Depersonalization Thought Content: Paranoid, Grandiose Thought Process: Lethality: Paranoid Ideation Hallucination Type: Denies Delusion Type: Grandeur, Somatic - Cognitive Function Orientation: A&O x 4 Level of Consciousness: Awake Judgment Within Normal Limits: No Ability to Make Reasonable Decisions: Serverely Impaired - Medication Compliance Cooperative with Inpatient Medication Regimen: No - Group Participation Participates in Group Activities: Partial Assessment - Assessment Merits Inpatient Hospitalization: For Immediate Safety Clinical Impression: 53 year old male with history of Bipolar disorder and features of psychosis and inability to care for himself came to the hospital with agitation was admitted to the BSU at [facility]. Plan - Plan Treatment Plan: Name: MONICA TARIQ Birthdate: 1965 [id number] # Q30 minute observation with staff pass. # The patient requires psychiatric inpatient admission at this time to assure safety, receive treatment and work toward stabilization. # Collaboration with Charge Entry Sonia Ortiz # Patient rapidly declines without out the structure of a institution # Patient has chronic and persistent mental illness and has been unable to function in the community with the resources provided and will require longer term stabilization at a [facility]. At this time the patient is not opposed to going to the [facility]. # [place] 450mg PO BID for mood stabilization. #Goals include: psychiatric stabilization Tobacco use disorder: nicotine supplement offered and declined # [place] level <0.10 # TSH 1.45 reassured Thyroid levels are within normal limits # TOO Patient refusing [place] on 12/19/19, 12/20/19 Tentative Discharge: [facility] hospital referral once eligibility period is met. Sodium 135 mmol/L (135-145) 12/13/19 22:00 Potassium TNP 12/13/19 22:00 BUN 22 mg/dL (6-24) 12/13/19 22:00 Creatinine 0.94 mg/dL (0.67-1.17) 12/13/19 22:00 Hemoglobin A1c 5.7 % (4.0-5.6) H 12/13/19 07:14 Calcium 9.4 mg/dL (8.6-10.3) 12/13/19 22:00 AST 39 U/L (13-39) 12/10/19 14:42 ALT 40 U/L (7-52) 12/10/19 14:42 Triglycerides 78 mg/dL 12/13/19 07:14 Cholesterol 128 mg/dL 12/13/19 07:14 LDL Cholesterol 68 mg/dL 12/13/19 07:14 Continued Medication Management: Continue Outpt Medication Medications: Current Medications Acetaminophen (Tylenol Tab*) 650 mg PO Q4H PRN PRN Reason: for pain; or Temp >101 F Last Admin: 12/19/19 19:47 Dose: 650 mg Al Hydrox/Mg Hydrox/Simethicone (Maalox Plus*) 30 ml PO Q4H PRN PRN Reason: INDIGESTION Amlodipine Besylate (Norvasc Tab*) [address] [facility] Last Admin: 12/20/19 08:55 Dose: 10 mg Chlorpromazine HCl (Thorazine Tab*) 100 mg PO Q6H PRN PRN Reason: AGITATION Levothyroxine Sodium (Synthroid Tab*) 50 mcg PO QAM@0600 [facility] Last Admin: 12/20/19 08:57 Dose: 50 mcg [place] Carbonate ([place] Carbonate Cap) [address] [facility] Last Admin: 12/20/19 08:54 Dose: Not Given Miscellaneous (Ativan Pyxis Quiroz) 1 ea N/A .ATIVAN IV QUIROZ PRN PRN Reason: PYXIS QUIROZ Olanzapine (Zyprexa Tab*) [address] [facility] Last Admin: 12/19/19 20:40 Dose: 5 mg Oxycodone HCl (Roxycodone Tab*) 5 mg PO Q4H PRN PRN Reason: PAIN - MODERATE Last Admin: 12/19/19 18:20 Dose: 5 mg Pantoprazole Sodium (Protonix Tab*) [address] [facility] Last Admin: 12/20/19 08:55 Dose: 40 mg Polyethylene Glycol/Electrolytes (Miralax*) [address] [facility] Last Admin: 12/20/19 08:53 Dose: 17 gm Propranolol HCl (Inderal 10 Mg Tab) [address] [facility] Last Admin: 12/20/19 08:55 Dose: 10 mg Sucralfate (Carafate*) 1 gm PO 0700,1100,1600 [facility] Last Admin: 12/20/19 12:00 Dose: 1 gm - Discharge Plan Discharge Plan: Inpatient Hospitalization
[2019-12-20] MEDS: OLANzapine TAB* 5 MG PO SCH (21:05)
[2019-12-21] MEDS: Sucralfate TAB* 1 GM PO SCH ×3 (07:00→16:18)
[2019-12-21] MEDS: Levothyroxine TAB* 50 MCG TAB PO SCH (07:00)
[2019-12-21] MEDS: Acetaminophen TAB* 325 MG PO PRN (07:00)
[2019-12-21] MEDS: Pantoprazole TAB * 40 MG TAB PO SCH ×2 (10:46→20:31)
[2019-12-21] MEDS: Lithium Carbonate CAP 150 MG ** CAPSULE PO SCH ×2 (10:46→20:31)
[2019-12-21] MEDS: amLODIPine TAB* 5 MG PO SCH (10:47)
[2019-12-21] MEDS: Polyethylene Glycol 3350* 17 GM PACKET PO SCH (10:49)
--- NOTE | 2019-12-21 14:58 | PN ---
Subjective - Subjective Date of Service: 12/21/19 Service Type: 67203 Hosp care 35 min high complexity Subjective: Nursing Report: Patient was visible on unit, no behavioral incidents. Slept a few hours, Refusing medications CC: "I dont need medications" Patient was seen and evaluated in the common room. The patient was seen pacing the hallway. He continues to refuse to take medications. He reported having adequate appetite The patient reports attending and participating in day groups. Objective - General Observations Appearance: Disheveled Appears Stated Age: Yes Stature: WNL Posture: Rigid Eye Contact: Intense Behavior/Activity: Accelerated - Interaction Observations Attitude Towards Examiner: Uncooperative Stated Mood: Elevated Affect: Restricted Speech Pattern/Tone: Garbled Thought Process: Loose Associations Thought Content: Paranoid, Grandiose Thought Process: Lethality: Paranoid Ideation Hallucination Type: Denies Delusion Type: Grandeur, Somatic - Cognitive Function Orientation: A&O x 4 Level of Consciousness: Awake Judgment Within Normal Limits: No - Medication Compliance Cooperative with Inpatient Medication Regimen: No - Group Participation Participates in Group Activities: Partial Assessment - Assessment Merits Inpatient Hospitalization: For Immediate Safety Clinical Impression: 53 year old male with history of Bipolar disorder and features of psychosis and inability to care for himself came to the hospital with agitation was admitted to the BSU at [facility]. Plan - Plan Treatment Plan: Name: MONICA TARIQ Birthdate: 1965 [id number] # Q15 minute observation (court request and non adherent with medications ) # The patient requires psychiatric inpatient admission at this time to assure safety, receive treatment and work toward stabilization. # Collaboration with Head Of Drama Sonia Ortiz # Patient rapidly declines without out institutional structure # Patient has chronic and persistent mental illness and has been unable to function in the community with the resources provided and will require longer term stabilization at a [facility]. At this time the patient is not opposed to going to the [facility] hospital. # [place] 450mg PO BID for mood stabilization. #Goals include: psychiatric stabilization Tobacco use disorder: nicotine supplement offered and declined # [place] level <0.10 # TSH 1.45 reassured Thyroid levels are within normal limits # TOO Patient refusing [place] on 12/19/19, 12/20/19, 12/21/19 Tentative Discharge: [facility] hospital referral once eligibility period is met on Sodium 135 mmol/L (135-145) 12/13/19 22:00 Potassium TNP 12/13/19 22:00 BUN 22 mg/dL (6-24) 12/13/19 22:00 Creatinine 0.94 mg/dL (0.67-1.17) 12/13/19 22:00 Hemoglobin A1c 5.7 % (4.0-5.6) H 12/13/19 07:14 Calcium 9.4 mg/dL (8.6-10.3) 12/13/19 22:00 AST 39 U/L (13-39) 12/10/19 14:42 ALT 40 U/L (7-52) 12/10/19 14:42 Triglycerides 78 mg/dL 12/13/19 07:14 Cholesterol 128 mg/dL 12/13/19 07:14 LDL Cholesterol 68 mg/dL 12/13/19 07:14 Continued Medication Management: Continue Outpt Medication Medications: Current Medications Acetaminophen (Tylenol Tab*) 650 mg PO Q4H PRN PRN Reason: for pain; or Temp >101 F Last Admin: 12/21/19 07:00 Dose: 650 mg Al Hydrox/Mg Hydrox/Simethicone (Maalox Plus*) 30 ml PO Q4H PRN PRN Reason: INDIGESTION Amlodipine Besylate (Norvasc Tab*) 10 mg PO DAILY [facility] Last Admin: 12/21/19 10:47 Dose: 10 mg Chlorpromazine HCl (Thorazine Tab*) 100 mg PO Q6H PRN PRN Reason: AGITATION Levothyroxine Sodium (Synthroid Tab*) 50 mcg PO QAM@0600 [facility] Last Admin: 12/21/19 07:00 Dose: 50 mcg [place] Carbonate ([place] Carbonate Cap) 450 mg PO BID [facility] Last Admin: 12/21/19 10:46 Dose: 450 mg Miscellaneous (Ativan Pyxis Quiroz) 1 ea N/A .ATIVAN IV QUIROZ PRN PRN Reason: PYXIS QUIROZ Olanzapine (Zyprexa Tab*) 5 mg PO BEDTIME [facility] Last Admin: 12/20/19 21:05 Dose: 5 mg Oxycodone HCl (Roxycodone Tab*) 5 mg PO Q4H PRN PRN Reason: PAIN - MODERATE Last Admin: 02/03/20 18:20 Dose: 5 mg Pantoprazole Sodium (Protonix Tab*) 40 mg PO BID [facility] Last Admin: 12/21/19 10:46 Dose: 40 mg Polyethylene Glycol/Electrolytes (Miralax*) 17 gm PO DAILY [facility] Last Admin: 12/21/19 10:49 Dose: 17 gm Propranolol HCl (Inderal 10 Mg Tab) 10 mg PO BID [facility] Last Admin: 12/21/19 10:47 Dose: 10 mg Sucralfate (Carafate*) 1 gm PO 0700,1100,1600 [facility] Last Admin: 12/21/19 10:48 Dose: 1 gm - Discharge Plan Discharge Plan: Consider Longer Term Tx
[2019-12-21] MEDS: OLANzapine TAB* 5 MG PO SCH (20:30)
[2019-12-22] MEDS: Levothyroxine TAB* 50 MCG TAB PO SCH (07:25)
[2019-12-22] MEDS: Sucralfate TAB* 1 GM PO SCH ×3 (07:25→16:26)
[2019-12-22] MEDS: amLODIPine TAB* 5 MG PO SCH (09:05)
[2019-12-22] MEDS: Pantoprazole TAB * 40 MG TAB PO SCH ×2 (09:05→21:04)
[2019-12-22] MEDS: Lithium Carbonate CAP 150 MG ** CAPSULE PO SCH ×2 (09:05→21:04)
[2019-12-22] MEDS: Polyethylene Glycol 3350* 17 GM PACKET PO SCH (09:08)
--- NOTE | 2019-12-22 12:53 | PN ---
Progress Note - Progress Note Date of Service: 12/22/19 Note: HPI: Pt being seen for 1 week post op follow up after Robotic right inguinal hernia repair with mesh on 12/15/2019. Reports he is feeling well with no pain. Denies nausea, emesis, fever, chills, urinary changes. States he is able to do non-strenuous activity and movement without problem. Passing BMs without issue. Vital Signs - 8 hr 12/22/19 12/22/19 08:00 11:02 Temperature 98.0 F Pulse Rate 89 Respiratory 14 Rate Blood Pressure 150/100 (mmHg) O2 Sat by Pulse 99 Oximetry ROS: 12 point review of systems negative except as otherwise stated above. PEX: General: Alert, in NAD or discomfort. Integumentary: No rashes, jaundice, petechia. HEENT: Oropharynx clear. PERRLA. Heart: RRR, no MRG. Lungs: CTAB, no WRR ABD: BS present. Soft, nontender and nondistended. Incisions C/D/I, no erythema or warmth. Inguinal regions without bulge or tenderness. Assessment and plan: 54 yo M S/P robotic right inguinal hernia repair with mesh , healing appropriately. Discussed proper activity, diet, meds.
[2019-12-22] MEDS: OLANzapine TAB* 5 MG PO SCH (21:04)
[2019-12-23] MEDS: Sucralfate TAB* 1 GM PO SCH ×3 (07:40→22:24)
[2019-12-23] MEDS: Levothyroxine TAB* 50 MCG TAB PO SCH (07:40)
[2019-12-23] MEDS: Pantoprazole TAB * 40 MG TAB PO SCH ×2 (10:21→22:10)
[2019-12-23] MEDS: amLODIPine TAB* 5 MG PO SCH (10:22)
[2019-12-23] MEDS: Polyethylene Glycol 3350* 17 GM PACKET PO SCH (10:22)
[2019-12-23] MEDS: Lithium Carbonate CAP 150 MG ** CAPSULE PO SCH ×2 (10:22→22:14)
[2019-12-23] MEDS: OLANzapine TAB* 5 MG PO SCH (22:10)
[2019-12-24] MEDS: amLODIPine TAB* 5 MG PO SCH (10:43)
[2019-12-24] MEDS: Lithium Carbonate CAP 150 MG ** CAPSULE PO SCH ×2 (10:44→20:07)
[2019-12-24] MEDS: Pantoprazole TAB * 40 MG TAB PO SCH ×2 (10:44→20:08)
[2019-12-24] MEDS: Levothyroxine TAB* 50 MCG TAB PO SCH (10:44)
[2019-12-24] MEDS: Polyethylene Glycol 3350* 17 GM PACKET PO SCH (10:45)
[2019-12-24] MEDS: Sucralfate TAB* 1 GM PO SCH ×3 (10:46→17:44)
[2019-12-24] MEDS: chlorproMAZINE TAB* 100 MG PO PRN (15:23)
[2019-12-24] MEDS: OLANzapine TAB* 5 MG PO SCH (20:07)
[2019-12-25] MEDS: Lithium Carbonate CAP 150 MG ** CAPSULE PO SCH ×2 (09:46→20:09)
[2019-12-25] MEDS: amLODIPine TAB* 5 MG PO SCH (09:47)
[2019-12-25] MEDS: Polyethylene Glycol 3350* 17 GM PACKET PO SCH (09:47)
[2019-12-25] MEDS: Levothyroxine TAB* 50 MCG TAB PO SCH (09:47)
[2019-12-25] MEDS: Sucralfate TAB* 1 GM PO SCH ×3 (09:47→19:17)
[2019-12-25] MEDS: Pantoprazole TAB * 40 MG TAB PO SCH ×2 (09:47→20:09)
[2019-12-25] MEDS: chlorproMAZINE TAB* 100 MG PO PRN (20:08)
[2019-12-25] MEDS: OLANzapine TAB* 5 MG PO SCH (20:09)
[2019-12-26] MEDS: Levothyroxine TAB* 50 MCG TAB PO SCH (07:51)
[2019-12-26] MEDS: Sucralfate TAB* 1 GM PO SCH ×3 (07:53→16:17)
[2019-12-26] MEDS: Pantoprazole TAB * 40 MG TAB PO SCH ×2 (10:03→20:54)
[2019-12-26] MEDS: Lithium Carbonate CAP 150 MG ** CAPSULE PO SCH ×2 (10:03→20:54)
[2019-12-26] MEDS: amLODIPine TAB* 5 MG PO SCH (10:04)
[2019-12-26] MEDS: Polyethylene Glycol 3350* 17 GM PACKET PO SCH (10:04)
--- NOTE | 2019-12-26 13:38 | PN ---
Subjective - Subjective Date of Service: 12/26/19 Service Type: 21152 Hosp care 35 min high complexity Subjective: Nursing Report: Patient was visible on unit, masturbating in room, making delusional statements CC: "I am glad I have my own room" Patient was seen and evaluated today. The patient reported he does not need additional medication. He reported having adequate appetite. Per nursing patient has made delusional statements thinking that another peer is his and daughter. Patient has been seen masturbating in his room near the window. Patient reported that he is tolerating medications without side effects. Objective - General Observations Appearance: Disheveled Appears Stated Age: Yes Stature: WNL Posture: Tense Eye Contact: Intense Behavior/Activity: Peculiar - Interaction Observations Attitude Towards Examiner: Cooperative Stated Mood: Anxious Affect: Restricted Speech Pattern/Tone: Clear Thought Process: Loose Associations Perception: Depersonalization Thought Content: Grandiose Hallucination Type: Denies Delusion Type: Grandeur, Somatic - Cognitive Function Orientation: A&O x 4 Level of Consciousness: Awake Judgment Within Normal Limits: No Ability to Make Reasonable Decisions: Serverely Impaired - Medication Compliance Cooperative with Inpatient Medication Regimen: Yes - Group Participation Participates in Group Activities: Partial Assessment - Assessment Merits Inpatient Hospitalization: For Immediate Safety Clinical Impression: 53 year old male with history of Bipolar disorder and features of psychosis and inability to care for himself came to the hospital with agitation was admitted to the BSU at [facility]. Plan - Plan Treatment Plan: Name: MONICA TARIQ Birthdate: 1965 [id number] # Q15 minute observation # The patient requires psychiatric inpatient admission at this time to assure safety, receive treatment and work toward stabilization. # Collaboration with Hot Metal Car Operator Sonia Ortiz # Patient rapidly declines without out institutional structure # Patient has chronic and persistent mental illness and has been unable to function in the community with the resources provided and will require longer term stabilization at a [facility]. At this time the patient is not opposed to going to the [facility]. # [place] 450mg PO BID for mood stabilization. #Goals include: psychiatric stabilization Tobacco use disorder: nicotine supplement offered and declined # [place] level <0.10 # TSH 1.45 reassured Thyroid levels are within normal limits # Court date Thursday12/27/19 130pm # TOO Patient refused [place] on 12/19/19, 12/20/19, 12/21/19 Tentative Discharge: State hospital referral Sodium 135 mmol/L (135-145) 12/13/19 22:00 Potassium TNP 12/13/19 22:00 BUN 22 mg/dL (6-24) 12/13/19 22:00 Creatinine 0.94 mg/dL (0.67-1.17) 12/13/19 22:00 Hemoglobin A1c 5.7 % (4.0-5.6) H 12/13/19 07:14 Calcium 9.4 mg/dL (8.6-10.3) 12/13/19 22:00 AST 39 U/L (13-39) 12/10/19 14:42 ALT 40 U/L (7-52) 12/10/19 14:42 Triglycerides 78 mg/dL 12/13/19 07:14 Cholesterol 128 mg/dL 12/13/19 07:14 LDL Cholesterol 68 mg/dL 12/13/19 07:14 Continued Medication Management: Continue Outpt Medication Medications: Current Medications Acetaminophen (Tylenol Tab*) 650 mg PO Q4H PRN PRN Reason: for pain; or Temp >101 F Last Admin: 12/21/19 07:00 Dose: 650 mg Al Hydrox/Mg Hydrox/Simethicone (Maalox Plus*) 30 ml PO Q4H PRN PRN Reason: INDIGESTION Amlodipine Besylate (Norvasc Tab*) 10 mg PO DAILY [facility] Last Admin: 12/26/19 10:04 Dose: 10 mg Chlorpromazine HCl (Thorazine Tab*) 100 mg PO Q6H PRN PRN Reason: AGITATION Last Admin: 12/25/19 20:08 Dose: 100 mg Levothyroxine Sodium (Synthroid Tab*) 50 mcg PO QAM@0600 [facility] Last Admin: 12/26/19 07:51 Dose: 50 mcg [place] Carbonate ([place] Carbonate Cap) 450 mg PO BID [facility] Last Admin: 12/26/19 10:03 Dose: 450 mg Miscellaneous (Ativan Pyxis Quiroz) 1 ea N/A .ATIVAN IV QUIROZ PRN PRN Reason: PYXIS QUIROZ Olanzapine (Zyprexa Tab*) 5 mg PO BEDTIME [facility] Last Admin: 12/25/19 20:09 Dose: 5 mg Pantoprazole Sodium (Protonix Tab*) 40 mg PO BID [facility] Last Admin: 12/26/19 10:03 Dose: 40 mg Polyethylene Glycol/Electrolytes (Miralax*) 17 gm PO DAILY [facility] Last Admin: 12/26/19 10:04 Dose: 17 gm Propranolol HCl (Inderal 10 Mg Tab) 10 mg PO TID [facility] Last Admin: 12/26/19 10:03 Dose: 10 mg Sucralfate (Carafate*) 1 gm PO 0700,1100,1600 [facility] Last Admin: 12/26/19 10:06 Dose: Not Given - Discharge Plan Discharge Plan: Consider Longer Term Tx
[2019-12-26] MEDS: OLANzapine TAB* 5 MG PO SCH (20:54)
[2019-12-27] MEDS: Levothyroxine TAB* 50 MCG TAB PO SCH (07:25)
[2019-12-27] MEDS: Sucralfate TAB* 1 GM PO SCH ×3 (07:30→16:05)
[2019-12-27] MEDS: amLODIPine TAB* 5 MG PO SCH (10:55)
[2019-12-27] MEDS: Pantoprazole TAB * 40 MG TAB PO SCH ×2 (10:55→20:58)
[2019-12-27] MEDS: Lithium Carbonate CAP 150 MG ** CAPSULE PO SCH ×2 (10:56→20:56)
[2019-12-27] MEDS: Polyethylene Glycol 3350* 17 GM PACKET PO SCH (10:56)
--- NOTE | 2019-12-27 15:19 | PN ---
Subjective - Subjective Date of Service: 12/27/19 Service Type: 22109 Hosp care 35 min high complexity Subjective: Nursing Report: Patient was visible on unit, no behavioral incidents. Slept overnight. He is attending group activities. CC: "Okay: Patient was seen and evaluated today. The patient reported he will take invega medication. He reported having adequate appetite and sleep. The patient reports attending day groups. Per nursing no behavioral issues or overnight events reported. Patient reported that he is tolerating medications without side effects. Objective - General Observations Appearance: Neat Appears Stated Age: Yes Stature: WNL Posture: Slumped Eye Contact: Average Behavior/Activity: Accelerated - Interaction Observations Attitude Towards Examiner: Cooperative Stated Mood: Elevated Affect: Restricted Speech Pattern/Tone: Normal Volume Thought Process: Loose Associations Perception: Depersonalization Thought Content: Grandiose Thought Process: Lethality: Paranoid Ideation Hallucination Type: Denies Delusion Type: Grandeur - Cognitive Function Orientation: A&O x 4 Level of Consciousness: Awake - Medication Compliance Cooperative with Inpatient Medication Regimen: Yes - Group Participation Participates in Group Activities: Yes Assessment - Assessment Merits Inpatient Hospitalization: For Immediate Safety Clinical Impression: 53 year old male with history of Bipolar disorder and features of psychosis and inability to care for himself came to the hospital with agitation was admitted to the BSU at [facility]. Plan - Plan Treatment Plan: Name: MONICA TARIQ Birthdate: 1965 [id number] # Q15 minute observation # The patient requires psychiatric inpatient admission at this time to assure safety, receive treatment and work toward stabilization. # Collaboration with Tower Observer Sonia Ortiz # Patient rapidly declines without out institutional structure # Patient has chronic and persistent mental illness and has been unable to function in the community with the resources provided and will require longer term stabilization at a [facility]. # [place] 450mg PO BID for mood stabilization. #Goals include: psychiatric stabilization # Tobacco use disorder: nicotine supplement offered and declined # Reorder lithium level # Invega 3mg po daily # EKG tomorrow # Court decided to hold off on TOO Tentative Discharge: State hospital referral Sodium 135 mmol/L (135-145) 12/13/19 22:00 Potassium TNP 12/13/19 22:00 BUN 22 mg/dL (6-24) 12/13/19 22:00 Creatinine 0.94 mg/dL (0.67-1.17) 12/13/19 22:00 Hemoglobin A1c 5.7 % (4.0-5.6) H 12/13/19 07:14 Calcium 9.4 mg/dL (8.6-10.3) 12/13/19 22:00 AST 39 U/L (13-39) 12/10/19 14:42 ALT 40 U/L (7-52) 12/10/19 14:42 Triglycerides 78 mg/dL 12/13/19 07:14 Cholesterol 128 mg/dL 12/13/19 07:14 LDL Cholesterol 68 mg/dL 12/13/19 07:14 Continued Medication Management: Continue Outpt Medication Medications: Current Medications Acetaminophen (Tylenol Tab*) 650 mg PO Q4H PRN PRN Reason: for pain; or Temp >101 F Last Admin: 12/21/19 07:00 Dose: 650 mg Al Hydrox/Mg Hydrox/Simethicone (Maalox Plus*) 30 ml PO Q4H PRN PRN Reason: INDIGESTION Amlodipine Besylate (Norvasc Tab*) 10 mg PO DAILY [facility] Last Admin: 12/27/19 10:55 Dose: 10 mg Chlorpromazine HCl (Thorazine Tab*) 100 mg PO Q6H PRN PRN Reason: AGITATION Last Admin: 12/25/19 20:08 Dose: 100 mg Levothyroxine Sodium (Synthroid Tab*) 50 mcg PO QAM@0600 [facility] Last Admin: 12/27/19 07:25 Dose: 50 mcg [place] Carbonate ([place] Carbonate Cap) 450 mg PO BID [facility] Last Admin: 12/27/19 10:56 Dose: 450 mg Miscellaneous (Ativan Pyxis Quiroz) 1 ea N/A .ATIVAN IV QUIROZ PRN PRN Reason: PYXIS QUIROZ Olanzapine (Zyprexa Tab*) 5 mg PO BEDTIME [facility] Last Admin: 12/26/19 20:54 Dose: 5 mg Paliperidone (Invega Er Tab*) 3 mg PO DAILY [facility] Pantoprazole Sodium (Protonix Tab*) 40 mg PO BID [facility] Last Admin: 12/27/19 10:55 Dose: 40 mg Polyethylene Glycol/Electrolytes (Miralax*) 17 gm PO DAILY [facility] Last Admin: 12/27/19 10:56 Dose: 17 gm Propranolol HCl (Inderal 10 Mg Tab) 10 mg PO TID [facility] Last Admin: 12/27/19 10:55 Dose: 10 mg Sucralfate (Carafate*) 1 gm PO 0700,1100,1600 [facility] Last Admin: 12/27/19 10:59 Dose: Not Given - Discharge Plan Discharge Plan: Inpatient Hospitalization
[2019-12-27] MEDS: Paliperidone ER TAB* 3 MG TAB.ER PO SCH (16:04)
[2019-12-27] MEDS: OLANzapine TAB* 5 MG PO SCH (20:57)
[2019-12-28] MEDS: Sucralfate TAB* 1 GM PO SCH ×3 (07:30→14:55)
[2019-12-28] MEDS: Levothyroxine TAB* 50 MCG TAB PO SCH (07:30)
[2019-12-28] MEDS: Pantoprazole TAB * 40 MG TAB PO SCH ×2 (08:53→20:45)
[2019-12-28] MEDS: Polyethylene Glycol 3350* 17 GM PACKET PO SCH (08:53)
[2019-12-28] MEDS: Lithium Carbonate CAP 150 MG ** CAPSULE PO SCH ×2 (08:53→20:46)
[2019-12-28] MEDS: amLODIPine TAB* 5 MG PO SCH (08:53)
[2019-12-28] MEDS: Paliperidone ER TAB* 3 MG TAB.ER PO SCH (08:53)
[2019-12-28] MEDS: chlorproMAZINE TAB* 100 MG PO PRN ×2 (10:12→21:26)
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
[2019-12-28] MEDS: OLANzapine TAB* 5 MG PO SCH (20:45)
[2019-12-28] MEDS: Acetaminophen TAB* 325 MG PO PRN (20:50)
[2019-12-29] MEDS: Sucralfate TAB* 1 GM PO SCH ×3 (07:17→17:18)
[2019-12-29] MEDS: Levothyroxine TAB* 50 MCG TAB PO SCH (07:17)
[2019-12-29] MEDS: amLODIPine TAB* 5 MG PO SCH (09:28)
[2019-12-29] MEDS: Paliperidone ER TAB* 3 MG TAB.ER PO SCH (09:28)
[2019-12-29] MEDS: Pantoprazole TAB * 40 MG TAB PO SCH ×2 (09:28→20:20)
[2019-12-29] MEDS: Polyethylene Glycol 3350* 17 GM PACKET PO SCH (09:29)
[2019-12-29] MEDS: Lithium Carbonate CAP 150 MG ** CAPSULE PO SCH ×2 (09:29→20:20)
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
--- NOTE | 2019-12-29 11:46 | PN ---
BSU: Group Therapy Note - Service Type Service Type: 44131 Group Psychotherapy - Cognitive Behavioral Group Note: Chay presented with good affect and was well engaged in conversation this morning. This is in contrast with his somewhat bizarre presentation in yesterday's group. He remained in good behavioral control this morning, and engaged in discussion in a thoughtful and organized fashion.
[2019-12-29] MEDS: chlorproMAZINE TAB* 100 MG PO PRN (22:03)
[2019-12-30] MEDS: Levothyroxine TAB* 50 MCG TAB PO SCH (06:59)
[2019-12-30] MEDS: Sucralfate TAB* 1 GM PO SCH ×3 (07:00→16:56)
[2019-12-30] MEDS: Polyethylene Glycol 3350* 17 GM PACKET PO SCH (09:00)
[2019-12-30] MEDS: Pantoprazole TAB * 40 MG TAB PO SCH ×2 (09:01→21:22)
[2019-12-30] MEDS: Paliperidone ER TAB* 3 MG TAB.ER PO SCH (09:01)
[2019-12-30] MEDS: Lithium Carbonate CAP 150 MG ** CAPSULE PO SCH (09:01)
[2019-12-30] MEDS: amLODIPine TAB* 5 MG PO SCH (09:01)
--- NOTE | 2019-12-30 10:53 | PN ---
Subjective - Subjective Date of Service: 12/30/19 Service Type: 75036 Hosp care 35 min high complexity Subjective: Nursing Report: Patient was visible on unit, no behavioral incidents. He is attending group activities. CC: "I will take my medications" Patient was seen and evaluated today. The patient reported he is in agreement with medication changes. Patient only received 2 hours of sleep overnight. He reported having adequate appetite. The patient reports attending day groups. Per nursing no behavioral issues or overnight events reported. Patient reported that he is tolerating medications without side effects. Objective - General Observations Appearance: Neat Appears Stated Age: Yes Stature: WNL Posture: Slumped Eye Contact: Average Behavior/Activity: WNL - Interaction Observations Attitude Towards Examiner: Cooperative Stated Mood: Elevated Affect: Restricted Speech Pattern/Tone: Normal Volume Thought Process: Coherent Perception: Depersonalization Thought Content: Grandiose Thought Process: Lethality: Paranoid Ideation Hallucination Type: Denies Delusion Type: Denies - Cognitive Function Orientation: A&O x 4 Level of Consciousness: Awake - Medication Compliance Cooperative with Inpatient Medication Regimen: Yes - Group Participation Participates in Group Activities: Yes Assessment - Assessment Merits Inpatient Hospitalization: For Immediate Safety Clinical Impression: 53 year old male with history of Bipolar disorder and features of psychosis and inability to care for himself came to the hospital with agitation was admitted to the BSU at [facility]. Plan - Plan Treatment Plan: Name: MONICA TARIQ Birthdate: 1965 [id number] # Q30 minute observation with staff pass # Patient has 3 or more failed trials of anti psychotic monotherapy and the use of more than one anti-psychotic is required # The patient requires psychiatric inpatient admission at this time to assure safety, receive treatment and work toward stabilization. # Collaboration with Inlayer Sonia Ortiz # [facility] facility unable to accept patient at this time, # ACT referral # [place] 600mg PO BID for mood stabilization. #Goals include: psychiatric stabilization # Tobacco use disorder: nicotine supplement offered and declined # [place] level 0.29 # Zyprexa 10mg daily # Trial of invega completed without adverse effects # Invega 234mg long acting injection # EKG QTc 410 no changes noted # Court ruled to stipulate treatment over objection. Tentative Discharge: pending psychiatric stabilization Sodium 135 mmol/L (135-145) 12/13/19 22:00 Potassium TNP 12/13/19 22:00 BUN 22 mg/dL (6-24) 12/13/19 22:00 Creatinine 0.94 mg/dL (0.67-1.17) 12/13/19 22:00 Hemoglobin A1c 5.7 % (4.0-5.6) H 12/13/19 07:14 Calcium 9.4 mg/dL (8.6-10.3) 12/13/19 22:00 AST 39 U/L (13-39) 12/10/19 14:42 ALT 40 U/L (7-52) 12/10/19 14:42 Triglycerides 78 mg/dL 12/13/19 07:14 Cholesterol 128 mg/dL 12/13/19 07:14 LDL Cholesterol 68 mg/dL 12/13/19 07:14 Continued Medication Management: Continue Outpt Medication Medications: Current Medications Acetaminophen (Tylenol Tab*) 650 mg PO Q4H PRN PRN Reason: for pain; or Temp >101 F Last Admin: 12/28/19 20:50 Dose: 650 mg Al Hydrox/Mg Hydrox/Simethicone (Maalox Plus*) 30 ml PO Q4H PRN PRN Reason: INDIGESTION Amlodipine Besylate (Norvasc Tab*) 10 mg PO DAILY [facility] Last Admin: 12/30/19 09:01 Dose: 10 mg Chlorpromazine HCl (Thorazine Tab*) 100 mg PO Q6H PRN PRN Reason: AGITATION Last Admin: 12/29/19 22:03 Dose: 100 mg Levothyroxine Sodium (Synthroid Tab*) 50 mcg PO QAM@0600 [facility] Last Admin: 12/30/19 06:59 Dose: 50 mcg [place] Carbonate ([place] Carbonate Cap) 450 mg PO BID [facility] Last Admin: 12/30/19 09:01 Dose: 450 mg Miscellaneous (Ativan Pyxis Quiroz) 1 ea N/A .ATIVAN IV QUIROZ PRN PRN Reason: PYXIS QUIROZ Olanzapine (Zyprexa Tab*) 10 mg PO BEDTIME [facility] Pantoprazole Sodium (Protonix Tab*) 40 mg PO BID [facility] Last Admin: 12/30/19 09:01 Dose: 40 mg Polyethylene Glycol/Electrolytes (Miralax*) 17 gm PO DAILY [facility] Last Admin: 12/30/19 09:00 Dose: 17 gm Propranolol HCl (Inderal 10 Mg Tab) 10 mg PO TID [facility] Last Admin: 12/30/19 09:01 Dose: 10 mg Sucralfate (Carafate*) 1 gm PO 0700,1100,1600 [facility] Last Admin: 12/30/19 10:36 Dose: Not Given - Discharge Plan Discharge Plan: Consider Longer Term Tx
[2019-12-30] MEDS ORDERED: Paliperidone SUSTENNA* 234 MG/1.5 ML IM ONE (14:56)
[2019-12-30] MEDS ORDERED: QUEtiapine TAB* 100 MG PO SCH (21:00)
[2019-12-30] MEDS: Lithium Carbonate TAB* 300 MG PO SCH (21:21)
[2019-12-30] MEDS: OLANzapine TAB* 10 MG PO SCH (21:22)
[2019-12-31] MEDS: Levothyroxine TAB* 50 MCG TAB PO SCH (07:15)
[2019-12-31] MEDS: Sucralfate TAB* 1 GM PO SCH ×3 (07:15→15:59)
[2019-12-31] MEDS: Lithium Carbonate TAB* 300 MG PO SCH ×2 (08:42→20:57)
[2019-12-31] MEDS: Pantoprazole TAB * 40 MG TAB PO SCH ×2 (08:42→20:58)
[2019-12-31] MEDS: amLODIPine TAB* 5 MG PO SCH (08:42)
[2019-12-31] MEDS: Polyethylene Glycol 3350* 17 GM PACKET PO SCH (08:43)
[2019-12-31] MEDS: OLANzapine TAB* 10 MG PO SCH (20:57)
[2020-01-01] MEDS: Levothyroxine TAB* 50 MCG TAB PO SCH (07:34)
[2020-01-01] MEDS: Sucralfate TAB* 1 GM PO SCH ×3 (07:34→15:49)
[2020-01-01] MEDS: Polyethylene Glycol 3350* 17 GM PACKET PO SCH (09:06)
[2020-01-01] MEDS: amLODIPine TAB* 5 MG PO SCH (09:06)
[2020-01-01] MEDS: Pantoprazole TAB * 40 MG TAB PO SCH ×2 (09:06→20:34)
[2020-01-01] MEDS: Lithium Carbonate TAB* 300 MG PO SCH ×2 (09:07→20:34)
[2020-01-01] MEDS: OLANzapine TAB* 10 MG PO SCH (20:33)
[2020-01-01] MEDS: Acetaminophen TAB* 325 MG PO PRN (23:00)
[2020-01-02] MEDS: Levothyroxine TAB* 50 MCG TAB PO SCH (06:41)
[2020-01-02] MEDS: Sucralfate TAB* 1 GM PO SCH ×4 (07:32→17:02)
[2020-01-02] MEDS: Lithium Carbonate TAB* 300 MG PO SCH ×2 (09:13→20:43)
[2020-01-02] MEDS: amLODIPine TAB* 5 MG PO SCH (09:13)
[2020-01-02] MEDS: Pantoprazole TAB * 40 MG TAB PO SCH ×2 (09:14→20:44)
[2020-01-02] MEDS: Polyethylene Glycol 3350* 17 GM PACKET PO SCH (09:14)
[2020-01-02] MEDS: OLANzapine TAB* 10 MG PO SCH (20:44)
[2020-01-03] MEDS: Levothyroxine TAB* 50 MCG TAB PO SCH (07:20)
[2020-01-03] MEDS: Sucralfate TAB* 1 GM PO SCH ×3 (07:21→19:18)
[2020-01-03] MEDS: amLODIPine TAB* 5 MG PO SCH (09:17)
[2020-01-03] MEDS: Polyethylene Glycol 3350* 17 GM PACKET PO SCH (09:18)
[2020-01-03] MEDS: Pantoprazole TAB * 40 MG TAB PO SCH ×2 (09:19→20:58)
[2020-01-03] MEDS: Lithium Carbonate TAB* 300 MG PO SCH ×2 (09:19→20:58)
[2020-01-03] MEDS: OLANzapine TAB* 10 MG PO SCH (20:58)
[2020-01-04] MEDS: chlorproMAZINE TAB* 100 MG PO PRN (02:29)
[2020-01-04] MEDS: Levothyroxine TAB* 50 MCG TAB PO SCH (07:14)
[2020-01-04] MEDS: Sucralfate TAB* 1 GM PO SCH ×3 (07:15→16:00)
[2020-01-04] MEDS ORDERED: Paliperidone SUSTENNA* 156 MG/1 ML IM ONE (09:00)
[2020-01-04] MEDS: Pantoprazole TAB * 40 MG TAB PO SCH ×2 (09:25→21:17)
[2020-01-04] MEDS: Acetaminophen TAB* 325 MG PO PRN ×2 (09:25→21:19)
[2020-01-04] MEDS: amLODIPine TAB* 5 MG PO SCH (09:26)
[2020-01-04] MEDS: Lithium Carbonate TAB* 300 MG PO SCH ×2 (09:26→21:17)
[2020-01-04] MEDS: Polyethylene Glycol 3350* 17 GM PACKET PO SCH (09:27)
--- NOTE | 2020-01-04 12:33 | PN ---
Subjective - Subjective Date of Service: 01/04/20 Service Type: [id number] Hosp care 35 min high complexity Subjective: Nursing Report: Patient was visible on unit, no behavioral incidents. Slept overnight. He is attending group activities. CC: "Better" Patient was seen and evaluated today. The patient reported that he is no longer delusional and looks forward to being discharged. He reported having adequate appetite and sleep. The patient reports attending day groups. Per nursing no behavioral issues or overnight events reported. Patient reported that he is tolerating medications without side effects. Objective - General Observations Appearance: Neat Appears Stated Age: Yes Stature: WNL Posture: WNL Eye Contact: Average Behavior/Activity: WNL - Interaction Observations Attitude Towards Examiner: Cooperative Stated Mood: Euthymic Affect: Restricted Speech Pattern/Tone: Appropriate Thought Process: Coherent Perception: WNL Thought Content: WNL Hallucination Type: None Delusion Type: None - Cognitive Function Orientation: A&O x 4 - Medication Compliance Cooperative with Inpatient Medication Regimen: Yes - Group Participation Participates in Group Activities: Yes Assessment - Assessment Merits Inpatient Hospitalization: For Immediate Safety Clinical Impression: 53 year old male with history of Bipolar disorder and features of psychosis and inability to care for himself came to the hospital with agitation was admitted to the BSU at [facility]. Plan - Plan Treatment Plan: Name: MONICA TARIQ Birthdate: 1965 [id number] # Q30 minute observation with staff pass # Patient has 3 or more failed trials of anti psychotic monotherapy and the use of more than one anti-psychotic is required # The patient requires psychiatric inpatient admission at this time to assure safety, receive treatment and work toward stabilization. # Collaboration with Box Office Manager Sonia Ortiz # [facility] facility unable to accept patient at this time # [place] 600mg PO BID for mood stabilization. #Goals include: psychiatric stabilization # Tobacco use disorder: nicotine supplement offered and declined # [place] level 0.37 # Zyprexa 10mg qhs # Trial of invega completed without adverse effects # Invega 234mg long acting injection given on 12/31/2019 and received 156mg on without complications next due on 02/01/2020 # EKG QTc 410 no changes noted # Court ruled to stipulate treatment over objection. # Family [facility] Program Tentative Discharge: Thursday Sodium 135 mmol/L (135-145) 12/13/19 22:00 Potassium TNP 12/13/19 22:00 BUN 22 mg/dL (6-24) 12/13/19 22:00 Creatinine 0.94 mg/dL (0.67-1.17) 12/13/19 22:00 Hemoglobin A1c 5.7 % (4.0-5.6) H 12/13/19 07:14 Calcium 9.4 mg/dL (8.6-10.3) 12/13/19 22:00 AST 39 U/L (13-39) 12/10/19 14:42 ALT 40 U/L (7-52) 12/10/19 14:42 Triglycerides 78 mg/dL 12/13/19 07:14 Cholesterol 128 mg/dL 12/13/19 07:14 LDL Cholesterol 68 mg/dL 12/13/19 07:14 01/03/20 07:40 Haines 0.37 L Continued Medication Management: Continue Outpt Medication Medications: Current Medications Acetaminophen (Tylenol Tab*) 650 mg PO Q4H PRN PRN Reason: for pain; or Temp >101 F Last Admin: 01/04/20 09:25 Dose: 650 mg Al Hydrox/Mg Hydrox/Simethicone (Maalox Plus*) 30 ml PO Q4H PRN PRN Reason: INDIGESTION Amlodipine Besylate (Norvasc Tab*) 10 mg PO DAILY [facility] Last Admin: 01/04/20 09:26 Dose: 10 mg Chlorpromazine HCl (Thorazine Tab*) 100 mg PO Q6H PRN PRN Reason: AGITATION Last Admin: 01/04/20 02:29 Dose: 100 mg Levothyroxine Sodium (Synthroid Tab*) 50 mcg PO QAM@0600 [facility] Last Admin: 01/04/20 07:14 Dose: 50 mcg [place] Carbonate ([place]aines Carbonate Tab*) 600 mg PO BID [facility] Last Admin: 01/04/20 09:26 Dose: 600 mg Miscellaneous (Ativan Pyxis Quiroz) 1 ea N/A .ATIVAN IV QUIROZ PRN PRN Reason: PYXIS QUIROZ Olanzapine (Zyprexa Tab*) 10 mg PO BEDTIME [facility] Last Admin: 01/03/20 20:58 Dose: 10 mg Pantoprazole Sodium (Protonix Tab*) 40 mg PO BID [facility] Last Admin: 01/04/20 09:25 Dose: 40 mg Polyethylene Glycol/Electrolytes (Miralax*) 17 gm PO DAILY [facility] Last Admin: 01/04/20 09:27 Dose: 17 gm Propranolol HCl (Inderal 10 Mg Tab) 10 mg PO TID [facility] Last Admin: 01/04/20 09:25 Dose: 10 mg Sucralfate (Carafate*) 1 gm PO 0700,1100,1600 [facility] Last Admin: 01/04/20 07:15 Dose: Not Given - Discharge Plan Discharge Plan: Inpatient Hospitalization
[2020-01-04] MEDS: OLANzapine TAB* 10 MG PO SCH (21:17)
[2020-01-05] MEDS: Levothyroxine TAB* 50 MCG TAB PO SCH (07:30)
[2020-01-05] MEDS: Polyethylene Glycol 3350* 17 GM PACKET PO SCH (09:50)
[2020-01-05] MEDS: Lithium Carbonate TAB* 300 MG PO SCH ×2 (09:51→20:38)
[2020-01-05] MEDS: Pantoprazole TAB * 40 MG TAB PO SCH ×2 (09:51→20:38)
[2020-01-05] MEDS: amLODIPine TAB* 5 MG PO SCH (09:51)
[2020-01-05] MEDS: Sucralfate TAB* 1 GM PO SCH ×3 (09:52→16:27)
--- NOTE | 2020-01-05 12:35 | PN ---
Subjective - Subjective Date of Service: 01/05/20 Service Type: 88192 Hosp care 35 min high complexity Subjective: Nursing Report: Patient was visible on unit, no behavioral incidents. CC: "I am fine" Patient was seen and evaluated today. The patient reported he feels safe on the unit and provided the number for his landlord to verify his discharge disposition. He reported having adequate appetite. The patient reports attending day groups. Per nursing no behavioral issues or overnight events reported. Patient reported that he is tolerating medications without side effects. Objective - General Observations Appearance: Neat Appears Stated Age: Yes Stature: WNL Posture: WNL Eye Contact: Average Behavior/Activity: WNL - Interaction Observations Attitude Towards Examiner: Cooperative Stated Mood: Euthymic Affect: Restricted Speech Pattern/Tone: Clear Thought Process: Coherent Perception: WNL Thought Content: WNL Hallucination Type: None Delusion Type: None - Cognitive Function Orientation: A&O x 4 Level of Consciousness: Awake - Medication Compliance Cooperative with Inpatient Medication Regimen: Yes - Group Participation Participates in Group Activities: Yes Assessment - Assessment Merits Inpatient Hospitalization: For Immediate Safety Clinical Impression: 53 year old male with history of Bipolar disorder and features of psychosis and inability to care for himself came to the hospital with agitation was admitted to the B[facility] at [facility]. Plan - Plan Treatment Plan: Name: MONICA TARIQ Birthdate: 1965 [id number] # Q30 minute observation with staff pass # Patient has 3 or more failed trials of anti psychotic monotherapy and the use of more than one anti-psychotic is required # The patient requires psychiatric inpatient admission at this time to assure safety, receive treatment and work toward stabilization. # Collaboration with Fender Mechanic Sonia Ortiz # [facility] facility unable to accept patient at this time # [place] 600mg PO BID for mood stabilization. #Goals include: psychiatric stabilization # Tobacco use disorder: nicotine supplement offered and declined # [place] level 0.37 # Zyprexa 10mg qhs # Trial of invega completed without adverse effects # Invega 234mg long acting injection given on 12/31/2019 and received 156mg on without complications next due on 02/01/2020 # EKG QTc 410 no changes noted # To confirm discharge disposition # Patient did not meet criteria for state hospitalization # Court ruled to stipulate treatment over objection. # Family Care Program Tentative Discharge: Thursday Sodium 135 mmol/L (135-145) 12/13/19 22:00 Potassium TNP 12/13/19 22:00 BUN 22 mg/dL (6-24) 12/13/19 22:00 Creatinine 0.94 mg/dL (0.67-1.17) 12/13/19 22:00 Hemoglobin A1c 5.7 % (4.0-5.6) H 12/13/19 07:14 Calcium 9.4 mg/dL (8.6-10.3) 12/13/19 22:00 AST 39 U/L (13-39) 12/10/19 14:42 ALT 40 U/L (7-52) 12/10/19 14:42 Triglycerides 78 mg/dL 12/13/19 07:14 Cholesterol 128 mg/dL 12/13/19 07:14 LDL Cholesterol 68 mg/dL 12/13/19 07:14 01/03/20 07:40 [place] 0.37 L Continued Medication Management: Continue Outpt Medication Medications: Current Medications Acetaminophen (Tylenol Tab*) 650 mg PO Q4H PRN PRN Reason: for pain; or Temp >101 F Last Admin: 01/04/20 21:19 Dose: 650 mg Al Hydrox/Mg Hydrox/Simethicone (Maalox Plus*) 30 ml PO Q4H PRN PRN Reason: INDIGESTION Amlodipine Besylate (Norvasc Tab*) 10 mg PO DAILY [facility] Last Admin: 01/05/20 09:51 Dose: 10 mg Chlorpromazine HCl (Thorazine Tab*) 100 mg PO Q6H PRN PRN Reason: AGITATION Last Admin: 01/04/20 02:29 Dose: 100 mg Levothyroxine Sodium (Synthroid Tab*) 50 mcg PO QAM@0600 [facility] Last Admin: 01/05/20 07:30 Dose: 50 mcg [place] Carbonate ([place] Carbonate Tab*) 600 mg PO BID [facility] Last Admin: 01/05/20 09:51 Dose: 600 mg Miscellaneous (Ativan Pyxis Quiroz) 1 ea N/A .ATIVAN IV QUIROZ PRN PRN Reason: PYXIS QUIROZ Olanzapine (Zyprexa Tab*) 10 mg PO BEDTIME [facility] Last Admin: 01/04/20 21:17 Dose: 10 mg Pantoprazole Sodium (Protonix Tab*) 40 mg PO BID [facility] Last Admin: 01/05/20 09:51 Dose: 40 mg Polyethylene Glycol/Electrolytes (Miralax*) 17 gm PO DAILY [facility] Last Admin: 01/05/20 09:50 Dose: 17 gm Propranolol HCl (Inderal 10 Mg Tab) 10 mg PO TID [facility] Last Admin: 01/05/20 09:51 Dose: 10 mg Sucralfate (Carafate*) 1 gm PO 0700,1100,1600 [facility] Last Admin: 01/05/20 09:53 Dose: Not Given - Discharge Plan Discharge Plan: Inpatient Hospitalization
[2020-01-05] MEDS: OLANzapine TAB* 10 MG PO SCH (20:37)
[2020-01-06] MEDS: Levothyroxine TAB* 50 MCG TAB PO SCH (07:33)
[2020-01-06] MEDS: Sucralfate TAB* 1 GM PO SCH ×3 (07:34→15:28)
[2020-01-06] MEDS: Lithium Carbonate TAB* 300 MG PO SCH ×2 (09:17→21:23)
[2020-01-06] MEDS: Pantoprazole TAB * 40 MG TAB PO SCH ×2 (09:17→21:24)
[2020-01-06] MEDS: amLODIPine TAB* 5 MG PO SCH (09:18)
[2020-01-06] MEDS: Polyethylene Glycol 3350* 17 GM PACKET PO SCH (09:19)
--- NOTE | 2020-01-06 11:04 | PN ---
Subjective - Subjective Date of Service: 01/06/20 Service Type: 05122 Hosp care 35 min high complexity Subjective: Nursing Report: Patient was visible on unit, no behavioral incidents. He is attending some group activities. CC: "I am fine" Patient was seen and evaluated today. The patient reported he feels safe on the unit and is interacting with peers. The patient was observed eating before encounter. He reported having adequate appetite and slept for 3 hours. The patient reports attending some day groups. Per nursing no behavioral issues or overnight events reported. Patient reported that he is tolerating medications without side effects. Objective - General Observations Appearance: Neat Appears Stated Age: Yes Stature: WNL Posture: WNL Eye Contact: Average Behavior/Activity: Accelerated - Interaction Observations Attitude Towards Examiner: Cooperative Stated Mood: Euthymic Affect: Full Speech Pattern/Tone: Appropriate, Normal Volume Thought Process: Coherent Perception: WNL Thought Content: WNL Hallucination Type: None Delusion Type: None - Cognitive Function Orientation: A&O x 4 Level of Consciousness: Awake - Medication Compliance Cooperative with Inpatient Medication Regimen: Yes - Group Participation Participates in Group Activities: Partial Assessment - Assessment Merits Inpatient Hospitalization: For Immediate Safety Clinical Impression: 53 year old male with history of Bipolar disorder and features of psychosis and inability to care for himself came to the hospital with agitation was admitted to the [facility] at [facility]. Plan - Plan Treatment Plan: Name: MONICA TARIQ Birthdate: 1965 [id number] # Q30 minute observation with staff pass # Patient has 3 or more failed trials of anti psychotic monotherapy and the use of more than one anti-psychotic is required # The patient requires psychiatric inpatient admission at this time to assure safety, receive treatment and work toward stabilization. # Collaboration with Grounds Caretaker Sonia Ortiz # [facility] facility unable to accept patient at this time # Forgan 600mg PO BID for mood stabilization. #Goals include: psychiatric stabilization # Tobacco use disorder: nicotine supplement offered and declined # Forgan level 0.37 # Zyprexa 10mg qhs # Trial of invega completed without adverse effects # Invega 234mg long acting injection given on 12/31/2019 and received 156mg on without complications next due on 02/01/2020 # EKG QTc 410 no changes noted # Confirmed discharge disposition to his home # ACT team referral w # Patient did not meet criteria for state hospitalization # Court ruled to stipulate treatment over objection. # [facility] Tentative Discharge: Thursday Sodium 135 mmol/L (135-145) 12/13/19 22:00 Potassium TNP 12/13/19 22:00 BUN 22 mg/dL (6-24) 12/13/19 22:00 Creatinine 0.94 mg/dL (0.67-1.17) 12/13/19 22:00 Hemoglobin A1c 5.7 % (4.0-5.6) H 12/13/19 07:14 Calcium 9.4 mg/dL (8.6-10.3) 12/13/19 22:00 AST 39 U/L (13-39) 12/10/19 14:42 ALT 40 U/L (7-52) 12/10/19 14:42 Triglycerides 78 mg/dL 12/13/19 07:14 Cholesterol 128 mg/dL 12/13/19 07:14 LDL Cholesterol 68 mg/dL 12/13/19 07:14 01/03/20 07:40 Forgan 0.37 L Continued Medication Management: Continue Outpt Medication Medications: Current Medications Acetaminophen (Tylenol Tab*) 650 mg PO Q4H PRN PRN Reason: for pain; or Temp >101 F Last Admin: 01/04/20 21:19 Dose: 650 mg Al Hydrox/Mg Hydrox/Simethicone (Maalox Plus*) 30 ml PO Q4H PRN PRN Reason: INDIGESTION Amlodipine Besylate (Norvasc Tab*) 10 mg PO DAILY [facility] Last Admin: 01/06/20 09:18 Dose: 10 mg Chlorpromazine HCl (Thorazine Tab*) 100 mg PO Q6H PRN PRN Reason: AGITATION Last Admin: 01/04/20 02:29 Dose: 100 mg Levothyroxine Sodium (Synthroid Tab*) 50 mcg PO QAM@0600 [facility] Last Admin: 01/06/20 07:33 Dose: 50 mcg Forgan Carbonate (Forgan Carbonate Tab*) 600 mg PO BID [facility] Last Admin: 01/06/20 09:17 Dose: 600 mg Miscellaneous (Ativan Pyxis Quiroz) 1 ea N/A .ATIVAN IV QUIROZ PRN PRN Reason: PYXIS QUIROZ Olanzapine (Zyprexa Tab*) 10 mg PO BEDTIME [facility] Last Admin: 01/05/20 20:37 Dose: 10 mg Pantoprazole Sodium (Protonix Tab*) 40 mg PO BID [facility] Last Admin: 01/06/20 09:17 Dose: 40 mg Polyethylene Glycol/Electrolytes (Miralax*) 17 gm PO DAILY [facility] Last Admin: 01/06/20 09:19 Dose: 17 gm Propranolol HCl (Inderal 10 Mg Tab) 10 mg PO TID [facility] Last Admin: 01/06/20 09:17 Dose: 10 mg Sucralfate (Carafate*) 1 gm PO 0700,1100,1600 [facility] Last Admin: 01/06/20 09:19 Dose: Not Given - Discharge Plan Discharge Plan: Inpatient Hospitalization [facility]
--- NOTE | 2020-01-06 11:25 | PN ---
BSU: Group Therapy Note - Service Type Service Type: 64154 Group Psychotherapy - Cognitive Behavioral Group Therapy ( CBT):Patient was attentive and participatory in CBT programming this morning, and remained in good behavioral control. Patient expressed positive insights regarding relevant treatment interventions and goals.
[2020-01-06] MEDS: OLANzapine TAB* 10 MG PO SCH (21:24)
[2020-01-07] MEDS: Levothyroxine TAB* 50 MCG TAB PO SCH (06:23)
[2020-01-07] MEDS: Sucralfate TAB* 1 GM PO SCH ×3 (07:59→14:37)
[2020-01-07] MEDS: Lithium Carbonate TAB* 300 MG PO SCH ×2 (08:30→20:26)
[2020-01-07] MEDS: Polyethylene Glycol 3350* 17 GM PACKET PO SCH (08:30)
[2020-01-07] MEDS: Pantoprazole TAB * 40 MG TAB PO SCH ×2 (08:30→20:26)
[2020-01-07] MEDS: amLODIPine TAB* 5 MG PO SCH (08:31)
[2020-01-07] MEDS: OLANzapine TAB* 10 MG PO SCH (20:26)
[2020-01-08] MEDS: Levothyroxine TAB* 50 MCG TAB PO SCH (07:35)
[2020-01-08] MEDS: Sucralfate TAB* 1 GM PO SCH ×3 (07:35→16:07)
[2020-01-08] MEDS: Polyethylene Glycol 3350* 17 GM PACKET PO SCH (08:52)
[2020-01-08] MEDS: amLODIPine TAB* 5 MG PO SCH (08:53)
[2020-01-08] MEDS: Lithium Carbonate TAB* 300 MG PO SCH ×2 (08:53→20:57)
[2020-01-08] MEDS: Pantoprazole TAB * 40 MG TAB PO SCH ×2 (08:54→20:55)
[2020-01-08] MEDS: OLANzapine TAB* 10 MG PO SCH (20:56)
[2020-01-09] MEDS: Levothyroxine TAB* 50 MCG TAB PO SCH (07:44)
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
[2020-01-09 09:00] VITALS: BP 143/103
[2020-01-09] MEDS: Sucralfate TAB* 1 GM PO SCH ×2 (09:01→11:23)
[2020-01-09] MEDS: amLODIPine TAB* 5 MG PO SCH (09:01)
[2020-01-09] MEDS: Lithium Carbonate TAB* 300 MG PO SCH (09:01)
[2020-01-09] MEDS: Pantoprazole TAB * 40 MG TAB PO SCH (09:01)
[2020-01-09] MEDS: Polyethylene Glycol 3350* 17 GM PACKET PO SCH (09:02)
--- NOTE | 2020-01-09 11:25 | PN ---
BSU: Group Therapy Note - Service Type Service Type: 67502 Group Psychotherapy - Cognitive Behavioral Group Therapy ( CBT):Patient was attentive and participatory in CBT programming this morning, and remained in good behavioral control. Patient expressed positive insights regarding relevant treatment interventions and goals.
== END 2020-01-09 12:20 | disposition home or self-care (01) | DRG 876 ==
LOC: ED 12:22 → BSU 12-12 15:52 → AA 12-15 10:23 → BSU 12-15 16:49
PROVIDERS: ADMIT Surgery; ATTEND Psychiatry & Neurology Psychiatry
PROC: GZHZZZZ Group Psychotherapy (ICD-10-PCS; 2019-12-14)
PROC: 8E0W4CZ Robotic Assisted Procedure of Trunk Region, Percutaneous Endoscopic Approach (ICD-10-PCS; 2019-12-15)
PROC: 0YU54JZ Supplement Right Inguinal Region with Synthetic Substitute, Percutaneous Endoscopic Approach (ICD-10-PCS; principal; 2019-12-15 14:00)
DX: F31.13 Bipolar disorder, current episode manic without psychotic features, severe (principal); K40.30 Unilateral inguinal hernia, with obstruction, without gangrene, not specified as recurrent; E03.9 Hypothyroidism, unspecified; I10 Essential (primary) hypertension; M19.011 Primary osteoarthritis, right shoulder; F41.9 Anxiety disorder, unspecified; F43.10 Post-traumatic stress disorder, unspecified; F17.210 Nicotine dependence, cigarettes, uncomplicated; K21.9 Gastro-esophageal reflux disease without esophagitis; F12.90 Cannabis use, unspecified, uncomplicated; K59.00 Constipation, unspecified; Z56.0 Unemployment, unspecified; Z91.5 Personal history of self-harm; Z79.890 Hormone replacement therapy; Z79.899 Other long term (current) drug therapy
CPT/HCPCS: 36415; 80048; 80053; 80061; 80178; 80307; 80320; 80329; 81003; 83036; 84443; 85025; 85610; 90853; 93005; 99222; 99232; 99233; 99238; 99283; A9270-GY; C1781; G0480; J0690; J2060; J2270; J2405; J8540

== ENCOUNTER 2020-03-19 11:14 | Inpatient (IN) ==
[2020-03-19 12:43] LABS: Urine Appearance Clear; Urine Bilirubin Negative (Negative); Urine Blood Negative (Negative); Urine Color Yellow; Urine Glucose Negative (Negative); Urine Ketones Negative (Negative); Urine Nitrite Negative (Negative); Urine Protein Negative (Negative); Urine Specific Gravity 1.006 (1.010-1.030); Urine Urobilinogen Negative (Negative)
[2020-03-19 12:49] LABS: Urine Bacteria Absent (Absent); Urine Red Blood Cell Trace(0-2/hpf) (Absent); Urine White Blood Cell 2+(11-20/hpf) (Absent)
[2020-03-19 12:58] LABS: ABS Lymphocytes 0.9 10^3/ul (1.0-4.8); ABS Monocytes 0.5 10^3/ul (0-0.8); Eosinophil % 0.4 %; Hematocrit 46 % (42-52); Lymphocyte % 13.8 %; Mean Corpuscular HGB Conc 35 g/dL (31-36); Mean Corpuscular Hemoglobin 31 pg (27-31); Mean Corpuscular Volume 89 fL (80-94); Mean Platelet Volume 7.7 fL (7.4-10.4); Platelet Count 212 10^3/uL (150-450); Red Blood Count 5.19 10^6 /uL (4.18-5.48); Red Cell Distribution Width 14 % (10-15); White Blood Count 6.6 10^3/uL (3.5-10.8)
[2020-03-19 13:05] LABS: Urine Benzodiazepine Screen None Detected (None Detect); Urine Opiates Screen None Detected (None Detect)
[2020-03-19 13:16] LABS: ALT 15 U/L (7-52); AST 14 U/L (13-39); Albumin 4.2 g/dL (3.2-5.2); Albumin/Globulin Ratio 1.6 (1-3); Alkaline Phosphatase 59 U/L (34-104); Anion Gap 7 mmol/L (2-11); BUN/Creatinine Ratio 15.2 (8-20); Blood Urea Nitrogen 17 mg/dL (6-24); CO2 Carbon Dioxide 28 mmol/L (22-32); Calcium 9.6 mg/dL (8.6-10.3); Chloride 103 mmol/L (101-111); EGFR Non-African American 68.6 (>60); Globulin 2.6 g/dL (2-4); Glucose 101 mg/dL (70-100); Potassium 3.8 mmol/L (3.5-5.0); Sodium 138 mmol/L (135-145); Total Protein 6.8 g/dL (6.4-8.9)
[2020-03-19 13:25] LABS: Acetaminophen < 15 mcg/mL; Alcohol, S < 10 mg/dL (<10); Salicylate < 2.50 mg/dL (<30)
[2020-03-19 13:40] LABS: TSH (Thyroid Stimulating Horm) 1.09 mcIU/mL (0.34-5.60)
[2020-03-19] MEDS ORDERED: Al Hydrox/Mg Hydrox/Simet LIQ 30 ML UDC PO PRN (13:54)
[2020-03-19 14:23] LABS: Lithium < 0.10 mmol/L (0.6-1.2)
[2020-03-19] MEDS ORDERED: Nicotine GUM 2MG FRUIT FLAVOR PO PRN (14:27)
[2020-03-20] MEDS: Vitamin THERAPEUTIC TAB PO SCH (10:25)
[2020-03-21] MEDS: Vitamin THERAPEUTIC TAB PO SCH (09:18)
[2020-03-21] MEDS ORDERED: PPD test dose* 5 TU/0.1 ML TEST (*USE PPD ORDER SET*) INTRADERM SCH (12:00)
[2020-03-22] MEDS: Vitamin THERAPEUTIC TAB PO SCH (09:35)
[2020-03-23] MEDS: Vitamin THERAPEUTIC TAB PO SCH (09:03)
[2020-03-23] MEDS ORDERED: PPD Reading NOTE 1 EA MISC ONE (11:36)
[2020-03-24] MEDS: Vitamin THERAPEUTIC TAB PO SCH (08:53)
[2020-03-25] MEDS: Vitamin THERAPEUTIC TAB PO SCH (08:58)
[2020-03-26] MEDS: Vitamin THERAPEUTIC TAB PO SCH (08:18)
[2020-03-27] MEDS: Vitamin THERAPEUTIC TAB PO SCH (09:34)
[2020-03-28] MEDS: Vitamin THERAPEUTIC TAB PO SCH (08:41)
[2020-03-29] MEDS: Vitamin THERAPEUTIC TAB PO SCH (08:41)
[2020-03-30] MEDS: Vitamin THERAPEUTIC TAB PO SCH (09:04)
[2020-03-31] MEDS: Vitamin THERAPEUTIC TAB PO SCH (08:52)
[2020-04-01] MEDS: Vitamin THERAPEUTIC TAB PO SCH (08:53)
[2020-04-02] MEDS: Vitamin THERAPEUTIC TAB PO SCH (09:03)
[2020-04-03] MEDS: Vitamin THERAPEUTIC TAB PO SCH (08:58)
[2020-04-04] MEDS: Vitamin THERAPEUTIC TAB PO SCH (08:38)
[2020-04-05] MEDS: Vitamin THERAPEUTIC TAB PO SCH (08:53)
[2020-04-05 10:30] LABS: ABS Eosinophils 0.1 10^3/ul (0-0.6); ABS Lymphocytes 1.3 10^3/ul (1.0-4.8); ABS Monocytes 0.6 10^3/ul (0-0.8); Eosinophil % 1.5 %; Hematocrit 45 % (42-52); Hemoglobin 15.4 g/dL (14.0-18.0); Lymphocyte % 16.5 %; Mean Corpuscular HGB Conc 34 g/dL (31-36); Mean Corpuscular Hemoglobin 30 pg (27-31); Mean Corpuscular Volume 87 fL (80-94); Mean Platelet Volume 7.2 fL (7.4-10.4); Platelet Count 251 10^3/uL (150-450); Red Blood Count 5.17 10^6 /uL (4.18-5.48); Red Cell Distribution Width 15 % (10-15); White Blood Count 7.7 10^3/uL (3.5-10.8)
[2020-04-05] MEDS: Psyllium PAK PO SCH (11:03)
[2020-04-06] MEDS: Vitamin THERAPEUTIC TAB PO SCH (09:13)
[2020-04-06] MEDS: Psyllium PAK PO SCH (09:20)
[2020-04-07] MEDS: Vitamin THERAPEUTIC TAB PO SCH (08:18)
[2020-04-07] MEDS: Psyllium PAK PO SCH (08:19)
[2020-04-08] MEDS: Vitamin THERAPEUTIC TAB PO SCH (08:57)
[2020-04-08] MEDS: Psyllium PAK PO SCH (08:57)
[2020-04-09] MEDS: Psyllium PAK PO SCH (08:18)
[2020-04-09] MEDS: Vitamin THERAPEUTIC TAB PO SCH (08:20)
[2020-04-10] MEDS: Vitamin THERAPEUTIC TAB PO SCH (09:01)
[2020-04-10] MEDS: Psyllium PAK PO SCH (09:02)
[2020-04-11] MEDS: Vitamin THERAPEUTIC TAB PO SCH (08:28)
[2020-04-11] MEDS: Psyllium PAK PO SCH (08:30)
[2020-04-12] MEDS: Vitamin THERAPEUTIC TAB PO SCH (09:19)
[2020-04-12] MEDS: Psyllium PAK PO SCH (12:17)
[2020-04-12] MEDS: Polyethylene Glycol 3350 17 GM PACKET PO PRN (13:42)
[2020-04-13] MEDS: Vitamin THERAPEUTIC TAB PO SCH (08:09)
[2020-04-13] MEDS: Psyllium PAK PO SCH (08:14)
[2020-04-14] MEDS: Vitamin THERAPEUTIC TAB PO SCH (09:08)
[2020-04-14] MEDS: Psyllium PAK PO SCH (12:04)
[2020-04-15] MEDS: Vitamin THERAPEUTIC TAB PO SCH (08:25)
[2020-04-15] MEDS: Psyllium PAK PO SCH (08:26)
[2020-04-16] MEDS: Vitamin THERAPEUTIC TAB PO SCH (08:08)
[2020-04-16] MEDS: Psyllium PAK PO SCH (08:12)
[2020-04-16] MEDS: Polyethylene Glycol 3350 17 GM PACKET PO PRN (10:13)
[2020-04-17] MEDS: Psyllium PAK PO SCH (08:06)
[2020-04-17] MEDS: Vitamin THERAPEUTIC TAB PO SCH (08:06)
[2020-04-17] MEDS: Polyethylene Glycol 3350 17 GM PACKET PO PRN (08:10)
[2020-04-17] MEDS ORDERED: Sodium Phosphate ADULT ENEMA 133 ML BTL ONE (17:08)
[2020-04-17] MEDS ORDERED: Sodium Phosphate ADULT ENEMA 133 ML BTL PR ONE (18:00)
[2020-04-18] MEDS: Psyllium PAK PO SCH (08:27)
[2020-04-18] MEDS: Vitamin THERAPEUTIC TAB PO SCH (08:29)
[2020-04-19] MEDS: Vitamin THERAPEUTIC TAB PO SCH (08:11)
[2020-04-19] MEDS: Psyllium PAK PO SCH (08:13)
[2020-04-20] MEDS: Vitamin THERAPEUTIC TAB PO SCH (08:19)
[2020-04-20] MEDS: Psyllium PAK PO SCH (08:24)
[2020-04-21] MEDS: Vitamin THERAPEUTIC TAB PO SCH (08:16)
[2020-04-21] MEDS: Psyllium PAK PO SCH (08:16)
[2020-04-21] MEDS: Benzocaine (DENTAL) 10% TOP.GEL TOPICAL PRN (13:03)
[2020-04-21] MEDS: Amoxicillin 500 mg CAP (*) PO SCH ×2 (13:45→20:08)
[2020-04-22] MEDS: Vitamin THERAPEUTIC TAB PO SCH (08:14)
[2020-04-22] MEDS: Amoxicillin 500 mg CAP (*) PO SCH ×2 (08:16→20:10)
[2020-04-22] MEDS: Psyllium PAK PO SCH (08:16)
[2020-04-22] MEDS: Benzocaine (DENTAL) 10% TOP.GEL TOPICAL PRN (16:27)
[2020-04-23] MEDS: Benzocaine (DENTAL) 10% TOP.GEL TOPICAL PRN ×2 (08:05→12:18)
[2020-04-23] MEDS: Psyllium PAK PO SCH (08:16)
[2020-04-23] MEDS: Amoxicillin 500 mg CAP (*) PO SCH ×2 (08:17→20:06)
[2020-04-23] MEDS: Vitamin THERAPEUTIC TAB PO SCH (08:18)
[2020-04-23] MEDS: MAGIC M W2 BEN SWISH SPIT SCH ×4 (10:47→20:10)
[2020-04-23] MEDS: LIDO MOUTHWASH SWISH SPIT SCH ×4 (10:47→20:10)
[2020-04-23] MEDS: NYST SWISH SPIT SCH ×4 (10:47→20:10)
[2020-04-23] MEDS: MAAL SWISH SPIT SCH ×4 (10:47→20:10)
[2020-04-24] MEDS: Psyllium PAK PO SCH (08:09)
[2020-04-24] MEDS: Vitamin THERAPEUTIC TAB PO SCH (08:09)
[2020-04-24] MEDS: Amoxicillin 500 mg CAP (*) PO SCH ×2 (08:10→20:07)
[2020-04-24] MEDS: MAGIC M W2 BEN SWISH SPIT SCH ×4 (08:11→20:57)
[2020-04-24] MEDS: NYST SWISH SPIT SCH ×4 (08:11→20:57)
[2020-04-24] MEDS: MAAL SWISH SPIT SCH ×4 (08:11→20:57)
[2020-04-24] MEDS: LIDO MOUTHWASH SWISH SPIT SCH ×4 (08:11→20:57)
[2020-04-25] MEDS: Vitamin THERAPEUTIC TAB PO SCH (08:22)
[2020-04-25] MEDS: Psyllium PAK PO SCH (08:24)
[2020-04-25] MEDS: Amoxicillin 500 mg CAP (*) PO SCH (08:25)
[2020-04-25] MEDS: MAAL SWISH SPIT SCH ×4 (08:27→20:17)
[2020-04-25] MEDS: MAGIC M W2 BEN SWISH SPIT SCH ×4 (08:27→20:17)
[2020-04-25] MEDS: NYST SWISH SPIT SCH ×4 (08:27→20:17)
[2020-04-25] MEDS: LIDO MOUTHWASH SWISH SPIT SCH ×4 (08:27→20:17)
[2020-04-25] MEDS: AMOXICILLIN 250 MG PO SCH (20:12)
[2020-04-26] MEDS: AMOXICILLIN 250 MG PO SCH (07:20)
[2020-04-26] MEDS: Vitamin THERAPEUTIC TAB PO SCH (07:21)
[2020-04-26] MEDS: Psyllium PAK PO SCH (07:25)
[2020-04-26] MEDS: MAAL SWISH SPIT SCH (07:29)
[2020-04-26] MEDS: LIDO MOUTHWASH SWISH SPIT SCH (07:29)
[2020-04-26] MEDS: NYST SWISH SPIT SCH (07:29)
[2020-04-26] MEDS: MAGIC M W2 BEN SWISH SPIT SCH (07:29)
[2020-04-26 07:44] VITALS: BP 140/93
== END 2020-04-26 08:04 | DRG 885 ==
LOC: ED 11:14 → BSU 13:54 → ED 14:31 → BSU 04-11 13:27
PROVIDERS: ADMIT Psychiatry & Neurology Psychiatry; ATTEND Psychiatry & Neurology Psychiatry

== ENCOUNTER 2021-04-13 08:56 | Inpatient (IN) ==
[2021-04-13 09:23] LABS: ABS Monocytes 0.4 10^3/ul (0-0.8); ABS Neutrophils 5.3 10^3/ul (1.5-7.7); Eosinophil % 0.6 %; Hematocrit 43 % (42-52); Hemoglobin 14.8 g/dL (14.0-18.0); Lymphocyte % 15.1 %; Mean Corpuscular HGB Conc 34 g/dL (31-36); Mean Corpuscular Hemoglobin 31 pg (27-31); Mean Corpuscular Volume 91 fL (80-94); Mean Platelet Volume 8.2 fL (7.4-10.4); Platelet Count 220 10^3/uL (150-450); Red Blood Count 4.74 10^6 /uL (4.18-5.48); Red Cell Distribution Width 14 % (10-15); White Blood Count 6.7 10^3/uL (3.5-10.8)
[2021-04-13 09:39] LABS: ALT 25 U/L (7-52); AST 24 U/L (13-39); Albumin 4.3 g/dL (3.2-5.2); Albumin/Globulin Ratio 1.7 (1-3); Alkaline Phosphatase 71 U/L (35-149); Anion Gap 7 mmol/L (2-11); Blood Urea Nitrogen 21 mg/dL (6-24); CO2 Carbon Dioxide 24 mmol/L (22-32); Calcium 9.5 mg/dL (8.6-10.3); Chloride 105 mmol/L (101-111); EGFR African American 92.1 (>60); EGFR Non-African American 76.1 (>60); Globulin 2.5 g/dL (2-4); Glucose 110 mg/dL (70-100); Potassium 3.9 mmol/L (3.5-5.0); Sodium 136 mmol/L (135-145); Total Protein 6.8 g/dL (6.4-8.9)
[2021-04-13 10:14] LABS: Acetaminophen < 15 mcg/mL; Alcohol, S < 10 mg/dL (<10); Lithium < 0.10 mmol/L (0.6-1.2); Salicylate < 2.50 mg/dL (<30)
[2021-04-13 10:29] LABS: TSH Ultra Thyroid Stim Horm 1.83 mcIU/mL (0.34-5.60)
[2021-04-13 11:19] LABS: Urine Appearance Clear; Urine Bilirubin Negative (Negative); Urine Blood Negative (Negative); Urine Color Yellow; Urine Glucose Negative (Negative); Urine Ketones Negative (Negative); Urine Nitrite Negative (Negative); Urine Protein Negative (Negative); Urine Specific Gravity 1.008 (1.002-1.030); Urine Urobilinogen Negative (Negative)
[2021-04-13 11:32] LABS: Urine Benzodiazepine Screen None Detected (None Detect); Urine Cannabinoids Screen None Detected (None Detect); Urine Opiates Screen None Detected (None Detect)
[2021-04-13] MEDS ORDERED: Al Hydrox/Mg Hydrox/Simet LIQ 30 ML UDC PO PRN (16:41)
[2021-04-14] MEDS: Vitamin THERAPEUTIC TAB PO SCH (09:11)
[2021-04-14] MEDS: Lithium Carbonate ER 450mg TAB PO SCH (20:04)
[2021-04-15] MEDS: Lithium Carbonate ER 450mg TAB PO SCH ×2 (08:54→19:59)
[2021-04-15] MEDS: Vitamin THERAPEUTIC TAB PO SCH (08:56)
[2021-04-16] MEDS: Lithium Carbonate ER 450mg TAB PO SCH ×2 (08:34→20:04)
[2021-04-16] MEDS: Vitamin THERAPEUTIC TAB PO SCH (08:34)
[2021-04-17] MEDS: Vitamin THERAPEUTIC TAB PO SCH (08:12)
[2021-04-17] MEDS: Lithium Carbonate ER 450mg TAB PO SCH ×2 (08:12→19:59)
[2021-04-18] MEDS: Lithium Carbonate ER 450mg TAB PO SCH ×2 (08:26→20:06)
[2021-04-18] MEDS: Vitamin THERAPEUTIC TAB PO SCH (08:26)
[2021-04-18] MEDS ORDERED: Polyethylene Glycol 3350 17 GM PACKET PO PRN (11:41)
[2021-04-19] MEDS: Lithium Carbonate ER 450mg TAB PO SCH ×2 (08:33→20:03)
[2021-04-19] MEDS: Vitamin THERAPEUTIC TAB PO SCH (08:33)
[2021-04-20] MEDS: Lithium Carbonate ER 450mg TAB PO SCH ×2 (09:39→20:00)
[2021-04-20] MEDS: Vitamin THERAPEUTIC TAB PO SCH (09:39)
[2021-04-21] MEDS: Vitamin THERAPEUTIC TAB PO SCH (08:48)
[2021-04-21] MEDS: Lithium Carbonate ER 450mg TAB PO SCH ×2 (08:49→20:02)
[2021-04-22] MEDS: Lithium Carbonate ER 450mg TAB PO SCH (08:54)
[2021-04-22] MEDS: Vitamin THERAPEUTIC TAB PO SCH (08:54)
[2021-04-22 09:04] VITALS: BP 128/91
== END 2021-04-22 12:25 | disposition home or self-care (01) | DRG 885 ==
LOC: ED 08:56 → BSU 14:18
PROVIDERS: ADMIT Psychiatry & Neurology Psychiatry; ATTEND Psychiatry & Neurology Psychiatry

== ENCOUNTER 2021-06-26 11:50 | Inpatient (IN) ==
[2021-06-26] MEDS ORDERED: Al Hydrox/Mg Hydrox/Simet LIQ 30 ML UDC PO PRN (12:34)
[2021-06-26 12:47] LABS: ABS Eosinophils 0.1 10^3/ul (0-0.6); ABS Lymphocytes 1.3 10^3/ul (1.0-4.8); ABS Monocytes 0.5 10^3/ul (0-0.8); ABS Neutrophils 4.2 10^3/ul (1.5-7.7); Eosinophil % 1.7 %; Hematocrit 49 % (42-52); Hemoglobin 16.7 g/dL (14.0-18.0); Lymphocyte % 20.7 %; Mean Corpuscular HGB Conc 34 g/dL (31-36); Mean Corpuscular Hemoglobin 30 pg (27-31); Mean Corpuscular Volume 88 fL (80-94); Mean Platelet Volume 8.9 fL (7.4-10.4); Nucleated Red Blood Cells % 0.1; Platelet Count 215 10^3/uL (150-450); Red Blood Count 5.58 10^6 /uL (4.18-5.48); Red Cell Distribution Width 15 % (10-15); White Blood Count 6.1 10^3/uL (3.5-10.8)
[2021-06-26 13:04] LABS: ALT 21 U/L (7-52); AST 27 U/L (13-39); Albumin 4.8 g/dL (3.2-5.2); Albumin/Globulin Ratio 1.8 (1-3); Alkaline Phosphatase 51 U/L (35-149); Anion Gap 9 mmol/L (2-11); Blood Urea Nitrogen 16 mg/dL (6-24); CO2 Carbon Dioxide 25 mmol/L (22-32); Calcium 10.1 mg/dL (8.6-10.3); Chloride 103 mmol/L (101-111); EGFR African American 62.9 (>60); Globulin 2.6 g/dL (2-4); Glucose 119 mg/dL (70-100); Sodium 137 mmol/L (135-145); Total Protein 7.4 g/dL (6.4-8.9)
[2021-06-26 13:40] LABS: Acetaminophen < 15 mcg/mL; Alcohol, S < 13 mg/dL (<10); Salicylate < 2.50 mg/dL (<30)
[2021-06-26 14:12] LABS: Urine Appearance Clear; Urine Bilirubin Negative (Negative); Urine Blood Negative (Negative); Urine Color Yellow; Urine Glucose Negative (Negative); Urine Ketones Negative (Negative); Urine Nitrite Negative (Negative); Urine Protein Negative (Negative); Urine Specific Gravity 1.014 (1.002-1.030); Urine Urobilinogen Negative (Negative)
[2021-06-26 16:09] LABS: Urine Benzodiazepine Screen None Detected (None Detect); Urine Cannabinoids Screen None Detected (None Detect); Urine Opiates Screen None Detected (None Detect)
[2021-06-27 08:09] LABS: HDL Cholesterol 24.9 mg/dL
[2021-06-30] MEDS: Benzocaine (DENTAL) 10% TOP.GEL TOPICAL PRN (20:05)
[2021-07-01] MEDS: Benzocaine (DENTAL) 10% TOP.GEL TOPICAL PRN (20:17)
[2021-07-09] MEDS ORDERED: COVID-19 VACCINE, MRNA(PFIZER)/PF 30 MCG/0.3 ML IM ONE (14:30)
[2021-07-09] MEDS ORDERED: COVID-19 VACCINE, MRNA(MODERNA)/PF 100 MCG/0.5 ML IM ONE (14:30)
[2021-07-10 23:43] VITALS: BP 132/82
== END 2021-07-11 09:25 | disposition home or self-care (01) | DRG 885 ==
LOC: ED 11:50 → BSU 12:34 → ED 17:48 → BSU 07-04 06:42
PROVIDERS: ADMIT Psychiatry & Neurology Psychiatry; ATTEND Psychiatry & Neurology Psychiatry